=== PATIENT | female | born 1990 | race Hispanic/Latino ===

== ENCOUNTER 2017-07-12 23:57 | Emergency (ER) | payer OTHER ==
[2017-07-13] MEDS ORDERED: HALOPERIDOL LACT 5 MG/ML INJ ONE (01:10)
[2017-07-13 01:14] LABS: Absolute Lymphocytes (CBC) 1.8 K/uL (0.7-4.9); Absolute Monocytes 0.7 K/uL (0.1-1.3); Absolute Neutrophil 6.5 K/uL (1.8-8.0); Basophils % 0.6 % (0-1.3); Eosinophils % 5.4 % (0-4.4); Hematocrit 38.5 % (36.0-45.0); Lymphocytes % 18.4 % (15.3-44.8); MCH 27.4 pg (27.0-35.0); MCV 83.6 fL (80-100); MPV 8.2 fL (7.6-11.3); Monocytes % 7.3 % (3.3-12.3); RBC Red Blood Cell Count 4.61 M/uL (3.86-4.86)
[2017-07-13 01:19] LABS: Bicarbonate 20 mEq/L (21-31); Glucose Level 110 mg/dL (65-120); Lipase 129 U/L (22-51); Potassium 3.6 mEq/L (3.6-5.0); Sodium Level 135 mEq/L (135-145)
[2017-07-13 01:25] LABS: ALT/SGPT 44 IU/L (10-60); AST/SGOT 41 IU/L (10-42); Albumin 3.9 g/dL (3.2-5.5); BUN Blood Urea Nitrogen 11 mg/dL (6-20); Bilirubin Direct 0.1 mg/dL (0-0.2); Bilirubin Total < 0.2 mg/dL (0.3-1.2); Glomerular Filtration Rate > 90 mL/min (=/>90); Protein, Total 7.8 g/dL (6.0-8.3)
[2017-07-13] MEDS ORDERED: NA CHLORIDE 0.9% 1,000 ML ONE (01:51)
[2017-07-13 02:17] LABS: Alkaline Phosphatase 83 IU/L (42-121)
--- NOTE | 2017-07-13 02:50 | EDPHYS ---
Physician Documentation [facility] Name: Kylie Appiah Age: 26 yrs Sex: Female : 1990 Arrival Date: 07/12/2017 Time: 23:59 Bed 27 Private MD: ED Physician Cheikh Olson HPI: 07/13 02:47 This 26 yrs old Female presents to ER via Ambulatory with complaints of gs Abdominal Pain. 02:47 The patient presents with abdominal pain that is diffuse. Onset: The symptoms/episode gs began/occurred 2 week(s) ago. The symptoms do not radiate. Associated signs and symptoms: Pertinent positives: blood in stools, Pertinent negatives: nausea and vomiting, fever. The symptoms are described as crampy. Modifying factors: The symptoms are alleviated by nothing, the symptoms are aggravated by nothing. Severity of pain: At its worst the pain was moderate in the emergency department the pain is unchanged. The patient has experienced similar episodes in the past, chronically. The patient has been recently seen by a physician: with similar presenting complaints, dr charito garcia . 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 - Social history:: Smoking status: Patient/guardian denies using tobacco. ROS: 02:47 All other systems are negative. gs Exam: 02:47 Head/Face: Normocephalic, atraumatic. Eyes: Pupils equal round and reactive to light, gs extra-ocular motions intact. Lids and lashes normal. Conjunctiva and sclera are non-icteric and not injected. Cornea within normal limits. Periorbital areas with no swelling, redness, or edema. ENT: Nares patent. No nasal discharge, no septal abnormalities noted. Tympanic membranes are normal and external auditory canals are clear. Oropharynx with no redness, swelling, or masses, exudates, or evidence of obstruction, uvula midline. Mucous membranes moist. Neck: Trachea midline, no thyromegaly or masses palpated, and no cervical lymphadenopathy. Supple, full range of motion without nuchal rigidity, or vertebral point tenderness. No Meningismus. Chest/axilla: Normal chest wall appearance and motion. Nontender with no deformity. No lesions are appreciated. Cardiovascular: Regular rate and rhythm with a normal S1 and S2. No gallops, murmurs, or rubs. Normal PMI, no JVD. No pulse deficits. Respiratory: Lungs have equal breath sounds bilaterally, clear to auscultation and percussion. No rales, rhonchi or wheezes noted. No increased work of breathing, no retractions or nasal flaring. Back: No spinal tenderness. No costovertebral tenderness. Full range of motion. Skin: Warm, dry with normal turgor. Normal color with no rashes, no lesions, and no evidence of cellulitis. MS/ Extremity: Pulses equal, no cyanosis. Neurovascular intact. Full, normal range of motion. Neuro: Awake and alert, GCS 15, oriented to person, place, time, and situation. Cranial nerves II-XII grossly intact. Motor strength 5/5 in all extremities. Sensory grossly intact. Cerebellar exam normal. Normal gait. 02:47 Constitutional: The patient appears alert, awake. 02:47 Abdomen/GI: Inspection: abdomen appears normal, Palpation: mild abdominal tenderness, in all quadrants, rebound tenderness, is not appreciated. Vital Signs: 00:14 BP 111 / 72; Pulse 80; Resp 16; Temp 98.2; Pulse Ox 100% on R/A; Weight 73.03 kg (R); ak1 Height 5 ft. (152.40 cm) (R); Pain 9/10; 01:38 BP 102 / 70; Pulse 84; Resp 18; Pulse Ox 100% ; kb1 02:30 BP 96 / 63; Pulse 87; Resp 18; Pulse Ox 98% ; kb1 00:14 Body Mass Index 31.44 (73.03 kg, 152.40 cm) ak1 MDM: 00:32 Patient medically screened. 02:47 Differential diagnosis: GI Bleed, Irritable bowel syndrome, pancreatitis. Data reviewed: vital signs, nurses notes. Response to treatment: the patient's symptoms have markedly improved after treatment, and as a result, I will discharge patient. 02:50 ED course: ab exam non surgical at discharge. 07/13 00:35 Order name: Basic Metabolic Panel 07/13 00:35 Order name: CBC with Diff 07/13 00:35 Order name: Hepatic Function 07/13 00:35 Order name: Lipase 07/13 01:18 Order name: CBC with Automated Diff; Complete Time: 01:28 EDKS 07/13 01:20 Order name: Basic Metabolic Panel [facility] 07/13 00:35 Order name: IV Saline Lock; Complete Time: 00:58 07/13 00:35 Order name: Labs collected and sent; Complete Time: 00:58 07/13 01:20 Order name: Lipase [facility] 07/13 01:23 Order name: Urine Dipstick--Ancillary (enter results) [facility] 07/13 01:23 Order name: Urine --Ancillary (enter results) [facility] 07/13 01:26 Order name: Liver (Hepatic) Function [facility] 07/13 00:35 Order name: Urine Dipstick-Ancillary (obtain specimen); Complete Time: 00:58 Administered Medications: 00:58 Drug: HALdol 2 mg Route: IVP; Site: right antecubital; kb1 01:36 Follow up: Response: Pain is unchanged, physician notified kb1 01:35 Drug: NS 0.9% 1000 ml Route: IV; Rate: 1 bolus; Site: right antecubital; kb1 02:31 Follow up: IV Status: Completed infusion kb1 Disposition: 07/13/17 02:50 Discharged to Home. Impression: Ulcerative (chronic) pancolitis. - Condition is Stable. - Discharge Instructions: Ulcerative Colitis. - Medication Reconciliation Form, Thank You Letter, Antibiotic Education, Prescription Opioid Use form. - Follow up: Enrico Cosme MD; When: 2 - 3 days; Reason: Re-evaluation by your physician. Signatures: Dispatcher [facility] Hailey Barraza RN RN ak1 Cheikh Olson MD MD Destiny Francois, RN RN kb1
--- NOTE | 2017-07-13 02:50 | ER ---
Nurse's Notes [facility] Name: Kylie Appiah Age: 26 yrs Sex: Female : 1990 Arrival Date: 07/12/2017 Time: 23:59 Bed 27 Private MD: Diagnosis: Ulcerative (chronic) pancolitis Presentation: 07/13 00:15 Presenting complaint: Patient states: she was seen on 06/28/17 for blood in stools and ak1 left prior to admission. pt stated she is back due to blood in stools, colitis and abd pain for admission. Transition of care: patient was not received from another setting of care. Onset of symptoms is unknown. Care prior to arrival: None. 00:15 Method Of Arrival: Ambulatory ak1 00:15 Acuity: YESSICA 3 ak1 Triage Assessment: 00:15 General: Appears in no apparent distress. Behavior is calm, cooperative. ak1 00:15 Pain: Complains of pain in abdomen. 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 - Social history:: Smoking status: Patient/guardian denies using tobacco. Screenin:17 Abuse screen: Denies threats or abuse. Denies injuries from another. Nutritional ak1 screening: No deficits noted. Tuberculosis screening: No symptoms or risk factors identified. Fall Risk None identified. Assessment: 00:42 General: Appears uncomfortable, Behavior is calm, cooperative. Pain: Complains of pain kb1 in abdomen. Neuro: Level of Consciousness is awake, alert, obeys commands, Oriented to person, place, time, situation. Cardiovascular: Patient's skin is warm and dry. Respiratory: Respiratory effort is even, unlabored, Respiratory pattern is regular, symmetrical. GI: Bowel sounds present X 4 quads. Abd is soft Abdomen is tender to palpation in abdomen diffusely Reports bloody stool, bright red blood that fills the toilet. : No signs and/or symptoms were reported regarding the genitourinary system. 01:36 Reassessment: Patient and/or family updated on plan of care and expected duration. Pain kb1 level reassessed. Patient is alert, oriented x 3, equal unlabored respirations, skin warm/dry/pink. Pt resting with eyes closed upon nurses entrance into room, still complains of pain. 02:29 Reassessment: Patient appears in no apparent distress at this time. Pt sleeping. kb1 Vital Signs: 00:14 BP 111 / 72; Pulse 80; Resp 16; Temp 98.2; Pulse Ox 100% on R/A; Weight 73.03 kg (R); ak1 Height 5 ft. (152.40 cm) (R); Pain 9/10; 01:38 BP 102 / 70; Pulse 84; Resp 18; Pulse Ox 100% ; kb1 02:30 BP 96 / 63; Pulse 87; Resp 18; Pulse Ox 98% ; kb1 00:14 Body Mass Index 31.44 (73.03 kg, 152.40 cm) ak1 ED Course: 07/12 23:59 Patient arrived in ED. al2 18 00:15 Syeda Curran, RN is Primary Nurse. bb 00:15 Arm band placed on Patient placed in an exam room, on a stretcher, on pulse oximetry, ak1 Patient notified of wait time. 00:17 Triage completed. ak1 00:17 Patient has correct armband on for positive identification. Bed in low position. Call ak1 light in reach. Side rails up X 1. Adult w/ patient. Pulse ox on. NIBP on. 00:19 Cheikh Olson MD is Attending Physician. gs 00:27 Destiny Francois, RN is Primary Nurse. kb1 00:42 No provider procedures requiring assistance completed. Inserted saline lock: 20 gauge kb1 in right antecubital area, using aseptic technique. Blood collected. 02:49 Enrico Cosme MD is Referral Physician. gs 02:59 IV discontinued, intact, bleeding controlled, No redness/swelling at site. Pressure kb1 dressing applied. Administered Medications: 00:58 Drug: HALdol 2 mg Route: IVP; Site: right antecubital; kb1 01:36 Follow up: Response: Pain is unchanged, physician notified kb1 01:35 Drug: NS 0.9% 1000 ml Route: IV; Rate: 1 bolus; Site: right antecubital; kb1 02:31 Follow up: IV Status: Completed infusion kb1 Outcome: 02:50 Discharge ordered by . 02:59 Discharged to home ambulatory, with family. kb1 02:59 Condition: good 02:59 Discharge instructions given to patient, Instructed on discharge instructions, follow up and referral plans. Demonstrated understanding of instructions, follow-up care. 03:00 Patient left the ED. kb1 Signatures: Syeda Curran RN RN bb Hailey Barraza RN RN ak1 Cheikh Olson MD MD gs Love, [place] alDestiny Orourke RN RN kb1 Corrections: (The following items were deleted from the chart) 00:57 00:42 GI: Bowel sounds present X 4 quads. Abd is soft Abdomen is tender to palpation in kb1 abdomen diffusely kb1
[2017-07-13 03:10] VITALS: TEMP 98.2
[2017-07-13 03:11] VITALS: BP 96/63; O2SAT 98
[2017-07-13 03:59] LABS: Urine Blood NEGATIVE (NEG); Urine Glucose NEGATIVE (NEG); Urine Protein TRACE (NEG); Urine Specific Gravity >1.030 (1.005-1.030); Urine pH 5.5 (5.0-7.0)
== END 2017-07-13 03:00 | disposition home or self-care (01) ==
LOC: ER 23:57
DX: K51.00 Ulcerative (chronic) pancolitis without complications (principal); Z88.0 Allergy status to penicillin; Z88.2 Allergy status to sulfonamides; Z88.3 Allergy status to other anti-infective agents; Z88.5 Allergy status to narcotic agent; Z88.6 Allergy status to analgesic agent
CPT/HCPCS: 36415; 80048; 80076; 81003; 81025; 83690; 85025; 96361; 96374; 99284; J1630; J7030

== ENCOUNTER 2017-07-16 09:34 | Day surgery (SDC) | payer OTHER ==
[2017-07-16 09:51] LABS: Specific Gravity > 1.030 (1.005-1.030)
[2017-07-16] MEDS ORDERED: Ringers Lactate 1,000 ML IV ONE (10:10)
[2017-07-16] MEDS ORDERED: PROPOFOL 200 MG/20 ML VIAL IV ONE (11:29)
[2017-07-16] MEDS ORDERED: LIDOCAINE 1% MPF 5 ML VIAL ONE (11:29)
[2017-07-16 12:42] VITALS: TEMP 96.5; O2SAT 100
[2017-07-16 12:44] VITALS: BP 97/65
--- NOTE | 2017-07-22 08:37 | ENDO RPT ---
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 ESTIMATED BLOOD LOSS: Minimal CONSENT: The patient understands the risks and benefits of the procedure and understands that these risks include, but are not limited to: sedation, allergic reaction, infection, perforation and/or bleeding. Alternative means of evaluation and treatment include, among others: physical exam, x-rays, and/or surgical intervention. The patient elects to proceed with this endoscopic procedure. DESCRIPTION OF PROCEDURE: During intra-op preparation period all mechanical medical equipment was checked for proper function. Hand hygiene and appropriate measures for infection prevention was taken. Procedure, possible complications, alternatives including, but not limited to possibility of bleeding, perforation, tear, infection, sepsis, need for surgery, need for blood transfusion, were explained to the patient. After the risks, benefits and alternatives of the procedure were thoroughly explained, Informed consent was verified, confirmed and timeout was successfully executed by the treatment team. The patient was placed in the left lateral position. A digital rectal exam was performed and revealed no abnormalities of the rectum. After appropriate level of anesthesia, the scope was passed. The EC-[id number] ([id number]) endoscope was introduced through the anus and advanced to the terminal ileum which was intubated for a short distance. The quality of the prep was fair. The instrument was then slowly withdrawn as the colon was fully examined. Scope withdrawal time was 10 minutes. COLON FINDINGS: Abnormal mucosa was found throughout the entire examined colon. The mucosa was congested, edematous, erythematous, nodular, friable and had granularity, loss of vascularity and pseudopolyps. Multiple biopsies were performed using cold forceps with 4 mm polyp in the ascending and 8 mm polyp in the descending colon biopsied. Internal hemorrhoids were found. Retroflexed views revealed medium hemorrhoids. The scope was then completely withdrawn from the patient and the procedure terminated. ADVERSE EVENTS: There were no complications. IMPRESSIONS: 1. Abnormal mucosa throughout the entire examined colon (left > right); The mucosa was congested, edematous, erythematous, nodular, friable and had granularity, loss of vascularity and numerous inflammatory 2-9 mm pseudopolyps (no polyps in the rectosigmoid colon); multiple biopsies were performed using cold forceps with 4 mm polyp in the ascending and 8 mm polyp in the descending colon biopsied 2. Internal hemorrhoids 3. Intubation to terminal ileum RECOMMENDATIONS: 1. await biopsy results 2. avoid NSAIDS RECALL: Return in 1 year(s) for Colonoscopy. Enrico Cosme Dr eSigned: Enrico Cosme Dr 07/16/2017 12:13 PM cc: Rimma Vicente CPT CODES: ICD9 CODES: 569.89 Other specified disorders of intestines PATIENT NAME: Kylie Appiah MR#: [id number]
== END 2017-07-16 12:35 | disposition home or self-care (01) ==
LOC: OR 09:34
PROVIDERS: ATTEND Internal Medicine Gastroenterology
DX: Z88.2 Allergy status to sulfonamides; Z88.8 Allergy status to other drugs, medicaments and biological substances; K63.5 Polyp of colon; G47.00 Insomnia, unspecified; D64.9 Anemia, unspecified; Z87.11 Personal history of peptic ulcer disease; Z88.0 Allergy status to penicillin; Z88.3 Allergy status to other anti-infective agents; R63.4 Abnormal weight loss; K51.90 Ulcerative colitis, unspecified, without complications
CPT/HCPCS: 81025; 88305

== ENCOUNTER 2017-09-23 19:45 | Inpatient (IN) | payer OTHER, SELFPAY ==
[2017-09-23 22:16] LABS: Urine Blood NEGATIVE (NEG); Urine Glucose NEGATIVE (NEG); Urine Protein 1+ (NEG)
[2017-09-23 22:37] LABS: Absolute Lymphocytes (CBC) 1.8 K/uL (0.7-4.9); Absolute Neutrophil 7.8 K/uL (1.8-8.0); Basophils % 0.4 % (0-1.3); Eosinophils % 4.3 % (0-4.4); Hematocrit 41.6 % (36.0-45.0); Lymphocytes % 16.3 % (15.3-44.8); MCH 27.7 pg (27.0-35.0); MCV 83.6 fL (80-100); MPV 8.5 fL (7.6-11.3); Monocytes % 8.9 % (3.3-12.3); RBC Red Blood Cell Count 4.97 M/uL (3.86-4.86)
[2017-09-23] MEDS ORDERED: NA CHLORIDE 0.9% 2,000 ML ONE (22:49)
[2017-09-23] MEDS ORDERED: PROMETHAZINE 25 MG/ML VIAL ONE (22:53)
[2017-09-23 23:35] LABS: Bicarbonate 24 mEq/L (21-31); Glucose Level 102 mg/dL (65-120); Lipase 29 U/L (22-51); Potassium 3.5 mEq/L (3.6-5.0); Sodium Level 134 mEq/L (135-145)
[2017-09-23 23:42] LABS: ALT/SGPT 41 IU/L (10-60); AST/SGOT 29 IU/L (10-42); Albumin 3.5 g/dL (3.2-5.5); Alkaline Phosphatase 75 IU/L (42-121); BUN Blood Urea Nitrogen 8 mg/dL (6-20); Bilirubin Direct 0.1 mg/dL (0-0.2); Bilirubin Total 0.3 mg/dL (0.3-1.2); Protein, Total 7.4 g/dL (6.0-8.3)
[2017-09-24] MEDS ORDERED: METHYLPREDNISOLONE 125 MG INJ ONE (01:02)
[2017-09-24] MEDS ORDERED: CEFOXITIN SODIUM 2 GM/VIAL ONE (01:10)
[2017-09-24] MEDS ORDERED: NA CHLORIDE 0.9% 50 ML IV ONE (01:11)
--- NOTE | 2017-09-24 01:34 | EDPHYS ---
Physician Documentation [facility] Name: Kylie Appiah Age: 27 yrs Sex: Female : 1990 Arrival Date: 09/23/2017 Time: 19:48 Bed 7 Private MD: ED Physician Alvaro Doyle HPI: 09/23 22:02 This 27 yrs old Female presents to ER via Ambulatory with complaints of COLON jr8 PROBLEMS. 22:02 The patient presents with abdominal pain in the lower abdomen. Onset: The jr8 symptoms/episode began/occurred gradually. The symptoms do not radiate. Associated signs and symptoms: Pertinent positives: nausea, vomiting, and diarrhea, fever. The symptoms are described as crampy, sharp. Modifying factors: The symptoms are alleviated by nothing, the symptoms are aggravated by food. Severity of pain: At its worst the pain was moderate in the emergency department the pain is unchanged. The patient has not recently seen a physician. Patient with history of UC. Stated that her last transfusion was back in July. Has had no insurance and no treatment since then. While being treated was doing very well. Now since off treatment has had increased lower abdominal pain, cramping, n/v. Bloody diarrhea. 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 - Social history:: Smoking status: Patient/guardian denies using tobacco. - Ebola Screening: : No symptoms or risks identified at this time. ROS: 22:02 Eyes: Negative for injury, pain, redness, and discharge, ENT: Negative for injury, jr8 pain, and discharge, Neck: Negative for injury, pain, and swelling, Cardiovascular: Negative for chest pain, palpitations, and edema, Respiratory: Negative for shortness of breath, cough, wheezing, and pleuritic chest pain, Back: Negative for injury and pain, MS/Extremity: Negative for injury and deformity, Skin: Negative for injury, rash, and discoloration, Neuro: Negative for headache, weakness, numbness, tingling, and seizure. 22:02 Abdomen/GI: Positive for abdominal pain, nausea, vomiting, and diarrhea, abdominal cramps, rectal bleeding, Negative for hematemesis, black/tarry stool. Exam: 22:02 Eyes: Pupils equal round and reactive to light, extra-ocular motions intact. Lids and jr8 lashes normal. Conjunctiva and sclera are non-icteric and not injected. Cornea within normal limits. Periorbital areas with no swelling, redness, or edema. ENT: Nares patent. No nasal discharge, no septal abnormalities noted. Tympanic membranes are normal and external auditory canals are clear. Oropharynx with no redness, swelling, or masses, exudates, or evidence of obstruction, uvula midline. Mucous membranes moist. Neck: Trachea midline, no thyromegaly or masses palpated, and no cervical lymphadenopathy. Supple, full range of motion without nuchal rigidity, or vertebral point tenderness. No Meningismus. Cardiovascular: Regular rate and rhythm with a normal S1 and S2. No gallops, murmurs, or rubs. Normal PMI, no JVD. No pulse deficits. Respiratory: Lungs have equal breath sounds bilaterally, clear to auscultation and percussion. No rales, rhonchi or wheezes noted. No increased work of breathing, no retractions or nasal flaring. Back: No spinal tenderness. No costovertebral tenderness. Full range of motion. Skin: Warm, dry with normal turgor. Normal color with no rashes, no lesions, and no evidence of cellulitis. MS/ Extremity: Pulses equal, no cyanosis. Neurovascular intact. Full, normal range of motion. Neuro: Awake and alert, GCS 15, oriented to person, place, time, and situation. Cranial nerves II-XII grossly intact. Motor strength 5/5 in all extremities. Sensory grossly intact. Cerebellar exam normal. Normal gait. 22:02 Abdomen/GI: Inspection: abdomen appears normal, Bowel sounds: diminished, in all quadrants, Palpation: soft, in all quadrants, mild abdominal tenderness, in the right upper quadrant and left upper quadrant, moderate abdominal tenderness, in the suprapubic area, right lower quadrant and left lower quadrant, voluntary guarding, is not appreciated, involuntary guarding, is not appreciated, no appreciated organomegaly, Indicators: McBurney's point is not tender, Pettit's sign is negative, Rovsing's sign is negative, Liver: no appreciated palpable abnormalities, tenderness, is not appreciated. Vital Signs: 20:11 BP 112 / 68; Pulse 107; Resp 18; Temp 100.4(O); Pulse Ox 100% on R/A; Weight 77.11 kg; lp1 Height 5 ft. 0 in. (152.40 cm); Pain 9/10; 21:38 BP 115 / 79; Pulse 102; Resp 20; Temp 99.6(O); Pulse Ox 99% on R/A; ak1 23:00 BP 111 / 77; Pulse 100; Resp 22; Temp 99.6; Pulse Ox 99% on R/A; ak1 23:58 BP 114 / 74; Pulse 87; Resp 20; Temp 99.1; Pulse Ox 99% on R/A; ak1 09/24 01:04 BP 102 / 71; Pulse 91; Resp 18; Temp 98.6; Pulse Ox 99% on R/A; tl2 01:54 BP 97 / 64; Pulse 88; Resp 18; Temp 98.7; Pulse Ox 99% on R/A; Pain 4/10; ak1 09/23 20:11 Body Mass Index 33.20 (77.11 kg, 152.40 cm) lp1 MDM: 09/23 21:40 Patient medically screened. jr8 09/24 01:08 Data reviewed: vital signs, nurses notes, lab test result(s), radiologic studies, CT jr8 scan. Data interpreted: Pulse oximetry: on room air is 99 %. Interpretation: normal. Counseling: I had a detailed discussion with the patient and/or guardian regarding: the historical points, exam findings, and any diagnostic results supporting the discharge/admit diagnosis, lab results, radiology results, the need for further work-up and treatment in the hospital. 01:31 Physician consultation: Alon Preston MD was called at 01:32, was contacted at 01:32, jr8 regarding admission, to the medical/surgical unit. consult, patient's condition, and will see patient in ED. 09/23 21:40 Order name: Basic Metabolic Panel; Complete Time: 23:42 [facility] 09/23 21:40 Order name: CBC with Diff; Complete Time: 22:57 [facility] 09/23 21:40 Order name: Creatinine for Radiology; Complete Time: 23:42 [facility] 09/23 21:40 Order name: Hepatic Function; Complete Time: 23:42 [facility] 09/23 21:40 Order name: Lipase; Complete Time: 23:42 [facility] 09/23 22:07 Order name: Urine Dipstick--Ancillary (enter results); Complete Time: 22:19 09/23 22:07 Order name: Urine --Ancillary (enter results); Complete Time: 22:19 09/23 23:42 Order name: CT Abd/Pelvis - W/Contrast [facility] 09/23 21:40 Order name: Urine Test (obtain specimen); Complete Time: 21:49 [facility] 09/23 21:40 Order name: IV Saline Lock; Complete Time: 22:39 [facility] 09/23 21:40 Order name: Labs collected and sent; Complete Time: 22:39 09/23 21:40 Order name: Urine Dipstick-Ancillary (obtain specimen); Complete Time: 21:49 [facility] 09/23 22:49 Order name: Labs - recollect needed; Complete Time: 23:37 09/24 01:36 Order name: CONS Physician Consult EDMS Administered Medications: 09/23 22:57 Drug: Promethazine 12.5 mg Route: IVP; Site: right forearm; ak1 23:24 Follow up: Response: No adverse reaction ak1 22:58 Drug: NS 0.9% 1000 ml Route: IV; Rate: 1000 ml; Site: right forearm; ak1 23:59 Follow up: IV Status: Completed infusion ak1 09/24 01:04 Drug: SOLU-Medrol 125 mg Route: IVP; Site: right forearm; tl2 01:12 Follow up: Response: No adverse reaction ak1 01:16 Drug: NS 0.9% 1000 ml Route: IV; Rate: 125 ml/hr; Site: right forearm; ak1 01:39 Follow up: IV Status: Infusion continued upon admission ak1 01:55 Follow up: IV Status: Infusion continued upon admission ak1 01:16 Drug: Mefoxin 1 grams Route: IVPB; Infused Over: 30 mins; Site: right forearm; ak1 01:39 Follow up: IV Status: Completed infusion ak1 01:54 Follow up: IV Status: Completed infusion ak1 01:48 Drug: fentaNYL (PF) 50 mcg Route: IVP; Site: right antecubital; tl2 01:55 Follow up: Response: No adverse reaction ak1 Disposition: 06:52 Co-signature as Attending Physician, Alvaro Doyle MD. rn Disposition: 09/24/17 01:33 Hospitalization ordered by Alon Preston for Inpatient Admission. Preliminary diagnosis are Ulcerative colitis, Abdominal and pelvic pain, Fever, unspecified. - Bed requested for Telemetry/MedSurg (Inpatient). - Status is Inpatient Admission. ak1 - Condition is Fair. - Problem is new. - Symptoms have improved. UTI on Admission? No Signatures: Dispatcher [employer] EDKS Estefany Steele RN RN Alvaro Arzola MD MD rn Pena, Laura, RN RN [email or web address] Galdino Castle PA PA jr8 Hailey Barraza RN RN ak1 Coty Doss RN RN 2 Brenna Stark Corrections: (The following items were deleted from the chart) 01:47 01:33 Hospitalization Ordered by Alon Preston MD for Inpatient Admission. Preliminary dw diagnosis is Ulcerative colitis; Abdominal and pelvic pain; Fever, unspecified. Bed requested for Telemetry/MedSurg (Inpatient). Status is Inpatient Admission. Condition is Fair. Problem is new. Symptoms have improved. UTI on Admission? No. jr8 01:59 01:47 09/24/2017 01:33 Hospitalization Ordered by Alon Preston MD for Inpatient eb Admission. Preliminary diagnosis is Ulcerative colitis; Abdominal and pelvic pain; Fever, unspecified. Bed requested for Telemetry/MedSurg (Inpatient). Status is Inpatient Admission. Condition is Fair. Problem is new. Symptoms have improved. UTI on Admission? No. dw 02:49 01:59 09/24/2017 01:33 Hospitalization Ordered by Alon Preston MD for Inpatient ak1 Admission. Preliminary diagnosis is Ulcerative colitis; Abdominal and pelvic pain; Fever, unspecified. Bed requested for Telemetry/MedSurg (Inpatient). Status is Inpatient Admission. Condition is Fair. Problem is new. Symptoms have improved. UTI on Admission? No. eb
--- NOTE | 2017-09-24 01:34 | ER ---
Nurse's Notes [facility] Name: Kylie Appiah Age: 27 yrs Sex: Female : 1990 Arrival Date: 09/23/2017 Time: 19:48 Bed 7 Private MD: Diagnosis: Ulcerative colitis;Abdominal and pelvic pain;Fever, unspecified Presentation: 09/23 20:09 Presenting complaint: Patient states: "I'm having a flare up"; I have ulcerative lp1 colitis; Has been going on for months, pain severe today; pain to rectum. Transition of care: patient was not received from another setting of care. Onset of symptoms was September 23, 2017. Risk Assessment: Do you want to hurt yourself or someone else? Patient reports no desire to harm self or others. Initial Sepsis Screen: Does the patient meet any 2 criteria? No. Patient's initial sepsis screen is negative. Does the patient have a suspected source of infection? No. Patient's initial sepsis screen is negative. Care prior to arrival: None. 20:09 Method Of Arrival: Ambulatory lp1 20:09 Acuity: YESSICA 3 lp1 Triage Assessment: 20:12 General: Appears uncomfortable, Behavior is agitated. Pain: Complains of pain in lp1 abdomen Quality of pain is described as sharp, stabbing. Respiratory: Respiratory effort is even, unlabored. Derm: Skin is pink, warm \\T\\ dry. 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 - Social history:: Smoking status: Patient/guardian denies using tobacco. - Ebola Screening: : No symptoms or risks identified at this time. Screenin:12 Abuse screen: Denies threats or abuse. Denies injuries from another. Nutritional lp1 screening: No deficits noted. Tuberculosis screening: No symptoms or risk factors identified. Fall Risk None identified. Assessment: 21:00 Reassessment: pt eating food from vending machine. ak1 21:38 General: Appears in no apparent distress. uncomfortable, Behavior is anxious. Pain: ak1 Complains of pain in abdomen, rectum. Neuro: Level of Consciousness is awake, alert, obeys commands, Oriented to person, place, time, situation, Food Stand Manager are equal bilaterally Moves all extremities. Gait is steady, Speech is normal, Facial symmetry appears normal. Cardiovascular: No deficits noted. Respiratory: No deficits noted. GI: Abdomen is round Bowel sounds present X 4 quads. Abd is soft and non tender X 4 quads. : No signs and/or symptoms were reported regarding the genitourinary system. EENT: No signs and/or symptoms were reported regarding the EENT system. Derm: No signs and/or symptoms reported regarding the dermatologic system. Musculoskeletal: No signs and/or symptoms reported regarding the musculoskeletal system. Injury Description:. 22:58 Reassessment: Patient appears in no apparent distress at this time. No changes from ak1 previously documented assessment. pt refused to keep pulse ox or blood pressure cuff on. 22:59 Reassessment: inside lab contacted for recollect on lab work. ak1 23:46 Reassessment: Patient appears in no apparent distress at this time. No changes from ak1 previously documented assessment. 09/24 01:17 Reassessment: Patient appears in no apparent distress at this time. Patient is alert, ak1 oriented x 3, equal unlabored respirations, skin warm/dry/pink. Patient states symptoms have not improved. 02:38 Reassessment: report called to Radha Carrillo RN. ak1 Vital Signs: 09/23 20:11 BP 112 / 68; Pulse 107; Resp 18; Temp 100.4(O); Pulse Ox 100% on R/A; Weight 77.11 kg; lp1 Height 5 ft. 0 in. (152.40 cm); Pain 9/10; 21:38 BP 115 / 79; Pulse 102; Resp 20; Temp 99.6(O); Pulse Ox 99% on R/A; ak1 23:00 BP 111 / 77; Pulse 100; Resp 22; Temp 99.6; Pulse Ox 99% on R/A; ak1 23:58 BP 114 / 74; Pulse 87; Resp 20; Temp 99.1; Pulse Ox 99% on R/A; ak1 09/24 01:04 BP 102 / 71; Pulse 91; Resp 18; Temp 98.6; Pulse Ox 99% on R/A; tl2 01:54 BP 97 / 64; Pulse 88; Resp 18; Temp 98.7; Pulse Ox 99% on R/A; Pain 4/10; ak1 09/23 20:11 Body Mass Index 33.20 (77.11 kg, 152.40 cm) lp1 ED Course: 09/23 19:48 Patient arrived in ED. al2 20:09 Triage completed. lp1 20:10 Arm band placed on left wrist. lp1 21:33 Hailey Barraza, SAUL is Primary Nurse. ak1 21:40 Galdino Castle PA is PHCP. jr8 21:40 Alvaro Doyle MD is Attending Physician. jr8 21:40 Patient has correct armband on for positive identification. Placed in gown. Bed in low ak1 position. Call light in reach. Side rails up X 1. Pulse ox on. NIBP on. 22:27 Inserted saline lock: 22 gauge in right forearm, using aseptic technique. Blood pt collected. 22:27 Dressings: IV inserted using aseptic technique, blood drawn and sent to lab by wi. pt Insertion site without redness or swelling. Flushed with 10ml NS without difficulty. 23:[address] via wheelchair. sj 23:58 No provider procedures requiring assistance completed. ak1 09/24 00:19 CT Abd/Pelvis - W/Contrast In Process Unspecified. EDMS 01:32 Alon Preston MD is Hospitalizing Provider. jr8 01:54 Patient admitted, IV remains in place. ak1 Administered Medications: 09/23 22:57 Drug: Promethazine 12.5 mg Route: IVP; Site: right forearm; ak1 23:24 Follow up: Response: No adverse reaction ak1 22:58 Drug: NS 0.9% 1000 ml Route: IV; Rate: 1000 ml; Site: right forearm; ak1 23:59 Follow up: IV Status: Completed infusion ak1 09/24 01:04 Drug: SOLU-Medrol 125 mg Route: IVP; Site: right forearm; tl2 01:12 Follow up: Response: No adverse reaction ak1 01:16 Drug: NS 0.9% 1000 ml Route: IV; Rate: 125 ml/hr; Site: right forearm; ak1 01:39 Follow up: IV Status: Infusion continued upon admission ak1 01:55 Follow up: IV Status: Infusion continued upon admission ak1 01:16 Drug: Mefoxin 1 grams Route: IVPB; Infused Over: 30 mins; Site: right forearm; ak1 01:39 Follow up: IV Status: Completed infusion ak1 01:54 Follow up: IV Status: Completed infusion ak1 01:48 Drug: fentaNYL (PF) 50 mcg Route: IVP; Site: right antecubital; tl2 01:55 Follow up: Response: No adverse reaction ak1 Outcome: 01:33 Decision to Hospitalize by Provider. jr8 01:53 Admitted to Med/surg ak1 01:53 Condition: stable 01:53 Instructed on the need for admit. 02:49 Patient left the ED. ak1 Signatures: Dispatcher [employer] EDMS Kate Manzo RN RN pt Jones, Susan sj Pena, Laura, RN RN lp1 Galdino Castle PA PA jr8 Hailey Barraza RN RN ak1 Coty Doss RN RN tl2 Cheyenne Bright Corrections: (The following items were deleted from the chart) 09/23 21:29 21:29 BP 177 / 96; Pulse 54bpm; Resp 13bpm; Pulse Ox 98% RA; Pain 0/10; tl2 tl2
[2017-09-24] MEDS ORDERED: FENTANYL CITR 100 MCG/2 ML ONE (01:45)
--- NOTE | 2017-09-24 01:58 | P.HP ---
Certification for Inpatient Patient admitted to: Inpatient With expected LOS: >2 Midnights Practitioner: I am a practitioner with admitting privileges, knowledge of patient current condition, hospital course, and medical plan of care. Services: Services provided to patient in accordance with Admission requirements found in Title 42 Section 412.3 of the Code of Federal Regulations Patient History Date of Service: 09/24/17 Reason for admission: UC flare up History of Present Illness: Ms Appiah is a 27 years old woman with history of UC, who was in [facility] treatment, but quit 2 month ago due to insurance problems, came to ED complaining of severe abdominal pain associated with nausea, vomiting and diarrhea. Her symptoms started about 3 weeks ago, but got worse over the time. She denied fever or chills. No bloody vomiting or stools. In ED she looks on distress due to severe abdominal pain. Lab work remarkable for leukocytosis 11.1K, CT abd pelvis shows signs of diffuse colitis consistent with acute UC flare up. Allergies Penicillins Allergy (Severe, Verified 09/26/15 08:05) Anaphylaxis ciprofloxacin Allergy (Verified 09/26/15 08:05) Unknown clindamycin Allergy (Verified 09/26/15 22:25) Hives gabapentin Allergy (Verified 09/26/15 08:05) Hives ibuprofen Allergy (Verified 09/26/15 22:25) Rectal bleeding ketorolac Allergy (Verified 05/31/16 07:42) Unknown naproxen Allergy (Verified 09/26/15 22:25) "unsure" sulfamethoxazole [From Bactrim] Allergy (Verified 09/26/15 22:25) Hives tramadol Allergy (Verified 09/26/15 22:25) "unsure" trimethoprim [From Bactrim] Allergy (Verified 09/26/15 22:25) worsenin of UC metronidazole [From Flagyl] Adverse Reaction (Intermediate, Verified 09/26/15 08 :05) Nausea/Vomiting F Allergy (Uncoded 11/23/15 15:13) Unknown Flag Allergy (Uncoded 05/30/16 11:04) Unknown n Allergy (Uncoded 07/13/17 03:47) Unknown naproxen- Allergy (Uncoded 11/23/15 15:13) Unknown naproxen-a Allergy (Uncoded 12/11/16 02:37) Unknown naproxen-abdome Allergy (Uncoded 05/30/16 11:04) Unknown naproxen-abdomen Allergy (Uncoded 10/12/15 13:07) Unknown No Known Allergi Allergy (Uncoded 11/12/16 19:56) Unknown NS Allergy (Uncoded 11/23/15 15:13) Unknown NSAIDS Allergy (Uncoded 07/13/17 03:47) Unknown NSAIDS (Non Allergy (Uncoded 12/11/16 02:37) Unknown NSAIDS (Non-Stero Allergy (Uncoded 05/30/16 11:04) Unknown NSAIDS (Non-Steroi Allergy (Uncoded 10/12/15 13:07) Unknown sulfam Allergy (Uncoded 07/13/17 03:47) Unknown sulfametho Allergy (Uncoded 12/11/16 02:37) Unknown sulfamethoxazo Allergy (Uncoded 05/30/16 11:04) Unknown Home Medications: Azathioprine [Imuran*] 1 tab PO DAILY 07/16/17 - Past Medical/Surgical History Diabetic: No -: Ulcerative Colitis, 2010 -: Anemia -: Asthma -: Anxiety -: Insomnia -: History of C-diff. colitis -: panic attacks -: Depression -: Pseudo-seizures -: Colonoscopy -: Right eye correction surgery -: 09/26/15- zoie garcia Psychosocial/ Personal History: Single, G0, She does not go to school. - Family History Father -: Hypertension Mother -: Hypertension - Social History Smoking Status: Never smoker Alcohol use: No CD- Drugs: No Caffeine use: Yes Place of Residence: Home Review of Systems 10-point ROS is otherwise unremarkable Physical Examination - Physical Exam General: Alert, Moderate distress (due to abdominal pain) HEENT: Atraumatic, PERRLA, Mucous membr. moist/pink, EOMI, Sclerae nonicteric Neck: Supple, 2+ carotid pulse no bruit, No LAD, Without JVD or thyroid abnormality Respiratory: Clear to auscultation bilaterally, Normal air movement Cardiovascular: Regular rate/rhythm, Normal S1 S2 Gastrointestinal: Normal bowel sounds, Tenderness (diffuse) Musculoskeletal: No tenderness Integumentary: No rashes Neurological: Normal speech, Normal strength at 5/5 x4 extr, Normal tone, Normal affect Lymphatics: No axilla or inguinal lymphadenopathy - Studies Laboratory Data (last 24 hrs) 09/23/17 23:10: Creatinine 0.66 09/23/17 23:10: Sodium 134 L, Potassium 3.5 L, BUN 8, Creatinine 0.66, Glucose 102, Total Bilirubin 0.3, AST 29, ALT 41, Alkaline Phosphatase 75, Lipase 29 09/23/17 22:24: WBC 11.1 H, Hgb 13.8, Hct 41.6, Plt Count 369 Assessment and Plan - Problems (Diagnosis) (1) Colitis Current Visit: No Status: Acute (2) Nausea & vomiting Current Visit: No Status: Acute Qualifiers: Vomiting type: unspecified Vomiting Intractability: non-intractable Qualified Code(s): R11.2 - Nausea with vomiting, unspecified (3) Ulcerative colitis Current Visit: No Status: Acute Qualifiers: Ulcerative colitis location: ulcerative pancolitis Digestive disease complication type: without complication Qualified Code(s): K51.00 - Ulcerative (chronic) pancolitis without complications - Plan The patient will be admitted due to acute UC flare up. Will continue with IV fluids, IV steroids, empiric IV antibiotics, symptomatic medication. Check C.Diff. Consult Dr Cosme for evaluation and recommendations. She has a UTI as well. - Advance Directives Does patient have a Living Will: No Does patient have a Durable POA for Healthcare: No - Code Status/Comfort Care Code Status Assessed: Yes Code Status: Full Code
[2017-09-24] MEDS ORDERED: ACETAMINOPHEN 500 MG TAB PO PRN (03:05)
[2017-09-24] MEDS ORDERED: ONDANSETRON 4 MG/2 ML VIAL IV PRN (03:05)
[2017-09-24 03:14] VITALS: O2SAT 99
[2017-09-24 03:27] VITALS: BMI 31.1
[2017-09-24] MEDS: NA CHLORIDE 0.9% 1,000 ML IV SCH ×3 (04:39→19:05)
[2017-09-24 04:46] LABS: BUN Blood Urea Nitrogen 7 mg/dL (6-20); Bicarbonate 20 mEq/L (21-31); Glucose Level 142 mg/dL (65-120); Sodium Level 136 mEq/L (135-145)
[2017-09-24 04:47] LABS: Absolute Monocytes 0.3 K/uL (0.1-1.3); Absolute Neutrophil 8.5 K/uL (1.8-8.0); Basophils % 0.6 % (0-1.3); Eosinophils % 2.3 % (0-4.4); Hematocrit 36.3 % (36.0-45.0); Lymphocytes % 9.7 % (15.3-44.8); MCH 27.8 pg (27.0-35.0); MCV 83.6 fL (80-100); MPV 8.5 fL (7.6-11.3); Monocytes % 3.4 % (3.3-12.3); RBC Red Blood Cell Count 4.34 M/uL (3.86-4.86)
[2017-09-24] MEDS: METHYLPREDNISOLONE 125 MG INJ IV SCH ×4 (05:30→23:49)
[2017-09-24] MEDS: FENTANYL CITR 100 MCG/2 ML IV PRN ×4 (06:47→23:49)
--- NOTE | 2017-09-24 07:32 | RAD REPORT ---
EXAM DESCRIPTION: CT - Abdomen Pelvis W Contrast - 09/24/2017 6:13 am CLINICAL HISTORY: Abdominal pain/epigastric pain COMPARISON: June 2017 TECHNIQUE: Computed axial tomography of the abdomen pelvis was obtained. 100 cc Isovue-300 was admin istered intravenously. Oral contrast was not requested which limits evaluation of bowel. A preliminary report was generated by [employer] and reviewed prior to this dictation All CT scans are performed using dose optimization technique as appropriate and may include automated exposure control or mA/KV adjustment according to patient size. FINDINGS: The liver has a diminished attenuation consistent with fatty infiltration Spleen, pancreas, adrenal and kidneys appear unremarkable. There is no evidence of diverticulitis. The appendix is normal. Moderate diffuse thickening of the entire colonic wall is seen. IMPRESSION: Moderate pancolitis
[2017-09-24] MEDS ORDERED: CEFTAZIDIME 2 GM/VIAL IV SCH (09:00)
[2017-09-24] MEDS: NA CHLORIDE 0.9% IV SCH ×2 (11:58→17:05)
[2017-09-24] MEDS: CEFTAZIDIME IV SCH ×2 (11:58→17:05)
[2017-09-24] MEDS ORDERED: Morphine 2 MG/2 ML SYR IV ONE (15:01)
--- NOTE | 2017-09-24 17:25 | PN ---
Date of Progress Note: 09/24/2017 Subjective: The patient is seen and examined. Chart reviewed and case discussed with RN. The patie nt states that her pain medication is not working and wants something stronger. The patient has been out of her Humira. Review of Systems: Negative except as above. Medications: Reviewed. Physical Examination: Vital Signs: Temperature 97, heart rate 72, blood pressure 96/53, respirations 18, O2 of 97% on room air. General: Awake, alert, and oriented x3. Some mild distress. Obese female. BMI 31.2. CV: S1 and S2. No murmurs. Regular rate and rhythm. Peripheral pulses present. Respiratory: Clear to auscultation bilaterally. No wheezing. No stridor. No use of accessory musc les. Gastrointestinal: Abdomen is soft. Tenderness to palpation. No rebound or guarding. Hypoacti ve bowel sounds. Extremities: No clubbing, cyanosis, or edema. Neurologic: Nonfocal. Laboratory Data: Sodium 136, potassium 4, chloride 110, CO2 of 20, BUN 7, creatinine 0.64, glucose 1 42, and calcium 8.5. WBC 10, H and H 12.3 and 36.3, platelets 291, and neutrophils 84%. Stool occult blood pending. C. diff assay pending. Abdomen and pelvis CT personally reviewed, shows moderate greenfield colitis. Assessment And Plan: A 27-year-old female with: 1.Acute exacerbation of ulcerative colitis. We will continue with IV antibiotics. Keep n.p.o. Dr. Cosme with GI has been consulted. CT scan shows pancolitis. 2.Intractable nausea and vomiting. We will continue with antiemetics, likely related to above. 3.Diarrhea, rule out Clostridium difficile. We will follow up with clostridium difficile results. 4.Obesity with BMI 31.2. 5.Gastrointestinal and deep venous thrombosis prophylaxis with PPI and SCDs. No chemical anticoagul ation in anticipation of possible procedure. SA/MODL Voice ID: [id number] Report ID: [id number]
[2017-09-25] MEDS: CEFTAZIDIME IV SCH ×4 (00:24→23:46)
[2017-09-25] MEDS: NA CHLORIDE 0.9% IV SCH ×4 (00:24→23:46)
[2017-09-25] MEDS: NA CHLORIDE 0.9% 1,000 ML IV SCH ×3 (04:28→14:29)
[2017-09-25] MEDS: METHYLPREDNISOLONE 125 MG INJ IV SCH (05:32)
[2017-09-25] MEDS: FENTANYL CITR 100 MCG/2 ML IV PRN ×5 (05:33→23:45)
[2017-09-25 06:24] LABS: Hematocrit 32.7 % (36.0-45.0); MCH 27.5 pg (27.0-35.0); MCV 83.7 fL (80-100); MPV 8.5 fL (7.6-11.3); RBC Red Blood Cell Count 3.91 M/uL (3.86-4.86)
[2017-09-25 06:49] LABS: BUN Blood Urea Nitrogen 8 mg/dL (6-20); Bicarbonate 21 mEq/L (21-31); Glucose Level 176 mg/dL (65-120); Potassium 3.9 mEq/L (3.6-5.0); Sodium Level 137 mEq/L (135-145)
--- NOTE | 2017-09-25 11:59 | PN ---
Date of Progress Note: 09/25/2017 Subjective: The patient is seen and examined. Chart reviewed and case discussed with RN and Dr. Johnny helm. The patient states her pain is better. The patient has been started on a clear liquid diet. N ausea is improved. Review of Systems: Negative except as above. Medications: Reviewed. Physical Examination: Vital Signs: Temperature 97, heart rate 65, blood pressure 87/40, respirations 18, O2 98% on room ai r. General: Awake, alert, oriented x3. Ill-appearing, in mild distress. Obese, BMI 31.2. CV: S1, S2. No murmurs. Regular rate and rhythm. Peripheral pulses present. Respiratory: Moving air well bilaterally. No wheezing. Gastrointestinal: Abdomen is soft. Mild tenderness to palpation. No rebound or guarding. Bowel so unds are positive. Nondistended. Extremities: No clubbing, cyanosis, edema. Neurologic: Nonfocal. Laboratory Data: WBC 9.5, H and H 10.8 and 32.7, platelets 313. Sodium 137, potassium 3.9, chloride 111, CO2 21, BUN 8, creatinine 0.5, glucose 176, calcium 8.5. Stool occult blood positive. C. diff pending. Assessment And Plan: A 27-year-old female with: 1.Acute exacerbation of ulcerative colitis. We will continue antibiotics and steroids. We will sta rt on clear liquid diet. Dr. Cosme is on the case. 2.Intractable nausea and vomiting, resolving. Continue antiemetics. We will start on clear liquids . 3.Diarrhea, rule out Clostridium difficile, currently pending. 4.Obesity, BMI 31.2. 5.Gastrointestinal and deep venous thrombosis prophylaxis. PPI and SCDs. Ambulate. Plan: Follow up with GI. Followup with C. diff results. May need a colonoscopy in the near future. /KARRIE Voice ID: [id number] Report ID: [id number]
--- NOTE | 2017-09-25 13:18 | P.PN ---
Subjective Date of Service: 09/25/17 Chief Complaint: UC flare up Subjective: Improving (Reports feeling 30% better since admission. Sitting up in bed.) Review of Systems 10-point ROS is otherwise unremarkable Gastrointestinal: Nausea, Abdominal Pain Physical Examination - Vital Signs Temperature: 97.2 F Blood Pressure: 109/64 Pulse: 84 Respirations: 18 Pulse Ox (%): 99 - Physical Exam General: Alert, In no apparent distress, Oriented x3, Cooperative HEENT: Atraumatic, Normocephalic, PERRLA, EOMI Neck: Supple Respiratory: Normal air movement Cardiovascular: Normal pulses Gastrointestinal: No rebound, No guarding, Tenderness (mild) Neurological: Normal speech, Normal strength at 5/5 x4 extr Assessment And Plan - Current Problems (Diagnosis) (1) Nausea & vomiting Onset Date: 09/24/17 Current Visit: Yes Status: Acute Qualifiers: Vomiting type: unspecified Vomiting Intractability: non-intractable Qualified Code(s): R11.2 - Nausea with vomiting, unspecified (2) Ulcerative colitis Onset Date: 09/24/17 Current Visit: Yes Status: Acute Qualifiers: Ulcerative colitis location: ulcerative pancolitis Digestive disease complication type: without complication Qualified Code(s): K51.00 - Ulcerative (chronic) pancolitis without complications (3) Abdominal pain Onset Date: 09/27/15 Current Visit: No Status: Acute (4) Anemia Current Visit: No Status: Acute - Plan REC: 1) await stool studies 2) continue IVFs, IV antibiotics 3) continue prn pain medications / anti-emetics 4) consider Imuran on discharge & try patient assistance for biologic therapy
[2017-09-25] MEDS: METHYLPREDNISOLONE 40 MG INJ IV SCH ×2 (17:24→23:46)
[2017-09-26] MEDS: NA CHLORIDE 0.9% 1,000 ML IV SCH ×3 (03:05→17:32)
[2017-09-26] MEDS: FENTANYL CITR 100 MCG/2 ML IV PRN ×5 (04:01→21:00)
[2017-09-26 07:22] LABS: Hematocrit 33.2 % (36.0-45.0); MCH 27.7 pg (27.0-35.0); MCV 84.5 fL (80-100); MPV 8.5 fL (7.6-11.3); RBC Red Blood Cell Count 3.93 M/uL (3.86-4.86)
[2017-09-26] MEDS: METHYLPREDNISOLONE 40 MG INJ IV SCH (08:08)
[2017-09-26 08:22] LABS: BUN Blood Urea Nitrogen 7 mg/dL (6-20); Bicarbonate 21 mEq/L (21-31); Glucose Level 139 mg/dL (65-120); Magnesium 2.2 mg/dL (1.8-2.5); Potassium 3.7 mEq/L (3.6-5.0); Sodium Level 136 mEq/L (135-145)
[2017-09-26] MEDS ORDERED: METHYLPREDNISOLONE 40 MG INJ IV SCH (09:00)
[2017-09-26] MEDS ORDERED: POTASSIUM 25 MEQ EFFERV TAB PO ONE (09:00)
[2017-09-26] MEDS: NA CHLORIDE 0.9% IV SCH ×2 (09:04→17:32)
[2017-09-26] MEDS: CEFTAZIDIME IV SCH ×2 (09:04→17:32)
--- NOTE | 2017-09-26 12:30 | PN ---
Date of Progress Note: 09/26/2017 Subjective: The patient is seen and examined. Chart reviewed and case discussed with RN. The patie nt states that her pain is still significant and was able to tolerate clear liquids. Still having so me nausea, but no vomiting. Diarrhea is improving. Review of Systems: Negative except as above. Medications: Reviewed. Physical Examination: Vital Signs: Temperature 97.4, heart rate 55, blood pressure 118/74, respirations 18, O2 99% on room air. General: Awake, alert, oriented, in some mild distress. Ill-appearing female, obese, BMI 31. CV: S1, S2. No murmurs. Regular rate and rhythm. Peripheral pulses present. Respiratory: Clear to auscultation bilaterally. No wheezing. Gastrointestinal: Abdomen is soft. Mild tenderness to palpation. No guarding or rigidity. No palp able masses. Bowel sounds are positive. Extremities: No clubbing, cyanosis, or edema. Neurologic: Nonfocal. Laboratory Data: Sodium 136, potassium 3.7, chloride 108, CO2 21, BUN 7, creatinine 0.49, glucose 13 9, calcium 8.5, magnesium 2.2. WBC 10.4, H and H 10.9 and 33.2, platelets 347. Stool occult blood i s positive. C. diff is negative. Stool occult blood is positive. Assessment And Plan: A 27-year-old female with: 1.Acute exacerbation of ulcerative colitis. Continue antibiotics. We will wean steroids. Advance diet to GI soft. Appreciate Dr. Cosme's input. 2.Intractable nausea and vomiting, resolving. Continue antiemetics. 3.Diarrhea, clostridium difficile ruled out. 4.Obesity, BMI 31.2. Counseled. 5.Gastrointestinal and deep venous thrombosis prophylaxis with PPI and SCDs. No chemical anticoagul ation due to GI bleed. Plan: Will likely discharge in the next 24-48 hours once the patient's condition improves and cleare d by GI. Spoke with social workers, who will provide the patient with forms for medication assistanc e for biologics. Likely discharge on Imuran. /KARRIE Voice ID: [id number] Report ID: [id number]
--- NOTE | 2017-09-26 15:38 | P.PN ---
Subjective Date of Service: 09/26/17 Chief Complaint: UC flare up Subjective: Improving (Slowly improving. Positive stool today. No N/V. Tolerating GI soft diet.) Review of Systems 10-point ROS is otherwise unremarkable Gastrointestinal: Abdominal Pain (slowly improving) Physical Examination - Vital Signs Temperature: 98.1 F Blood Pressure: 126/96 Pulse: 59 Respirations: 18 Pulse Ox (%): 98 Assessment And Plan - Current Problems (Diagnosis) (1) Nausea & vomiting Onset Date: 09/24/17 Current Visit: Yes Status: Acute Qualifiers: Vomiting type: unspecified Vomiting Intractability: non-intractable Qualified Code(s): R11.2 - Nausea with vomiting, unspecified (2) Ulcerative colitis Onset Date: 09/24/17 Current Visit: Yes Status: Acute Qualifiers: Ulcerative colitis location: ulcerative pancolitis Digestive disease complication type: without complication Qualified Code(s): K51.00 - Ulcerative (chronic) pancolitis without complications (3) Abdominal pain Onset Date: 09/27/15 Current Visit: No Status: Acute (4) Anemia Current Visit: No Status: Acute - Plan REC: 1) await stool studies 2) continue IVFs, IV antibiotics, IV steroids (IV drip) 3) continue prn pain medications / anti-emetics 4) consider Imuran on discharge & try patient assistance for biologic therapy
[2017-09-26] MEDS ORDERED: METHYLPRED NA SUC 40 MG in NA CHLORIDE 0.9% 200 ML IV SCH (18:00)
[2017-09-27] MEDS: FENTANYL CITR 100 MCG/2 ML IV PRN ×3 (01:46→10:32)
[2017-09-27] MEDS: CEFTAZIDIME IV SCH ×2 (01:46→09:22)
[2017-09-27] MEDS: NA CHLORIDE 0.9% IV SCH ×2 (01:46→09:22)
[2017-09-27] MEDS: NA CHLORIDE 0.9% 1,000 ML IV SCH ×2 (03:00→05:17)
[2017-09-27] MEDS ORDERED: Morphine 2 MG/2 ML SYR IV ONE (05:14)
[2017-09-27 06:05] LABS: Hematocrit 33.7 % (36.0-45.0); MCH 28.1 pg (27.0-35.0); MCV 83.6 fL (80-100); MPV 8.2 fL (7.6-11.3); RBC Red Blood Cell Count 4.03 M/uL (3.86-4.86)
[2017-09-27 06:19] LABS: BUN Blood Urea Nitrogen 10 mg/dL (6-20); Bicarbonate 23 mEq/L (21-31); Glucose Level 179 mg/dL (65-120); Potassium 3.6 mEq/L (3.6-5.0); Sodium Level 136 mEq/L (135-145)
[2017-09-27] MEDS ORDERED: POTASSIUM CL SA 10 MEQ TAB PO ONE (09:00)
[2017-09-27 11:25] VITALS: BP 107/64; TEMP 97.8
--- NOTE | 2017-09-27 23:40 | DS ---
Discharge Diagnoses: 1.Acute exacerbation of ulcerative colitis. 2.Intractable nausea, vomiting, resolved. 3.Diarrhea resolved, C difficile was negative. Consult: Enrico Cosme MD. Procedure: CAT scan of the abdomen and pelvis on September 23 showed moderate pancolitis. History Of Present Illness: Please refer to Dr. Chavis's admission note on September 24. Hospital Course: Initially, the patient presented to the emergency room with severe abdominal pain w ith nausea, vomiting, diarrhea. In the ER, she was evaluated. She was found to have some leukocytos is. CAT scan showed pancolitis. Then, she was started on IV antibiotic with medication, she was kept n.p.o., and she was placed on steroid. GI consult was requested after CAT scan showed p ancolitis and given patient's history of ulcerative colitis. Dr. Cosme evaluated the patient and st ana on an IV steroid. He recommended yesterday discharge the patient today on Imuran and to follow with him in the office. The patient's stool occult blood was positive, so she will need to have col onoscopy as outpatient. When she follows up with Dr. Cosme, she will also benefit from biologic, bu t she will need apparently merchandising assistant and that was discussed with the social worker delinquency prevention. Hopefully, Dr. Haseeb stevenson can arrange for that through his office. Today, pain subsided. The patient tolerated diet wel l. She will be discharged in stable condition. We will switch her antibiotic to Cipro for the next 10 days 500 mg twice a day. She will also be on Imuran 50 mg once a day and that too titrated up by Dr. Cosme in the office to at least 100 mg. She will also be given Medrol Tyrel. Given steroid dose over the next week. She will receive Toradol p.r.n. for pain. Discharge Condition: Stable. Discharge Diet: Regular. Discharge Followup: With Dr. Cosme. She will call on Friday to make an appointment. Followup: Follow up with primary care physician in 1 week. Discharge Medications: She will be on Toradol 10 mg every 4 hours as needed for pain, Cipro 500 mg t wice a day for 10 days, Imuran 50 mg only once a day to titrate up to [address] Cosme in the [facility], and Medrol Tyrel take as directed. Discharge Physical Examination: Vital signs: Blood pressure today is 107/64, respiratory rate 18, p ulse 57, temperature 97.8. General: She is fully alert and oriented x3. Does not look in any distress. HEENT: Atraumatic, normocephalic. PERRLA. Oral mucosa is moist. Neck: Supple. No JVD. Chest: Clear to auscultation. Good air entry. Heart: Regular rate and rhythm. S1, S2 normal. No gallop or murmur. Abdomen: Soft. Minimal tend erness. No guarding or rebound. Positive bowel sounds. Extremities: No clubbing, cyanosis, or edema. No calf tenderness. Neurologic: Grossly intact. HEIKE/KARRIE Voice ID: [id number] Report ID: [id number]
--- NOTE | 2017-12-15 08:34 | CON ---
Date of Consultation: 09/24/2017 Reason For Consultation: Ulcerative colitis flare. History Of Present Illness: The patient is a 27-year-old female with history of colitis. T he patient states that she was in her usual state of health until she quit her medicines approximatel y 1-2 months ago due to insurance problems and could not get medications cover since that time. She has had increasing right and left lower quadrant pain associated with nausea, vomiting, diarrhea over the past 2-3 weeks, worse over the past week especially and decided to come to the hospital for furt her evaluation and care. She denies any hematochezia at this time, but she does have severe abdomina l pain with nausea and vomiting, change in bowel habits and diarrhea. CT of the abdomen shows signs of diffuse colitis consistent with flare of acute colitis. Past Medical History: Significant for ulcerative colitis diagnosed in 2010, anemia, asthma, anxiety, insomnia, history of C. diff colitis, panic attacks, depression, pseudoseizures, right eye correctio n surgery, and laparoscopic cholecystectomy. Home Medications: Imuran and Humira. The patient ran out of Humira 3 months ago. The patient is of f her parents insurance being 27 years of age. Allergies: TO PENICILLIN, CIPRO, CLINDAMYCIN, GABAPENTIN, IBUPROFEN, KETOROLAC, NAPROXEN, SULFA, ULT BINDU, AND FLAGYL. Social History: No tobacco. No alcohol. Family History: Father with hypertension. Mother with hypertension. Review of Systems: Basically right and left lower quadrant pain, nausea, vomiting, change in bowel habits, and diarrhea, but no melena, hematochezia, hematemesis, coffee-ground emesis, hemoptysis, hematuria, dysuria, poly dipsia, lower extremity edema, muscle aches, joint aches, backaches, fevers, chills, night sweats, ch est pain, shortness of breath, seizure, syncope. She does have some decreased mood and anxiety. Physical Examination: Vital Signs: She is 5 feet 2 inches, 170 pounds, BMI 31.2 kg/m2. She has a temperature of 97 degree s Fahrenheit, pulse 72, respirations 18, blood pressure 96/53, and O2 saturation 97%. HEENT: Normoc ephalic, atraumatic. Anicteric. Pupils equal, round, and reactive to light. Extraocular movements intact. Oropharynx is clear with intact muscles. Neck: Supple. No masses. Respirations: Clear to auscultation bilaterally. Cardiac: Regular rate and rhythm. No gallops or rubs. Abdomen: Positive bowel sounds. Soft. Nondistended. Some mild right and left lower quadrant tende rness. No peritoneal or Pettit sign. No hepatosplenomegaly. Mildly obese. Extremities: No clubbing, cyanosis, or edema. 2+ pulses. Neuro: Alert and oriented x3. Grossly nonfocal. 5/5 motor strength. Sensation is intact to light touch. Data: The patient has a white count of 10.1, hemoglobin of 12.1, hematocrit 36, MCV of 84, platelet count 291, polys 84%, lymphocytes 10%, monocytes 3%, eosinophils 2%. Sodium 136, potassium 4.0, chlo ride 110, bicarb 20, BUN 7, creatinine of 0.6, glucose 143, calcium 8.5, total bilirubin 0.3, direct bilirubin 0.1, AST 29, ALT of 41, alkaline phosphatase 75, total protein 7.4, albumin 3.5, lipase 29. UA, trace leukocyte esterase, 1+ protein, negative test. CT abdomen and pelvis revealed moderate pancolitis. Impression: Ulcerative flare, off medications for the past 2-[address] scan revealed a mode rate pancolitis, white count of 10. The patient has been off Humira and Imuran due to insurance prob lems. Patient turned 27, off parents insurance now. Right and left lower quadrant pain, change in b owel habits, diarrhea, and nausea. Recommendations: 1.Check stool studies, with especially history of clostridium difficile in the past. 2.5-ASA agent, increase dose. 3.IV fluids and IV antibiotics. 4.IV steroids currently, continue that. 5.Patient assisted to bridge for biologic therapy to get her back on Humira. 6.Restarting Imuran on discharge as well. DARA/KARRIE Voice ID: [id number] Report ID: [id number]
== END 2017-09-27 13:29 | disposition home or self-care (01) | DRG 387 ==
LOC: ER 19:45 → ERHOLD 09-24 01:41 → 4TH 09-24 02:19
PROVIDERS: ADMIT Internal Medicine; ATTEND Internal Medicine
DX: K51.00 Ulcerative (chronic) pancolitis without complications (principal); E66.9 Obesity, unspecified; Z68.31 Body mass index [BMI] 31.0-31.9, adult; D64.9 Anemia, unspecified; Z88.0 Allergy status to penicillin; Z88.2 Allergy status to sulfonamides
CPT/HCPCS: 36415; 74177; 80048; 80076; 81003; 81025; 82274; 83690; 83735; 85025; 85027; 87493; 99285; J0694; J0713; J2270; J2550; J2920; J2930; J3010; J7030; Q9967

== ENCOUNTER 2017-12-21 16:18 | Emergency (ER) | payer OTHER, SELFPAY ==
[2017-12-21 17:30] LABS: Absolute Lymphocytes (CBC) 1.3 K/uL (0.7-4.9); Absolute Monocytes 0.6 K/uL (0.1-1.3); Absolute Neutrophil 6.4 K/uL (1.8-8.0); Basophils % 0.5 % (0-1.3); Eosinophils % 4.1 % (0-4.4); Hematocrit 34.3 % (36.0-45.0); Lymphocytes % 14.4 % (15.3-44.8); MCH 26.2 pg (27.0-35.0); MCV 78.4 fL (80-100); Monocytes % 7.1 % (3.3-12.3); RBC Red Blood Cell Count 4.38 M/uL (3.86-4.86)
[2017-12-21 18:13] LABS: BUN Blood Urea Nitrogen 12 mg/dL (7-18); Bicarbonate 23 mmol/L (21-32); Glucose Level 111 mg/dL (74-106); HCG, Quantitative 5963 mIU/mL (1-3); Potassium 3.5 mmol/L (3.5-5.1); Sodium Level 138 mmol/L (136-145)
[2017-12-21 18:24] LABS: Urine Blood NEGATIVE (NEG); Urine Glucose NEGATIVE (NEG); Urine Protein NEGATIVE (NEG); Urine Specific Gravity >1.030 (1.005-1.030); Urine pH 6.5 (5.0-7.0)
[2017-12-21 19:13] LABS: Urine Amorphous Sediment 2+ /HPF (NONE SEEN); Urine Bacteria 20-50 /HPF (<20); Urine Culture Reflex Order REFLEXED; Urine RBC <5 /HPF (NONE SEEN)
--- NOTE | 2017-12-21 19:31 | ER ---
Nurse's Notes [facility] Name: Kylie Appiah Age: 27 yrs Sex: Female : 1990 Arrival Date: 12/21/2017 Time: 16:21 Bed 7 Private MD: JACKLYN SALAZAR Diagnosis: Diarrhea, unspecified;Urinary tract infection, site not specified Presentation: 12/21 16:37 Presenting complaint: Patient states: " I have been having diarrhea and rectal bleeding ph for 2 days. I have ulcerative colitis and I think I'm having a flair up. I am 6 weeks and anemic so I want to get checked out." Pt reports bright red rectal bleeding, denies abdominal pain or vaginal bleeding, also denies dizziness, SOB, N/V. Transition of care: patient was not received from another setting of care. Onset of symptoms was December 21, 2017. Risk Assessment: Do you want to hurt yourself or someone else? Patient reports no desire to harm self or others. Initial Sepsis Screen: Does the patient meet any 2 criteria? Yes Does the patient have a suspected source of infection? No. Patient's initial sepsis screen is negative. Care prior to arrival: None. 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 - Ebola Screening: : Patient denies travel to an Ebola-affected area in the 21 days before illness onset. - Social history:: Smoking status: Patient/guardian denies using tobacco. Screenin:53 Abuse screen: Denies threats or abuse. Nutritional screening: No deficits noted. tw2 Tuberculosis screening: No symptoms or risk factors identified. Fall Risk None identified. Assessment: 16:52 General: Appears in no apparent distress. Behavior is calm, cooperative, appropriate tw2 for age. Pain: Denies pain. Neuro: Level of Consciousness is awake, alert, obeys commands, Oriented to person, place, time, situation. Cardiovascular: Denies chest pain, shortness of breath, Heart tones S1 S2 Capillary refill < 3 seconds Patient's skin is warm and dry. Respiratory: Airway is patent Respiratory effort is even, unlabored, Respiratory pattern is regular, symmetrical, Breath sounds are clear bilaterally. GI: Abdomen is round non-distended, Bowel sounds present X 4 quads. Reports rectal bleeding. : No signs and/or symptoms were reported regarding the genitourinary system. EENT: No signs and/or symptoms were reported regarding the EENT system. Derm: No signs and/or symptoms reported regarding the dermatologic system. Skin is intact, is healthy with good turgor, Skin temperature is warm. Musculoskeletal: Range of motion: intact in all extremities. 18:00 Reassessment: Patient appears in no apparent distress at this time. No changes from tw2 previously documented assessment. Patient and/or family updated on plan of care and expected duration. Pain level reassessed. Patient is alert, oriented x 3, equal unlabored respirations, skin warm/dry/pink. 19:01 Reassessment: Patient appears in no apparent distress at this time. No changes from tw2 previously documented assessment. Patient and/or family updated on plan of care and expected duration. Pain level reassessed. Patient is alert, oriented x 3, equal unlabored respirations, skin warm/dry/pink. 19:37 Reassessment: Patient appears in no apparent distress at this time. No changes from ak1 previously documented assessment. Patient and/or family updated on plan of care and expected duration. Pain level reassessed. Patient is alert, oriented x 3, equal unlabored respirations, skin warm/dry/pink. 20:07 Reassessment: upon discharge with ERP at bedside pt developed new pain to lower abd. pt ak1 sent for US. awaiting results and new orders from ERP.. 20:22 Reassessment: pt sent home with specimen cup, gloves and lab labels for stool sample. ak1 pt instructed on how to collect sample, pt instructed on where to deliver sample once collected. Vital Signs: 16:40 BP 112 / 67; Pulse 84; Resp 18; Temp 97.8; Pulse Ox 99% on R/A; Weight 75.75 kg; Height ph 5 ft. 0 in. (152.40 cm); 18:00 BP 98 / 62; Pulse 76; Resp 17; Pulse Ox 100% on R/A; tw2 19:00 BP 103 / 62; Pulse 81; Resp 16; Pulse Ox 100% on R/A; tw2 16:40 Body Mass Index 32.61 (75.75 kg, 152.40 cm) ph ED Course: 16:21 Patient arrived in ED. sb2 16:22 JACKLYN SALAZAR is Private Physician. sb2 16:39 Triage completed. ph 16:40 Arm band placed on Patient placed in waiting room, Patient notified of wait time. ph 16:52 Barbara Alexander RN is Primary Nurse. tw2 16:53 Ramiro Tipton NP is PHCP. pm1 16:53 Maximo Roe MD is Attending Physician. pm1 16:53 Bed in low position. Call light in reach. Pulse ox on. NIBP on. tw2 17:32 Missed attempt(s): 22 gauge in right antecubital area. Bleeding controlled, band aid tw2 applied, catheter tip intact. Inserted saline lock: 22 gauge in left antecubital area, using aseptic technique. Blood collected. 19:03 Report given to SAUL Guevara. tw2 19:36 No provider procedures requiring assistance completed. ak1 20:12 Transvaginal Ob In Process Unspecified. EDMS 20:22 IV discontinued, intact, bleeding controlled, No redness/swelling at site. Pressure ak1 dressing applied. Administered Medications: 20:10 Drug: Rocephin 1 grams Route: IV; Rate: calculated rate; Site: left antecubital; ak1 20:20 Follow up: IV Status: Completed infusion ak1 Outcome: 19:31 Discharge ordered by . pm1 20:21 Discharged to home ambulatory, with family. ak1 20:21 Condition: good 20:21 Discharge instructions given to patient, family, Instructed on discharge instructions, follow up and referral plans. medication usage, Demonstrated understanding of instructions, follow-up care, medications, Prescriptions given X 1. 20:23 Patient left the ED. ak1 Signatures: Dispatcher [employer] EDMS Hailey Barraza RN RN ak1 Amarilis Del Castillo RN RN Ramiro Bartlett, YUE NEEDLE STRAIGHTENER pm1 Barbara Alexander RN RN tw2 Luba Raymundo 2
--- NOTE | 2017-12-21 19:31 | EDPHYS ---
Physician Documentation [facility] Name: Kylie Appiah Age: 27 yrs Sex: Female : 1990 Arrival Date: 12/21/2017 Time: 16:21 Bed 7 Private MD: JACKLYN SALAZAR ED Physician Maximo Roe HPI: 12/21 17:30 This 27 yrs old Female presents to ER via Ambulatory with complaints of Rectal pm1 Bleeding. 17:30 The patient presents to the emergency department with Diarrhea with bleeding. Onset: pm1 The symptoms/episode began/occurred 2 day(s) ago. Context: the patient has a known history of hemorrhoids, ulcerative colitis . Modifying factors: The symptoms are alleviated by nothing, The symptoms are aggravated by bowel movement. Associate signs and symptoms: Pertinent positives: diarrhea, Pertinent negatives: abdominal pain, constipation, dysuria, fever, vomiting. The patient has experienced similar episodes in the past, multiple times, today's symptoms are similar, to previous ulcerative colitis flare ups. Patient with a history of internal and external hemorrhoids and ulcerative colitis. Patient is 6 weeks and is concerned because she has a history of anemia. Patient denies any pain. No abdominal, flank or back pain, or vaginal bleeding. 17:30 Patient reports blood in diarrhea is bright red. 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 - Ebola Screening: : Patient denies travel to an Ebola-affected area in the 21 days before illness onset. - Social history:: Smoking status: Patient/guardian denies using tobacco. ROS: 17:30 Constitutional: Negative for fever, chills, and weight loss, Eyes: Negative for injury, pm1 pain, redness, and discharge, ENT: Negative for injury, pain, and discharge, Neck: Negative for injury, pain, and swelling, Cardiovascular: Negative for chest pain, palpitations, and edema, Respiratory: Negative for shortness of breath, cough, wheezing, and pleuritic chest pain. 17:30 Back: Negative for injury and pain, : Negative for injury, bleeding, discharge, and swelling, MS/Extremity: Negative for injury and deformity, Skin: Negative for injury, rash, and discoloration, Neuro: Negative for headache, weakness, numbness, tingling, and seizure. 17:30 Abdomen/GI: Positive for diarrhea, rectal bleeding, Negative for rectal pain. Exam: 19:20 Constitutional: This is a well developed, well nourished patient who is awake, alert, pm1 and in no acute distress. Head/Face: Normocephalic, atraumatic. Eyes: Pupils equal round and reactive to light, extra-ocular motions intact. Lids and lashes normal. Conjunctiva and sclera are non-icteric and not injected. Cornea within normal limits. Periorbital areas with no swelling, redness, or edema. ENT: Nares patent. No nasal discharge, no septal abnormalities noted. Tympanic membranes are normal and external auditory canals are clear. Oropharynx with no redness, swelling, or masses, exudates, or evidence of obstruction, uvula midline. Mucous membranes moist. Neck: Trachea midline, no thyromegaly or masses palpated, and no cervical lymphadenopathy. Supple, full range of motion without nuchal rigidity, or vertebral point tenderness. No Meningismus. Chest/axilla: Normal chest wall appearance and motion. Nontender with no deformity. No lesions are appreciated. Cardiovascular: Regular rate and rhythm with a normal S1 and S2. No gallops, murmurs, or rubs. Normal PMI, no JVD. No pulse deficits. Respiratory: Lungs have equal breath sounds bilaterally, clear to auscultation and percussion. No rales, rhonchi or wheezes noted. No increased work of breathing, no retractions or nasal flaring. 19:20 Back: No spinal tenderness. No costovertebral tenderness. Full range of motion. Skin: Warm, dry with normal turgor. Normal color with no rashes, no lesions, and no evidence of cellulitis. MS/ Extremity: Pulses equal, no cyanosis. Neurovascular intact. Full, normal range of motion. 19:20 Abdomen/GI: Inspection: abdomen appears normal, Bowel sounds: normal, Palpation: abdomen is soft and non-tender, in all quadrants, Rectal exam: the exam is deferred, because of patient request, Patient does not want examination. Patient reports history of internal and external hemorrhoids. Patient with colonscopy with Dr. Cosme about 5 months ago. 19:20 Neuro: Orientation: is normal, Motor: is normal, moves all fours. Vital Signs: 16:40 BP 112 / 67; Pulse 84; Resp 18; Temp 97.8; Pulse Ox 99% on R/A; Weight 75.75 kg; Height ph 5 ft. 0 in. (152.40 cm); 18:00 BP 98 / 62; Pulse 76; Resp 17; Pulse Ox 100% on R/A; tw2 19:00 BP 103 / 62; Pulse 81; Resp 16; Pulse Ox 100% on R/A; tw2 16:40 Body Mass Index 32.61 (75.75 kg, 152.40 cm) ph MDM: 16:59 Patient medically screened. pm1 19:25 Data reviewed: vital signs. Data interpreted: Pulse oximetry: on room air is 100 %. pm1 Interpretation: normal. Counseling: I had a detailed discussion with the patient and/or guardian regarding: the historical points, exam findings, and any diagnostic results supporting the discharge/admit diagnosis, lab results, the need for outpatient follow up, a head bellhop captain, an OB/Gyne specialist, to return to the emergency department if symptoms worsen or persist or if there are any questions or concerns that arise at home. 19:25 ED course: Patient's Hgb/HCT is stable. Without ability to examine patient's anus and pm1 rectum, unable to determine exact source of bleeding. Does not appear to be ulcerative colitis because bowel movement is not mucoid and bloody. With bright red blood in her diarrhea it is likely hemorrhoid bleeding. With patient's stable labs, patient will be discharged to follow up with her OB and Dr. Cosme. 19:39 ED course: Patient asked why an ultrasound was not performed. She reports left pm1 suprapubic pain just after explaining the rationale, no abdominal or back pain, no vagina bleeding, for not needing the ultrasound. Patient did not have any reported abdominal pain on presentation and physical examination. I will order the ultrasound now that she has reported pain. 12/21 17:08 Order name: Quantitative Hcg; Complete Time: 18:24 pm1 12/21 17:08 Order name: Abo/rh Typing; Complete Time: 17:49 pm1 12/21 17:08 Order name: Basic Metabolic Panel; Complete Time: 18:24 pm1 12/21 17:08 Order name: CBC with Diff; Complete Time: 17:47 pm1 12/21 17:43 Order name: Urine Dipstick--Ancillary (enter results); Complete Time: 18:24 bd 12/21 17:43 Order name: Urine --Ancillary (enter results); Complete Time: 18:24 bd 12/21 17:08 Order name: Urine Test (obtain specimen); Complete Time: 17:41 pm1 12/21 18:25 Order name: Urine Microscopic Only; Complete Time: 19:15 pm1 12/21 19:15 Order name: Urine Culture [facility] 12/21 19:34 Order name: Stool Culture 1 12/21 19:34 Order name: Ova And Parasites pm 12/21 19:34 Order name: Fecal Leukocyte Stain 1 12/21 19:40 Order name: US Transvaginal Ob; Complete Time: 20:20 pm1 12/21 17:08 Order name: IV Saline Lock; Complete Time: 17:24 pm1 12/21 17:08 Order name: Labs collected and sent; Complete Time: 17:10 pm1 12/21 17:08 Order name: Urine Dipstick-Ancillary (obtain specimen); Complete Time: 17:41 pm1 Administered Medications: 20:10 Drug: Rocephin 1 grams Route: IV; Rate: calculated rate; Site: left antecubital; ak1 20:20 Follow up: IV Status: Completed infusion ak1 Disposition: 12/22 06:58 Co-signature as Attending Physician, Maximo Roe MD I agree with the assessment and kitty plan of care. Disposition: 12/21/17 19:31 Discharged to Home. Impression: Diarrhea, unspecified, Urinary tract infection, site not specified. - Condition is Stable. - Discharge Instructions: Food Choices to Help Relieve Diarrhea, Adult, Diarrhea, Adult, Rectal Bleeding, Urinary Tract Infection, Adult, and Urinary Tract Infection, Bloody Diarrhea. - Prescriptions for Macrobid 100 mg Oral Capsule - take 1 capsule by ORAL route every 12 hours for 10 days; 20 capsule. - Medication Reconciliation Form, Thank You Letter, Antibiotic Education form. - Follow up: Emergency Department; When: As needed; Reason: Worsening of condition. Follow up: Private Physician; When: 2 - 3 days; Reason: Recheck today's complaints, Continuance of care, Re-evaluation by your physician. - Problem is new. - Symptoms have improved. Signatures: Dispatcher [employer] EDMS Maximo Roe MD MD cha Krenek, Amber RN RN ak1 Amarilis Del Castillo RN RN Ramiro Bartlett, LEATHER PARTS MATCHER LEATHER PARTS MATCHER pm1 Barbara Alexander RN RN tw2 Corrections: (The following items were deleted from the chart) 12/21 20:23 19:31 12/21/2017 19:31 Discharged to Home. Impression: Diarrhea, unspecified; Urinary ak1 tract infection, site not specified. Condition is Stable. Forms are Medication Reconciliation Form, Thank You Letter, Antibiotic Education, Prescription Opioid Use. Follow up: Emergency Department; When: As needed; Reason: Worsening of condition. Follow up: Private Physician; When: 2 - 3 days; Reason: Recheck today's complaints, Continuance of care, Re-evaluation by your physician. Problem is new. Symptoms have improved. pm1
[2017-12-21] MEDS ORDERED: CEFTRIAXONE/SWI 1gm 1 GM/10 ML SYR ONE (20:17)
--- NOTE | 2017-12-21 20:19 | RAD REPORT ---
EXAM DESCRIPTION: US - Transvaginal OB - 12/21/2017 8:12 pm CLINICAL HISTORY: FLANK PAIN COMPARISON: <Comparisons> FINDINGS: A single gestational sac is seen within the uterus. The shape of the sac is within normal limits for gestational age. Within the sac is a 4 mm yolk sac. Based on mean sac diameter, estimated gestational age is 5 weeks 3 days. The placenta is not yet developed due to early gestational age. The maternal adnexa and ovaries are within normal limits. Normal Doppler blood flow was demonstrated to both ovaries. IMPRESSION: Findings are compatible with a very early IUP. Followup sonography would be advised in 1 0-12 days.
[2017-12-21 20:28] VITALS: TEMP 97.8
[2017-12-21 20:29] VITALS: O2SAT 100
[2017-12-21 20:30] VITALS: BP 103/62
== END 2017-12-21 20:23 | disposition home or self-care (01) ==
LOC: ER 16:18
DX: R19.7 Diarrhea, unspecified (principal); N39.0 Urinary tract infection, site not specified; Z88.6 Allergy status to analgesic agent; Z88.1 Allergy status to other antibiotic agents; Z88.0 Allergy status to penicillin; Z88.8 Allergy status to other drugs, medicaments and biological substances; D64.9 Anemia, unspecified; K51.90 Ulcerative colitis, unspecified, without complications
CPT/HCPCS: 36415; 76817; 80048; 81003; 81015; 81025; 84702; 85025; 86900; 86901; 87045; 87046; 87086; 87088; 87177; 87209; 89055; 96374; 99284; J0696

== ENCOUNTER 2018-01-22 01:47 | Emergency (ER) | payer OTHER ==
[2018-01-22] MEDS ORDERED: NA CHLORIDE 0.9% 1,000 ML ONE (02:19)
[2018-01-22] MEDS ORDERED: DEXAMETHASONE 4 MG/ML VIAL ONE (02:19)
[2018-01-22 02:44] LABS: Absolute Lymphocytes (CBC) 1.7 K/uL (0.7-4.9); Absolute Monocytes 0.7 K/uL (0.1-1.3); Basophils % 0.5 % (0-1.3); Hematocrit 32.1 % (36.0-45.0); Lymphocytes % 15.6 % (15.3-44.8); MCH 24.8 pg (27.0-35.0); MCV 75.9 fL (80-100); MPV 8.5 fL (7.6-11.3); Monocytes % 6.2 % (3.3-12.3); RBC Red Blood Cell Count 4.23 M/uL (3.86-4.86)
[2018-01-22 02:51] LABS: BUN Blood Urea Nitrogen 8 mg/dL (7-18); Bicarbonate 21 mmol/L (21-32); Glucose Level 102 mg/dL (74-106); Potassium 3.6 mmol/L (3.5-5.1); Sodium Level 137 mmol/L (136-145)
--- NOTE | 2018-01-22 02:56 | EDPHYS ---
Physician Documentation [facility] Name: Kylie Appiah Age: 27 yrs Sex: Female : 1990 Arrival Date: 01/22/2018 Time: 01:48 Bed 18 Private MD: JACKLYN SALAZAR ED Physician Cheikh Olson HPI: 01/22 02:08 This 27 yrs old Female presents to ER via Ambulatory with complaints of snw Abdominal Pain, 11 weeks preg. 02:08 The patient presents with abdominal pain in the left lower quadrant. Onset: The snw symptoms/episode began/occurred gradually, 2 day(s) ago, and became worse today, and became persistent. The symptoms do not radiate. Associated signs and symptoms: Pertinent positives: nausea and vomiting, diarrhea, + . The symptoms are described as crampy, shooting. Severity of pain: At its worst the pain was moderate. The patient has experienced a previous episode. It is unknown whether or not the patient has recently seen a physician. hx of UC and is 11 weeks IUP. 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 LMP 11/07/2017, Verified, EDC 08/14/2018, Gestational age from LMP: 10 weeks 6 lp1 days Historical: - Allergies: 01:59 Ciprofloxacin (abdominal pain); lp1 01:59 Flagyl; abdominal pain; lp1 01:59 naproxen-abdomen pain; lp1 01:59 NSAIDS (Non-Steroidal Anti-Inflammatory Drug); lp1 01:59 PENICILLINS (Hives); lp1 01:59 sulfamethoxazole (Unknown reaction); lp1 01:59 Toradol; lp1 01:59 tramadol (Upset stomach); lp1 - Home Meds: 01:59 Imuran oral oral [Active]; Diclegis oral oral [Active]; lp1 - PMHx: 01:59 Anemia; Anxiety; Colitis; GALLSTONES; Kidney stone; Ovarian cyst; left; Seizures; lp1 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 - Social history:: Smoking status: Patient/guardian denies using tobacco. - Ebola Screening: : No symptoms or risks identified at this time. ROS: 02:08 Eyes: Negative for injury, pain, redness, and discharge, ENT: Negative for injury, snw pain, and discharge, Neck: Negative for injury, pain, and swelling, Cardiovascular: Negative for chest pain, palpitations, and edema, Respiratory: Negative for shortness of breath, cough, wheezing, and pleuritic chest pain, Back: Negative for injury and pain, : Negative for injury, bleeding, discharge, and swelling, MS/Extremity: Negative for injury and deformity, Skin: Negative for injury, rash, and discoloration, Neuro: Negative for headache, weakness, numbness, tingling, and seizure. 02:08 Constitutional: Positive for malaise. 02:08 Abdomen/GI: Positive for abdominal pain, nausea and vomiting, diarrhea. 02:08 : Negative for vaginal bleeding. snw Exam: 02:07 Constitutional: This is a well developed, well nourished patient who is awake, alert, snw and in no acute distress. Head/Face: Normocephalic, atraumatic. Eyes: Pupils equal round and reactive to light, extra-ocular motions intact. Lids and lashes normal. Conjunctiva and sclera are non-icteric and not injected. Cornea within normal limits. Periorbital areas with no swelling, redness, or edema. ENT: Nares patent. No nasal discharge, no septal abnormalities noted. Tympanic membranes are normal and external auditory canals are clear. Oropharynx with no redness, swelling, or masses, exudates, or evidence of obstruction, uvula midline. Mucous membranes moist. Neck: Trachea midline, no thyromegaly or masses palpated, and no cervical lymphadenopathy. Supple, full range of motion without nuchal rigidity, or vertebral point tenderness. No Meningismus. Chest/axilla: Normal chest wall appearance and motion. Nontender with no deformity. No lesions are appreciated. Cardiovascular: Regular rate and rhythm with a normal S1 and S2. No gallops, murmurs, or rubs. Normal PMI, no JVD. No pulse deficits. Respiratory: Lungs have equal breath sounds bilaterally, clear to auscultation and percussion. No rales, rhonchi or wheezes noted. No increased work of breathing, no retractions or nasal flaring. Back: No spinal tenderness. No costovertebral tenderness. Full range of motion. Skin: Warm, dry with normal turgor. Normal color with no rashes, no lesions, and no evidence of cellulitis. MS/ Extremity: Pulses equal, no cyanosis. Neurovascular intact. Full, normal range of motion. Neuro: Awake and alert, GCS 15, oriented to person, place, time, and situation. Cranial nerves II-XII grossly intact. Motor strength 5/5 in all extremities. Sensory grossly intact. Cerebellar exam normal. Normal gait. Psych: Awake, alert, with orientation to person, place and time. Behavior, mood, and affect are within normal limits. 02:07 Abdomen/GI: Inspection: distension, Bowel sounds: normal, Palpation: moderate abdominal tenderness, in the left lower quadrant. Vital Signs: 01:56 BP 117 / 73; Pulse 96; Resp 16; Temp 98.3(O); Pulse Ox 97% on R/A; Weight 74.84 kg; lp1 Height 5 ft. 0 in. (152.40 cm); Pain 9/10; 03:30 BP 109 / 69; Pulse 85; Resp 16; Pulse Ox 100% on R/A; lp1 01:56 Body Mass Index 32.22 (74.84 kg, 152.40 cm) lp1 MDM: 01:52 Patient medically screened. snw 02:57 Data reviewed: vital signs, nurses notes. Data interpreted: Pulse oximetry: on room air snw is 97 %. Interpretation: normal. Counseling: I had a detailed discussion with the patient and/or guardian regarding: the historical points, exam findings, and any diagnostic results supporting the discharge/admit diagnosis, lab results, the need for outpatient follow up, to return to the emergency department if symptoms worsen or persist or if there are any questions or concerns that arise at home. Special discussion: Based on the patient's Hx, exam, and Dx evaluation, there is no indication for emergent surgery or inpatient Tx. It is understood by the patient/guardian that if the Sx's persist or worsen they need to return immediately for re-evaluation. Based on the history and exam findings, there is no indication for further emergent testing or inpatient evaluation. I discussed with the patient/guardian the need to see the music professor for further evaluation of the symptoms. I discussed with the patient/guardian the need to see the OB Gyne specialist for further evaluation of the symptoms. I discussed with the patient/guardian the need to see the primary care provider for further evaluation of the symptoms. 01/22 02:07 Order name: CBC with Diff; Complete Time: 02:54 snw 01/22 02:07 Order name: Chem 7; Complete Time: 02:54 snw Administered Medications: 02:19 Drug: NS 0.9% 1000 ml Route: IV; Rate: 1 bolus; Site: right antecubital; lp1 04:03 Follow up: IV Status: Completed infusion; IV Intake: 1000ml lp1 02:19 Drug: Decadron - Dexamethasone 10 mg Route: IVP; Site: right antecubital; lp1 03:16 Follow up: Response: No adverse reaction lp1 Disposition: 01/22/18 02:55 Discharged to Home. Impression: Lower abdominal pain, unspecified, state, incidental. - Condition is Stable. - Discharge Instructions: Diarrhea, Adult, Nausea and Vomiting, Adult, Abdominal Pain, Adult, [id number], Rehydration, Adult. - Work release form, Medication Reconciliation Form, Thank You Letter, Antibiotic Education, Prescription Opioid Use form. - Follow up: JACKLYN SALAZAR; When: 1 - 2 days; Reason: Recheck today's complaints, Continuance of care, Re-evaluation by your physician. Follow up: Emergency Department; When: As needed; Reason: Worsening of condition. Addendum: 01/24/2018 17:30 Co-signature as Attending Physician, Cheikh Olson MD. g s Signatures: Dispatcher [employer] EDND Nalini Irizarry, ANUJ-C OXYGEN PLANT OPERATOR-Csnw Rebecca Sanderson RN RN lp1 Cheikh Olson MD MD Corrections: (The following items were deleted from the chart) 01/22 04:03 02:55 01/22/2018 02:55 Discharged to Home. Impression: Lower abdominal pain, lp1 unspecified; state, incidental. Condition is Stable. Forms are Medication Reconciliation Form, Thank You Letter, Antibiotic Education, Prescription Opioid Use. Follow up: JACKLYN SALAZAR; When: 1 - 2 days; Reason: Recheck today's complaints, Continuance of care, Re-evaluation by your physician. Follow up: Emergency Department; When: As needed; Reason: Worsening of condition. snw
--- NOTE | 2018-01-22 02:56 | ER ---
Nurse's Notes [facility] Name: Kylie Appiah Age: 27 yrs Sex: Female : 1990 Arrival Date: 01/22/2018 Time: 01:48 Bed 18 Private MD: JACKLYN SALAZAR Diagnosis: Lower abdominal pain, unspecified; state, incidental Presentation: 01/22 01:55 Presenting complaint: Patient states: LLQ abdominal pain that has worsened tonight; Hx lp1 of ulcerative colitis; Patient is currently . Transition of care: patient was not received from another setting of care. Onset of symptoms was January 22, 2018. Risk Assessment: Do you want to hurt yourself or someone else? Patient reports no desire to harm self or others. Initial Sepsis Screen: Does the patient meet any 2 criteria? No. Patient's initial sepsis screen is negative. Does the patient have a suspected source of infection? No. Patient's initial sepsis screen is negative. Care prior to arrival: None. 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 11/07/2017, Verified, EDC 08/14/2018, Gestational age from LMP: 10 weeks 6 lp1 days Historical: - Allergies: 01:59 Ciprofloxacin (abdominal pain); lp1 01:59 Flagyl; abdominal pain; lp1 01:59 naproxen-abdomen pain; lp1 01:59 NSAIDS (Non-Steroidal Anti-Inflammatory Drug); lp1 01:59 PENICILLINS (Hives); lp1 01:59 sulfamethoxazole (Unknown reaction); lp1 01:59 Toradol; lp1 01:59 tramadol (Upset stomach); lp1 - Home Meds: 01:59 Imuran oral oral [Active]; Diclegis oral oral [Active]; lp1 - PMHx: 01:59 Anemia; Anxiety; Colitis; GALLSTONES; Kidney stone; Ovarian cyst; left; Seizures; lp1 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 - Social history:: Smoking status: Patient/guardian denies using tobacco. - Ebola Screening: : No symptoms or risks identified at this time. Screenin:59 Abuse screen: Denies threats or abuse. Denies injuries from another. Nutritional lp1 screening: No deficits noted. Tuberculosis screening: No symptoms or risk factors identified. Fall Risk None identified. Assessment: 01:59 General: Appears uncomfortable, Behavior is crying. Pain: Complains of pain in left lp1 lower quadrant Pain currently is 9 out of 10 on a pain scale. Quality of pain is described as sharp. Neuro: Level of Consciousness is awake, alert, obeys commands, Oriented to person, place, time, situation. Cardiovascular: Patient's skin is warm and dry. Respiratory: Respiratory effort is even, unlabored. GI: Abdomen is non-distended, Bowel sounds present X 4 quads. Abdomen is tender to palpation in left lower quadrant. : No signs and/or symptoms were reported regarding the genitourinary system. EENT: No signs and/or symptoms were reported regarding the EENT system. Derm: Skin is pink, warm \\T\\ dry. Musculoskeletal: Circulation, motion, and sensation intact. 03:00 Reassessment: Patient is alert, oriented x 3, equal unlabored respirations, skin lp1 warm/dry/pink. Patient states significant pain relief at this time Patient states feeling better. Patient states symptoms have improved. 03:31 Reassessment: IV fluids continuing to infuse. lp1 Vital Signs: 01:56 BP 117 / 73; Pulse 96; Resp 16; Temp 98.3(O); Pulse Ox 97% on R/A; Weight 74.84 kg; lp1 Height 5 ft. 0 in. (152.40 cm); Pain 9/10; 03:30 BP 109 / 69; Pulse 85; Resp 16; Pulse Ox 100% on R/A; lp1 01:56 Body Mass Index 32.22 (74.84 kg, 152.40 cm) lp1 ED Course: 01:48 Patient arrived in ED. es 01:50 JACKLYN SALAZAR is Private Physician. es 01:51 Rebecca Sanderson, SAUL is Primary Nurse. lp1 01:52 Nalini Irizarry FNP-C [facility]. snw 01:52 Cheikh Olson MD is Attending Physician. snw 01:55 Triage completed. lp1 01:56 Arm band placed on right wrist. lp1 01:59 Patient has correct armband on for positive identification. Placed in gown. Bed in low lp1 position. Pulse ox on. NIBP on. 02:55 JACKLYN SALAZAR is Referral Physician. snw 03:25 No provider procedures requiring assistance completed. lp1 04:02 IV discontinued, No redness/swelling at site. Pressure dressing applied. lp1 Administered Medications: 02:19 Drug: NS 0.9% 1000 ml Route: IV; Rate: 1 bolus; Site: right antecubital; lp1 04:03 Follow up: IV Status: Completed infusion; IV Intake: 1000ml lp1 02:19 Drug: Decadron - Dexamethasone 10 mg Route: IVP; Site: right antecubital; lp1 03:16 Follow up: Response: No adverse reaction lp1 Intake: 04:03 IV: 1000ml; Total: 1000ml. lp1 Outcome: 02:55 Discharge ordered by MD. snw 04:02 Discharged to home ambulatory, with family. lp1 04:02 Condition: good 04:02 Discharge instructions given to patient, Instructed on discharge instructions, follow up and referral plans. Demonstrated understanding of instructions, follow-up care. 04:03 Patient left the ED. lp1 Signatures: Nalini Irizarry, CAD DESIGNER DRAFTER-C CAD DESIGNER DRAFTER-Csnw Karolyn Cuevas Laura, RN RN lp1
[2018-01-22 04:58] VITALS: TEMP 98.3
[2018-01-22 05:00] VITALS: BP 109/69; O2SAT 100
== END 2018-01-22 04:03 | disposition home or self-care (01) ==
LOC: ER 01:47
DX: R10.32 Left lower quadrant pain (principal); O99.341 Other mental disorders complicating pregnancy, first trimester; F41.9 Anxiety disorder, unspecified; Z3A.10 10 weeks gestation of pregnancy; Z88.0 Allergy status to penicillin; Z88.2 Allergy status to sulfonamides; Z88.3 Allergy status to other anti-infective agents; Z88.5 Allergy status to narcotic agent; Z88.6 Allergy status to analgesic agent
CPT/HCPCS: 36415; 80048; 85025; 96361; 96374; 99283; J7030

== ENCOUNTER 2018-02-28 08:39 | Emergency (ER) | payer OTHER ==
[2018-02-28] MEDS ORDERED: MORPHINE 4 MG/ML SYR ONE (09:30)
[2018-02-28] MEDS ORDERED: ONDANSETRON 4 MG/2 ML VIAL ONE (09:30)
[2018-02-28] MEDS ORDERED: NA CHLORIDE 0.9% 1,000 ML ONE (09:30)
[2018-02-28 09:54] LABS: Absolute Lymphocytes (CBC) 1.3 K/uL (0.7-4.9); Absolute Monocytes 0.8 K/uL (0.1-1.3); Absolute Neutrophil 7.1 K/uL (1.8-8.0); Basophils % 0.3 % (0-1.3); Hematocrit 28.3 % (36.0-45.0); Lymphocytes % 13.6 % (15.3-44.8); MCH 22.8 pg (27.0-35.0); MCV 70.9 fL (80-100); Monocytes % 7.9 % (3.3-12.3); RBC Red Blood Cell Count 3.99 M/uL (3.86-4.86)
--- NOTE | 2018-02-28 10:07 | RAD REPORT ---
EXAM DESCRIPTION: USExtremity Venous Uni Ltd02/28/2018 9:59 am CLINICAL HISTORY: left leg pain COMPARISON: none FINDINGS: Left common femoral, superficial femoral, popliteal and posterior tibial veins are compre ssible and demonstrate augmentation. Doppler demonstrates good flow. IMPRESSION: No evidence of deep venous thrombosis involving the left lower extremity.
[2018-02-28 10:08] LABS: ALT/SGPT 13 U/L (12-78); AST/SGOT 11 U/L (15-37); Albumin 2.5 g/dL (3.4-5.0); Alkaline Phosphatase 76 U/L (45-117); BUN Blood Urea Nitrogen 4 mg/dL (7-18); Bicarbonate 22 mmol/L (21-32); Bilirubin Direct < 0.1 mg/dL (0-0.2); Bilirubin Total 0.3 mg/dL (0.2-1.0); Glucose Level 99 mg/dL (74-106); Lipase 90 U/L (73-393); Potassium 3.1 mmol/L (3.5-5.1); Protein, Total 7.1 g/dL (6.4-8.2); Sodium Level 137 mmol/L (136-145)
[2018-02-28] MEDS ORDERED: POTASSIUM 25 MEQ EFFERV TAB ONE (10:50)
[2018-02-28 10:56] LABS: Calcium Oxalate Crystals- Ur PRESENT (NONE SEEN); Urine Bacteria <20 /HPF (<20); Urine Culture Reflex Order REFLEXED; Urine Mucus MOD /HPF (NONE SEEN); Urine RBC NONE SEEN /HPF (NONE SEEN)
[2018-02-28 10:57] LABS: Urine Blood TRACE (NEG); Urine Glucose NEGATIVE (NEG); Urine Protein TRACE (NEG); Urine Specific Gravity >1.030 (1.005-1.030)
--- NOTE | 2018-02-28 11:37 | EDPHYS ---
Physician Documentation [facility] Name: Kylie Appiah Age: 27 yrs Sex: Female : 1990 Arrival Date: 02/28/2018 Time: 08:43 Bed 20 Private MD: JACKLYN SALAZAR ED Physician Wilfredo Goldstein HPI: 02/28 08:54 This 27 yrs old Female presents to ER via Ambulatory with complaints of rh1 Abdominal Pain - 16 wk pg, Leg Pain. 08:54 The patient presents with abdominal pain that is diffuse. Onset: The symptoms/episode rh1 began/occurred last night. The symptoms do not radiate. Associated signs and symptoms: Pertinent positives: diarrhea, nausea, Pertinent negatives: chest pain, dysuria, fever, palpitations, shortness of breath, vaginal discharge, vomiting. The symptoms are described as crampy, intermittent, waxing/waning. Modifying factors: The symptoms are alleviated by nothing, the symptoms are aggravated by movement, touching the area. Severity of pain: At its worst the pain was moderate in the emergency department the pain is unchanged. The patient has experienced similar episodes in the past, chronically, different today. The patient has been recently seen at the [facility] Emergency Department, a couple of weeks ago. She began with diffuse abdominal pain last night, with nausea. + diarrhea, with bright red blood, denies any mucous. Reports hx of UC "not controlled right now" on imuran and cimzia. Reports 16 wks , denies any vaginal bleeding/discharge. Last abd US approx. 1 month ago with MFM and "everything normal." Denies any fever/chills, no vomiting. Reports for the last 2 days left lower leg/calf have been hurting, pain described as "heavy" and intermittently sharp, no noted swelling, no known trauma. Analytical Lab Analyst Dr. Phillip, ERIC Andersen, GI Dr. Cosme.. 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 - Social history:: Smoking status: Patient/guardian denies using tobacco. - Ebola Screening: : No symptoms or risks identified at this time. ROS: 08:54 Constitutional: Negative for fever, chills rh1 08:54 Cardiovascular: Negative for chest pain, edema, palpitations. 08:54 Respiratory: Negative for cough, dyspnea on exertion, shortness of breath. 08:54 Abdomen/GI: Positive for abdominal pain, nausea, diarrhea, Negative for vomiting. 08:54 Back: Negative for decreased range of motion, pain at rest, pain with movement, radiated pain. 08:54 : Negative for urinary symptoms, urinary frequency, burning with urination, vaginal bleeding, vaginal discharge. 08:54 MS/extremity: Positive for pain, tenderness, Negative for decreased range of motion, deformity, paresthesias, swelling. 08:54 Skin: Negative for diaphoresis, discoloration, erythema. 08:54 Neuro: Negative for altered mental status, dizziness, loss of consciousness, numbness, syncope, near syncope, tingling, weakness. 08:54 All other systems are negative. Exam: 08:54 Constitutional: This is a well developed, well nourished patient who is awake, alert, rh1 and in no acute distress. Head/Face: Normocephalic, atraumatic. Neck: Trachea midline, and no cervical lymphadenopathy. Supple, full range of motion without nuchal rigidity. No Meningismus. Chest/axilla: Normal chest wall appearance and motion. Nontender with no deformity. No lesions are appreciated. Cardiovascular: Regular rate and rhythm with a normal S1 and S2. No gallops, murmurs, or rubs. No JVD. No pulse deficits. Respiratory: Lungs have equal breath sounds bilaterally, clear to auscultation. No rales, rhonchi or wheezes noted. No increased work of breathing. 08:54 Back: No spinal tenderness. No costovertebral tenderness. Full range of motion. Skin: Warm, dry with normal turgor. Normal color with no rashes, no lesions, and no evidence of cellulitis. 08:54 Abdomen/GI: Inspection: abdomen appears normal, bruising, is not seen, distension, is not seen, Bowel sounds: hyperactive, in all quadrants, Palpation: soft, in all quadrants, moderate abdominal tenderness, in all quadrants, Indicators: McBurney's point is not tender, Rovsing's sign is negative, Liver: no appreciated palpable abnormalities. 08:54 Musculoskeletal/extremity: Extremities: noted in the left calf: pain, tenderness, There is no evidence of decreased ROM, erythema, ROM: intact in all extremities, full active range of motion, in the right arm, left arm, right leg and left leg, Pulses: noted to be 2+ in the right radial artery, right posterior tibial artery, right dorsalis pedis artery, left radial artery, left posterior tibial artery and left dorsalis pedis artery, Sensation intact. DVT Exam: negative Homans' sign noted on exam, no appreciated bluish discoloration, no erythema, no increased warmth, pain, that is mild, that is moderate, of the left leg, tenderness, that is mild, that is moderate, of the left leg, Calves: are tender, on left, very minimal asymmetry, left > right. 08:54 Neuro: Orientation: is normal, to person, place \\T\\ time. Mentation: is normal, lucid, able to follow commands, Motor: is normal, moves all fours, strength is 5/5 in all extremities, Sensation: is normal, no obvious gross deficits, numbness, is not appreciated, tingling, is not appreciated, Gait: is steady, at a normal pace, without difficulty. 11:33 Abdomen/GI: Inspection: abdomen appears normal, bruising, is not seen, distension, is rh1 not seen, Palpation: soft, in all quadrants, nontender, in the umbilical area, right upper quadrant, left upper quadrant and right lower quadrant, mild abdominal tenderness, in the left lower quadrant, Indicators: McBurney's point is not tender, Rovsing's sign is negative. Vital Signs: 08:50 BP 117 / 61; Pulse 86; Resp 16; Temp 98.3; Pulse Ox 100% on R/A; Pain 7/10; hb 09:57 BP 99 / 56; Pulse 74; Resp 16; Pulse Ox 99% on R/A; Pain 5/10; em 11:15 BP 99 / 55; Pulse 83; Resp 17; Pulse Ox 100% on R/A; Pain 5/10; em 11:52 BP 98 / 61; Pulse 77; Resp 18; Pulse Ox 100% on R/A; Pain 5/10; em MDM: 08:54 Patient medically screened. rh1 10:29 ED course: reports pain much improved, mild tenderness at left lower abdomen, soft rh1 throughout. 11:34 Data reviewed: vital signs, nurses notes, old medical records, lab test result(s), rh1 radiologic studies, ultrasound, I have discussed the patient's presentation/case with the attending Emergency Department Physician; and as a result, I will discharge patient. Data interpreted: Pulse oximetry: on room air is 100 %. Interpretation: normal. Counseling: I had a detailed discussion with the patient and/or guardian regarding: the historical points, exam findings, and any diagnostic results supporting the discharge/admit diagnosis, lab results, radiology results, the need for outpatient follow up, a assistant buyer, an OB/Gyne specialist, to return to the emergency department if symptoms worsen or persist or if there are any questions or concerns that arise at home. Response to treatment: the patient's symptoms have markedly improved after treatment. ED course: She was seen by Dr. Cosme last week, and was restarted on her imuran, and has a follow up appt in 3 weeks. We discussed to continue with follow up, sooner with continued pain. 02/28 09:12 Order name: Basic Metabolic Panel; Complete Time: : rh1 02/28 09:12 Order name: CBC with Diff; Complete Time: rh1 02/28 09:12 Order name: Creatinine for Radiology; Complete Time: : rh1 02/28 09:12 Order name: Hepatic Function; Complete Time: : rh1 02/28 09:12 Order name: Lipase; Complete Time: : rh 02/28 09:39 Order name: Urine Dipstick--Ancillary (enter results); Complete Time: 11:11 hb 02/28 09:13 Order name: US Extremity Venous Unilateral Ltd; Complete Time: 10:23 [facility] 02/28 09:39 Order name: Urine --Ancillary (enter results); Complete Time: 11:11 hb 02/28 10:24 Order name: Urine Microscopic Only; Complete Time: 11:11 rh1 02/28 10:58 Order name: Urine Culture EDAR 02/28 09:12 Order name: IV Saline Lock; Complete Time: 09:49 rh1 02/28 09:12 Order name: Labs collected and sent; Complete Time: 09:49 rh1 02/28 09:12 Order name: Urine Dipstick-Ancillary (obtain specimen); Complete Time: 09:37 rh1 Administered Medications: 09:47 Drug: morphine 2 mg Route: IVP; Site: right antecubital; hb 10:30 Follow up: Response: No adverse reaction; Pain is decreased em 09:47 Drug: Zofran 4 mg Route: IVP; Site: right antecubital; hb 10:30 Follow up: Response: No adverse reaction em 09:49 Drug: NS 0.9% 1000 ml Route: IV; Rate: 1 bolus; Site: right antecubital; em 10:20 Follow up: IV Status: Completed infusion; IV Intake: 1000ml em 10:51 Drug: Potassium Effervescent Tablet 50 mEq Route: PO; em 11:14 Follow up: Response: No adverse reaction em Disposition: 15:29 Co-signature as Attending Physician, Wilfredo Goldstein MD I agree with the assessment and kdr plan of care. Disposition: 02/28/18 11:36 Discharged to Home. Impression: Other abdominal pain, Hypokalemia, Diarrhea, unspecified. - Condition is Stable. - Discharge Instructions: Abdominal Pain, Adult, Food Choices to Help Relieve Diarrhea, Adult, Diarrhea, Adult, Colitis. - Medication Reconciliation Form, Thank You Letter, Antibiotic Education, Prescription Opioid Use form. - Follow up: Enrico Cosme MD; When: 1 - 2 days; Reason: Recheck today's complaints, Continuance of care, Re-evaluation by your physician. Follow up: Private Physician; When: 1 - 2 days; Reason: Recheck today's complaints, Continuance of care, Re-evaluation by your physician. Follow up: Emergency Department; When: As needed; Reason: Fever > 102 F, If symptoms return, Trouble breathing, Worsening of condition. - Problem is new. - Symptoms have improved. Signatures: Dispatcher [employer] EDWilfredo Bullock MD MD kdr Munoz, Umang, A CLASS LINEMAN A CLASS LINEMAN em Natasha Crowder, WARP KNITTER HELPER WARP KNITTER HELPER rh1 Yazmin Marcus, RN RN hb Corrections: (The following items were deleted from the chart) 09:37 09:12 Elizabeth ordered. rh1 hb 09:42 08:54 She began with diffuse abdominal pain last night, with nausea. + diarrhea, with rh1 bright red blood, denies any mucous. Reports hx of UC "not controlled right now" on imuran and cimzia. Reports 16 wks , denies any vaginal bleeding/discharge. Last abd US approx. 1 month ago with MFM and "everything normal." Denies any fever/chills, no vomiting. Reports for the last 2 days left lower leg/calf have been hurting, pain described as "heavy" and intermittently sharp, no noted swelling, no known trauma.. rh1 11:54 11:36 02/28/2018 11:36 Discharged to Home. Impression: Other abdominal pain; em Hypokalemia; Diarrhea, unspecified. Condition is Stable. Forms are Medication Reconciliation Form, Thank You Letter, Antibiotic Education, Prescription Opioid Use. Follow up: Enrico Cosme; When: 1 - 2 days; Reason: Recheck today's complaints, Continuance of care, Re-evaluation by your physician. Follow up: Private Physician; When: 1 - 2 days; Reason: Recheck today's complaints, Continuance of care, Re-evaluation by your physician. Follow up: Emergency Department; When: As needed; Reason: Fever > 102 F, If symptoms return, Trouble breathing, Worsening of condition. Problem is new. Symptoms have improved. rh1
--- NOTE | 2018-02-28 11:37 | ER ---
Nurse's Notes [facility] Name: Kylie Appiah Age: 27 yrs Sex: Female : 1990 Arrival Date: 02/28/2018 Time: 08:43 Bed 20 Private MD: JACKLYN SALAZAR Diagnosis: Other abdominal pain;Hypokalemia;Diarrhea, unspecified Presentation: 02/28 08:48 Presenting complaint: Patient states: Diffuse abdominal pain and diarrhea x 2 days. Hx hb colitis, 6 weeks , LMP 11/09. Transition of care: patient was not received from another setting of care. Onset of symptoms was February 27, 2018. Risk Assessment: Do you want to hurt yourself or someone else? Patient reports no desire to harm self or others. Initial Sepsis Screen: Does the patient meet any 2 criteria? No. Patient's initial sepsis screen is negative. Does the patient have a suspected source of infection? No. Patient's initial sepsis screen is negative. Care prior to arrival: None. 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 - Social history:: Smoking status: Patient/guardian denies using tobacco. - Ebola Screening: : No symptoms or risks identified at this time. Screenin:00 Abuse screen: Denies threats or abuse. Nutritional screening: No deficits noted. em Tuberculosis screening: No symptoms or risk factors identified. Fall Risk None identified. Assessment: 09:00 General: Appears in no apparent distress. uncomfortable, Behavior is calm, cooperative. em Pain: Complains of pain in abdomen and left calf Pain currently is 5 out of 10 on a pain scale. Neuro: Level of Consciousness is awake, alert, obeys commands, Oriented to person, place, time, situation. Cardiovascular: Capillary refill < 3 seconds Patient's skin is warm and dry. Respiratory: Airway is patent Respiratory effort is even, unlabored, Respiratory pattern is regular, symmetrical. GI: Abdomen is round distended, Bowel sounds present X 4 quads. Abd is soft X 4 quads Abdomen is tender to palpation X 4 quads. Reports lower abdominal pain, diarrhea, Patient currently denies nausea, vomiting. : No signs and/or symptoms were reported regarding the genitourinary system. EENT: No signs and/or symptoms were reported regarding the EENT system. Derm: Skin is intact, Skin is pink, warm \\T\\ dry. Musculoskeletal: Range of motion: intact in all extremities. 09:15 Reassessment: I agree with previous assessment. hb 10:00 Reassessment: Patient appears in no apparent distress at this time. Patient and/or em family updated on plan of care and expected duration. Pain level reassessed. Patient is alert, oriented x 3, equal unlabored respirations, skin warm/dry/pink. 10:55 Reassessment: Patient appears in no apparent distress at this time. Patient and/or em family updated on plan of care and expected duration. Pain level reassessed. Patient is alert, oriented x 3, equal unlabored respirations, skin warm/dry/pink. Patient states feeling better. 11:53 Reassessment: Patient appears in no apparent distress at this time. Patient and/or em family updated on plan of care and expected duration. Pain level reassessed. Patient is alert, oriented x 3, equal unlabored respirations, skin warm/dry/pink. Patient states feeling better. Vital Signs: 08:50 BP 117 / 61; Pulse 86; Resp 16; Temp 98.3; Pulse Ox 100% on R/A; Pain 7/10; hb 09:57 BP 99 / 56; Pulse 74; Resp 16; Pulse Ox 99% on R/A; Pain 5/10; em 11:15 BP 99 / 55; Pulse 83; Resp 17; Pulse Ox 100% on R/A; Pain 5/10; em 11:52 BP 98 / 61; Pulse 77; Resp 18; Pulse Ox 100% on R/A; Pain 5/10; em ED Course: 08:43 Patient arrived in ED. sb2 08:43 JACKLYN SALAZAR is Private Physician. sb2 08:49 Triage completed. hb 08:50 Natasha Crowder NP is PHCP. rh1 08:50 Wilfredo Goldstein MD is Attending Physician. rh1 08:50 Arm band placed on. hb 08:52 Umang Pretty LVN is Primary Nurse. em 09:00 Patient has correct armband on for positive identification. Bed in low position. Call em light in reach. Adult w/ patient. 09:30 Initial lab(s) drawn, by me, sent to lab. Inserted saline lock: 22 gauge in right em antecubital area, using aseptic technique. Blood collected. 09:59 Ultrasound completed. Patient tolerated well. Notified WRAPPER AND PRESERVER/WILL ashby. sg3 09:59 US Extremity Venous Unilateral Ltd In Process Unspecified. EDMS 11:35 Enrico oCsme MD is Referral Physician. rh1 11:53 No provider procedures requiring assistance completed. IV discontinued, intact, em bleeding controlled, No redness/swelling at site. Pressure dressing applied. Administered Medications: 09:47 Drug: morphine 2 mg Route: IVP; Site: right antecubital; hb 10:30 Follow up: Response: No adverse reaction; Pain is decreased em 09:47 Drug: Zofran 4 mg Route: IVP; Site: right antecubital; hb 10:30 Follow up: Response: No adverse reaction em 09:49 Drug: NS 0.9% 1000 ml Route: IV; Rate: 1 bolus; Site: right antecubital; em 10:20 Follow up: IV Status: Completed infusion; IV Intake: 1000ml em 10:51 Drug: Potassium Effervescent Tablet 50 mEq Route: PO; em 11:14 Follow up: Response: No adverse reaction em Intake: 10:20 IV: 1000ml; Total: 1000ml. em Outcome: 11:36 Discharge ordered by . rh1 11:53 Discharged to home ambulatory, with family. em 11:53 Condition: good 11:53 Discharge instructions given to patient, family, Instructed on discharge instructions, follow up and referral plans. Demonstrated understanding of instructions, follow-up care. 11:54 Patient left the ED. em Signatures: Dispatcher [employer] EDUmang Armstrong, SPINNING FRAME CLEANER SPINNING FRAME CLEANER em Natasha Crowder NP WRAPPER AND PRESERVER rh1 Yazmin Marcus, RN RN Adina Pacheco sg3 Luba Raymundo sb2 Corrections: (The following items were deleted from the chart) 11:53 11:52 BP 98 / 61; Pulse 18bpm; Resp 18bpm; Pulse Ox 100% RA; Pain 5/10; em em
[2018-02-28 12:01] VITALS: TEMP 98.3
[2018-02-28 12:04] VITALS: O2SAT 100
[2018-02-28 12:05] VITALS: BP 98/61
== END 2018-02-28 11:54 | disposition home or self-care (01) ==
LOC: ER 08:39
DX: E87.6 Hypokalemia (principal); R19.7 Diarrhea, unspecified; Z3A.16 16 weeks gestation of pregnancy; Z88.0 Allergy status to penicillin; Z88.2 Allergy status to sulfonamides; Z88.5 Allergy status to narcotic agent; Z88.6 Allergy status to analgesic agent
CPT/HCPCS: 36415; 80048; 80076; 81003; 81015; 81025; 83690; 85025; 87086; 87088; 93971; 96361; 96374; 96375; 99284; J2405; J7030

== ENCOUNTER 2018-03-21 11:02 | Emergency (ER) | payer OTHER ==
[2018-03-21] MEDS ORDERED: PROMETHAZINE 25 MG/ML VIAL ONE ×2 (13:43→17:25)
[2018-03-21] MEDS ORDERED: NA CHLORIDE 0.9% 1,000 ML ONE (13:44)
[2018-03-21] MEDS ORDERED: DICYCLOMINE HCL 10 MG CAP ONE (13:44)
[2018-03-21 14:05] LABS: Protime INR 1.01
[2018-03-21 14:21] LABS: ALT/SGPT 12 U/L (12-78); AST/SGOT 8 U/L (15-37); Albumin 2.2 g/dL (3.4-5.0); Alkaline Phosphatase 81 U/L (45-117); BUN Blood Urea Nitrogen 4 mg/dL (7-18); Bicarbonate 25 mmol/L (21-32); Bilirubin Direct < 0.1 mg/dL (0-0.2); Bilirubin Total 0.1 mg/dL (0.2-1.0); Glucose Level 99 mg/dL (74-106); Lipase 91 U/L (73-393); Potassium 3.1 mmol/L (3.5-5.1); Protein, Total 6.9 g/dL (6.4-8.2); Sodium Level 138 mmol/L (136-145)
[2018-03-21 14:42] LABS: Urine Blood NEGATIVE (NEG); Urine Glucose NEGATIVE (NEG); Urine Protein NEGATIVE (NEG); Urine Specific Gravity 1.025 (1.005-1.030); Urine pH 6.5 (5.0-7.0)
[2018-03-21 14:45] LABS: Absolute Lymphocytes (CBC) 1.2 K/uL (0.7-4.9); Absolute Monocytes 0.9 K/uL (0.1-1.3); Absolute Neutrophil 7.5 K/uL (1.8-8.0); Basophils % 0.4 % (0-1.3); Eosinophils % 4.3 % (0-4.4); Hematocrit 24.3 % (36.0-45.0); Lymphocytes % 11.5 % (15.3-44.8); MCH 22.2 pg (27.0-35.0); MCV 67.2 fL (80-100); MPV 7.4 fL (7.6-11.3); Monocytes % 9.1 % (3.3-12.3); RBC Red Blood Cell Count 3.61 M/uL (3.86-4.86)
[2018-03-21] MEDS ORDERED: NA CHLORIDE 0.9% 250 ML ONE (15:18)
[2018-03-21] MEDS ORDERED: KCL 20 MEQ/100 mL IVPB 20 MEQ/100 ML BAG IV ONE (15:18)
[2018-03-21 15:21] LABS: Specific Gravity 1.025 (1.005-1.030)
--- NOTE | 2018-03-21 15:57 | EDPHYS ---
Physician Documentation [facility] Name: Kylie Appiah Age: 27 yrs Sex: Female : 1990 Arrival Date: 03/21/2018 Time: 11:04 Bed 6 Private MD: JACKLYN SALAZAR ED Physician Wilfredo Goldstein HPI: 03/21 13:35 This 27 yrs old Female presents to ER via Ambulatory with complaints of 19 wks cp , Abdominal Cramping. 13:35 The patient presents with abdominal pain that is diffuse, rectal bleeding. cp 13:35 Onset: The symptoms/episode began/occurred 1 month(s) ago, and became worse this cp morning. 13:35 Associated signs and symptoms: Pertinent positives: blood in stools, nausea, Pertinent cp negatives: chest pain, constipation, dysuria, fever, vaginal discharge, vomiting, vaginal bleeding. The symptoms are described as crampy. The patient has experienced similar episodes in the past, today's symptoms are similar, to when the patient was apparently diagnosed with ulcerative colitis. 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 - Social history:: Smoking status: Patient/guardian denies using tobacco. - Ebola Screening: : No symptoms or risks identified at this time. ROS: 13:40 Constitutional: Negative for body aches, chills, fever, poor PO intake. cp 13:40 Eyes: Negative for injury, pain, redness, and discharge. cp 13:40 ENT: Negative for drainage from ear(s), ear pain, sore throat, difficulty swallowing, difficulty handling secretions. 13:40 Cardiovascular: Negative for chest pain, edema, palpitations. 13:40 Respiratory: Negative for cough, shortness of breath, wheezing. 13:40 Abdomen/GI: Positive for abdominal pain, nausea, diarrhea, abdominal cramps, rectal bleeding, Negative for active vomiting. 13:40 Back: Negative for pain at rest, pain with movement. 13:40 : Negative for urinary symptoms, vaginal bleeding, vaginal discharge. 13:40 Skin: Negative for cellulitis, rash. 13:40 Neuro: Negative for altered mental status, headache, weakness. 13:40 All other systems are negative. Exam: 13:50 Constitutional: The patient appears in no acute distress, alert, awake, non-toxic, well cp developed, well nourished. 13:50 Head/Face: Normocephalic, atraumatic. cp 13:50 Eyes: Pupils equal round and reactive to light, extra-ocular motions intact. Lids and cp lashes normal. Conjunctiva and sclera are non-icteric and not injected. Cornea within normal limits. Periorbital areas with no swelling, redness, or edema. ENT: Nares patent. No nasal discharge, no septal abnormalities noted. Tympanic membranes are normal and external auditory canals are clear. Oropharynx with no redness, swelling, or masses, exudates, or evidence of obstruction, uvula midline. Mucous membranes moist. 13:50 Neck: ROM/movement: is normal, is supple, without pain, no range of motions limitations, no nuchal rigidity. 13:50 Chest/axilla: Inspection: normal, Palpation: is normal, no crepitus, no tenderness. 13:50 Cardiovascular: Rate: normal, Rhythm: regular, Edema: is not appreciated. 13:50 Respiratory: the patient does not display signs of respiratory distress, Respirations: normal, no use of accessory muscles, no retractions, no splinting, no tachypnea, labored breathing, is not present, Breath sounds: are clear throughout, no decreased breath sounds, no stridor, no wheezing. 13:50 Abdomen/GI: Inspection: gravid appearance, is noted, Bowel sounds: active, all quadrants, Palpation: soft, in all quadrants, moderate abdominal tenderness, in all quadrants, rebound tenderness, is not appreciated, voluntary guarding, is not appreciated, involuntary guarding, is not appreciated, Rectal exam: Stool: brown, guaiac negative. 13:50 Back: CVA tenderness, is absent. 13:50 Skin: cellulitis, is not appreciated, no rash present. cp 13:50 Neuro: Orientation: to person, place \\T\\ time. Mentation: is normal, Cerebellar function: is grossly normal, Motor: moves all fours, strength is normal, Sensation: is normal. Vital Signs: 11:37 BP 115 / 69; Pulse 98; Resp 16; Temp 98.4; Pulse Ox 98% on R/A; Weight 79.38 kg; Height la1 5 ft. 0 in. (152.40 cm); Pain 9/10; 13:53 BP 102 / 64; Pulse 92; Resp 17; Pulse Ox 99% on R/A; mh5 11:37 Body Mass Index 34.18 (79.38 kg, 152.40 cm) la1 MDM: 12:58 Patient medically screened. cp 14:00 Differential diagnosis: anemia, colitis, chronic pain. cp 15:55 Data reviewed: vital signs, nurses notes, lab test result(s), radiologic studies, cp ultrasound. 15:55 Counseling: I had a detailed discussion with the patient and/or guardian regarding: the cp historical points, exam findings, and any diagnostic results supporting the discharge/admit diagnosis, lab results, radiology results, the need for outpatient follow up, for definitive care, a clinical practitioner, an OB/Gyne specialist. 15:55 Response to treatment: the patient's symptoms have mildly improved after treatment, and cp as a result, I will discharge patient. Special discussion: Based on the patient's Hx, exam, and Dx evaluation, there is no indication for emergent surgery or inpatient Tx. It is understood by the patient/guardian that if the Sx's persist or worsen they need to return immediately for re-evaluation. 03/21 13:32 Order name: Basic Metabolic Panel; Complete Time: 14:49 cp 03/21 14:49 Interpretation: Normal except: K 3.1; BUN 4; CRE 0.50; CA 8.3. cp 03/21 13:32 Order name: CBC with Diff cp 03/21 14:50 Interpretation: Normal except: RBC 3.61; HGB 8.0; HCT 24.3; MCV 67.2; MCH 22.2; PLT cp 482; RDW 17.7; MPV 7.4; SWAPNA% 74.7; LYM% 11.5. 03/21 13:32 Order name: Creatinine for Radiology; Complete Time: 14:49 cp 03/21 13:32 Order name: Hepatic Function; Complete Time: 14:49 cp 03/21 13:32 Order name: Lipase; Complete Time: 14:49 cp 03/21 13:32 Order name: PT-INR; Complete Time: 14:49 cp 03/21 13:32 Order name: Ptt, Activated; Complete Time: 14:49 cp 03/21 13:45 Order name: Urine Dipstick--Ancillary (enter results) 03/21 14:55 Order name: OB Limited EDDC 03/21 15:19 Order name: Test, Urine; Complete Time: 15:34 EDMS 03/21 17:42 Order name: CBC Smear Scan EDDC 03/21 13:32 Order name: IV Saline Lock; Complete Time: 13:48 cp 03/21 13:32 Order name: Labs collected and sent; Complete Time: 13:48 cp 03/21 13:32 Order name: FHT's; Complete Time: 17:28 cp 03/21 15:39 Order name: PO challenge; Complete Time: 17:27 cp Administered Medications: 13:43 Drug: Phenergan 12.5 mg Route: IVP; Site: right antecubital; tw2 14:00 Follow up: Response: No adverse reaction sv 13:45 Drug: NS 0.9% 1000 ml Route: IV; Rate: 1 bolus; Site: right antecubital; tw2 15:00 Follow up: Response: No adverse reaction; IV Status: Completed infusion; IV Intake: sv 1000ml 13:47 Not Given (Patient Refused; provider notified): Bentyl 20 mg PO once tw2 15:19 Drug: Potassium Chloride 20 mEq Route: IV; Rate: calculated rate; Site: right sv antecubital; 17:42 Follow up: IV Status: Completed infusion; IV Intake: 100ml sv 17:26 Drug: Tylenol 1000 mg Route: PO; la1 17:47 Follow up: Response: No adverse reaction sv 17:26 Drug: Phenergan 12.5 mg Route: IVP; Site: right antecubital; la1 17:46 Follow up: Response: No adverse reaction sv 17:26 Drug: Pepcid 20 mg Route: IVP; Site: right antecubital; la1 17:46 Follow up: Response: No adverse reaction sv 17:27 Drug: Potassium Effervescent Tablet 50 mEq Route: PO; la1 17:47 Follow up: Response: No adverse reaction sv Disposition: 18:19 Co-signature as Attending Physician, Wilfredo Goldstein MD I agree with the assessment and kdr plan of care. Disposition: 03/21/18 15:56 Discharged to Home. Impression: Generalized abdominal pain - Cramping, Anemia complicating , second trimester. - Condition is Stable. - Discharge Instructions: Abdominal Pain During , and Anemia. - Prescriptions for Phenergan 25 mg Rectal Suppository - insert 1 suppository by RECTAL route every 6 hours As needed; 12 suppository. promethazine 25 mg Oral Tablet - take 1 tablet by ORAL route every 6 hours As needed; 20 tablet. - Medication Reconciliation Form, Thank You Letter, Antibiotic Education, Prescription Opioid Use form. - Follow up: Enrico Cosme MD; When: 1 - 2 days; Reason: Recheck today's complaints. Follow up: Private Physician; When: primary VISITOR SERVICES INFORMATION ASSISTANT; Reason: Recheck today's complaints. - Problem is an ongoing problem. - Symptoms have improved. Signatures: Dispatcher [employer] EDDC Rasheeda Kraus RN RN sv Rittger, Kevin, MD MD [facility] Nick Ross RN RN la1 Maximo Orellana PA PA cp Wise, Tara, RN RN tw2 Corrections: (The following items were deleted from the chart) 14:50 14:49 Normal except: K 3.1; BUN 4; CRE 0.50. cp cp 14:55 14:52 OB Complete+US.RAD.BRZ ordered. [facility] EDDC 17:49 15:56 03/21/2018 15:56 Discharged to Home. Impression: Generalized abdominal pain - sv Cramping; Anemia complicating , second trimester. Condition is Stable. Forms are Medication Reconciliation Form, Thank You Letter, Antibiotic Education, Prescription Opioid Use. Follow up: Enrico Cosme; When: 1 - 2 days; Reason: Recheck today's complaints. Follow up: Private Physician; When: primary VISITOR SERVICES INFORMATION ASSISTANT; Reason: Recheck today's complaints. Problem is an ongoing problem. Symptoms have improved. cp
--- NOTE | 2018-03-21 15:57 | ER ---
Nurse's Notes [facility] Name: Kylie Appiah Age: 27 yrs Sex: Female : 1990 Arrival Date: 03/21/2018 Time: 11:04 Bed 6 Private MD: JACKLYN SALAZAR Diagnosis: Generalized abdominal pain-Cramping;Anemia complicating , second trimester Presentation: 03/21 11:35 Presenting complaint: Patient states: I have ulcertive colitis and I am 19 wks la1 . I feel like I am having a flare up with worsening abd pain since this morning and I have had blood in my stool for the last month. Transition of care: patient was not received from another setting of care. Onset of symptoms was March 21, 2018. Risk Assessment: Do you want to hurt yourself or someone else? Patient reports no desire to harm self or others. Initial Sepsis Screen: Does the patient meet any 2 criteria? No. Patient's initial sepsis screen is negative. Does the patient have a suspected source of infection? No. Patient's initial sepsis screen is negative. Care prior to arrival: None. 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 - Social history:: Smoking status: Patient/guardian denies using tobacco. - Ebola Screening: : No symptoms or risks identified at this time. Screenin:06 Abuse screen: Denies threats or abuse. Nutritional screening: No deficits noted. tw2 Tuberculosis screening: No symptoms or risk factors identified. Fall Risk None identified. Assessment: 13:40 General: Appears in no apparent distress. uncomfortable, Behavior is calm, cooperative, sv appropriate for age. Pain: Complains of pain in abdomen Pain currently is 9 out of 10 on a pain scale. Is continuous. Neuro: Level of Consciousness is awake, alert, obeys commands, Oriented to person, place, time, situation, Moves all extremities. Full function Gait is steady, Speech is normal. Respiratory: Respiratory effort is even, unlabored, Respiratory pattern is regular, symmetrical. GI: Abdomen is round Abd is soft X 4 quads Abdomen is tender to palpation X 4 quads. Reports lower abdominal pain, upper abdominal pain, bloody stool. Derm: Skin is normal. 15:19 Reassessment: Patient appears in no apparent distress at this time. No changes from sv previously documented assessment. Patient and/or family updated on plan of care and expected duration. Pain level reassessed. Patient is alert, oriented x 3, equal unlabored respirations, skin warm/dry/pink. 17:49 Reassessment: Patient appears in no apparent distress at this time. Patient and/or sv family updated on plan of care and expected duration. Pain level reassessed. Patient is alert, oriented x 3, equal unlabored respirations, skin warm/dry/pink. Vital Signs: 11:37 BP 115 / 69; Pulse 98; Resp 16; Temp 98.4; Pulse Ox 98% on R/A; Weight 79.38 kg; Height la1 5 ft. 0 in. (152.40 cm); Pain 9/10; 13:53 BP 102 / 64; Pulse 92; Resp 17; Pulse Ox 99% on R/A; mh5 11:37 Body Mass Index 34.18 (79.38 kg, 152.40 cm) la1 ED Course: 11:04 Patient arrived in ED. mr 11:04 JACKLYN SALAZAR is Private Physician. mr 11:32 [facility]in [facility]C [facility] kb 11:32 Wilfredo Goldstein MD is Attending Physician. kb 11:36 Triage completed. la1 11:37 Arm band placed on right wrist. la1 12:53 Rasheeda Kraus, RN is Primary Nurse. sv 12:54 Bed in low position. Call light in reach. Pulse ox on. NIBP on. tw2 12:57 Maximo Orellana PA is PHCP. cp 12:57 Wilfredo Goldstein MD is Attending Physician. cp 13:40 Inserted saline lock: 20 gauge in right antecubital area, using aseptic technique. tw2 Blood collected. 15:16 OB Limited In Process Unspecified. EDMS 15:36 Served as a watch guard gate during rectal exam. tw2 15:54 Enrico Cosme MD is Referral Physician. cp 17:47 IV discontinued, intact, bleeding controlled, No redness/swelling at site. Pressure sv dressing applied. Administered Medications: 13:43 Drug: Phenergan 12.5 mg Route: IVP; Site: right antecubital; tw2 14:00 Follow up: Response: No adverse reaction sv 13:45 Drug: NS 0.9% 1000 ml Route: IV; Rate: 1 bolus; Site: right antecubital; tw2 15:00 Follow up: Response: No adverse reaction; IV Status: Completed infusion; IV Intake: sv 1000ml 13:47 Not Given (Patient Refused; provider notified): Bentyl 20 mg PO once tw2 15:19 Drug: Potassium Chloride 20 mEq Route: IV; Rate: calculated rate; Site: right sv antecubital; 17:42 Follow up: IV Status: Completed infusion; IV Intake: 100ml sv 17:26 Drug: Tylenol 1000 mg Route: PO; la1 17:47 Follow up: Response: No adverse reaction sv 17:26 Drug: Phenergan 12.5 mg Route: IVP; Site: right antecubital; la1 17:46 Follow up: Response: No adverse reaction sv 17:26 Drug: Pepcid 20 mg Route: IVP; Site: right antecubital; la1 17:46 Follow up: Response: No adverse reaction sv 17:27 Drug: Potassium Effervescent Tablet 50 mEq Route: PO; la1 17:47 Follow up: Response: No adverse reaction sv Intake: 15:00 IV: 1000ml; Total: 1000ml. sv 17:42 IV: 100ml; Total: 1100ml. sv Outcome: 15:56 Discharge ordered by . cp 17:47 Discharged to home ambulatory. sv 17:47 Condition: stable 17:47 Discharge instructions given to patient, Instructed on discharge instructions, follow up and referral plans. medication usage, Demonstrated understanding of instructions, follow-up care, medications, Prescriptions given X 2. 17:49 Patient left the ED. sv Signatures: Dispatcher [employer] EDMS Perlita Tobin, PARING MACHINE OPERATOR-C PARING MACHINE OPERATOR-Rasheeda Toney RN RN mckinley Dianne East, Nick RN RN la1 Maximo Orellana PA PA cp Wise, Tara, RN RN [address] [place] [id number]
--- NOTE | 2018-03-21 17:02 | RAD REPORT ---
EXAM DESCRIPTION: US - OB Limited - 03/21/2018 3:18 pm CLINICAL HISTORY: , lower abdominal pain COMPARISON: December 21 FINDINGS: A single cephalic presenting gestation is identified. The 4 chamber heart view has a sarah l appearance. Heart rate normal. The intracranial contents and spine are grossly normal. A lef t-sided stomach bubble is seen with normal appearing bladder and kidneys. The 3 vessel cord, inserti on site and anterior abdominal wall have normal appearance. Anatomy is as expected for 18 week age. measurements are as follows: BPD:4.31 Centimeters 19 weeks 0 days HC:15.63 Centimeters 18 weeks 4 days AC:12.80 Centimeters 18 weeks 3 days HL:2.71 Centimeters 18 weeks 4 days FL:2.73 Centimeters 18 weeks 2 days The estimated gestational age (EGA) is 18 weeks 4 days with an OTF of 08/18/2018. ratios are n ormal or within acceptable limits. The placenta is grade 0, posterior in location. No low-lying or pl acenta previa. The amniotic fluid volume is normal. Cervical canal is long and closed. No maternal adnexa abnormality. IMPRESSION: 1. Single, cephalic gestation with an EGA of 18 weeks 4 days and an OTF of the 9. 2. No abnormalities are identifiable. ratios are normal or within acceptable limits. 3. Grade 0, posterior placenta with no low-lying or placenta previa. 4. Amniotic fluid volume is normal.
[2018-03-21] MEDS ORDERED: ACETAMINOPHEN 500 MG TAB ONE (17:25)
[2018-03-21] MEDS ORDERED: FAMOTIDINE 20 MG/2 ML VIAL IV ONE (17:26)
[2018-03-21] MEDS ORDERED: POTASSIUM 25 MEQ EFFERV TAB ONE (17:26)
[2018-03-21 17:41] LABS: Anisocytosis 1+; Blood Morphology Comment NOTED (NOT SEEN); Hypochromasia 1+; Platelet Estimate INCR; Poikilocytosis 2+; Polychromasia 1+; Teardrop Cell 2+; Urine White Blood Cell Casts OK
[2018-03-21 17:58] VITALS: TEMP 98.4
[2018-03-21 17:59] VITALS: BP 102/64; O2SAT 99
== END 2018-03-21 17:49 | disposition home or self-care (01) ==
LOC: ER 11:02
DX: O26.892 Other specified pregnancy related conditions, second trimester (principal); R10.84 Generalized abdominal pain; O99.012 Anemia complicating pregnancy, second trimester; Z3A.19 19 weeks gestation of pregnancy
CPT/HCPCS: 36415; 76815; 80048; 80076; 81003; 81025; 83690; 85025; 85610; 85730; 96361; 96365; 96366; 96375; 99284; J2550; J7030

== ENCOUNTER 2018-05-22 06:47 | Emergency (ER) | payer OTHER ==
[2018-05-22] MEDS ORDERED: MEPERIDINE HCL 25 MG/0.5 ML ONE ×2 (07:15→11:27)
[2018-05-22] MEDS ORDERED: PROMETHAZINE 25 MG/ML VIAL ONE (07:16)
[2018-05-22] MEDS ORDERED: NA CHLORIDE 0.9% 1,000 ML ONE (07:16)
[2018-05-22 07:31] LABS: Absolute Lymphocytes (CBC) 1.1 K/uL (0.7-4.9); Absolute Neutrophil 9.9 K/uL (1.8-8.0); Basophils % 0.4 % (0-1.3); Eosinophils % 0.9 % (0-4.4); Hematocrit 26.4 % (36.0-45.0); Lymphocytes % 9.4 % (15.3-44.8); MPV 7.6 fL (7.6-11.3); Monocytes % 7.9 % (3.3-12.3); RBC Red Blood Cell Count 3.67 M/uL (3.86-4.86)
[2018-05-22 07:40] LABS: ALT/SGPT 17 U/L (12-78); AST/SGOT 14 U/L (15-37); Albumin 2.6 g/dL (3.4-5.0); Alkaline Phosphatase 95 U/L (45-117); BUN Blood Urea Nitrogen 4 mg/dL (7-18); Bicarbonate 19 mmol/L (21-32); Bilirubin Direct < 0.1 mg/dL (0-0.2); Bilirubin Total 0.3 mg/dL (0.2-1.0); Glucose Level 91 mg/dL (74-106); Lipase 65 U/L (73-393); Potassium 3.2 mmol/L (3.5-5.1); Protein, Total 7.2 g/dL (6.4-8.2); Sodium Level 137 mmol/L (136-145)
[2018-05-22 08:16] LABS: Platelet Estimate ADEQ
[2018-05-22 08:17] LABS: Anisocytosis 2+; Blood Morphology Comment NOTED (NOT SEEN); Poikilocytosis 1+
[2018-05-22] MEDS ORDERED: FAMOTIDINE 20 MG/2 ML VIAL IV ONE (11:28)
[2018-05-22] MEDS ORDERED: FAMOTIDINE 20 MG TAB ONE (11:33)
--- NOTE | 2018-05-22 11:54 | EDPHYS ---
Physician Documentation [facility] Name: Kylie Appiah Age: 27 yrs Sex: Female : 1990 Arrival Date: 05/22/2018 Time: 06:49 Bed 6 Private MD: Mulu Vicente ED Physician Maximo Roe HPI: 05/22 08:31 This 27 yrs old Female presents to ER via Ambulatory with complaints of jr8 Abdominal Pain, Vomiting. 08:31 The patient presents with abdominal pain that is diffuse. Onset: The symptoms/episode jr8 began/occurred acutely, today. The symptoms do not radiate. Associated signs and symptoms: Pertinent positives: nausea, vomiting, and diarrhea. The symptoms are described as crampy, waxing/waning. Modifying factors: The symptoms are alleviated by nothing, the symptoms are aggravated by nothing. Severity of pain: At its worst the pain was moderate in the emergency department the pain is unchanged. The patient has experienced similar episodes in the past, a few times. The patient has not recently seen a physician. History of Ulcerative Colitis. Approximately 27 weeks gestation. Feels that she is having a flare up of her UC. On 10 mg daily of prednisone for UC. 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 - Social history:: Smoking status: Patient/guardian denies using tobacco. - Ebola Screening: : No symptoms or risks identified at this time. ROS: 09:16 Eyes: Negative for injury, pain, redness, and discharge, ENT: Negative for injury, jr8 pain, and discharge, Neck: Negative for injury, pain, and swelling, Cardiovascular: Negative for chest pain, palpitations, and edema, Respiratory: Negative for shortness of breath, cough, wheezing, and pleuritic chest pain, Back: Negative for injury and pain, MS/Extremity: Negative for injury and deformity, Skin: Negative for injury, rash, and discoloration, Neuro: Negative for headache, weakness, numbness, tingling, and seizure. 09:16 Abdomen/GI: Positive for abdominal pain, nausea, vomiting, and diarrhea, Negative for anorexia, dysphagia, hematemesis, black/tarry stool, rectal pain, rectal bleeding, bowel incontinence, flatulence. Exam: 09:16 Eyes: Pupils equal round and reactive to light, extra-ocular motions intact. Lids and jr8 lashes normal. Conjunctiva and sclera are non-icteric and not injected. Cornea within normal limits. Periorbital areas with no swelling, redness, or edema. ENT: Nares patent. No nasal discharge, no septal abnormalities noted. Tympanic membranes are normal and external auditory canals are clear. Oropharynx with no redness, swelling, or masses, exudates, or evidence of obstruction, uvula midline. Mucous membranes moist. Neck: Trachea midline, no thyromegaly or masses palpated, and no cervical lymphadenopathy. Supple, full range of motion without nuchal rigidity, or vertebral point tenderness. No Meningismus. Cardiovascular: Regular rate and rhythm with a normal S1 and S2. No gallops, murmurs, or rubs. Normal PMI, no JVD. No pulse deficits. Respiratory: Lungs have equal breath sounds bilaterally, clear to auscultation and percussion. No rales, rhonchi or wheezes noted. No increased work of breathing, no retractions or nasal flaring. Back: No spinal tenderness. No costovertebral tenderness. Full range of motion. Skin: Warm, dry with normal turgor. Normal color with no rashes, no lesions, and no evidence of cellulitis. MS/ Extremity: Pulses equal, no cyanosis. Neurovascular intact. Full, normal range of motion. Neuro: Awake and alert, GCS 15, oriented to person, place, time, and situation. Cranial nerves II-XII grossly intact. Motor strength 5/5 in all extremities. Sensory grossly intact. Cerebellar exam normal. Normal gait. 09:16 Abdomen/GI: Inspection: gravid appearance, is noted, Bowel sounds: active, all quadrants, Palpation: soft, in all quadrants, moderate abdominal tenderness, in the left upper quadrant and left lower quadrant, mass, is not appreciated, rebound tenderness, is not appreciated, voluntary guarding, is not appreciated, involuntary guarding, is not appreciated, no appreciated organomegaly, Indicators: McBurney's point is not tender, Pettit's sign is negative, Rovsing's sign is negative, Liver: tenderness, is not appreciated. Vital Signs: 07:05 BP 114 / 78; Pulse 109; Resp 20 S; Temp 98.6(O); Pulse Ox 100% on R/A; Weight 84.37 kg bb (R); Height 5 ft. 0 in. (152.40 cm) (R); Pain 8/10; 08:30 BP 112 / 77; Pulse 110; Resp 19; Pulse Ox 99% on R/A; sg 09:45 sg 11:20 BP 120 / 70; Pulse 89; Resp 17; Pulse Ox 100% on R/A; sg 07:05 Body Mass Index 36.33 (84.37 kg, 152.40 cm) bb 09:45 Not on the unit at this time, pt remains in L\\T\\D for evaluation sg MDM: 06:55 Patient medically screened. jr8 09:17 Data reviewed: vital signs, nurses notes, lab test result(s). Data interpreted: Pulse jr8 oximetry: on room air is 100 %. Interpretation: normal. Counseling: I had a detailed discussion with the patient and/or guardian regarding: the historical points, exam findings, and any diagnostic results supporting the discharge/admit diagnosis, lab results. ED course: Consulted Dr. Chadwick who is maternal/medical assistant secretary. Stated that we could go up on the prednisone. Will see if we can get a hold of her GI as well. 09:37 ED course: Patient evaluated in L\\T\\D with toco monitor. HR well within normal jr8 limits. No contractions or decelerations present . 11:50 ED course: Called Dr. Cosme again and cannot get answer. For now there is no fever. jr8 Pain is better. Minimal bump in WBC which can be related to residential steroid use. Will increase prednisone to 20 mg per day for now until she sees Dr. Blackburn and MFM. Patient good with this and will follow up . 05/22 07:01 Order name: Basic Metabolic Panel [facility] 05/22 07:01 Order name: CBC with Diff [facility] 05/22 07:01 Order name: Creatinine for Radiology [facility] 05/22 07:01 Order name: Hepatic Function [facility] 05/22 07:01 Order name: Lipase [facility] 05/22 07:37 Order name: Creatinine (Radiology Only); Complete Time: 08:11 EDMS 05/22 07:37 Order name: CBC with Automated Diff; Complete Time: 08:24 EDMS 05/22 07:40 Order name: Basic Metabolic Panel; Complete Time: 08:11 EDMS 05/22 07:40 Order name: Liver (Hepatic) Function; Complete Time: 08:11 EDMS 05/22 07:40 Order name: Lipase; Complete Time: 08:11 EDMD 05/22 08:18 Order name: Manual Differential; Complete Time: 08:24 EDMS 05/22 11:13 Order name: Urine Dipstick--Ancillary (enter results) 05/22 11:57 Order name: Urine Dipstick-Ancillary; Complete Time: 11:59 EDMD 05/22 07:01 Order name: IV Saline Lock; Complete Time: 07:13 [facility] 05/22 07:01 Order name: Labs collected and sent; Complete Time: 07:13 [facility] 05/22 07:01 Order name: Urine Dipstick-Ancillary (obtain specimen); Complete Time: 11:12 Administered Medications: 07:13 Drug: NS 0.9% 1000 ml Route: IV; Rate: 125 ml/hr; Site: left antecubital; sg 07:13 Drug: Promethazine 12.5 mg Route: IVP; Site: left antecubital; sg 07:14 Drug: Demerol 25 mg Route: IVP; Site: left antecubital; sg 09:00 Drug: NS 0.9% 1000 ml Route: IV; Rate: 1000 ml; Site: left antecubital; sg 11:25 Drug: predniSONE 20 mg Route: PO; jl7 11:25 Drug: Demerol 25 mg Route: IVP; Site: left antecubital; jl7 Disposition: 05/22/18 11:52 Discharged to Home. Impression: Abdominal and pelvic pain, Ulcerative colitis. - Condition is Stable. - Discharge Instructions: Abdominal Pain, Adult. - Prescriptions for promethazine 25 mg Oral Tablet - take 1 tablet by ORAL route every 6 hours As needed; 20 tablet. - Medication Reconciliation Form, Thank You Letter, Antibiotic Education, Prescription Opioid Use form. - Follow up: Enrico Cosme MD; When: Tomorrow; Reason: Recheck today's complaints, Continuance of care, Re-evaluation by your physician. - Problem is new. - Symptoms have improved. Addendum: 05/25/2018 07:08 Co-signature as Attending Physician, Maximo Roe MD I agree with the assessment and c herrera plan of care. Signatures: Dispatcher [employer] EDMS Rocky eFrris, RN RN sg Maximo Roe MD MD cha Ballard, Brenda RN RN Laila Kendall RN RN Galdino Starr PA PA jr8 Trenton Barton RN RN jl7 Corrections: (The following items were deleted from the chart) 05/22 12:35 11:52 05/22/2018 11:52 Discharged to Home. Impression: Abdominal and pelvic pain; ss Ulcerative colitis. Condition is Stable. Forms are Medication Reconciliation Form, Thank You Letter, Antibiotic Education, Prescription Opioid Use. Follow up: Enrico Cosme; When: Tomorrow; Reason: Recheck today's complaints, Continuance of care, Re-evaluation by your physician. Problem is new. Symptoms have improved. jr8
--- NOTE | 2018-05-22 11:54 | ER ---
Nurse's Notes [facility] Name: Kylie Appiah Age: 27 yrs Sex: Female : 1990 Arrival Date: 05/22/2018 Time: 06:49 Bed 6 Private MD: Mulu Vicente Diagnosis: Abdominal and pelvic pain;Ulcerative colitis Presentation: 05/22 06:57 Presenting complaint: Patient states: she started having abdominal pain last night bb which has gotten worse the pain is constant and radiates from upper abdomen to left side of abdomen pt vomited x 1 this morning, pt is 27 weeks with history of ulcerative colitis. Transition of care: patient was not received from another setting of care. Onset of symptoms was May 21, 2018. Risk Assessment: Do you want to hurt yourself or someone else? Patient reports no desire to harm self or others. Initial Sepsis Screen: Does the patient meet any 2 criteria? No. Patient's initial sepsis screen is negative. Does the patient have a suspected source of infection? No. Patient's initial sepsis screen is negative. Care prior to arrival: None. 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 - Social history:: Smoking status: Patient/guardian denies using tobacco. - Ebola Screening: : No symptoms or risks identified at this time. Screenin:10 Abuse screen: Denies threats or abuse. Denies injuries from another. Nutritional sg screening: No deficits noted. Tuberculosis screening: No symptoms or risk factors identified. Never had TB. Fall Risk None identified. Assessment: 07:17 Reassessment: Patient appears in no apparent distress at this time. Patient and/or sg family updated on plan of care and expected duration. Pain level reassessed. General: Behavior is anxious, crying, fussy. Pain: Complains of pain in left upper quadrant and left lower quadrant Quality of pain is described as aching, crampy. Neuro: No deficits noted. Cardiovascular: Capillary refill is brisk in bilateral fingers Patient's skin is warm and dry. Chest pain is denied. Respiratory: Airway is patent Respiratory effort is even, unlabored, Respiratory pattern is regular, symmetrical. GI: Abdomen is round distended, gravid abdomen noted Bowel sounds present X 4 quads. Abd is soft X 4 quads Abdomen is tender to palpation in right lower quadrant and left lower quadrant. : No signs and/or symptoms were reported regarding the genitourinary system. EENT: No signs and/or symptoms were reported regarding the EENT system. Derm: Skin is pink, warm \\T\\ dry. Musculoskeletal: No signs and/or symptoms reported regarding the musculoskeletal system. 08:24 Reassessment: SAUL Broussardmill platform supervisor reports L\\T\\D will be ready in approx an hour ss for evaluation of pt, pt updated on POC and pt and pt family stated understanding. 09:04 Reassessment: Pt to L\\T\\D now VIA wheelchair. ss 11:00 Reassessment: Patient appears in no apparent distress at this time. Patient and/or sg family updated on plan of care and expected duration. Pain level reassessed. Patient is alert, oriented x 3, equal unlabored respirations, skin warm/dry/pink. pt returned from L\\T\\D via wheelchair post evaluation. Vital Signs: 07:05 BP 114 / 78; Pulse 109; Resp 20 S; Temp 98.6(O); Pulse Ox 100% on R/A; Weight 84.37 kg bb (R); Height 5 ft. 0 in. (152.40 cm) (R); Pain 8/10; 08:30 BP 112 / 77; Pulse 110; Resp 19; Pulse Ox 99% on R/A; sg 09:45 sg 11:20 BP 120 / 70; Pulse 89; Resp 17; Pulse Ox 100% on R/A; sg 07:05 Body Mass Index 36.33 (84.37 kg, 152.40 cm) bb 09:45 Not on the unit at this time, pt remains in L\\T\\D for evaluation sg ED Course: 06:49 Patient arrived in ED. am2 06:51 Mulu Vicente FNP-C is Private Physician. am2 06:55 [facility] Castle [facility] jr8 06:55 Maximo Roe MD is Attending Physician. jr8 07:02 Triage completed. bb 07:05 Arm band placed on Patient placed in an exam room, on a stretcher, on pulse oximetry. bb Family accompanied patient. 07:20 Patient has correct armband on for positive identification. Bed in low position. Call sg light in reach. Adult w/ patient. Pulse ox on. NIBP on. Warm blanket given. Head of bed elevated. 07:22 Initial lab(s) drawn, by ED staff, sent to lab. IV inserted by Ismael HUGHES. Inserted saline sg lock: 20 gauge in left antecubital area, using aseptic technique. Blood collected. 08:24 Private physician Called and left message with the nurse at Dr. Marvin Chadwick's office eb at [phone] to please call Galdino SOLIS for patient consultation. 09:[address] Chadwick's with Galdino SOLIS for patient consultation. eb 10:03 Rocky Ferris, SAUL is Primary Nurse. sg 11:52 Enrico Cosme MD is Referral Physician. jr8 12:30 No provider procedures requiring assistance completed. IV discontinued, intact, sg bleeding controlled, No redness/swelling at site. Pressure dressing applied. Administered Medications: 07:13 Drug: NS 0.9% 1000 ml Route: IV; Rate: 125 ml/hr; Site: left antecubital; sg 07:13 Drug: Promethazine 12.5 mg Route: IVP; Site: left antecubital; sg 07:14 Drug: Demerol 25 mg Route: IVP; Site: left antecubital; sg 09:00 Drug: NS 0.9% 1000 ml Route: IV; Rate: 1000 ml; Site: left antecubital; sg 11:25 Drug: predniSONE 20 mg Route: PO; jl7 11:25 Drug: Demerol 25 mg Route: IVP; Site: left antecubital; jl7 Outcome: 11:52 Discharge ordered by . katty 12:30 Discharged to home ambulatory, with family. sg 12:30 Condition: good 12:30 Discharge instructions given to Instructed on discharge instructions, follow up and referral plans. safety practices, Demonstrated understanding of instructions, follow-up care, medications, Prescriptions given X 1. 12:35 Patient left the ED. Signatures: Rocky Ferris RN RN Syeda Curran RN RN Laila Kendall RN RN Galdino Castle PA PA jr8 Leal, Jahala, RN RN jl7 Felisa Gorman Elizabeth eb
[2018-05-22 11:56] LABS: Urine Blood TRACE (NEG); Urine Glucose NEGATIVE (NEG); Urine Protein TRACE (NEG); Urine Specific Gravity 1.025 (1.005-1.030); Urine pH 6.5 (5.0-7.0)
[2018-05-22 12:46] VITALS: BP 114/78; TEMP 98.6; O2SAT 100
== END 2018-05-22 12:35 | disposition home or self-care (01) ==
LOC: ER 06:47
DX: K51.90 Ulcerative colitis, unspecified, without complications (principal); Z3A.27 27 weeks gestation of pregnancy; Z88.0 Allergy status to penicillin; Z88.6 Allergy status to analgesic agent
CPT/HCPCS: 36415; 80048; 80076; 81003; 83690; 85025; 96374; 96375; 99284; J2175; J2550; J7030

== ENCOUNTER 2018-08-16 16:45 | Emergency (ER) | payer OTHER ==
[2018-08-16] MEDS ORDERED: ONDANSETRON 4 MG/2 ML VIAL ONE (17:32)
[2018-08-16] MEDS ORDERED: MORPHINE 4 MG/ML SYR ONE (17:32)
[2018-08-16] MEDS ORDERED: NA CHLORIDE 0.9% 1,000 ML ONE (17:32)
[2018-08-16 17:43] LABS: Absolute Lymphocytes (CBC) 1.3 K/uL (0.7-4.9); Absolute Monocytes 0.6 K/uL (0.1-1.3); Absolute Neutrophil 10.5 K/uL (1.8-8.0); Basophils % 0.2 % (0-1.3); Eosinophils % 0.5 % (0-4.4); Lymphocytes % 10.8 % (15.3-44.8); Monocytes % 4.4 % (3.3-12.3)
[2018-08-16 18:06] LABS: ALT/SGPT 23 U/L (12-78); AST/SGOT 13 U/L (15-37); Albumin 3.4 g/dL (3.4-5.0); Alkaline Phosphatase 101 U/L (45-117); BUN Blood Urea Nitrogen 13 mg/dL (7-18); Bicarbonate 23 mmol/L (21-32); Bilirubin Direct 0.1 mg/dL (0-0.2); Bilirubin Total 0.5 mg/dL (0.2-1.0); Glucose Level 88 mg/dL (74-106); Lipase 73 U/L (73-393); Potassium 3.3 mmol/L (3.5-5.1); Protein, Total 7.9 g/dL (6.4-8.2); Sodium Level 139 mmol/L (136-145)
[2018-08-16] MEDS ORDERED: PROMETHAZINE 25 MG/ML VIAL ONE (18:19)
[2018-08-16] MEDS ORDERED: MEPERIDINE HCL 25 MG/0.5 ML ONE (18:19)
[2018-08-16 18:22] LABS: Urine Blood 2+ (NEG); Urine Glucose NEGATIVE (NEG); Urine Protein 1+ (NEG); Urine pH 5.5 (5.0-7.0)
[2018-08-16 18:43] LABS: Blood Morphology Comment NOT SEEN (NOT SEEN); Platelet Estimate INCR; Urine White Blood Cell Casts OK
[2018-08-16] MEDS ORDERED: predniSONE 20 MG TAB ONE (19:39)
--- NOTE | 2018-08-16 20:45 | ER ---
Nurse's Notes [facility] Name: Kylie Appiah Age: 28 yrs Sex: Female : 1990 Arrival Date: 08/16/2018 Time: 16:49 Bed 25 Private MD: JACKLYN SALAZAR Diagnosis: Unspecified abdominal pain;Ulcerative (chronic) pancolitis;Urinary tract infection, site not specified Presentation: 08/16 17:06 Presenting complaint: Patient states: severe left abd pain, n/v/d started today. Hx sv ulcerative colitis. Transition of care: patient was not received from another setting of care. Onset of symptoms was August 16, 2018. Care prior to arrival: None. 17:06 Method Of Arrival: Ambulatory sv 17:06 Acuity: YESSICA 3 sv 17:25 Risk Assessment: Do you want to hurt yourself or someone else? Patient reports no la1 desire to harm self or others. Initial Sepsis Screen: Does the patient meet any 2 criteria? No. Patient's initial sepsis screen is negative. Does the patient have a suspected source of infection? No. Patient's initial sepsis screen is negative. 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 - Ebola Screening: : Patient negative for fever greater than or equal to 101.5 degrees Fahrenheit, and additional compatible Ebola Virus Disease symptoms Patient denies exposure to infectious person Patient denies travel to an Ebola-affected area in the 21 days before illness onset. - Social history:: Smoking status: Patient/guardian denies using tobacco. Screenin:34 Abuse screen: Denies threats or abuse. Nutritional screening: No deficits noted. la1 Tuberculosis screening: No symptoms or risk factors identified. Fall Risk None identified. Assessment: 17:32 General: Appears in no apparent distress. Behavior is calm, cooperative. Pain: la1 Complains of pain in left lower quadrant. Neuro: Level of Consciousness is awake, alert, obeys commands, Oriented to person, place, time, situation. Cardiovascular: Heart tones S1 S2 Capillary refill < 3 seconds Patient's skin is warm and dry. Respiratory: Airway is patent Respiratory effort is even, unlabored, Respiratory pattern is regular, symmetrical, Breath sounds are clear bilaterally. GI: Abdomen is non-distended, obese, Bowel sounds present X 4 quads. Abd is soft X 4 quads Abdomen is tender to palpation in left lower quadrant Reports bloody stool. : No deficits noted. No signs and/or symptoms were reported regarding the genitourinary system. 18:40 Reassessment: Patient appears in no apparent distress at this time. Patient and/or rv family updated on plan of care and expected duration. Pain level reassessed. Patient is alert, oriented x 3, equal unlabored respirations, skin warm/dry/pink. Patient states feeling better. Patient states symptoms have improved. 19:25 Reassessment: Patient appears in no apparent distress at this time. No changes from la1 previously documented assessment. Patient and/or family updated on plan of care and expected duration. Pain level reassessed. Patient is alert, oriented x 3, equal unlabored respirations, skin warm/dry/pink. 20:45 Reassessment: PT states " it feels so good to be pain free". la1 Vital Signs: 17:07 BP 131 / 71; Pulse 109; Resp 22; Temp 99.1; Pulse Ox 99% ; Pain 8/10; sv 17:34 BP 107 / 81; Pulse 94; Resp 16; Pulse Ox 98% on R/A; la1 18:00 BP 95 / 78 RA Supine; Pulse 94; Resp 19 S; Pulse Ox 100% on R/A; rv 18:30 BP 95 / 55 RA Supine; Pulse 93; Resp 18 S; Pulse Ox 100% on R/A; rv 19:24 BP 99 / 63; Pulse 81; Resp 16; Pulse Ox 98% on R/A; la1 ED Course: 16:49 Patient arrived in ED. mr 16:49 JACKLYN SALAZAR is Private Physician. mr 17:07 Triage completed. sv 17:08 Sonny Munguia PA is PHCP. [facility] 17:08 Maximo Roe MD is Attending Physician. [facility] 17:08 Arm band placed on. sv 17:18 Attema, Nick, RN is Primary Nurse. la1 17:28 Initial lab(s) drawn, by me, sent to lab. Inserted saline lock: 22 gauge in left lt1 antecubital area, using aseptic technique. 17:34 Bed in low position. Call light in reach. Side rails up X 1. la1 20:43 Enrico Cosme MD is Referral Physician. [facility] 20:54 No provider procedures requiring assistance completed. IV discontinued, intact, la1 bleeding controlled, No redness/swelling at site. Pressure dressing applied. Administered Medications: 17:35 Drug: NS 0.9% 1000 ml Route: IV; Rate: 1 bolus; Site: left antecubital; la1 18:13 Follow up: IV Status: Completed infusion; IV Intake: 1000ml rv 19:24 Follow up: IV Status: Completed infusion la1 17:35 Drug: morphine 4 mg Route: IVP; Site: left antecubital; la1 18:13 Follow up: Response: Pain is decreased rv 19:24 Follow up: Response: No adverse reaction; Pain is decreased la1 17:36 Drug: Zofran 4 mg Route: IVP; Site: left antecubital; la1 18:13 Follow up: Response: No adverse reaction rv 18:12 Drug: Demerol 25 mg Route: IVP; Site: left antecubital; rv 19:24 Follow up: Response: No adverse reaction; Pain is decreased la1 18:13 Drug: Promethazine 12.5 mg Route: IVP; Site: left antecubital; rv 19:25 Follow up: Response: No adverse reaction la1 19:28 Drug: predniSONE 20 mg Route: PO; la1 19:43 Follow up: Response: No adverse reaction la1 20:44 Drug: K-Lyte Effervescent Tablet 50 mEq Route: PO; la1 20:54 Follow up: Response: No adverse reaction la1 Intake: 18:13 IV: 1000ml; Total: 1000ml. rv Outcome: 20:44 Discharge ordered by . [facility] 20:54 Discharged to home ambulatory. la1 20:54 Condition: stable 20:54 Discharge instructions given to patient, Instructed on discharge instructions, follow up and referral plans. medication usage, Demonstrated understanding of instructions, follow-up care, medications, Prescriptions given X 1. 20:54 Patient left the ED. la1 Signatures: Rasheeda Kraus, RN RN sv Sonny Munguia PA PA [facility] Cruzito, Dianne mr Nick Ross RN RN la1 Brennan Chavarria, SAUL RN rv Kanika Arcos 1 Corrections: (The following items were deleted from the chart) 17:07 17:06 Presenting complaint: Patient states: severe left abd pain, n/v started today. Hx sv ulcerative colitis sv 18:13 18:12 Promethazine 12.5 mg IVP in right antecubital rv rv
--- NOTE | 2018-08-16 20:45 | EDPHYS ---
Physician Documentation [facility] – [place], [place] Name: Kylie Appiah Age: 28 yrs Sex: Female : 1990 Arrival Date: 08/16/2018 Time: 16:49 Bed 25 Private MD: JACKLYN SALAZAR ED Physician Maximo Roe HPI: 08/16 17:14 This 28 yrs old Female presents to ER via Ambulatory with complaints of left [facility] side pain, Eye Problem. 17:14 The patient presents with abdominal pain. Onset: The symptoms/episode began/occurred jmm this morning. The symptoms do not radiate. Associated signs and symptoms: Pertinent positives: nausea and vomiting, diarrhea. The symptoms are described as achy, sharp, stabbing. This is a 28 year old female with a history of UC that presents to the ED with complaints of abdominal pain, vomiting, and diarrhea similar in character to previous UC flares. Patient is currently taking prednisone 10 mg daily. . 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 - Ebola Screening: : Patient negative for fever greater than or equal to 101.5 degrees Fahrenheit, and additional compatible Ebola Virus Disease symptoms Patient denies exposure to infectious person Patient denies travel to an Ebola-affected area in the 21 days before illness onset. - Social history:: Smoking status: Patient/guardian denies using tobacco. ROS: 17:14 Constitutional: Negative for fever, chills, and weight loss, Cardiovascular: Negative jmm for chest pain, palpitations, and edema, Respiratory: Negative for shortness of breath, cough, wheezing, and pleuritic chest pain. 17:14 Abdomen/GI: Positive for abdominal pain, nausea and vomiting, diarrhea. 17:14 All other systems are negative. Exam: 17:14 Head/Face: atraumatic. Eyes: EOMI, no conjunctival erythema appreciated ENT: Moist jmm Mucus Membranes 17:14 Chest/axilla: Normal chest wall appearance and motion. Cardiovascular: Regular rate and rhythm. No edema appreciated Respiratory: Normal respirations, no respiratory distress appreciated 17:14 Constitutional: The patient appears alert, awake, anxious, in obvious pain, uncomfortable. 17:14 Abdomen/GI: Inspection: abdomen appears normal, Bowel sounds: normal, Palpation: soft, moderate abdominal tenderness, in all quadrants. 17:14 Back: ROM is normal, CVA tenderness, is absent, is noted bilaterally. 17:14 Musculoskeletal/extremity: ROM: intact in all extremities. 17:14 Skin: Appearance: Color: normal in color. 17:14 Neuro: Orientation: is normal, Mentation: is normal, Memory: is normal, Gait: is steady. 17:14 Psych: Behavior/mood is pleasant, cooperative. Vital Signs: 17:07 BP 131 / 71; Pulse 109; Resp 22; Temp 99.1; Pulse Ox 99% ; Pain 8/10; sv 17:34 BP 107 / 81; Pulse 94; Resp 16; Pulse Ox 98% on R/A; la1 18:00 BP 95 / 78 RA Supine; Pulse 94; Resp 19 S; Pulse Ox 100% on R/A; rv 18:30 BP 95 / 55 RA Supine; Pulse 93; Resp 18 S; Pulse Ox 100% on R/A; rv 19:24 BP 99 / 63; Pulse 81; Resp 16; Pulse Ox 98% on R/A; la1 MDM: 17:14 Patient medically screened. bossman 20:41 Data reviewed: vital signs, nurses notes. Counseling: I had a detailed discussion with bossman the patient and/or guardian regarding: the historical points, exam findings, and any diagnostic results supporting the discharge/admit diagnosis, lab results, the need for outpatient follow up, to return to the emergency department if symptoms worsen or persist or if there are any questions or concerns that arise at home. ED course: Patient states that she feels much better in the ED. Patient tolerates PO in the ED. Patient states this is similar to previous UC flares. Abdomen is soft. I do not currently suspect an acute intraabdominal process. Patient will follow up with Dr. Cosme and is otherwise given strict return precautions. patient understood and agrees with the plan of care. . 08/16 17:15 Order name: Basic Metabolic Panel; Complete Time: 18:36 [facility] 08/16 17:15 Order name: CBC with Diff; Complete Time: 18:49 [facility] 08/16 17:15 Order name: Creatinine for Radiology; Complete Time: 17:58 [facility] 08/16 17:15 Order name: Hepatic Function; Complete Time: 18:36 [facility] 08/16 17:15 Order name: Lipase; Complete Time: 18:36 [facility] 08/16 17:46 Order name: Urine Dipstick--Ancillary (enter results); Complete Time: 18:36 ms 08/16 17:46 Order name: Urine --Ancillary (enter results); Complete Time: 18:36 ms 08/16 17:56 Order name: CBC Smear Scan; Complete Time: 18:49 [facility] 08/16 17:15 Order name: IV Saline Lock; Complete Time: 17:29 [facility] 08/16 17:15 Order name: Labs collected and sent; Complete Time: 17:29 jmm Administered Medications: 17:35 Drug: NS 0.9% 1000 ml Route: IV; Rate: 1 bolus; Site: left antecubital; la1 18:13 Follow up: IV Status: Completed infusion; IV Intake: 1000ml rv 19:24 Follow up: IV Status: Completed infusion la1 17:35 Drug: morphine 4 mg Route: IVP; Site: left antecubital; la1 18:13 Follow up: Response: Pain is decreased rv 19:24 Follow up: Response: No adverse reaction; Pain is decreased la1 17:36 Drug: Zofran 4 mg Route: IVP; Site: left antecubital; la1 18:13 Follow up: Response: No adverse reaction rv 18:12 Drug: Demerol 25 mg Route: IVP; Site: left antecubital; rv 19:24 Follow up: Response: No adverse reaction; Pain is decreased la1 18:13 Drug: Promethazine 12.5 mg Route: IVP; Site: left antecubital; rv 19:25 Follow up: Response: No adverse reaction la1 19:28 Drug: predniSONE 20 mg Route: PO; la1 19:43 Follow up: Response: No adverse reaction la1 20:44 Drug: K-Lyte Effervescent Tablet 50 mEq Route: PO; la1 20:54 Follow up: Response: No adverse reaction la1 Disposition: 08/17 07:26 Co-signature as Attending Physician, Maximo Roe MD I agree with the assessment and kitty plan of care. Disposition: 08/16/18 20:44 Discharged to Home. Impression: Unspecified abdominal pain, Ulcerative (chronic) pancolitis, Urinary tract infection, site not specified. - Condition is Stable. - Discharge Instructions: Ulcerative Colitis, Adult. - Prescriptions for Cipro 500 mg Oral Tablet - take 1 tablet by ORAL route every 12 hours for 7 days; 20 tablet. - Medication Reconciliation Form, Thank You Letter, Antibiotic Education, Prescription Opioid Use form. - Follow up: Enrico Cosme MD; When: 1 - 2 days; Reason: Recheck today's complaints, Continuance of care, Re-evaluation by your physician. Signatures: Dispatcher [employer] Rasheeda Pichardo RN RN sv Anderson, Corey, MD MD cha Mickail, Joel, PA PA [facility] Nick Ross RN RN la1 Brennan Chavarria RN SAUL rv Corrections: (The following items were deleted from the chart) 08/16 20:45 20:44 08/16/2018 20:44 Discharged to Home. Impression: Unspecified abdominal pain; m Ulcerative (chronic) pancolitis. Condition is Stable. Forms are Medication Reconciliation Form, Thank You Letter, Antibiotic Education, Prescription Opioid Use. Follow up: Enrico Cosme; When: 1 - 2 days; Reason: Recheck today's complaints, Continuance of care, Re-evaluation by your physician. [facility] 20:54 20:45 08/16/2018 20:44 Discharged to Home. Impression: Unspecified abdominal pain; la1 Ulcerative (chronic) pancolitis; Urinary tract infection, site not specified. Condition is Stable. Discharge Instructions: Ulcerative Colitis, Adult. Prescriptions for Cipro 500 mg Oral Tablet - take 1 tablet by ORAL route every 12 hours for 7 days; 20 tablet. and Forms are Medication Reconciliation Form, Thank You Letter, Antibiotic Education, Prescription Opioid Use. Follow up: Enrico Cosme; When: 1 - 2 days; Reason: Recheck today's complaints, Continuance of care, Re-evaluation by your physician. [facility]
[2018-08-16] MEDS ORDERED: POTASSIUM 25 MEQ EFFERV TAB ONE (20:49)
[2018-08-16 21:11] VITALS: TEMP 99.1
[2018-08-16 21:18] VITALS: BP 99/63; O2SAT 98
== END 2018-08-16 20:54 | disposition home or self-care (01) ==
LOC: ER 16:45
DX: K51.00 Ulcerative (chronic) pancolitis without complications (principal); N39.0 Urinary tract infection, site not specified; D64.9 Anemia, unspecified; F41.9 Anxiety disorder, unspecified; Z88.6 Allergy status to analgesic agent; Z88.0 Allergy status to penicillin
CPT/HCPCS: 36415; 80048; 80076; 81003; 81025; 83690; 85025; 96361; 96374; 96375; 99284; J2175; J2405; J2550; J7030; J7512

== ENCOUNTER 2018-08-17 13:02 | Emergency (ER) | payer OTHER ==
[2018-08-17] MEDS ORDERED: DEXAMETHASONE 10 MG/ML VIAL ONE (16:26)
[2018-08-17] MEDS ORDERED: ONDANSETRON 4 MG/2 ML VIAL ONE ×2 (16:26→17:43)
[2018-08-17] MEDS ORDERED: FAMOTIDINE 20 MG/2 ML VIAL IV ONE (16:26)
[2018-08-17] MEDS ORDERED: MORPHINE 4 MG/ML SYR ONE ×2 (16:27→17:43)
[2018-08-17 16:31] LABS: ALT/SGPT 163 U/L (12-78); AST/SGOT 103 U/L (15-37); Albumin 3.3 g/dL (3.4-5.0); Alkaline Phosphatase 170 U/L (45-117); BUN Blood Urea Nitrogen 12 mg/dL (7-18); Bicarbonate 23 mmol/L (21-32); Bilirubin Direct 0.1 mg/dL (0-0.2); Bilirubin Total 0.3 mg/dL (0.2-1.0); Glucose Level 96 mg/dL (74-106); Lipase 63 U/L (73-393); Protein, Total 7.5 g/dL (6.4-8.2); Sodium Level 138 mmol/L (136-145)
[2018-08-17 16:52] LABS: Absolute Lymphocytes (CBC) 0.7 K/uL (0.7-4.9); Absolute Monocytes 0.4 K/uL (0.1-1.3); Absolute Neutrophil 9.9 K/uL (1.8-8.0); Basophils % 0.2 % (0-1.3); Eosinophils % 0.3 % (0-4.4); Lymphocytes % 5.9 % (15.3-44.8); RBC Red Blood Cell Count 4.88 M/uL (3.86-4.86)
--- NOTE | 2018-08-17 17:02 | RAD REPORT ---
EXAM DESCRIPTION: CTAbdomen Pelvis W Contrast - 08/17/2018 4:54 pm CLINICAL HISTORY: Abdominal pain. ABD PAIN COMPARISON: Abdomen Pelvis W Contrast dated 09/24/2017; Abdomen Pelvis W Contrast dated 06/28/2017 TECHNIQUE: Biphasic CT imaging of the abdomen and pelvis was performed with 100 ml non-ionic IV cont rast. All CT scans are performed using dose optimization technique as appropriate and may include automated exposure control or mA/KV adjustment according to patient size. FINDINGS: The lung bases are clear. The liver, spleen, pancreas, adrenal glands and kidneys are within normal limits. Punctate stone infe rior calyx right kidney. Cholecystectomy. No bowel obstruction, free air, free fluid or abscess. The colon appears fluid-filled and distended w ith mild mucosal enhancement suggesting mild colitis. The appendix is normal. No evidence of signifi cant lymphadenopathy. No suspicious bony findings. IMPRESSION: Mild colitis.
--- NOTE | 2018-08-17 17:27 | ER ---
Nurse's Notes [facility] Name: Kylie Appiah Age: 28 yrs Sex: Female : 1990 Arrival Date: 08/17/2018 Time: 13:05 Bed 19 Private MD: JACKLYN SALAZAR Diagnosis: Abdominal and pelvic pain;Left sided colitis Presentation: 08/17 13:19 Presenting complaint: Patient states: LLQ pain radiating to whole abdomen. Pt states "I aa5 was seen here last night for the same thing". Pt reports nausea and vomiting. Transition of care: patient was not received from another setting of care. Onset of symptoms was July 2018. Risk Assessment: Do you want to hurt yourself or someone else? Patient reports no desire to harm self or others. Initial Sepsis Screen: Does the patient meet any 2 criteria? No. Patient's initial sepsis screen is negative. Does the patient have a suspected source of infection? No. Patient's initial sepsis screen is negative. Care prior to arrival: None. 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 - Social history:: Smoking status: Patient/guardian denies using tobacco. - Ebola Screening: : No symptoms or risks identified at this time. Screenin:30 Abuse screen: Denies threats or abuse. Denies injuries from another. Nutritional aj screening: No deficits noted. Tuberculosis screening: No symptoms or risk factors identified. Fall Risk None identified. Assessment: 15:30 General: Appears in no apparent distress. uncomfortable, Behavior is calm, cooperative, aj appropriate for age. Pain: Complains of pain in left upper quadrant. Neuro: Level of Consciousness is awake, alert, obeys commands, Oriented to person, place, time, situation, Appropriate for age. Respiratory: Airway is patent Respiratory effort is even, unlabored, Respiratory pattern is regular, symmetrical. GI: Abdomen is non-distended, obese, Bowel sounds present X 4 quads. Abd is soft and non tender Reports lower abdominal pain. GI: Reports bloody stool. Derm: Skin is intact, is healthy with good turgor, Skin is pink, warm \\T\\ dry. normal. Vital Signs: 13:19 BP 105 / 72; Pulse 99; Resp 18 S; Temp 97.9(TE); Pulse Ox 97% on R/A; Weight 77.11 kg aa5 (R); Height 5 ft. 0 in. (152.40 cm) (R); Pain 9/10; 13:19 Body Mass Index 33.20 (77.11 kg, 152.40 cm) aa5 ED Course: 13:05 Patient arrived in ED. mr 13:05 ANGEL SALAZARA is Private Physician. mr 13:19 Triage completed. aa5 13:19 Arm band placed on. aa5 13:54 Wiflredo Goldstein MD is Attending Physician. kdr 15:25 Felisa Stinson, SAUL is Primary Nurse. aj 16:12 Radiology exam delayed due to IV insertion attempt and/or patient not having vr appropriate IV at this time. 16:29 Inserted saline lock: 22 gauge in right antecubital area, using aseptic technique. aj Blood collected. 16:[address] via wheelchair. vr 16:54 CT Abd/Pelvis - W/Contrast In Process Unspecified. EDMS 17:38 Perla Brizuela MD is Hospitalizing Provider. kdr 18:14 JACKLYN SALAZAR is Referral Physician. kdr 18:14 Enrico Cosme MD is Referral Physician. kdr 18:15 Abdomen Exam Limited In Process Unspecified. EDMS 18:26 No provider procedures requiring assistance completed. IV discontinued, intact, aj bleeding controlled, No redness/swelling at site. Pressure dressing applied. Administered Medications: 16:23 Drug: Decadron - Dexamethasone 10 mg Route: IVP; Site: right antecubital; aj 17:35 Follow up: Response: No adverse reaction aj 16:24 Drug: Zofran 4 mg Route: IVP; Site: right antecubital; aj 17:35 Follow up: Response: Pain is decreased aj 16:24 Drug: Pepcid 20 mg Route: IVP; Site: right antecubital; aj 17:35 Follow up: Response: No adverse reaction aj 16:25 Drug: morphine 4 mg Route: IVP; Site: right antecubital; aj 17:35 Follow up: Response: Pain is decreased aj 17:34 Drug: morphine 4 mg Route: IVP; Site: left antecubital; aj 17:36 Follow up: Response: No adverse reaction aj 17:34 Drug: Zofran 4 mg Route: IVP; Site: left antecubital; aj 17:36 Follow up: Response: No adverse reaction aj Outcome: 17:26 Discharge ordered by . kdr 17:39 Decision to Hospitalize by Provider. kdr 18:15 Discharge ordered by MD. kdr 18:26 Discharged to home ambulatory. aj 18:26 Condition: good 18:26 Discharge instructions given to patient, Instructed on discharge instructions, follow up and referral plans. Demonstrated understanding of instructions, follow-up care, medications, Prescriptions given X 6 18:28 Patient left the ED. aj Signatures: Dispatcher [employer] EDFelisa Tavarez, RN Wilfredo Hartley MD MD kdr Rivera, Mary mr Calderon, Audri RN RN Karon Timmons
--- NOTE | 2018-08-17 17:27 | EDPHYS ---
Physician Documentation [facility] Name: Kylie Appiah Age: 28 yrs Sex: Female : 1990 Arrival Date: 08/17/2018 Time: 13:05 Bed 19 Private MD: JACKLYN SALAZAR ED Physician Wilfredo Goldstein HPI: 08/17 15:49 This 28 yrs old Female presents to ER via Ambulatory with complaints of kdr Abdominal Pain. 15:49 The patient presents with abdominal pain in the left upper quadrant, in the left lower kdr quadrant. Onset: The symptoms/episode began/occurred Last few days - was seen here last night for the same problem. The symptoms do not radiate. Associated signs and symptoms: Pertinent positives: nausea, vomiting, and diarrhea, hematuria, vaginal bleeding, The patient is about a month out from a and still has some residual vaginal bleeding. The symptoms are described as burning, constant, steady, vague, waxing/waning. Modifying factors: The symptoms are alleviated by nothing, the symptoms are aggravated by nothing. Severity of pain: At its worst the pain was moderate severe just prior to arrival, in the emergency department the pain is unchanged. The patient has experienced similar episodes in the past, multiple times. The patient has been recently seen by a physician: The patient has been recently seen at the [facility] Emergency Department, yesterday. 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 - Social history:: Smoking status: Patient/guardian denies using tobacco. - Ebola Screening: : No symptoms or risks identified at this time. ROS: 15:49 Constitutional: Negative for fever, chills, and weight loss, Eyes: Negative for injury, kdr pain, redness, and discharge, ENT: Negative for injury, pain, and discharge, Neck: Negative for injury, pain, and swelling, Cardiovascular: Negative for chest pain, palpitations, and edema, Respiratory: Negative for shortness of breath, cough, wheezing, and pleuritic chest pain, Back: Negative for injury and pain, : Negative for injury, bleeding, discharge, and swelling, MS/Extremity: Negative for injury and deformity, Skin: Negative for injury, rash, and discoloration, Neuro: Negative for headache, weakness, numbness, tingling, and seizure activity. Psych: Negative for depression, anxiety, suicide ideation, homicidal ideation, and hallucinations, Allergy/Immunology: Negative for hives, rash, and allergies, Endocrine: Negative for neck swelling, polydipsia, polyuria, polyphagia, and marked weight changes, Hematologic/Lymphatic: Negative for swollen nodes, abnormal bleeding, and unusual bruising. 15:49 Abdomen/GI: Positive for abdominal pain, nausea, vomiting, and diarrhea, abdominal cramps, rectal bleeding, Negative for constipation, abdominal distension, bowel incontinence. Exam: 15:49 Constitutional: This is a well developed, well nourished patient who is awake, alert, kdr and in mild distress. Head/Face: Normocephalic, atraumatic. Eyes: Pupils equal round and reactive to light, extra-ocular motions intact. Lids and lashes normal. Conjunctiva and sclera are non-icteric and not injected. Cornea within normal limits. Periorbital areas with no swelling, redness, or edema. Neck: Trachea midline, no thyromegaly or masses palpated, and no cervical lymphadenopathy. Supple, full range of motion without nuchal rigidity, or vertebral point tenderness. No Meningismus. Chest/axilla: Normal chest wall appearance and motion. Nontender with no deformity. No lesions are appreciated. Cardiovascular: Regular rate and rhythm with a normal S1 and S2. No gallops, murmurs, or rubs. Normal PMI, no JVD. No pulse deficits. Respiratory: Lungs have equal breath sounds bilaterally, clear to auscultation and percussion. No rales, rhonchi or wheezes noted. No increased work of breathing, no retractions or nasal flaring. Back: No spinal tenderness. No costovertebral tenderness. Full range of motion. Skin: Warm, dry with normal turgor. Normal color with no rashes, no lesions, and no evidence of cellulitis. MS/ Extremity: Pulses equal, no cyanosis. Neurovascular intact. Full, normal range of motion. Neuro: Awake and alert, GCS 15, oriented to person, place, time, and situation. Cranial nerves II-XII grossly intact. Motor strength 5/5 in all extremities. Sensory grossly intact. Cerebellar exam normal. Normal gait. Psych: Awake, alert, with orientation to person, place and time. Behavior, mood, and affect are within normal limits. 15:49 Abdomen/GI: Inspection: abdomen appears normal, Bowel sounds: diminished, in all quadrants, Palpation: soft, moderate abdominal tenderness, in the left upper quadrant and left lower quadrant. Vital Signs: 13:19 BP 105 / 72; Pulse 99; Resp 18 S; Temp 97.9(TE); Pulse Ox 97% on R/A; Weight 77.11 kg aa5 (R); Height 5 ft. 0 in. (152.40 cm) (R); Pain 9/10; 13:19 Body Mass Index 33.20 (77.11 kg, 152.40 cm) aa5 MDM: 17:26 Patient medically screened. kdr 17:30 Data reviewed: vital signs, nurses notes, lab test result(s), radiologic studies. kdr Counseling: I had a detailed discussion with the patient and/or guardian regarding: the historical points, exam findings, and any diagnostic results supporting the discharge/admit diagnosis, lab results, radiology results, the need for outpatient follow up. ED course: I offered the patient admission but she stated that she had no one to care for her kids. She preferred to go home. 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 Her pain was still at 7/10. 08/17 15:11 Order name: Basic Metabolic Panel; Complete Time: 17:11 kdr 08/17 15:11 Order name: CBC with Diff kdr 08/17 15:11 Order name: Hepatic Function; Complete Time: 17:11 kdr 08/17 15:11 Order name: Lipase; Complete Time: 17:11 kdr 08/17 17:04 Order name: CBC Smear Scan EDIL 08/17 15:44 Order name: CT Abd/Pelvis - W/Contrast; Complete Time: 17:11 kdr 08/17 17:57 Order name: Abdomen Exam Limited EDIL 08/17 15:11 Order name: IV Saline Lock; Complete Time: 16:26 kdr 08/17 15:11 Order name: Labs collected and sent; Complete Time: 15:36 kdr Administered Medications: 16:23 Drug: Decadron - Dexamethasone 10 mg Route: IVP; Site: right antecubital; aj 17:35 Follow up: Response: No adverse reaction aj 16:24 Drug: Zofran 4 mg Route: IVP; Site: right antecubital; aj 17:35 Follow up: Response: Pain is decreased aj 16:24 Drug: Pepcid 20 mg Route: IVP; Site: right antecubital; aj 17:35 Follow up: Response: No adverse reaction aj 16:25 Drug: morphine 4 mg Route: IVP; Site: right antecubital; aj 17:35 Follow up: Response: Pain is decreased aj 17:34 Drug: morphine 4 mg Route: IVP; Site: left antecubital; aj 17:36 Follow up: Response: No adverse reaction aj 17:34 Drug: Zofran 4 mg Route: IVP; Site: left antecubital; aj 17:36 Follow up: Response: No adverse reaction aj Disposition: 08/17/18 18:15 Discharged to Home. Impression: Abdominal and pelvic pain, Left sided colitis. - Condition is Stable. - Discharge Instructions: Abdominal Pain, Adult, [id number], Colitis. - Prescriptions for Bentyl 20 mg Oral Tablet - take 1 tablet by ORAL route every 6 hours As needed; 20 tablet. Pepcid 20 mg Oral Tablet - take 1 tablet by ORAL route every 12 hours for 5 days; 10 tablet. Tylenol- Codeine #3 300-30 mg Oral Tablet - take 2 tablets by ORAL route every 6 hours As needed; 15 tablet. Tramadol 50 mg Oral Tablet - take 1 tablet by ORAL route every 8 hours as needed; 12 tablet. Medrol (Tyrel) 4 mg Oral Tablets, Dose Pack - take 1 tablet by ORAL route as directed - follow package instructions; 1 packet. - Medication Reconciliation Form, Thank You Letter, Antibiotic Education, Prescription Opioid Use form. - Follow up: JACKLYN SALAZAR; When: 2 - 3 days; Reason: If symptoms return, Further diagnostic work-up, Recheck today's complaints, Continuance of care, Re-evaluation by your physician. Follow up: Enrico Cosme MD; When: Go to his office at 8:00 AM for an appointment; Reason: If symptoms return, Further diagnostic work-up, Recheck today's complaints, Continuance of care, Re-evaluation by your physician. - Problem is an acute exacerbation. - Symptoms have improved. - Notes: Please go to Dr. Blackburn's office in the morning at 8:00 AM Signatures: Dispatcher [employer] EDIL Felisa Stinson, RN RN Wilfredo Cedeño MD MD kdr Evangelina Knott RN RN aa5 Corrections: (The following items were deleted from the chart) 17:10 15:12 Creatinine for Radiology+C.LAB.BRZ ordered. [facility] EDIL 17:38 17:26 08/17/2018 17:26 Discharged to Home. Impression: Abdominal and pelvic pain; Left kdr sided colitis. Condition is Stable. Forms are Medication Reconciliation Form, Thank You Letter, Antibiotic Education, Prescription Opioid Use. Follow up: Private Physician; When: 2 - 3 days; Reason: If symptoms return, Further diagnostic work-up, Recheck today's complaints, Continuance of care, Re-evaluation by your physician. Problem is an acute exacerbation. Symptoms have improved. [facility] 17:57 17:54 Abdomen Complete+US.RAD.BRZ ordered. [facility] 18:14 17:39 Hospitalization Ordered by Perla Brizuela MD for Observation. Preliminary kdr diagnosis is Abdominal and pelvic pain; Left sided colitis. Bed requested for Telemetry/MedSurg (observation). Status is Observation. Condition is Fair. Problem is an acute exacerbation. Symptoms have improved. UTI on Admission? No. kdr 18:28 18:15 08/17/2018 18:15 Discharged to Home. Impression: Abdominal and pelvic pain; Left aj sided colitis. Condition is Stable. Prescriptions for Bentyl 20 mg Oral Tablet - take 1 tablet by ORAL route every 6 hours As needed; 20 tablet, Pepcid 20 mg Oral Tablet - take 1 tablet by ORAL route every 12 hours for 5 days; 10 tablet, Tylenol-Codeine #3 300-30 mg Oral Tablet - take 2 tablets by ORAL route every 4-6 hours As needed; 16 tablet, Zofran 4 mg Oral Tablet - take 1 tablet by ORAL route every 4-6 hours As needed; 20 tablet, Medrol (Tyrel) 4 mg Oral Tablets, Dose Pack - take 1 tablet by ORAL route as directed - follow package instructions; 1 packet. and Forms are Medication Reconciliation Form, Thank You Letter, Antibiotic Education, Prescription Opioid Use. Follow up: JACKLYN SALAZAR; When: 2 - 3 days; Reason: If symptoms return, Further diagnostic work-up, Recheck today's complaints, Continuance of care, Re-evaluation by your physician. Follow up: Enrico Cosme; When: Go to his office at 8:00 AM for an appointment; Reason: If symptoms return, Further diagnostic work-up, Recheck today's complaints, Continuance of care, Re-evaluation by your physician. Problem is an acute exacerbation. Symptoms have improved. kdr
[2018-08-17 17:42] LABS: Anisocytosis 1+; Blood Morphology Comment NOTED (NOT SEEN); Macrocytosis 1+; Platelet Estimate ADEQ; Urine White Blood Cell Casts OK
--- NOTE | 2018-08-17 18:21 | RAD REPORT ---
EXAM DESCRIPTION: US - Abdomen Exam Limited - 08/17/2018 6:14 pm CLINICAL HISTORY: ABD PAIN COMPARISON: Abdomen Pelvis W Contrast dated 08/17/2018 FINDINGS: The gallbladder demonstrates no gallstones. No pericholecystic fluid or gallbladder wall t hickening. The common bile duct is normal measuring 5 mm. The liver demonstrates no findings of intrahepatic biliary dilatation. IMPRESSION: Unremarkable examination.
--- NOTE | 2018-08-17 18:21 | P.CNS ---
Date of Consult: 08/17/18 Reason for Consult: Pain control Requesting Physician: Wilfredo Goldstein Primary Care Provider: Dr Cosme - GI Chief Complaint: Abdominal Pain History of Present Illness: This is a 28-year-old male with significant past medical history of ulcerative colitis who presented to the ER complaining of having abdominal pain diarrhea and bloody stool. Patient was seen here in the ER yesterday for similar complaints which however did resolve while here in the ER and patient was discharged home under stable condition. Patient stated that this morning she started having some abdominal pain again and thus decided to come to the ER. Patient stated that her diarrhea and bloody stool was resolved since last night. Patient denies having any fever chills nausea vomiting or any other associated symptoms. Patient stated that she was recently discharged from [facility] after she had a done during which she was asked to stop taking her Imuran that she takes for her ulcerative colitis. After discharge from [facility] patient did have followup with GI who started her on steroids along Imuran again. Hospitalist team was consulted to admit the patient for pain management. In the ER patient was seen and evaluated lab work and imaging were reviewed. Lab work was within normal limits with exception of elevated LFTs. Imaging was consistent with mild colitis. Stool occult was done which was negative for any blood. Patient appeared to be hemodynamically and clinically stable upon initial examination Allergies Penicillins Allergy (Severe, Verified 09/26/15 08:05) Anaphylaxis ciprofloxacin Allergy (Verified 09/26/15 08:05) Unknown clindamycin Allergy (Verified 09/26/15 22:25) Hives gabapentin Allergy (Verified 09/26/15 08:05) Hives ibuprofen Allergy (Verified 09/26/15 22:25) Rectal bleeding ketorolac Allergy (Verified 05/31/16 07:42) Unknown naproxen Allergy (Verified 09/26/15 22:25) "unsure" sulfamethoxazole [From Bactrim] Allergy (Verified 09/26/15 22:25) Hives tramadol Allergy (Verified 09/26/15 22:25) "unsure" trimethoprim [From Bactrim] Allergy (Verified 09/26/15 22:25) worsenin of UC metronidazole [From Flagyl] Adverse Reaction (Intermediate, Verified 09/26/15 08 :05) Nausea/Vomiting F Allergy (Uncoded 11/23/15 15:13) Unknown Flag Allergy (Uncoded 05/30/16 11:04) Unknown Flagyl Allergy (Uncoded 09/24/17 02:59) Unknown n Allergy (Uncoded 07/13/17 03:47) Unknown naproxen- Allergy (Uncoded 11/23/15 15:13) Unknown naproxen-a Allergy (Uncoded 12/11/16 02:37) Unknown naproxen-abd Allergy (Uncoded 09/24/17 02:59) Unknown naproxen-abdome Allergy (Uncoded 05/30/16 11:04) Unknown naproxen-abdomen Allergy (Uncoded 10/12/15 13:07) Unknown No Known Allergi Allergy (Uncoded 11/12/16 19:56) Unknown NS Allergy (Uncoded 11/23/15 15:13) Unknown NSAIDS Allergy (Uncoded 07/13/17 03:47) Unknown NSAIDS (Non Allergy (Uncoded 12/11/16 02:37) Unknown NSAIDS (Non-St Allergy (Uncoded 09/24/17 02:59) Unknown NSAIDS (Non-Stero Allergy (Uncoded 05/30/16 11:04) Unknown NSAIDS (Non-Steroi Allergy (Uncoded 10/12/15 13:07) Unknown sulfam Allergy (Uncoded 07/13/17 03:47) Unknown sulfametho Allergy (Uncoded 12/11/16 02:37) Unknown sulfamethox Allergy (Uncoded 09/24/17 02:59) Unknown sulfamethoxazo Allergy (Uncoded 05/30/16 11:04) Unknown Home Medications: Ciprofloxacin HCl [Cipro 500 MG Tablet] 500 mg PO BID #20 tab 09/27/17 Ketorolac [Toradol] 10 mg PO Q4HP PRN #40 tab 09/27/17 Methylprednisolone [Medrol dosepack] 4 mg PO DIRECTED #1 theodore 09/27/17 azaTHIOprine [Imuran] 50 mg PO DAILY #30 tab 09/27/17 - Past Medical/Surgical History Diabetic: No -: Ulcerative Colitis, 2010 -: Anemia -: Asthma -: Anxiety -: Insomnia -: History of C-diff. colitis -: panic attacks -: Depression -: Pseudo-seizures -: Colonoscopy -: Right eye correction surgery -: 09/26/15- lap choley Psychosocial/ Personal History: Single, G0, She does not go to school. - Family History Father Medical History: Hypertension Mother Medical History: Hypertension - Social History Smoking Status: Never smoker Alcohol use: No CD- Drugs: No Caffeine use: Yes Review of Systems 10-point ROS is otherwise unremarkable Physical Examination General: Alert, In no apparent distress HEENT: Atraumatic, PERRLA, Mucous membr. moist/pink, EOMI, Sclerae nonicteric Neck: Supple, 2+ carotid pulse no bruit, No LAD, Without JVD or thyroid abnormality Respiratory: Clear to auscultation bilaterally, Normal air movement Cardiovascular: Regular rate/rhythm, Normal S1 S2 Gastrointestinal: Normal bowel sounds, No tenderness Musculoskeletal: No tenderness Integumentary: No rashes Neurological: Normal gait, Normal speech, Normal tone, Normal affect Lymphatics: No axilla or inguinal lymphadenopathy Laboratory Data (last 24 hrs) 08/17/18 16:35: WBC 11.0 H, Hgb 11.5 L, Hct 37.0, Plt Count 429 H 08/17/18 15:40: Creatinine Cancelled 08/17/18 15:40: Sodium 138, Potassium 4.0, BUN 12, Creatinine 0.67, Glucose 96, Total Bilirubin 0.3, AST 103 H, ALT 163 H D, Alkaline Phosphatase 170 H D, Lipase 63 L - Problems (1) Abdominal pain Onset Date: 09/27/15 Current Visit: No Status: Acute Plan: Generalized abdominal pain left more than right. -pain improved with IV pain medication at this time. -patient denies having any nausea and vomiting -up on examination in the ER abdominal pain down to 2/10 Qualifiers: Abdominal location: generalized Qualified Code(s): R10.84 - Generalized abdominal pain (2) Ulcerative colitis Onset Date: 09/24/17 Current Visit: No Status: Acute Plan: Ulcerative colitis with recent change in her medication -recently seen by GI doctor outpatient -GI was called who recommended the patient could be discharged home with tramadol and prednisone 20 b.i.d. -patient to follow up with GI tomorrow or day after tomorrow at the GI clinic. Qualifiers: Ulcerative colitis location: ulcerative pancolitis Digestive disease complication type: without complication Qualified Code(s): K51.00 - Ulcerative (chronic) pancolitis without complications Conclusions/Impression: Patient seen and examined at bedside with RN. Chart reviewed. Case discussed with the ER physician along with the GI doctor. Upon review of labs and imaging along with the clinical presentation and after DW with GI, patient at this time is hemodynamically stable tolerating her diet, denies diarrhea and with negative FOBT can be discharged home on oral pain medication. Patient last night was discharged on Tylenol 3, which improved her pain minimally and thus patient can be given tramadol 50 or [place] for pain management at this time. Patient then can be seen by GI doctor outpatient in 24-48 hr for further improvement. Patient also will need a prescription for prednisone 20 mg b.i.d. as per GI recommendation. Patient can be discharged home from the ER to follow up with GI regarding her clinical symptoms from today. Critical Care: No
[2018-08-17 19:18] VITALS: BP 105/72; TEMP 97.9; O2SAT 97
== END 2018-08-17 18:28 | disposition home or self-care (01) ==
LOC: ER 13:02
DX: K52.9 Noninfective gastroenteritis and colitis, unspecified (principal); Z88.6 Allergy status to analgesic agent; Z88.0 Allergy status to penicillin; F41.9 Anxiety disorder, unspecified; D64.9 Anemia, unspecified
CPT/HCPCS: 74177; 76705; 80048; 80076; 83690; 85025; 96374; 96375; 99284; J1100; J2405; Q9967

== ENCOUNTER 2018-09-23 11:51 | Emergency (ER) | payer OTHER ==
[2018-09-23] MEDS ORDERED: MEPERIDINE HCL 25 MG/0.5 ML ONE ×2 (14:06→15:07)
[2018-09-23] MEDS ORDERED: ONDANSETRON 4 MG/2 ML VIAL ONE (14:06)
[2018-09-23] MEDS ORDERED: predniSONE 20 MG TAB ONE (14:06)
[2018-09-23 14:28] LABS: Absolute Lymphocytes (CBC) 1.2 K/uL (0.7-4.9); Absolute Monocytes 0.4 K/uL (0.1-1.3); Absolute Neutrophil 5.2 K/uL (1.8-8.0); Basophils % 0.7 % (0-1.3); Eosinophils % 3.2 % (0-4.4); Hematocrit 33.5 % (36.0-45.0); Lymphocytes % 16.7 % (15.3-44.8); MPV 7.9 fL (7.6-11.3); Monocytes % 5.5 % (3.3-12.3); RBC Red Blood Cell Count 4.34 M/uL (3.86-4.86)
[2018-09-23 14:33] LABS: Urine Blood NEGATIVE (NEG); Urine Glucose NEGATIVE (NEG); Urine Protein TRACE (NEG); Urine Specific Gravity >1.030 (1.005-1.030)
[2018-09-23 14:42] LABS: ALT/SGPT 44 U/L (12-78); AST/SGOT 33 U/L (15-37); Albumin 3.3 g/dL (3.4-5.0); Alkaline Phosphatase 91 U/L (45-117); BUN Blood Urea Nitrogen 8 mg/dL (7-18); Bicarbonate 26 mmol/L (21-32); Bilirubin Direct < 0.1 mg/dL (0-0.2); Bilirubin Total 0.3 mg/dL (0.2-1.0); Glucose Level 103 mg/dL (74-106); Lipase 91 U/L (73-393); Potassium 3.6 mmol/L (3.5-5.1); Protein, Total 7.4 g/dL (6.4-8.2); Sodium Level 138 mmol/L (136-145)
[2018-09-23] MEDS ORDERED: NA CHLORIDE 0.9% 1,000 ML ONE (15:11)
--- NOTE | 2018-09-23 16:57 | EDPHYS ---
Physician Documentation [facility] Name: Kylie Appiah Age: 28 yrs Sex: Female : 1990 Arrival Date: 09/23/2018 Time: 11:53 Bed 24 Private MD: LYNDSAY Physician Maximo Roe HPI: 09/23 14:07 This 28 yrs old Female presents to ER via Ambulatory with complaints of jr8 Abdominal Pain. 14:07 The patient presents with abdominal pain left anterolateral abdomen. Onset: The jr8 symptoms/episode began/occurred acutely, today. The symptoms do not radiate. Associated signs and symptoms: Pertinent positives: nausea. The symptoms are described as stabbing. Modifying factors: The symptoms are alleviated by nothing, the symptoms are aggravated by breathing deeply, movement. Severity of pain: At its worst the pain was moderate in the emergency department the pain is unchanged. The patient has not experienced similar symptoms in the past. The patient has not recently seen a physician. Stated that she has history of UC pain. Has been off of her prednisone for the past 3 days. Starting to have generalized discomfort but now having left latera abdominal pain which she normally does not get with her UC . 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 - Social history:: Smoking status: Patient/guardian denies using tobacco. - Ebola Screening: : No symptoms or risks identified at this time. ROS: 14:07 Eyes: Negative for injury, pain, redness, and discharge, ENT: Negative for injury, jr8 pain, and discharge, Neck: Negative for injury, pain, and swelling, Cardiovascular: Negative for chest pain, palpitations, and edema, Respiratory: Negative for shortness of breath, cough, wheezing, and pleuritic chest pain, Back: Negative for injury and pain, MS/Extremity: Negative for injury and deformity, Skin: Negative for injury, rash, and discoloration, Neuro: Negative for headache, weakness, numbness, tingling, and seizure. 14:07 Abdomen/GI: Positive for abdominal pain, nausea, Negative for diarrhea, constipation, abdominal cramps, abdominal distension, anorexia, dysphagia, hematemesis, black/tarry stool, rectal pain, rectal bleeding, bowel incontinence, flatulence. Exam: 14:07 Eyes: Pupils equal round and reactive to light, extra-ocular motions intact. Lids and jr8 lashes normal. Conjunctiva and sclera are non-icteric and not injected. Cornea within normal limits. Periorbital areas with no swelling, redness, or edema. ENT: Nares patent. No nasal discharge, no septal abnormalities noted. Tympanic membranes are normal and external auditory canals are clear. Oropharynx with no redness, swelling, or masses, exudates, or evidence of obstruction, uvula midline. Mucous membranes moist. Neck: Trachea midline, no thyromegaly or masses palpated, and no cervical lymphadenopathy. Supple, full range of motion without nuchal rigidity, or vertebral point tenderness. No Meningismus. Cardiovascular: Regular rate and rhythm with a normal S1 and S2. No gallops, murmurs, or rubs. Normal PMI, no JVD. No pulse deficits. Respiratory: Lungs have equal breath sounds bilaterally, clear to auscultation and percussion. No rales, rhonchi or wheezes noted. No increased work of breathing, no retractions or nasal flaring. Back: No spinal tenderness. No costovertebral tenderness. Full range of motion. Skin: Warm, dry with normal turgor. Normal color with no rashes, no lesions, and no evidence of cellulitis. MS/ Extremity: Pulses equal, no cyanosis. Neurovascular intact. Full, normal range of motion. Neuro: Awake and alert, GCS 15, oriented to person, place, time, and situation. Cranial nerves II-XII grossly intact. Motor strength 5/5 in all extremities. Sensory grossly intact. Cerebellar exam normal. Normal gait. 14:07 Abdomen/GI: Inspection: obese Bowel sounds: active, all quadrants, Palpation: soft, in all quadrants, moderate abdominal tenderness, in the anterior aspect of left lateral abdomen, mass, is not appreciated, rebound tenderness, is not appreciated, voluntary guarding, is not appreciated, involuntary guarding, is not appreciated, no appreciated organomegaly, Indicators: McBurney's point is not tender, Pettit's sign is negative, Rovsing's sign is negative, Liver: tenderness, is not appreciated. Vital Signs: 12:20 BP 108 / 68; Pulse 87; Resp 16 S; Temp 98.4(TE); Pulse Ox 99% on R/A; Weight 74.39 kg aa5 (R); Height 5 ft. 0 in. (152.40 cm) (R); Pain 8/10; 15:02 BP 99 / 65; Pulse 79; Resp 16; Pulse Ox 100% on R/A; Pain 8/10; ls4 16:00 BP 102 / 59; Pulse 74; Resp 16; Pulse Ox 100% on R/A; ls4 17:01 BP 102 / 59; Pulse 77; Resp 16; Pulse Ox 100% on R/A; Pain 5/10; ls4 17:13 BP 88 / 61; Pulse 81; Temp 98.0; Pulse Ox 100% on R/A; jp3 12:20 Body Mass Index 32.03 (74.39 kg, 152.40 cm) aa5 MDM: 13:03 Patient medically screened. jr8 16:56 Data reviewed: vital signs, nurses notes, lab test result(s), radiologic studies, CT jr8 scan. Data interpreted: Pulse oximetry: on room air is 100 %. Interpretation: normal. 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 Response to treatment: the patient's symptoms have markedly improved after treatment. 09/23 13:14 Order name: Basic Metabolic Panel; Complete Time: 14:49 jr8 09/23 13:14 Order name: CBC with Diff; Complete Time: 14:41 jr8 09/23 13:14 Order name: Creatinine for Radiology; Complete Time: 14:41 8 09/23 13:14 Order name: Hepatic Function; Complete Time: 14:49 8 09/23 13:14 Order name: Lipase; Complete Time: 14:49 [facility] 09/23 13:54 Order name: Urine Dipstick--Ancillary (enter results); Complete Time: 14:41 09/23 13:03 Order name: Urine Dipstick-Ancillary (obtain specimen); Complete Time: 13:39 4 09/23 13:54 Order name: Urine --Ancillary (enter results); Complete Time: 14:41 09/23 14:41 Order name: CT Abd/Pelvis - W/Contrast [facility] 09/23 13:03 Order name: Urine Test (obtain specimen); Complete Time: 13:39 [facility] 09/23 13:14 Order name: IV Saline Lock; Complete Time: 14:36 [facility] 09/23 13:14 Order name: Labs collected and sent; Complete Time: 14:37 [facility] Administered Medications: 14:07 Drug: Zofran 4 mg Route: IVP; Site: left antecubital; ls4 14:37 Follow up: Response: No adverse reaction ls4 14:08 Drug: Demerol 25 mg Route: IVP; Site: left antecubital; ls4 14:38 Follow up: Response: No adverse reaction; Marked relief of symptoms ls4 14:08 Drug: predniSONE 20 mg Route: PO; ls4 14:38 Follow up: Response: No adverse reaction ls4 14:50 Drug: NS 0.9% 500 ml Route: IV; Rate: bolus; Site: right antecubital; ls4 14:52 Drug: Demerol 25 mg Route: IVP; Site: right antecubital; ls4 15:05 Follow up: Response: No adverse reaction; Marked relief of symptoms ls4 Disposition: 09/24 07:00 Co-signature as Attending Physician, Maximo Roe MD I agree with the assessment and kitty plan of care. Disposition: 09/23/18 16:56 Discharged to Home. Impression: Left sided colitis. - Condition is Stable. - Discharge Instructions: Colitis. - Prescriptions for Flagyl 500 mg Oral Tablet - take 1 tablet by ORAL route every 6 hours for 7 days; 28 tablet. Tylenol- Codeine #3 300-30 mg Oral Tablet - take 2 tablets by ORAL route every 6 hours As needed; 12 tablet. Cipro 500 mg Oral Tablet - take 1 tablet by ORAL route every 12 hours for 7 days; 14 tablet. - Medication Reconciliation Form, Thank You Letter, Antibiotic Education, Prescription Opioid Use form. - Follow up: Private Physician; When: 2 - 3 days; Reason: Recheck today's complaints, Continuance of care, Re-evaluation by your physician. - Problem is new. - Symptoms have improved. - Notes: continue prednisone at home Signatures: Dispatcher [employer] EDMaximo Cobos MD MD cha Calderon, Audri, RN RN aa5 Galdino Castle PA PA jr8 Danette Pérez, SAUL RN ls4 Corrections: (The following items were deleted from the chart) 09/23 17:20 16:56 09/23/2018 16:56 Discharged to Home. Impression: Left sided colitis. Condition is ls4 Stable. Forms are Medication Reconciliation Form, Thank You Letter, Antibiotic Education, Prescription Opioid Use. Follow up: Private Physician; When: 2 - 3 days; Reason: Recheck today's complaints, Continuance of care, Re-evaluation by your physician. Problem is new. Symptoms have improved. jr8
--- NOTE | 2018-09-23 16:57 | ER ---
Nurse's Notes [facility] Name: Kylie Appiah Age: 28 yrs Sex: Female : 1990 Arrival Date: 09/23/2018 Time: 11:53 Bed 24 Private MD: Diagnosis: Left sided colitis Presentation: 09/23 12:19 Presenting complaint: Patient states: LUQ pain with nausea and vomiting that began 4 aa5 days ago. Transition of care: patient was not received from another setting of care. Onset of symptoms was August 2018. Risk Assessment: Do you want to hurt yourself or someone else? Patient reports no desire to harm self or others. Initial Sepsis Screen: Does the patient meet any 2 criteria? No. Patient's initial sepsis screen is negative. Does the patient have a suspected source of infection? No. Patient's initial sepsis screen is negative. Care prior to arrival: None. 12:19 Method Of Arrival: Ambulatory aa5 12:19 Acuity: YESSICA 3 aa5 Triage Assessment: 13:05 General: Appears uncomfortable, Behavior is calm, cooperative. ls4 13:05 Pain: Complains of pain in anterior aspect of left lateral abdomen Pain currently is 8 ls4 out of 10 on a pain scale. GI: Abdomen is round non-distended, obese, Bowel sounds present X 4 quads. Abd is soft Abdomen is tender to palpation in left upper quadrant. : Urine is cloudy. Derm: Skin is intact, Skin is Skin is pink, warm \\T\\ dry. 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 - Social history:: Smoking status: Patient/guardian denies using tobacco. - Ebola Screening: : No symptoms or risks identified at this time. Screenin:05 Abuse screen: Denies threats or abuse. Denies injuries from another. Nutritional ls4 screening: No deficits noted. Tuberculosis screening: No symptoms or risk factors identified. Fall Risk None identified. Assessment: 13:05 General: Appears uncomfortable, Behavior is calm, cooperative. Neuro: No deficits ls4 noted. Cardiovascular: No deficits noted. Respiratory: No deficits noted. GI: Abdomen is round distended, obese, Bowel sounds present X 4 quads. Abd is soft X 4 quads Abdomen is tender to palpation in left upper quadrant and anterior aspect of left lateral abdomen. : No signs and/or symptoms were reported regarding the genitourinary system. Derm: Skin is pink, warm \\T\\ dry. 14:02 Reassessment: Patient appears in no apparent distress at this time. Patient and/or ls4 family updated on plan of care and expected duration. Pain level reassessed. Patient is alert, oriented x 3, equal unlabored respirations, skin warm/dry/pink. 15:03 Reassessment: Patient appears in no apparent distress at this time. Patient and/or ls4 family updated on plan of care and expected duration. Pain level reassessed. Patient is alert, oriented x 3, equal unlabored respirations, skin warm/dry/pink. 16:07 Reassessment: Patient and/or family updated on plan of care and expected duration. Pain ls4 level reassessed. Patient is alert, oriented x 3, equal unlabored respirations, skin warm/dry/pink. Patient states symptoms have improved. Vital Signs: 12:20 BP 108 / 68; Pulse 87; Resp 16 S; Temp 98.4(TE); Pulse Ox 99% on R/A; Weight 74.39 kg aa5 (R); Height 5 ft. 0 in. (152.40 cm) (R); Pain 8/10; 15:02 BP 99 / 65; Pulse 79; Resp 16; Pulse Ox 100% on R/A; Pain 8/10; ls4 16:00 BP 102 / 59; Pulse 74; Resp 16; Pulse Ox 100% on R/A; ls4 17:01 BP 102 / 59; Pulse 77; Resp 16; Pulse Ox 100% on R/A; Pain 5/10; ls4 17:13 BP 88 / 61; Pulse 81; Temp 98.0; Pulse Ox 100% on R/A; jp3 12:20 Body Mass Index 32.03 (74.39 kg, 152.40 cm) aa5 ED Course: 11:53 Patient arrived in ED. rg4 12:19 Triage completed. aa5 12:19 Arm band placed on. aa5 13:00 Danette Pérez RN is Primary Nurse. ls4 13:03 Galdino Castle PA is PHCP. jr8 13:03 Maximo Roe MD is Attending Physician. jr8 13:05 Patient has correct armband on for positive identification. Placed in gown. Bed in low ls4 position. Call light in reach. Side rails up X 1. Pulse ox on. NIBP on. Warm blanket given. Verbal reassurance given. 13:05 No provider procedures requiring assistance completed. ls4 13:15 Urine collected: clean catch specimen, clear, lorrie colored, Amount Voided: 80mL. jp3 13:31 Initial lab(s) drawn, by me, sent to lab. Inserted saline lock: 20 gauge in right ls4 antecubital area, using aseptic technique. 14:28 Patient maintains SpO2 saturation greater than 95% on room air. ls4 15:01 CT Abd/Pelvis - W/Contrast In Process Unspecified. EDMS 15:02 CT completed. Patient tolerated procedure well. Patient moved to CT via wheelchair. nj Patient moved back from CT. Administered Medications: 14:07 Drug: Zofran 4 mg Route: IVP; Site: left antecubital; ls4 14:37 Follow up: Response: No adverse reaction ls4 14:08 Drug: Demerol 25 mg Route: IVP; Site: left antecubital; ls4 14:38 Follow up: Response: No adverse reaction; Marked relief of symptoms ls4 14:08 Drug: predniSONE 20 mg Route: PO; ls4 14:38 Follow up: Response: No adverse reaction ls4 14:50 Drug: NS 0.9% 500 ml Route: IV; Rate: bolus; Site: right antecubital; ls4 14:52 Drug: Demerol 25 mg Route: IVP; Site: right antecubital; ls4 15:05 Follow up: Response: No adverse reaction; Marked relief of symptoms ls4 Outcome: 16:56 Discharge ordered by . jr8 17:20 Patient left the ED. ls4 Signatures: Dispatcher [employer] EDMS Evangelina Knott RN RN aa5 Galdino Castle PA PA jr8 Daphney Farr rg4 Kwaku Herrera Jacob jp3 Danette Pérez RN RN ls4 Corrections: (The following items were deleted from the chart) 14:36 14:34 Zofran 4 mg IVP in left antecubital ls4 ls4 15:00 14:34 predniSONE 20 mg PO ls4 ls4
[2018-09-23 17:32] VITALS: TEMP 98.4
[2018-09-23 17:33] VITALS: O2SAT 100
[2018-09-23 17:35] VITALS: BP 102/59
--- NOTE | 2018-09-24 11:29 | RAD REPORT ---
EXAM DESCRIPTION: CT - Abdomen Pelvis W Contrast - 09/23/2018 3:01 pm CLINICAL HISTORY: Abdominal pain with vomiting COMPARISON: July 2017 TECHNIQUE: Computed axial tomography of the abdomen pelvis was obtained. 100 cc Isovue-300 was admin istered intravenously. Oral contrast was not requested which limits evaluation of bowel. All CT scans are performed using dose optimization technique as appropriate and may include automated exposure control or mA/KV adjustment according to patient size. FINDINGS: Fatty liver. Cholecystectomy Mild bibasilar atelectasis Spleen, pancreas, adrenal and kidneys appear unremarkable. Normal appendix The wall of the transverse, left colon and rectum is mildly thickened. Several areas of narrowing inv olving colon probably related to spasm, less likely stricture 2 centimeter right ovarian cyst without significant free fluid IMPRESSION: Mild left colitis.
== END 2018-09-23 17:20 | disposition home or self-care (01) ==
LOC: ER 11:51
DX: K51.50 Left sided colitis without complications (principal); Z88.0 Allergy status to penicillin; Z88.6 Allergy status to analgesic agent
CPT/HCPCS: 36415; 74177; 80048; 80076; 81003; 81025; 83690; 85025; 99285; J2175; J2405; J7030; J7512; Q9967

== ENCOUNTER 2019-01-25 07:17 | Emergency (ER) | payer OTHER, SELFPAY ==
[2019-01-25] MEDS ORDERED: MEPERIDINE HCL 25 MG/0.5 ML ONE (08:21)
[2019-01-25] MEDS ORDERED: ONDANSETRON 4 MG/2 ML VIAL ONE (08:21)
[2019-01-25] MEDS ORDERED: NA CHLORIDE 0.9% 1,000 ML ONE (08:21)
[2019-01-25 08:38] LABS: Absolute Lymphocytes (CBC) 1.3 K/uL (0.7-4.9); Basophils % 0.8 % (0-1.3); Hematocrit 27.5 % (36.0-45.0); Lymphocytes % 16.9 % (15.3-44.8); MPV 8.2 fL (7.6-11.3); RBC Red Blood Cell Count 3.93 M/uL (3.86-4.86)
[2019-01-25 08:41] LABS: Urine Specific Gravity 1.025 (1.005-1.030)
[2019-01-25 08:41] LABS: Urine Blood NEGATIVE (NEG); Urine Glucose NEGATIVE (NEG); Urine Protein NEGATIVE (NEG); Urine Specific Gravity 1.025 (1.005-1.030)
[2019-01-25 08:53] LABS: BUN Blood Urea Nitrogen 6 mg/dL (7-18); Bicarbonate 24 mmol/L (21-32); Glucose Level 100 mg/dL (74-106); Potassium 3.4 mmol/L (3.5-5.1); Sodium Level 139 mmol/L (136-145)
[2019-01-25 08:54] LABS: ALT/SGPT 24 U/L (12-78); AST/SGOT 22 U/L (15-37); Albumin 3.1 g/dL (3.4-5.0); Alkaline Phosphatase 63 U/L (45-117); Bilirubin Direct < 0.1 mg/dL (0-0.2); Bilirubin Total 0.3 mg/dL (0.2-1.0); Lipase 109 U/L (73-393); Protein, Total 7.1 g/dL (6.4-8.2)
[2019-01-25 09:12] LABS: Blood Morphology Comment NOTED (NOT SEEN); Hypochromasia 1+; Platelet Estimate ADEQ
[2019-01-25] MEDS ORDERED: DICYCLOMINE HCL 10 MG CAP ONE (10:40)
[2019-01-25] MEDS ORDERED: MORPHINE 4 MG/ML SYR ONE (10:40)
[2019-01-25] MEDS ORDERED: METHYLPREDNISOLONE 125 MG INJ ONE (10:40)
--- NOTE | 2019-01-25 15:02 | ER ---
Nurse's Notes [facility] Name: Kylie Appiah Age: 28 yrs Sex: Female : 1990 Arrival Date: 01/25/2019 Time: 07:19 Bed External Waiting [facility] MD: Mulu Vicente Diagnosis: Other ulcerative colitis;Dehydration;Hypokalemia Presentation: 01/25 07:29 Presenting complaint: Patient states: left sided abd pain X 2 weeks, states she is iw having a flare up of her ulcerative colitis, vomiting since yesterday. Transition of care: patient was not received from another setting of care. Onset of symptoms was January 10, 2019. Risk Assessment: Do you want to hurt yourself or someone else? Patient reports no desire to harm self or others. Initial Sepsis Screen: Does the patient meet any 2 criteria? No. Patient's initial sepsis screen is negative. Does the patient have a suspected source of infection? No. Patient's initial sepsis screen is negative. Care prior to arrival: None. 07:29 Method Of Arrival: Ambulatory iw 07:29 Acuity: YESSICA 3 iw Triage Assessment: 07:30 General: Appears in no apparent distress. uncomfortable, obese, Behavior is bp cooperative, appropriate for age, anxious. Pain: Complains of pain in abdomen. EENT: No deficits noted. Neuro: No deficits noted. Cardiovascular: No deficits noted. Respiratory: No deficits noted. GI: No signs and/or symptoms were reported involving the gastrointestinal system. : No signs and/or symptoms were reported regarding the genitourinary system. Derm: No deficits noted. Musculoskeletal: No deficits noted. 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 - Family history:: not pertinent. - Social history:: Smoking status: Patient/guardian denies using tobacco. - Ebola Screening: : No symptoms or risks identified at this time. - Hospitalizations: : No recent hospitalization is reported. Screenin:43 Abuse screen: Denies threats or abuse. Denies injuries from another. Nutritional bp screening: No deficits noted. Tuberculosis screening: No symptoms or risk factors identified. Fall Risk None identified. Assessment: 07:30 General: SEE TRIAGE NOTE. bp 09:30 Reassessment: Patient and/or family updated on plan of care and expected duration. Pain bp level reassessed. Patient is alert, oriented x 3, equal unlabored respirations, skin warm/dry/pink. 11:37 Reassessment: PT D/C HOME AMBULATORY, DX WITH ULCERATIVE COLITIS. bp Vital Signs: 07:29 BP 107 / 67; Pulse 74; Resp 18; Temp 97.4(TE); Pulse Ox 100% on R/A; Pain 8/10; iw 09:09 BP 100 / 64; Pulse 65; Resp 16; Pulse Ox 99% ; bp 10:55 BP 98 / 48; Pulse 64; Resp 17; Pulse Ox 99% ; bp 11:36 BP 102 / 65; Pulse 82; Resp 16; Temp 97.5; Pulse Ox 99% ; bp ED Course: 07:19 Patient arrived in ED. as 07:19 Mulu Vicente is Private Physician. as 07:22 Alonzo Trejo, SAUL is Primary Nurse. bp 07:23 Alvaro Doyle MD is Attending Physician. rn 07:29 Arm band placed on. iw 07:31 Triage completed. iw 08:12 Initial lab(s) drawn, by me, sent to lab. Inserted saline lock: 20 gauge in right 3 antecubital area, using aseptic technique. Blood collected. 08:27 Urine collected: clean catch specimen, clear. 3 08:43 Patient has correct armband on for positive identification. Bed in low position. Call bp light in reach. Side rails up X 1. 10:24 Enrico Cosme MD is Referral Physician. rn 11:37 No provider procedures requiring assistance completed. IV discontinued, intact, bp bleeding controlled, No redness/swelling at site. Pressure dressing applied. Administered Medications: No medications were administered Outcome: 10:24 Discharge ordered by . rn 11:37 Discharged to home ambulatory. bp 11:37 Condition: stable 11:37 Discharge instructions given to patient, Instructed on discharge instructions, follow up and referral plans. medication usage, Demonstrated understanding of instructions, follow-up care, medications, Prescriptions given X 4. 11:40 Patient left the ED. iw Signatures: Kendra Gooden Irene RN RN iw Alvaro Doyle MD MD rn Herrera, Deanna [facility] Alonzo Trejo RN RN bp Corrections: (The following items were deleted from the chart) 13:57 13:56 Patient left the ED. iw iw
--- NOTE | 2019-01-25 15:03 | EDPHYS ---
Physician Documentation [facility] Name: Kylie Appiah Age: 28 yrs Sex: Female : 1990 Arrival Date: 01/25/2019 Time: 07:19 Bed External Waiting Private MD: Mulu Vicente ED Physician Alvaro Doyle HPI: 01/25 07:58 This 28 yrs old Female presents to ER via Ambulatory with complaints of rn Colitis. 07:58 The patient presents with abdominal pain left side. Onset: The symptoms/episode rn began/occurred 2 week(s) ago. The symptoms do not radiate. Associated signs and symptoms: Pertinent positives: nausea and vomiting, diarrhea, Pertinent negatives: fever, shortness of breath, vaginal discharge, vomiting blood. The symptoms are described as achy, crampy. Modifying factors: The symptoms are alleviated by nothing, the symptoms are aggravated by touching the area. Severity of pain: At its worst the pain was moderate in the emergency department the pain is unchanged. The patient has experienced similar episodes in the past. The patient has not recently seen a physician. REports has ulcerative colitis, has been having abd pain, left sided along with nausea/vomiting/diarrhea for 2 weeks. No fever. No trauma. States tubes are tied. UNable to fill UC meds due to financial problems. Sees Dr. Cosme. States symptoms identical to previous UC flares.. 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 - Family history:: not pertinent. - Social history:: Smoking status: Patient/guardian denies using tobacco. - Ebola Screening: : No symptoms or risks identified at this time. - Hospitalizations: : No recent hospitalization is reported. ROS: 07:58 Constitutional: Negative for fever, chills, and weight loss, Eyes: Negative for injury, rn pain, redness, and discharge, Neck: Negative for injury, pain, and swelling, Cardiovascular: Negative for chest pain, palpitations, and edema, Respiratory: Negative for shortness of breath, cough, wheezing, and pleuritic chest pain, Abdomen/GI: Negative for constipation, MS/Extremity: Negative for injury and deformity, Skin: Negative for injury, rash, and discoloration, Neuro: Negative for headache, numbness, tingling, and seizure. Exam: 07:58 Constitutional: This is a well developed, well nourished patient who is awake, alert, rn and in no acute distress. Head/Face: Normocephalic, atraumatic. ENT: MMM Cardiovascular: Regular rate and rhythm. No pulse deficits. Respiratory: Lungs have equal breath sounds bilaterally, clear to auscultation. No increased work of breathing, no retractions or nasal flaring. Abdomen/GI: soft, + mild left sided tenderness, no rebound, no masses MS/ Extremity: Pulses equal, no cyanosis. Neurovascular intact. Full, normal range of motion. Equal circumference. Neuro: Awake and alert, GCS 15, oriented to person, place, time, and situation. Cranial nerves II-XII grossly intact. Motor strength 5/5 in all extremities. Sensory grossly intact. Cerebellar exam normal. Vital Signs: 07:29 BP 107 / 67; Pulse 74; Resp 18; Temp 97.4(TE); Pulse Ox 100% on R/A; Pain 8/10; iw 09:09 BP 100 / 64; Pulse 65; Resp 16; Pulse Ox 99% ; bp 10:55 BP 98 / 48; Pulse 64; Resp 17; Pulse Ox 99% ; bp 11:36 BP 102 / 65; Pulse 82; Resp 16; Temp 97.5; Pulse Ox 99% ; bp MDM: 07:23 Patient medically screened. rn 10:23 Differential diagnosis: non-specific abd pain, ulcerative colitis. Data reviewed: vital rn signs, nurses notes, lab test result(s), and as a result, I will discharge patient. Counseling: I had a detailed discussion with the patient and/or guardian regarding: the historical points, exam findings, and any diagnostic results supporting the discharge/admit diagnosis, lab results, the need for outpatient follow up, to return to the emergency department if symptoms worsen or persist or if there are any questions or concerns that arise at home. Response to treatment: the patient's symptoms have mildly improved after treatment, and as a result, I will discharge patient. Special discussion: Based on the patient's Hx, exam, and Dx evaluation, there is no indication for emergent surgery or inpatient Tx. It is understood by the patient/guardian that if the Sx's persist or worsen they need to return immediately for re-evaluation. I discussed with the patient/guardian in detail that at this point there is no indication for admission to the hospital. It is understood, however, that if the symptoms persist or worsen the patient needs to return immediately for re-evaluation. Based on the history and exam findings, there is no indication for further emergent testing or inpatient evaluation. I discussed with the patient/guardian the need to see the care professional for further evaluation of the symptoms. Administered Medications: No medications were administered Disposition: 01/25/19 10:24 Discharged to Home. Impression: Other ulcerative colitis, Dehydration, Hypokalemia. - Condition is Stable. - Discharge Instructions: Ulcerative Colitis, Adult. - Prescriptions for Bentyl 20 mg Oral Tablet - take 1 tablet by ORAL route every 6 hours As needed; 20 tablet. Zofran ODT 4 mg Oral tablet,disintegrating - place 1 tablet by TRANSLINGUAL route every 8 hours As needed; 20 tablet. Medrol (Tyrel) 4 mg Oral Tablets, Dose Pack - take 1 tablet by ORAL route as directed - follow package instructions; 1 packet. Tylenol- Codeine #3 300-30 mg Oral Tablet - take 1 tablet by ORAL route every 6 hours As needed; 20 tablet. - Medication Reconciliation Form, Thank You Letter, Antibiotic Education, Prescription Opioid Use form. - Follow up: Enrico Cosme MD; When: As needed; Reason: Recheck today's complaints, Re-evaluation by your physician. - Problem is new. - Symptoms have improved. Signatures: Felicia Ferreira, RN RN iw Alvaro Doyle MD MD rn Peltier, Brian RN RN bp Corrections: (The following items were deleted from the chart) 07:59 07:58 REports has ulcerative colitis, has been having abd pain, left sided along with rn nausea/vomiting/diarrhea for 2 weeks. No fever. No trauma. States tubes are tied. UNable to fill UC meds due to financial problems. Sees Dr. Cosme. . rn 13:56 10:24 01/25/2019 10:24 Discharged to Home. Impression: Other ulcerative colitis; iw Dehydration; Hypokalemia. Condition is Stable. Prescriptions for Bentyl 20 mg Oral Tablet - take 1 tablet by ORAL route every 6 hours As needed; 20 tablet. and Forms are Medication Reconciliation Form, Thank You Letter, Antibiotic Education, Prescription Opioid Use. Follow up: Enrico Cosme; When: As needed; Reason: Recheck today's complaints, Re-evaluation by your physician. Problem is new. Symptoms have improved. rn
[2019-01-25 16:05] VITALS: O2SAT 99
[2019-01-25 16:07] VITALS: BP 102/65; TEMP 97.5
== END 2019-01-25 13:56 | disposition home or self-care (01) ==
LOC: ER 07:17
DX: K51.80 Other ulcerative colitis without complications (principal); E86.0 Dehydration; E87.6 Hypokalemia
CPT/HCPCS: 36415; 80048; 80076; 81003; 81025; 83690; 85025; 99283; J2175; J2405; J2930; J7030

== ENCOUNTER 2019-04-28 16:55 | Emergency (ER) | payer SELFPAY ==
--- OUTSIDE RECORDS SUMMARY | 2019-04-28 16:57 | XMS REPORT ---
:1990 [facility] Address [address] [place] [address] Dr. Palacio [address] [place] [id number] Care Team Providers Name Role Phone Unavailable Unavailable Unavailable Problems This patient has no known problems. Allergies, Adverse Reactions, Alerts This patient has no known allergies or adverse reactions. Medications This patient has no known medications.
[2019-04-28 17:48] LABS: Urine Specific Gravity >1.030 (1.005-1.030)
[2019-04-28 17:48] LABS: Urine Blood NEGATIVE (NEG); Urine Glucose NEGATIVE (NEG); Urine Protein NEGATIVE (NEG); Urine Specific Gravity >1.030 (1.005-1.030); Urine pH 5.5 (5.0-7.0)
[2019-04-28] MEDS ORDERED: predniSONE 20 MG TAB ONE (18:00)
[2019-04-28] MEDS ORDERED: FAMOTIDINE 20 MG TAB ONE (18:00)
[2019-04-28 18:07] LABS: Urine Bacteria NONE SEEN /HPF (<20); Urine Culture Reflex Order NOT NEEDED; Urine Mucus 1+ /HPF (NONE SEEN); Urine RBC NONE SEEN /HPF (NONE SEEN)
[2019-04-28] MEDS ORDERED: FENTANYL CITR 100 MCG/2 ML ONE (19:00)
[2019-04-28] MEDS ORDERED: PROMETHAZINE 25 MG TABLET ONE (19:00)
[2019-04-28] MEDS ORDERED: NA CHLORIDE 0.9% 1,000 ML ONE (20:10)
--- NOTE | 2019-04-28 20:15 | ER ---
Nurse's Notes [facility] Name: Kylie Appiah Age: 28 yrs Sex: Female : 1990 Arrival Date: 04/28/2019 Time: 16:57 Bed 15 Private MD: Diagnosis: Generalized abdominal pain;Ulcerative (chronic) pancolitis Presentation: 04/28 17:03 Presenting complaint: Patient states: generalized abd pain, n/v, rectal bleeding, sv generalized weakness x 6-7 months. Transition of care: patient was not received from another setting of care. Onset of symptoms was 2018. Risk Assessment: Do you want to hurt yourself or someone else? Patient reports no desire to harm self or others. Initial Sepsis Screen: Does the patient meet any 2 criteria? HR > 90 bpm. No. Patient's initial sepsis screen is negative. Does the patient have a suspected source of infection? No. Patient's initial sepsis screen is negative. Care prior to arrival: None. 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 - Social history:: Smoking status: Patient/guardian denies using tobacco. - Ebola Screening: : No symptoms or risks identified at this time. Screenin:25 Abuse screen: Denies threats or abuse. Denies injuries from another. Nutritional aj1 screening: No deficits noted. Tuberculosis screening: No symptoms or risk factors identified. Assessment: 17:25 General: Appears in no apparent distress. uncomfortable, Behavior is calm, cooperative, aj1 appropriate for age. Pain: Complains of pain in abdomen Pain does not radiate. Pain currently is 8 out of 10 on a pain scale. Neuro: Level of Consciousness is awake, alert, obeys commands, Oriented to person, place, time, situation. Cardiovascular: Patient's skin is warm and dry. Respiratory: Airway is patent Respiratory effort is even, unlabored, Respiratory pattern is regular, symmetrical. GI: Abdomen is non-distended, Bowel sounds present X 4 quads. Abd is soft and non tender X 4 quads. Reports lower abdominal pain, upper abdominal pain, diarrhea, nausea, vomiting. : No signs and/or symptoms were reported regarding the genitourinary system. EENT: No signs and/or symptoms were reported regarding the EENT system. Derm: No signs and/or symptoms reported regarding the dermatologic system. Skin is pink, warm \\T\\ dry. normal. Musculoskeletal: No signs and/or symptoms reported regarding the musculoskeletal system. Circulation, motion, and sensation intact. 18:30 Reassessment: Patient appears in no apparent distress at this time. No changes from aj1 previously documented assessment. Patient and/or family updated on plan of care and expected duration. Pain level reassessed. Patient is alert, oriented x 3, equal unlabored respirations, skin warm/dry/pink. Patient states that she is having a lot of pain and she would like some pain medication and she would like to speak to the DIRECTOR OF ACADEMIC in charge of her care. Notified Ania Irizarry NP who will see that patient. 19:15 General: Appears uncomfortable, Behavior is calm, cooperative, appropriate for age. ea Pain: Complains of pain in abdomen. Neuro: Level of Consciousness is awake, alert, obeys commands, Oriented to person, place, time, situation. Cardiovascular: Patient's skin is warm and dry. GI: Abdomen is non-distended. Derm: Skin is pink, warm \\T\\ dry. Musculoskeletal: Circulation, motion, and sensation intact. 20:30 Reassessment: Patient and/or family updated on plan of care and expected duration. Pain ea level reassessed. Patient is alert, oriented x 3, equal unlabored respirations, skin warm/dry/pink. 21:32 Reassessment: Patient and/or family updated on plan of care and expected duration. Pain ea level reassessed. Patient is alert, oriented x 3, equal unlabored respirations, skin warm/dry/pink. Discharge instruction given to patient, verbalized the understanding of instruction, pt left ED ambulatory tolerating well. Vital Signs: 17:06 BP 105 / 74; Pulse 94; Resp 18; Temp 98.1; Pulse Ox 100% ; Weight 74.84 kg; Height 5 sv ft. 0 in. (152.40 cm); Pain 9/10; 19:37 BP 117 / 79; Pulse 85; Resp 18; Pulse Ox 100% on R/A; ea 20:00 BP 115 / 71; Pulse 80; Resp 18; Pulse Ox 100% ; ea 21:32 BP 110 / 89; Pulse 80; Resp 18; Temp 98; Pulse Ox 100% on R/A; ea 17:06 Body Mass Index 32.22 (74.84 kg, 152.40 cm) sv ED Course: 16:57 Patient arrived in ED. as 17:03 Nalini Irizarry FNP-C is PHCP. snw 17:03 Leila Chung MD is Attending Physician. snw 17:05 Triage completed. sv 17:06 Arm band placed on. sv 17:09 Moraima Schrader, RN is Primary Nurse. aj1 17:25 Patient has correct armband on for positive identification. Bed in low position. Call aj1 light in reach. 17:25 No provider procedures requiring assistance completed. aj1 21:25 IV discontinued, intact, bleeding controlled, No redness/swelling at site. Pressure ea dressing applied. Administered Medications: 18:02 Drug: Pepcid 20 mg Route: PO; aj1 21:30 Follow up: Response: No adverse reaction ea 18:03 Drug: predniSONE 60 mg Route: PO; aj1 21:30 Follow up: Response: No adverse reaction ea 19:32 Drug: fentaNYL (PF) 50 mcg Route: IM; Site: right deltoid; ea 21:13 Follow up: Response: No adverse reaction; Pain is decreased; RASS: Alert and Calm (0) ea 20:13 Drug: NS 0.9% 1000 ml Route: IV; Rate: 1 bolus; Site: right antecubital; ea 21:11 Follow up: Response: No adverse reaction; IV Status: Completed infusion; IV Intake: ea 1000ml 20:59 Drug: Phenergan 25 mg Route: PO; ea 21:12 Follow up: Response: Medication administered at discharge. ea 21:14 Drug: Anusol Ointment 1 inches Route: OR; ea 21:30 Follow up: Response: No adverse reaction ea Intake: 21:11 IV: 1000ml; Total: 1000ml. ea Outcome: 19:49 Discharge ordered by MD. damon 21:31 Discharged to home ambulatory. zach 21:31 Condition: stable 21:31 Discharge instructions given to patient, Instructed on discharge instructions, follow up and referral plans. medication usage, Demonstrated understanding of instructions, follow-up care, medications, Prescriptions given X 4. 21:33 Patient left the ED. zach Signatures: Moraima Schrader RN RN aj1 Rasheeda Kraus RN RN Nalini Cavanaugh, CONFLICTS ANALYST-C CONFLICTS ANALYST-Csnw Kendra Gooden Elena RN SAUL serrano
--- NOTE | 2019-04-28 20:16 | EDPHYS ---
Physician Documentation [facility] Name: Kylie Appiah Age: 28 yrs Sex: Female : 1990 Arrival Date: 04/28/2019 Time: 16:57 Bed 15 Private MD: ED Physician Leila Chung HPI: 04/28 18:44 This 28 yrs old Female presents to ER via Ambulatory with complaints of uc snw flare up. 18:44 Onset: The symptoms/episode began/occurred 7 month(s) ago, has not seen GI in 7+ snw months. S/s worsened since of child 9 months ago. Associated signs and symptoms: Pertinent positives: abdominal pain, diarrhea, vomiting. Modifying factors: The patient symptoms are alleviated by nothing. The patient has experienced similar episodes in the past, chronically. The patient has not recently seen a physician. 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 - Social history:: Smoking status: Patient/guardian denies using tobacco. - Ebola Screening: : No symptoms or risks identified at this time. ROS: 18:43 Constitutional: Negative for fever, chills, and weight loss, Eyes: Negative for injury, snw pain, redness, and discharge, ENT: Negative for injury, pain, and discharge, Neck: Negative for injury, pain, and swelling, Cardiovascular: Negative for chest pain, palpitations, and edema, Respiratory: Negative for shortness of breath, cough, wheezing, and pleuritic chest pain, Back: Negative for injury and pain, : Negative for injury, bleeding, discharge, and swelling, MS/Extremity: Negative for injury and deformity, Skin: Negative for injury, rash, and discoloration, Neuro: Negative for headache, weakness, numbness, tingling, and seizure, Psych: Negative for depression, anxiety, suicide ideation, homicidal ideation, and hallucinations. 18:43 Abdomen/GI: Positive for abdominal pain, nausea, vomiting, and diarrhea, nausea, vomiting, diarrhea, of the abdomen, x 7 months. Exam: 18:42 Head/Face: Normocephalic, atraumatic. Eyes: Pupils equal round and reactive to light, snw extra-ocular motions intact. Lids and lashes normal. Conjunctiva and sclera are non-icteric and not injected. Cornea within normal limits. Periorbital areas with no swelling, redness, or edema. ENT: Nares patent. No nasal discharge, no septal abnormalities noted. Tympanic membranes are normal and external auditory canals are clear. Oropharynx with no redness, swelling, or masses, exudates, or evidence of obstruction, uvula midline. Mucous membranes moist. Neck: Trachea midline, no thyromegaly or masses palpated, and no cervical lymphadenopathy. Supple, full range of motion without nuchal rigidity, or vertebral point tenderness. No Meningismus. Chest/axilla: Normal chest wall appearance and motion. Nontender with no deformity. No lesions are appreciated. Cardiovascular: Regular rate and rhythm with a normal S1 and S2. No gallops, murmurs, or rubs. Normal PMI, no JVD. No pulse deficits. Respiratory: Lungs have equal breath sounds bilaterally, clear to auscultation and percussion. No rales, rhonchi or wheezes noted. No increased work of breathing, no retractions or nasal flaring. Back: No spinal tenderness. No costovertebral tenderness. Full range of motion. Skin: Warm, dry with normal turgor. Normal color with no rashes, no lesions, and no evidence of cellulitis. MS/ Extremity: Pulses equal, no cyanosis. Neurovascular intact. Full, normal range of motion. Neuro: Awake and alert, GCS 15, oriented to person, place, time, and situation. Cranial nerves II-XII grossly intact. Motor strength 5/5 in all extremities. Sensory grossly intact. Cerebellar exam normal. Normal gait. 18:42 Constitutional: The patient appears obese, restless, uncomfortable. 18:42 Abdomen/GI: Inspection: obese Bowel sounds: diminished, in all quadrants, Palpation: mild abdominal tenderness, moderate abdominal tenderness, in all quadrants. Vital Signs: 17:06 BP 105 / 74; Pulse 94; Resp 18; Temp 98.1; Pulse Ox 100% ; Weight 74.84 kg; Height 5 sv ft. 0 in. (152.40 cm); Pain 9/10; 19:37 BP 117 / 79; Pulse 85; Resp 18; Pulse Ox 100% on R/A; ea 20:00 BP 115 / 71; Pulse 80; Resp 18; Pulse Ox 100% ; ea 21:32 BP 110 / 89; Pulse 80; Resp 18; Temp 98; Pulse Ox 100% on R/A; ea 17:06 Body Mass Index 32.22 (74.84 kg, 152.40 cm) sv MDM: 17:23 Patient medically screened. snw 19:45 Data reviewed: vital signs, nurses notes. Data interpreted: Pulse oximetry: on room air snw is 100 %. Interpretation: normal. Counseling: I had a detailed discussion with the patient and/or guardian regarding: the historical points, exam findings, and any diagnostic results supporting the discharge/admit diagnosis, lab results, the need for outpatient follow up, to return to the emergency department if symptoms worsen or persist or if there are any questions or concerns that arise at home. Response to treatment: pt has not vomited since arrival, refuses Phenergan po or IM. Given po meds, states she requires IV medications and want to see another provider. Discussed chronicity of condition, stable vital signs, maintenance of po. Pt wants my name to report and angrily wants discharge from ED. Offered phenergan again and pt declines. 19:47 Refusal of service: The patient/guardian displays adequate decision making capability snw and despite a detailed discussion of alternatives, benefits, risks, and consequences refuses: Medications. 04/28 17:05 Order name: Urine Microscopic Only; Complete Time: 18:26 snw 04/28 17:45 Order name: Urine Dipstick--Ancillary (enter results); Complete Time: 17:50 iw 04/28 17:46 Order name: Urine --Ancillary (enter results); Complete Time: 17:50 iw 04/28 20:02 Order name: CBC with Diff snw 04/28 20:02 Order name: Chem 7; Complete Time: 20:47 snw 04/28 20:03 Order name: TS; Complete Time: 21:17 snw 04/28 17:05 Order name: Urine Test (obtain specimen); Complete Time: 17:37 snw 04/28 17:05 Order name: Urine Dipstick-Ancillary (obtain specimen); Complete Time: 17:37 snw Administered Medications: 18:02 Drug: Pepcid 20 mg Route: PO; aj1 21:30 Follow up: Response: No adverse reaction ea 18:03 Drug: predniSONE 60 mg Route: PO; aj1 21:30 Follow up: Response: No adverse reaction ea 19:32 Drug: fentaNYL (PF) 50 mcg Route: IM; Site: right deltoid; ea 21:13 Follow up: Response: No adverse reaction; Pain is decreased; RASS: Alert and Calm (0) ea 20:13 Drug: NS 0.9% 1000 ml Route: IV; Rate: 1 bolus; Site: right antecubital; ea 21:11 Follow up: Response: No adverse reaction; IV Status: Completed infusion; IV Intake: ea 1000ml 20:59 Drug: Phenergan 25 mg Route: PO; ea 21:12 Follow up: Response: Medication administered at discharge. ea 21:14 Drug: Anusol Ointment 1 inches Route: MN; ea 21:30 Follow up: Response: No adverse reaction ea Disposition: 04/28/19 19:49 Discharged to Home. Impression: Generalized abdominal pain, Ulcerative (chronic) pancolitis. - Condition is Stable. - Discharge Instructions: Abdominal Pain, Adult, Ulcerative Colitis, Adult, [place] Diet. - Prescriptions for Bentyl 20 mg Oral Tablet - take 1 tablet by ORAL route every 6 hours As needed; 20 tablet. Prednisone 20 mg Oral Tablet - take 2 tablet by ORAL route once daily for 5 days; 10 tablet. Phenergan 25 mg Rectal Suppository - insert 1 suppository by RECTAL route every 6 hours As needed; 12 suppository. promethazine 25 mg Oral Tablet - take 1 tablet by ORAL route every 6 hours As needed; 20 tablet. - Medication Reconciliation Form, Thank You Letter, Antibiotic Education, Prescription Opioid Use form. - Follow up: Emergency Department; When: As needed; Reason: Worsening of condition. Follow up: Private Physician; When: 1 - 2 days; Reason: Recheck today's complaints, Continuance of care, Re-evaluation by your physician. Addendum: 05/09/2019 21:35 Co-signature as Attending Physician, Leila denson a2 Signatures: Dispatcher [employer] Moraima Bennett RN RN aj1 Rasheeda Kraus RN RN Nalini Cavanaugh, IMPORT/EXPORT ADMINISTRATOR-C IMPORT/EXPORT ADMINISTRATOR-Csnw Karey Montelongo RN RN ea Alzahri, Mohammad, MD MD ma2 Corrections: (The following items were deleted from the chart) 04/28 21:33 19:49 04/28/2019 19:49 Discharged to Home. Impression: Generalized abdominal pain; ea Ulcerative (chronic) pancolitis. Condition is Stable. Forms are Medication Reconciliation Form, Thank You Letter, Antibiotic Education, Prescription Opioid Use. Follow up: Emergency Department; When: As needed; Reason: Worsening of condition. Follow up: Private Physician; When: 1 - 2 days; Reason: Recheck today's complaints, Continuance of care, Re-evaluation by your physician. snw
[2019-04-28 20:41] LABS: Basophils % 0.5 % (0-1.3); Hematocrit 30.6 % (36.0-45.0); Lymphocytes % 8.9 % (15.3-44.8); RBC Red Blood Cell Count 4.92 M/uL (3.86-4.86)
[2019-04-28 20:46] LABS: BUN Blood Urea Nitrogen 9 mg/dL (7-18); Bicarbonate 26 mmol/L (21-32); Glucose Level 100 mg/dL (74-106); Potassium 4.1 mmol/L (3.5-5.1); Sodium Level 139 mmol/L (136-145)
[2019-04-28] MEDS ORDERED: HYDROCORTISONE ACETATE 25MG SUPP PR ONE (21:07)
[2019-04-28 21:37] VITALS: O2SAT 100
[2019-04-28 21:41] VITALS: BP 110/89; TEMP 98
[2019-04-28 21:47] LABS: Anisocytosis 2+; Blood Morphology Comment NOTED (NOT SEEN); Hypochromasia 1+; Platelet Estimate INCR; Urine White Blood Cell Casts OK
[2019-04-28 21:48] LABS: Ovalocytes 1+; Platelets, Giant PRESENT
== END 2019-04-28 21:33 | disposition home or self-care (01) ==
LOC: ER 16:55
DX: K51.00 Ulcerative (chronic) pancolitis without complications (principal); Z88.0 Allergy status to penicillin; Z88.6 Allergy status to analgesic agent
CPT/HCPCS: 36415; 80048; 81003; 81015; 81025; 85025; 86850; 86900; 86901; 96360; 96372; 99283; J3010; J7030; J7512; Q0169

== ENCOUNTER 2019-07-13 20:55 | Inpatient (IN) | payer SELFPAY ==
--- OUTSIDE RECORDS SUMMARY | 2019-07-13 20:57 | XMS REPORT ---
:1990 [facility] Address [address] [place] [address] Dr. Palacio [address] [place] [id number] Care Team Providers Name Role Phone Unavailable Unavailable Unavailable Problems This patient has no known problems. Allergies, Adverse Reactions, Alerts This patient has no known allergies or adverse reactions. Medications This patient has no known medications.
[2019-07-13] MEDS ORDERED: FENTANYL CITR 100 MCG/2 ML ONE ×2 (22:24→23:25)
[2019-07-13] MEDS ORDERED: ONDANSETRON 4 MG/2 ML VIAL ONE (22:25)
[2019-07-13] MEDS ORDERED: NA CHLORIDE 0.9% 1,000 ML ONE ×2 (22:25→23:46)
[2019-07-13] MEDS ORDERED: FAMOTIDINE 20 MG/2 ML VIAL IV ONE (22:25)
[2019-07-13 22:40] LABS: Basophils % 0.8 % (0-1.3); Hematocrit 28.5 % (36.0-45.0); Lymphocytes % 23.3 % (15.3-44.8); MPV 7.8 fL (7.6-11.3); RBC Red Blood Cell Count 4.68 M/uL (3.86-4.86)
[2019-07-13 22:49] LABS: ALT/SGPT 39 U/L (12-78); AST/SGOT 20 U/L (15-37); Alkaline Phosphatase 100 U/L (45-117); BUN Blood Urea Nitrogen 5 mg/dL (7-18); Bicarbonate 22 mmol/L (21-32); Bilirubin Direct 0.1 mg/dL (0-0.2); Bilirubin Total 0.4 mg/dL (0.2-1.0); Glucose Level 98 mg/dL (74-106); Lipase 42 U/L (73-393); Protein, Total 7.6 g/dL (6.4-8.2); Sodium Level 134 mmol/L (136-145)
--- NOTE | 2019-07-13 22:59 | RAD REPORT ---
EXAM DESCRIPTION: RAD - Chest Single View - 07/13/2019 10:43 pm CLINICAL HISTORY: vomiting;Cough Chest pain. COMPARISON: Chest Single View dated 03/12/2017 FINDINGS: Portable technique limits examination quality. The lungs are grossly clear. The heart is normal in size. No displaced fractures. IMPRESSION: No acute intrathoracic process suspected.
[2019-07-13] MEDS ORDERED: ACETAMINOPHEN 325 MG TABLET ONE (23:24)
[2019-07-14 00:08] LABS: Blood Morphology Comment NOTED (NOT SEEN); Hypochromasia 1+; Platelet Estimate ADEQ; Polychromasia 1+; White Blood Cell Scan OK
[2019-07-14] MEDS ORDERED: KCL 20 MEQ/100 mL IVPB 20 MEQ/100 ML BAG IV ONE (01:40)
[2019-07-14 01:52] LABS: Urine Blood 3+ (NEG); Urine Glucose NEGATIVE (NEG); Urine Protein TRACE (NEG); Urine Specific Gravity 1.025 (1.005-1.030); Urine pH 8.5 (5.0-7.0)
[2019-07-14] MEDS ORDERED: FENTANYL CITR 100 MCG/2 ML ONE ×2 (02:06→08:09)
[2019-07-14 02:07] LABS: Urine Bacteria <20 /HPF (<20); Urine RBC >50 /HPF (NONE SEEN)
--- NOTE | 2019-07-14 02:10 | EDPHYS ---
Physician Documentation [facility] Name: Kylie Appiah Age: 28 yrs Sex: Female : 1990 Arrival Date: 07/13/2019 Time: 20:59 Bed 25 Private MD: ED Physician Miguelangel Lilly HPI: 07/12 22:10 This 28 yrs old Female presents to ER via Ambulatory with complaints of cp Vomiting, Fever. 22:10 The patient presents to the emergency department with nausea, with "dry heaves", cp vomiting, that is continuous, diarrhea, that is continuous, abdominal pain, of the abdomen diffusely. Onset: The symptoms/episode began/occurred yesterday, and became worse today. Possible causes: flare up of bowel problem, ulcerative colitis. Associated signs and symptoms: Pertinent positives: fever, cough, Pertinent negatives: constipation, GI bleeding. Severity of symptoms: in the emergency department the symptoms are unchanged despite home interventions. The patient has experienced similar episodes in the past, multiple times. 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 - Social history:: Smoking status: Patient denies any tobacco usage or history of. ROS: 22:15 Constitutional: Positive for poor PO intake, Negative for fever. cp 22:15 Eyes: Negative for injury, pain, redness, and discharge. cp 22:15 ENT: Negative for drainage from ear(s), ear pain, sore throat, difficulty swallowing, difficulty handling secretions. 22:15 Cardiovascular: Negative for chest pain. 22:15 Respiratory: Negative for cough, shortness of breath, wheezing. 22:15 Abdomen/GI: Positive for abdominal pain, nausea, vomiting, and diarrhea, Negative for hematemesis, black/tarry stool, rectal bleeding. 22:15 : Negative for urinary symptoms. 22:15 Neuro: Negative for altered mental status, headache, weakness. 22:15 All other systems are negative. Exam: 22:20 Constitutional: The patient appears in no acute distress, alert, awake, non-toxic, well cp developed, well nourished. 22:20 Head/Face: Normocephalic, atraumatic. cp 22:20 Eyes: Periorbital structures: appear normal, Conjunctiva: normal, no exudate, no injection, Sclera: no appreciated abnormality, Lids and lashes: appear normal, bilaterally. 22:20 ENT: External ear(s): are unremarkable, Ear canal(s): are normal, clear, TM's: bulging, is not appreciated, bilaterally, dullness, bilaterally, erythema, is not appreciated, bilaterally, Nose: is normal, Mouth: Lips: moist, Oral mucosa: pink and intact, moist, Posterior pharynx: Airway: no evidence of obstruction, patent, Tonsils: no enlargement, no exudate, Uvula: midline, swelling, is not appreciated, erythema, is not appreciated, exudate, is not appreciated. 22:20 Neck: ROM/movement: is normal, is supple, without pain, no range of motions limitations. 22:20 Chest/axilla: Inspection: normal, Palpation: is normal, no crepitus, no tenderness. 22:20 Cardiovascular: Rate: tachycardic, Rhythm: regular. 22:20 Respiratory: the patient does not display signs of respiratory distress, Respirations: normal, no use of accessory muscles, no retractions, labored breathing, is not present, Breath sounds: are clear throughout, no decreased breath sounds, no stridor, no wheezing. 22:20 Abdomen/GI: Inspection: abdomen appears normal, Bowel sounds: active, all quadrants, Palpation: soft, in all quadrants, severe abdominal tenderness, in all quadrants, rebound tenderness, is not appreciated, voluntary guarding, is elicited in all quadrants. 22:20 Back: CVA tenderness, is absent. Vital Signs: 21:04 BP 104 / 61; Pulse 112; Resp 20; Temp 98.2(TE); Pulse Ox 99% on R/A; Weight 73.94 kg ca1 (R); Height 5 ft. (152.40 cm) (R); 23:30 BP 139 / 124; Pulse 95; Resp 20; Temp 103(O); Pulse Ox 100% on R/A; vc 07/13 00:11 BP 100 / 54; Pulse 98; Resp 18 S; Temp 100.0(O); Pulse Ox 100% on R/A; iw 02:48 BP 92 / 48; Pulse 86; Resp 16; Temp 98.9; Pulse Ox 100% on R/A; iw 03:41 BP 92 / 48; Pulse 83; Resp 16; Temp 98.3(O); Pulse Ox 99% on R/A; Pain 9/10; jb4 07/12 21:04 Body Mass Index 31.83 (73.94 kg, 152.40 cm) ca1 MDM: 07/12 21:58 Patient medically screened. cp 23:00 Differential diagnosis: gastritis, viral gastroenteritis, gastroenteritis, sepsis. cp 23:05 Test interpretation: by ED physician or midlevel provider: plain radiologic studies, cp chest xray negative for infiltrates and focal pneumonia. 07/13 02:00 Data reviewed: vital signs, nurses notes, lab test result(s), radiologic studies, CT cp scan. 02:00 Physician consultation: Lida Reese MD was contacted at 01:55, regarding admission, cp to the medical/surgical unit. patient's condition. 07/12 22:03 Order name: Influenza Screen (a \\T\\ B); Complete Time: 23:17 cp 07/12 22:03 Order name: Strep; Complete Time: 23:17 cp 07/12 22:03 Order name: Basic Metabolic Panel; Complete Time: 23:17 cp 07/13 02:04 Interpretation: Normal except: NA 134; K 3.0; BUN 5; CA 8.3. cp 07/12 22:03 Order name: CBC with Diff; Complete Time: 00:42 cp 07/13 00:42 Interpretation: Normal except: HGB 8.7; HCT 28.5; MCV 61.0; MCH 18.5; MCHC 30.3; PLT cp 478; RDW 18.5. 07/12 22:03 Order name: Creatinine for Radiology; Complete Time: 23:17 cp 07/12 22:03 Order name: Hepatic Function; Complete Time: 23:17 cp 07/13 02:06 Interpretation: Normal except: ALB 3.0; GLOB 4.6; A/G 0.7. 07/12 22:03 Order name: Lipase; Complete Time: 23:17 07/12 23:03 Order name: CBC Smear Scan; Complete Time: 00:42 EDMT 07/12 23:15 Order name: Throat Culture EDMT 07/12 23:43 Order name: Ova And Parasites 07/12 23:43 Order name: Stool Culture 07/12 23:43 Order name: CDIFF 07/13 00:42 Order name: Urine Microscopic Only 07/13 00:46 Order name: Urine Dipstick--Ancillary (enter results); Complete Time: 02:04 sc 07/13 02:04 Interpretation: Normal except: UKET 1+; UBLD 3+; UPH 8.5. 07/12 22:19 Order name: XRAY Chest (1 view); Complete Time: 23:17 07/12 23:18 Order name: CT Abd/Pelvis - IV Contrast Only 07/13 00:46 Order name: Urine --Ancillary (enter results); Complete Time: 02:04 sc 07/13 02:05 Interpretation: Reviewed. 07/13 02:57 Order name: Magnesium EDMT 07/13 02:57 Order name: Ferritin EDMT 07/13 02:58 Order name: Transferrin Sat/Iron Binding EDMT 07/13 02:58 Order name: Thyroid Stimulating Hormone EDMT 07/13 02:58 Order name: CBC with Automated Diff EDMS 07/13 02:58 Order name: CBC with Automated Diff EDMS 07/13 02:58 Order name: Comprehensive Metabolic Panel EDMT 07/13 02:58 Order name: Comprehensive Metabolic Panel EDMT 07/13 04:27 Order name: Magnesium EDMT 07/12 22:03 Order name: IV Saline Lock; Complete Time: 22:53 07/12 22:03 Order name: Labs collected and sent; Complete Time: 22:53 07/13 00:42 Order name: Urine Dipstick-Ancillary (obtain specimen); Complete Time: 01:09 07/13 00:42 Order name: Urine Test (obtain specimen); Complete Time: 01:09 07/13 02:57 Order name: CONS Pharmacy Consult EDMT 07/13 02:57 Order name: CONS Physician Consult EDMT 07/13 02:57 Order name: Clear Liquid EDMS Administered Medications: 07/12 22:27 Drug: NS 0.9% 1000 ml Route: IV; Rate: 1 bolus; Site: right antecubital; vc 07/13 00:00 Follow up: IV Status: Completed infusion iw 07/12 22:28 Drug: fentaNYL (PF) 25 mcg Route: IVP; Site: right antecubital; vc 23:30 Follow up: Response: No adverse reaction vc 22:29 Drug: Zofran (Ondansetron) 4 mg Route: IVP; Site: right antecubital; vc 23:30 Follow up: Response: No adverse reaction vc 22:29 Drug: Pepcid 20 mg Route: IVP; Site: right antecubital; vc 23:30 Follow up: Response: No adverse reaction vc 23:28 Drug: Tylenol 650 mg Route: PO; vc 07/13 03:41 Follow up: Response: No adverse reaction; Temperature is decreased iw 07/12 23:28 Drug: fentaNYL (PF) 25 mcg Route: IVP; Site: left antecubital; vc 07/13 03:41 Follow up: Response: No adverse reaction; Pain is decreased iw 07/12 23:49 Drug: NS 0.9% 1000 ml Route: IV; Rate: 1 bolus; Site: left antecubital; vc 07/13 01:30 Follow up: IV Status: Completed infusion iw 01:46 Drug: Potassium Chloride 20 mEq Route: IV; Rate: calculated rate; Site: left wrist; iw 02:04 Drug: fentaNYL (PF) 25 mcg Route: IVP; Site: left wrist; iw 03:41 Follow up: Response: No adverse reaction; Pain is decreased iw 02:40 Drug: SOLU-Medrol 60 mg Route: IVP; Site: left wrist; iw 03:40 Follow up: Response: No adverse reaction iw 02:46 Drug: metroNIDAZOLE 500 mg Volume: 100 ml; Route: IVPB; Infused Over: 30 mins; Site: iw left wrist; 03:15 Follow up: IV Status: Completed infusion iw 03:11 Drug: Ciprofloxacin 400 mg Volume: 200 ml; Route: IVPB; Infused Over: 60 mins; Site: iw left wrist; 04:25 Follow up: Response: No adverse reaction; IV Status: Completed infusion jb4 Disposition: 16:30 Co-signature as Attending Physician, Miguelangel Lilly MD I agree with the assessment and tw4 plan of care. Disposition: 07/14/19 02:09 Hospitalization ordered by Lida Reese for Inpatient Admission. Preliminary diagnosis are Nausea and vomiting - intractable, Other ulcerative colitis with unspecified complications, Anemia in chronic diseases classified elsewhere, Other abdominal pain - intractable, Diarrhea, unspecified. - Bed requested for Telemetry/MedSurg (Inpatient). - Status is Inpatient Admission. sv - Condition is Stable. - Problem is an acute exacerbation. - Symptoms have improved. Signatures: Dispatcher [employer] EDRasheeda Guzman RN RN Heather Quigley RN RN mw Williams, Irene, RN RN iw Maximo Orellana, PA PA cp Miguelangel Lilly MD MD tw4 Ariela Camarillo RN RN [facility] Alexa Arceo RN RN vc Bryson, James RN jb4 Corrections: (The following items were deleted from the chart) 02:05 02:04 Normal except: NA 134; K 3.0; BUN 5. cp cp 03:11 02:09 Hospitalization Ordered by Lida Reese MD for Inpatient Admission. Preliminary mw diagnosis is Nausea and vomiting - intractable; Other ulcerative colitis with unspecified complications; Anemia in chronic diseases classified elsewhere; Other abdominal pain - intractable; Diarrhea, unspecified. Bed requested for Telemetry/MedSurg (Inpatient). Status is Inpatient Admission. Condition is Stable. Problem is an acute exacerbation. Symptoms have improved. cp 05:51 03:11 07/14/2019 02:09 Hospitalization Ordered by Lida Reese MD for Inpatient mw Admission. Preliminary diagnosis is Nausea and vomiting - intractable; Other ulcerative colitis with unspecified complications; Anemia in chronic diseases classified elsewhere; Other abdominal pain - intractable; Diarrhea, unspecified. Bed requested for [facility] ER HOLD. Status is Inpatient Admission. Condition is Stable. Problem is an acute exacerbation. Symptoms have improved. mw 08:20 05:51 07/14/2019 02:09 Hospitalization Ordered by Lida Reese MD for Inpatient sv Admission. Preliminary diagnosis is Nausea and vomiting - intractable; Other ulcerative colitis with unspecified complications; Anemia in chronic diseases classified elsewhere; Other abdominal pain - intractable; Diarrhea, unspecified. Bed requested for Telemetry/MedSurg (Inpatient). Status is Inpatient Admission. Condition is Stable. Problem is an acute exacerbation. Symptoms have improved. mw
--- NOTE | 2019-07-14 02:10 | ER ---
Nurse's Notes [facility] Name: Kylie Appiah Age: 28 yrs Sex: Female : 1990 Arrival Date: 07/13/2019 Time: 20:59 Bed 25 Private MD: Diagnosis: Nausea and vomiting-intractable;Other ulcerative colitis with unspecified complications;Anemia in chronic diseases classified elsewhere;Other abdominal pain-intractable;Diarrhea, unspecified Presentation: 07/12 21:04 Chief complaint: Patient states: Fever, cough, congestion, vomiting, abdominal pain, ca1 and diarrhea x 2 days ago. "I just can't keep anything down since yesterday morning". "I am immuno compromised because I take Debbie for my ulcerative colitis". Coronavirus screen: The patient has NOT traveled to a country currently being monitored by the [facility] within the last 14 days. The patient has NOT had contact with any known and/or suspected case of coronavirus. Ebola Screen: Patient negative for fever greater than or equal to 101.5 degrees Fahrenheit, and additional compatible Ebola Virus Disease symptoms Patient denies exposure to infectious person. Patient denies travel to an Ebola-affected area in the 21 days before illness onset. No symptoms or risks identified at this time. Initial Sepsis Screen: Does the patient meet any 2 criteria? No. Patient's initial sepsis screen is negative. Does the patient have a suspected source of infection? No. Patient's initial sepsis screen is negative. Risk Assessment: Do you want to hurt yourself or someone else? Patient reports no desire to harm self or others. Onset of symptoms was July 13, 2019. 21:04 Method Of Arrival: Ambulatory ca1 21:04 Acuity: YESSICA 3 ca1 Triage Assessment: 21:45 General: Appears in no apparent distress. uncomfortable, ill, Behavior is cooperative, vc appropriate for age, anxious, crying. Pain: Complains of pain in abdomen. GI: Reports upper abdominal pain, nausea. 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 - Social history:: Smoking status: Patient denies any tobacco usage or history of. Screenin:45 Abuse screen: Denies threats or abuse. Nutritional screening: No deficits noted. vc Tuberculosis screening: No symptoms or risk factors identified. Fall Risk None identified. Assessment: 22:00 General: Appears in no apparent distress. uncomfortable, ill, Behavior is cooperative, vc appropriate for age, anxious. Pain: Complains of pain in abdomen. Neuro: Level of Consciousness is awake, alert, obeys commands, Oriented to person, place, time, situation, Appropriate for age. Cardiovascular: Capillary refill < 3 seconds Patient's skin is warm and dry. Respiratory: Airway is patent Respiratory effort is even, unlabored, Respiratory pattern is regular, symmetrical. GI: Abdomen is round non-distended. : No signs and/or symptoms were reported regarding the genitourinary system. EENT: No signs and/or symptoms were reported regarding the EENT system. Derm: Skin temperature is hot. 23:00 Reassessment: Patient and/or family updated on plan of care and expected duration. Pain vc level reassessed. Patient states symptoms have not improved. 07/13 00:13 Reassessment: Patient appears in no apparent distress at this time. Patient and/or iw family updated on plan of care and expected duration. Pain level reassessed. Patient is alert, oriented x 3, equal unlabored respirations, skin warm/dry/pink. pt states her nausea has resolved , she still fells weak and fatigued. 02:00 Reassessment: Patient appears in no apparent distress at this time. Patient and/or iw family updated on plan of care and expected duration. Pain level reassessed. Patient is alert, oriented x 3, equal unlabored respirations, skin warm/dry/pink. 03:00 Reassessment: Patient appears in no apparent distress at this time. Patient and/or jb4 family updated on plan of care and expected duration. Pain level reassessed. Patient is alert, oriented x 3, equal unlabored respirations, skin warm/dry/pink. 04:00 Reassessment: Patient appears in no apparent distress at this time. Patient and/or jb4 family updated on plan of care and expected duration. Pain level reassessed. Patient is alert, oriented x 3, equal unlabored respirations, skin warm/dry/pink. Pt admitted to ER hold, IV site dry and intact without s/s of infiltration or phlebitis. See [employer] for further documentation. Vital Signs: 07/12 21:04 BP 104 / 61; Pulse 112; Resp 20; Temp 98.2(TE); Pulse Ox 99% on R/A; Weight 73.94 kg ca1 (R); Height 5 ft. (152.40 cm) (R); 23:30 BP 139 / 124; Pulse 95; Resp 20; Temp 103(O); Pulse Ox 100% on R/A; vc 07/13 00:11 BP 100 / 54; Pulse 98; Resp 18 S; Temp 100.0(O); Pulse Ox 100% on R/A; iw 02:48 BP 92 / 48; Pulse 86; Resp 16; Temp 98.9; Pulse Ox 100% on R/A; iw 03:41 BP 92 / 48; Pulse 83; Resp 16; Temp 98.3(O); Pulse Ox 99% on R/A; Pain 9/10; jb4 07/12 21:04 Body Mass Index 31.83 (73.94 kg, 152.40 cm) ca1 ED Course: 07/12 20:59 Patient arrived in ED. ag3 21:09 Triage completed. ca1 21:10 Arm band placed on right wrist. ca1 21:49 Maximo Orellana PA is PHCP. cp 21:49 Miguelangel Lilly MD is Attending Physician. cp 22:00 Patient has correct armband on for positive identification. Side rails up X 1. Pulse ox vc on. NIBP on. 22:16 Alexa Arceo, RN is Primary Nurse. vc 22:19 Initial lab(s) drawn, by me, sent to lab. Inserted saline lock: 20 gauge in left wrist, iw using aseptic technique. Blood collected. 22:43 XRAY Chest (1 view) In Process Unspecified. EDMS 07/13 00:14 Primary Nurse role handed off by Alexa Arceo, SAUL iw 00:14 Felicia Ferreira RN is Primary Nurse. iw 01:03 CT Abd/Pelvis - IV Contrast Only In Process Unspecified. EDMS 02:07 Lida Reese MD is Hospitalizing Provider. cp 03:38 No provider procedures requiring assistance completed. Patient admitted, IV remains in iw place. 05:23 Primary Nurse role handed off by Felicia Ferreira, RN ar5 Administered Medications: 07/12 22:27 Drug: NS 0.9% 1000 ml Route: IV; Rate: 1 bolus; Site: right antecubital; vc 07/13 00:00 Follow up: IV Status: Completed infusion iw 07/12 22:28 Drug: fentaNYL (PF) 25 mcg Route: IVP; Site: right antecubital; vc 23:30 Follow up: Response: No adverse reaction vc 22:29 Drug: Zofran (Ondansetron) 4 mg Route: IVP; Site: right antecubital; vc 23:30 Follow up: Response: No adverse reaction vc 22:29 Drug: Pepcid 20 mg Route: IVP; Site: right antecubital; vc 23:30 Follow up: Response: No adverse reaction vc 23:28 Drug: Tylenol 650 mg Route: PO; vc 07/13 03:41 Follow up: Response: No adverse reaction; Temperature is decreased iw 07/12 23:28 Drug: fentaNYL (PF) 25 mcg Route: IVP; Site: left antecubital; vc 07/13 03:41 Follow up: Response: No adverse reaction; Pain is decreased iw 07/12 23:49 Drug: NS 0.9% 1000 ml Route: IV; Rate: 1 bolus; Site: left antecubital; vc 07/13 01:30 Follow up: IV Status: Completed infusion iw 01:46 Drug: Potassium Chloride 20 mEq Route: IV; Rate: calculated rate; Site: left wrist; iw 02:04 Drug: fentaNYL (PF) 25 mcg Route: IVP; Site: left wrist; iw 03:41 Follow up: Response: No adverse reaction; Pain is decreased iw 02:40 Drug: SOLU-Medrol 60 mg Route: IVP; Site: left wrist; iw 03:40 Follow up: Response: No adverse reaction iw 02:46 Drug: metroNIDAZOLE 500 mg Volume: 100 ml; Route: IVPB; Infused Over: 30 mins; Site: iw left wrist; 03:15 Follow up: IV Status: Completed infusion iw 03:11 Drug: Ciprofloxacin 400 mg Volume: 200 ml; Route: IVPB; Infused Over: 60 mins; Site: iw left wrist; 04:25 Follow up: Response: No adverse reaction; IV Status: Completed infusion jb4 Outcome: 02:09 Decision to Hospitalize by Provider. cp 03:38 Admitted to ER Hold. Please see [facility] for further documentation. iw 03:38 Condition: good 03:38 Instructed on the need for admit. 08:20 Patient left the ED. sv Signatures: Dispatcher [employer] EDRasheeda Guzman, RN SAUL sv Felicia Ferreira RN RN iw Maximo Orellana PA PA cp Ronnie Ray RN RN jb4 Ale Thornton Autumn ar5 Ariela Camarillo RN RN ca1 Alexa Arceo RN RN vc Corrections: (The following items were deleted from the chart) 03:44 02:48 Pulse 86bpm; Resp 16bpm; Pulse Ox 100% RA; Temp 98.9F; iw iw
[2019-07-14] MEDS ORDERED: METHYLPREDNISOLONE 125 MG INJ ONE (02:28)
[2019-07-14] MEDS ORDERED: CIPROFLOXACIN 400mg IV 400 MG/200 ML BAG IV ONE (02:28)
[2019-07-14] MEDS ORDERED: METRONIDAZOLE 500mg IVPB 500 MG/100 ML BAG IV ONE (02:28)
[2019-07-14] MEDS: METRONIDAZOLE 500mg IVPB 500 MG/100 ML BAG IV SCH ×3 (02:46→17:29)
--- NOTE | 2019-07-14 02:47 | P.HP ---
Certification for Inpatient With expected LOS: >2 Midnights Patient will require the following post-hospital care: None Practitioner: I am a practitioner with admitting privileges, knowledge of patient current condition, hospital course, and medical plan of care. Services: Services provided to patient in accordance with Admission requirements found in Title 42 Section 412.3 of the Code of Federal Regulations Patient History Date of Service: 07/14/19 Reason for admission: Abdominal pain History of Present Illness: 28th RAYRAY female with history of ulcerative colitis since to toes and 11, follows with Dr. rivera, related be controlled on weekly Humira, last colonoscopy was 3 years ago, history of anxiety disorder, previous C diff colitis admitted with generalized abdominal pain, crampy in nature, associated with intermittent loose stools. She admits to some fever and cough. She denies any recent travel all cough contact. Abdominal pain is nonradiating and patient rate it as 9 to 10/10. CT of the abdomen shows descending and transverse colon colitis. She has been admitted for for the intervention Allergies Penicillins Allergy (Severe, Verified 09/26/15 08:05) Anaphylaxis ciprofloxacin Allergy (Verified 09/26/15 08:05) Unknown clindamycin Allergy (Verified 09/26/15 22:25) Hives gabapentin Allergy (Verified 09/26/15 08:05) Hives ibuprofen Allergy (Verified 09/26/15 22:25) Rectal bleeding ketorolac Allergy (Verified 05/31/16 07:42) Unknown naproxen Allergy (Verified 09/26/15 22:25) "unsure" sulfamethoxazole [From Bactrim] Allergy (Verified 09/26/15 22:25) Hives tramadol Allergy (Verified 09/26/15 22:25) "unsure" trimethoprim [From Bactrim] Allergy (Verified 09/26/15 22:25) worsenin of UC metronidazole [From Flagyl] Adverse Reaction (Intermediate, Verified 09/26/15 08 :05) Nausea/Vomiting F Allergy (Uncoded 11/23/15 15:13) Unknown Flag Allergy (Uncoded 05/30/16 11:04) Unknown Flagyl Allergy (Uncoded 09/24/17 02:59) Unknown n Allergy (Uncoded 07/13/17 03:47) Unknown naproxen- Allergy (Uncoded 11/23/15 15:13) Unknown naproxen-a Allergy (Uncoded 12/11/16 02:37) Unknown naproxen-abd Allergy (Uncoded 09/24/17 02:59) Unknown naproxen-abdome Allergy (Uncoded 05/30/16 11:04) Unknown naproxen-abdomen Allergy (Uncoded 10/12/15 13:07) Unknown No Known Allergi Allergy (Uncoded 11/12/16 19:56) Unknown NS Allergy (Uncoded 11/23/15 15:13) Unknown NSAIDS Allergy (Uncoded 07/13/17 03:47) Unknown NSAIDS (Non Allergy (Uncoded 12/11/16 02:37) Unknown NSAIDS (Non-St Allergy (Uncoded 09/24/17 02:59) Unknown NSAIDS (Non-Stero Allergy (Uncoded 05/30/16 11:04) Unknown NSAIDS (Non-Steroi Allergy (Uncoded 10/12/15 13:07) Unknown sulfam Allergy (Uncoded 07/13/17 03:47) Unknown sulfametho Allergy (Uncoded 12/11/16 02:37) Unknown sulfamethox Allergy (Uncoded 09/24/17 02:59) Unknown sulfamethoxazo Allergy (Uncoded 05/30/16 11:04) Unknown Home medications list reviewed: Yes Home Medications: Ciprofloxacin HCl [Cipro 500 MG Tablet] 500 mg PO BID #20 tab 09/27/17 Ketorolac [Toradol] 10 mg PO Q4HP PRN #40 tab 09/27/17 Methylprednisolone [Medrol dosepack] 4 mg PO DIRECTED #1 theodore 09/27/17 azaTHIOprine [Imuran] 50 mg PO DAILY #30 tab 09/27/17 - Past Medical/Surgical History Diabetic: No -: Ulcerative Colitis, 2010 -: Anemia -: Asthma -: Anxiety -: Insomnia -: History of C-diff. colitis -: panic attacks -: Depression -: Pseudo-seizures -: Colonoscopy -: Right eye correction surgery -: 09/26/15- zoie garcia Psychosocial/ Personal History: Single, G0, She does not go to school. - Family History Father -: Hypertension Mother -: Hypertension - Social History Smoking Status: Never smoker Alcohol use: No CD- Drugs: No Caffeine use: Yes Review of Systems General: Fever Eyes: Unremarkable ENT: Unremarkable Respiratory: Cough, Sputum Gastrointestinal: Nausea, Vomiting, Abdominal Pain, Diarrhea Genitourinary: Unremarkable Musculoskeletal: Unremarkable Integumentary: Unremarkable Neurological: Unremarkable Lymphatics: Unremarkable Physical Examination - Physical Exam General: Alert, Oriented x3, Cooperative, Mild distress HEENT: Atraumatic, Normocephalic, PERRLA, Mucous membr. moist/pink Neck: Supple, 2+ carotid pulse no bruit, Thyromegaly Respiratory: Clear to auscultation bilaterally, Normal air movement Cardiovascular: Normal pulses, Regular rate/rhythm, Normal S1 S2 Capillary refill: <2 Seconds Gastrointestinal: Normal bowel sounds, Non-distended, Tenderness (Generalized , more left lower quadrant) Musculoskeletal: No clubbing, No swelling, No contractures Integumentary: No rashes, No breakdown, No significant lesion Neurological: Normal speech, Normal strength at 5/5 x4 extr External genitalia: No edema, No lesions - Studies Laboratory Data (last 24 hrs) 07/13/19 22:15: Creatinine 0.65 07/13/19 22:15: WBC 8.8, Hgb 8.7 L, Hct 28.5 L, Plt Count 478 H 07/13/19 22:15: Sodium 134 L, Potassium 3.0 L, BUN 5 L, Creatinine 0.71, Glucose 98, Total Bilirubin 0.4, AST 20, ALT 39, Alkaline Phosphatase 100, Lipase 42 L Microbiology Data (last 24 hrs): 07/13/19 22:10 Throat Group A Streptococcus Rapid Screen - Final 07/13/19 22:10 Nasopharnyx Influenza Type A Antigen Screen - Final 07/13/19 22:10 Nasopharnyx Influenza Type B Antigen Screen - Final Assessment and Plan - Problems (Diagnosis) (1) Hypokalemia due to excessive gastrointestinal loss of potassium Current Visit: Yes Status: Acute (2) Abdominal pain Onset Date: 09/27/15 Current Visit: No Status: Acute Qualifiers: (3) Chronic anemia Onset Date: 08/21/15 Current Visit: No Status: Acute (4) Colitis Onset Date: 09/24/17 Current Visit: No Status: Acute (5) Ulcerative colitis Onset Date: 09/24/17 Current Visit: No Status: Acute Qualifiers: Discharge Plan: Home Plan to discharge in: 48 Hours - Advance Directives Does patient have a Living Will: No Does patient have a Durable POA for Healthcare: No - Code Status/Comfort Care Code Status Assessed: Yes Physician Review: Patient Assessed, Agree with Above Assessment and Plan Physician Review Additional Text: Colitis-VB due to ulcerative colitis flare but given history of C diff -will obtain stool for C diff toxin -will start patient on empirical Levaquin/Flagyl as well as IV Solu-Medrol -will consult GI if available -continue pain regimen --start gentle IV fluid Hypokalemia-switch IV to NS with 40 of K -continue IV give replacement -follow magnesium level DVT prophylaxis subcutaneous Lovenox next then Anemia-follow trend, obtain iron profile Thyromegaly is-noted on exam, obtain tsh, might need neck ultrasound
[2019-07-14] MEDS ORDERED: MORPHINE 2 MG/ML SYR IV PRN (02:50)
[2019-07-14] MEDS ORDERED: POTASSIUM 25 MEQ EFFERV TAB PO ONE (02:52)
[2019-07-14] MEDS ORDERED: NS KCL 40MEQ 40 MEQ/1,000 ML BAG IV SCH ×2 (03:00→10:00)
[2019-07-14 04:21] LABS: Ferritin 29.2 ng/mL (8-388); Magnesium 1.7 mg/dL (1.8-2.4); Thyroid Stimulating Hormone 0.904 uIU/mL (0.360-3.740); Transferrin 215 mg/dL (200-360)
[2019-07-14 04:26] LABS: Iron < 5.0 ug/dL (50-170)
[2019-07-14] MEDS ORDERED: MORPHINE 2 MG/ML SYR ONE (04:32)
[2019-07-14] MEDS ORDERED: ONDANSETRON 4 MG/2 ML VIAL ONE (04:32)
[2019-07-14] MEDS: ONDANSETRON 4 MG/2 ML VIAL IV PRN ×2 (04:36→21:49)
[2019-07-14] MEDS ORDERED: POTASSIUM 25 MEQ EFFERV TAB ONE (05:54)
[2019-07-14] MEDS ORDERED: METHYLPREDNISOLONE 125 MG INJ IV SCH ×2 (06:00→09:00)
[2019-07-14] MEDS ORDERED: HYDROCODONE/APAP 5/325 MG TAB PO PRN (06:29)
[2019-07-14] MEDS ORDERED: PANTOPRAZOLE 40MG TABLET PO SCH (07:30)
[2019-07-14 07:38] VITALS: BMI 31.8
[2019-07-14] MEDS: FENTANYL CITR 100 MCG/2 ML IV PRN ×4 (08:09→21:49)
[2019-07-14] MEDS ORDERED: SODIUM CHLORIDE 0.9% 10ML INJ IV PRN (09:06)
[2019-07-14] MEDS: SOD FERRIC GLUC COMPLX/SUCROSE 125 MG in NA CHLORIDE 0.9% 100 ML IV SCH (09:12)
--- NOTE | 2019-07-14 09:12 | P.PN ---
Subjective Date of Service: 07/14/19 Primary Care Provider: Roque Vicente NP Chief Complaint: Abdominal pain Subjective: Other (Still with abdominal pain mainly to the left quadrant. Some nausea and vomiting noted.) Physical Examination - Vital Signs Temperature: 97.5 F Blood Pressure: 95/52 Pulse: 68 Respirations: 18 Pulse Ox (%): 99 - Physical Exam General: Alert, In no apparent distress, Oriented x3, Cooperative HEENT: Atraumatic Neck: Supple Respiratory: Clear to auscultation bilaterally, Normal air movement Cardiovascular: Normal pulses, Regular rate/rhythm Gastrointestinal: Hypoactive, Non-distended, Tenderness (Pain to the left lower quadrant noted) Integumentary: No tenderness/swelling, No erythema, No warmth, No cyanosis Neurological: Normal speech, Normal strength at 5/5 x4 extr, Normal tone, Normal affect - Studies Laboratory Data (last 24 hrs) 07/14/19 02:52: Magnesium Cancelled 07/13/19 22:15: Creatinine 0.65 07/13/19 22:15: WBC 8.8, Hgb 8.7 L, Hct 28.5 L, Plt Count 478 H 07/13/19 22:15: Sodium 134 L, Potassium 3.0 L, BUN 5 L, Creatinine 0.71, Glucose 98, Total Bilirubin 0.4, AST 20, ALT 39, Alkaline Phosphatase 100, Lipase 42 L Microbiology Data (last 24 hrs): 07/13/19 22:10 Throat Group A Streptococcus Rapid Screen - Final 07/13/19 22:10 Nasopharnyx Influenza Type A Antigen Screen - Final 07/13/19 22:10 Nasopharnyx Influenza Type B Antigen Screen - Final Medications List Reviewed: Yes Assessment & Plan Discharge Plan: Home Plan to discharge in: 72 Hours Physician Review Additional Text: Impression: Nausea, vomiting and left lower quadrant of will obtain secondary to ulcerative colitis flare to the descending and rectosigmoid region Hypokalemia likely from volume depletion Chronic anemia related to iron deficiency Plan: Nausea, vomiting and left lower quadrant of will obtain secondary to ulcerative colitis flare to the descending and rectosigmoid region: Continue IV antibiotic therapy, IV fluids and IV steroids. Will make adjustments to IV steroids. Will make adjustments to IV pain medication. Patient takes Humira at home. Will discuss with her GI specialist. Will give trial of clear liquids. If not able then will continue with IV fluids only. Encourage ambulation. Provide incentive spirometer. Anticipate improvement over the next 48-72 hr Hypokalemia likely from volume depletion: Will monitor and replace closely. Electrolyte protocol in place. Continue IV fluids. Chronic anemia related to iron deficiency: Will provide iron supplementation. Will monitor hemoglobin closely. Time Spent Managing Pts Care (In Minutes): 55
[2019-07-14] MEDS: ENOXAPARIN 40 MG/0.4 ML SQ SCH (09:13)
--- NOTE | 2019-07-14 11:06 | RAD REPORT ---
EXAM DESCRIPTION: CT abdomen and pelvis with IV contrast CLINICAL HISTORY: 28-year-old female with abdominal pain and diarrhea x2 days TECHNIQUE: Axial CT imaging of the abdomen and pelvis was performed following the administration of intravenous contrast.. Sagittal and coronal reconstructed images were then performed. The CT stud y is performed according to ALARA (as low as reasonably achievable) or ALARA/IMAGE GENTLY, with autom atic adjustment of mA and/or kV according to patient size. Performed on: 07/14/2019 at 12:50 AM. COMPARISON: 09/23/2018 FINDINGS: Lung bases: The lung bases are clear. Liver: The liver is top normal in size and is normal in configuration. No focal hepatic abnormalities are identified. Liver attenuation is within normal limits. Spleen: The spleen is normal is size, configuration and attenuation. Gallbladder and bile duct: The gallbladder is surgically absent. There is no biliary ductal dilatat ion. Pancreas: The pancreas is grossly normal in size and configuration. Adrenal Glands: The adrenal glands are normal in size and configuration. Kidneys: The kidneys are normal in size and configuration. There is no evidence of hydronephrosis. Th ere is no evidence of nephrolithiasis. No definite solid or cystic renal mass lesions are identified. Stomach: The stomach is grossly normal. There is no definite hiatal hernia. Bowel: The bowel gas pattern is nonspecific and nonobstructive. There is diffuse bowel wall thickenin g with greatest involvement of the descending colon and rectosigmoid colon most compatible with colit is and there are multiple scattered small mesenteric lymph nodes. Appendix: The appendix is normal. Free air: There is no evidence of free air. Free fluid: There is no evidence of free fluid. Vasculature: The aorta is normal in caliber and contour. The inferior vena cava is grossly unremarkab le. Lymphadenopathy: No pathologic lymphadenopathy is identified. Multiple small scattered mesenteric lym ph nodes are present as described above. These are likely reactive inflammatory in nature. Bladder: The bladder is incompletely distended on this examination. Reproductive: The uterus is grossly within normal limits. Bones: No acute osseous abnormalities are identified. Soft tissues: No focal soft tissue abnormalities are identified. IMPRESSION: 1. CT findings most consistent with colitis with greatest involvement of the descending colon and rectosigmoid colon. 2. Multiple small scattered mesenteric lymph nodes which are likely reactive inflammatory in nature. 3. Remote cholecystectomy. Electronically signed by: Nay Hines DO 07/14/2019 1:17 AM CDT Due to temporary technical issues with the PACS/Fluency reporting system, reports are being signed by the in house radiologist as a courtesy to ensure prompt reporting. The interpreting radiologist is f ully responsible for the content of the report.
[2019-07-14 14:10] LABS: C.diff Antigen/Toxin Ag neg : Tox neg (NEG : NEG)
[2019-07-14] MEDS ORDERED: Levofloxacin500mg IV 500 MG/100 ML BAG IV SCH (15:00)
[2019-07-14] MEDS ORDERED: LORazepam 2 MG/ML VIAL IV PRN (16:41)
[2019-07-14] MEDS ORDERED: MAGNESIUM SULFATE 1 gm IVPB 1 GM/100 ML BAG IV ONE (17:00)
[2019-07-14] MEDS: NA CHLORIDE 0.9% 1,000 ML IV SCH (17:28)
[2019-07-14] MEDS: METHYLPREDNISOLONE 125 MG INJ IV SCH (17:30)
[2019-07-14] MEDS ORDERED: ZOLPIDEM TARTRATE 5 MG TABLET PO PRN (20:47)
[2019-07-15] MEDS: METHYLPREDNISOLONE 125 MG INJ IV SCH ×2 (00:57→08:25)
[2019-07-15] MEDS: METRONIDAZOLE 500mg IVPB 500 MG/100 ML BAG IV SCH ×2 (00:57→08:27)
[2019-07-15 04:58] LABS: Basophils % 0.3 % (0-1.3); Hematocrit 27.3 % (36.0-45.0); Lymphocytes % 10.5 % (15.3-44.8)
[2019-07-15 05:20] LABS: ALT/SGPT 26 U/L (12-78); AST/SGOT 5 U/L (15-37); Albumin 2.7 g/dL (3.4-5.0); Alkaline Phosphatase 82 U/L (45-117); BUN Blood Urea Nitrogen 3 mg/dL (7-18); Bicarbonate 22 mmol/L (21-32); Bilirubin Total 0.2 mg/dL (0.2-1.0); Glucose Level 144 mg/dL (74-106); Magnesium 2.5 mg/dL (1.8-2.4); Potassium 3.6 mmol/L (3.5-5.1); Protein, Total 7.2 g/dL (6.4-8.2); Sodium Level 141 mmol/L (136-145)
[2019-07-15] MEDS: ONDANSETRON 4 MG/2 ML VIAL IV PRN ×2 (05:33→12:23)
[2019-07-15] MEDS: NA CHLORIDE 0.9% 1,000 ML IV SCH ×2 (05:33→13:00)
[2019-07-15] MEDS: FENTANYL CITR 100 MCG/2 ML IV PRN ×3 (05:33→13:57)
[2019-07-15] MEDS ORDERED: Magnesium Sulfate 2gm IVPB 2 G/50 ML BAG IV ONE (06:29)
[2019-07-15] MEDS: SOD FERRIC GLUC COMPLX/SUCROSE 125 MG in NA CHLORIDE 0.9% 100 ML IV SCH (08:26)
[2019-07-15] MEDS: ENOXAPARIN 40 MG/0.4 ML SQ SCH (08:26)
[2019-07-15 08:47] LABS: Platelet Estimate ADEQ
[2019-07-15 08:48] LABS: Anisocytosis 1+; Blood Morphology Comment NOTED (NOT SEEN); Hypochromasia 1+
[2019-07-15 08:53] VITALS: O2SAT 99
[2019-07-15] MEDS ORDERED: PANTOPRAZOLE 40 MG INJ IVP SCH (09:00)
--- NOTE | 2019-07-15 12:26 | P.DS ---
Admission Date: 07/14/19 Discharge Date: 07/15/19 Primary Care Provider: Roque Vicente NP Disposition: ROUTINE DISCHARGE Discharge Condition: GOOD Reason for Admission: Abdominal pain Consultations: none Procedures: CT scan: FINDINGS: Lung bases: The lung bases are clear. Liver: The liver is top normal in size and is normal in configuration. No focal hepatic abnormalities are identified. Liver attenuation is within normal limits. Spleen: The spleen is normal is size, configuration and attenuation. Gallbladder and bile duct: The gallbladder is surgically absent. There is no biliary ductal dilatation. Pancreas: The pancreas is grossly normal in size and configuration. Adrenal Glands: The adrenal glands are normal in size and configuration. Kidneys: The kidneys are normal in size and configuration. There is no evidence of hydronephrosis. There is no evidence of nephrolithiasis. No definite solid or cystic renal mass lesions are identified. Stomach: The stomach is grossly normal. There is no definite hiatal hernia. Bowel: The bowel gas pattern is nonspecific and nonobstructive. There is diffuse bowel wall thickening with greatest involvement of the descending colon and rectosigmoid colon most compatible with colitis and there are multiple scattered small mesenteric lymph nodes. Appendix: The appendix is normal. Free air: There is no evidence of free air. Free fluid: There is no evidence of free fluid. Vasculature: The aorta is normal in caliber and contour. The inferior vena cava is grossly unremarkable. Lymphadenopathy: No pathologic lymphadenopathy is identified. Multiple small scattered mesenteric lymph nodes are present as described above. These are likely reactive inflammatory in nature. Bladder: The bladder is incompletely distended on this examination. Reproductive: The uterus is grossly within normal limits. Bones: No acute osseous abnormalities are identified. Soft tissues: No focal soft tissue abnormalities are identified. IMPRESSION: 1. CT findings most consistent with colitis with greatest involvement of the descending colon and rectosigmoid colon. 2. Multiple small scattered mesenteric lymph nodes which are likely reactive inflammatory in nature. 3. Remote cholecystectomy. Medical problem list: Nausea, vomiting and left lower quadrant of will obtain secondary to ulcerative colitis flare to the descending and rectosigmoid region Hypokalemia likely from volume depletion Chronic anemia related to iron deficiency Brief History of Present Illness: 28-year-old female with history of ulcerative colitis. Patient presented with abdominal pain, nausea vomiting. CT scan revealed colitis to the descending and rectosigmoid region. Patient admitted for further evaluation. Hospital Course: Patient presented with nausea, vomiting and left lower quadrant abdominal pain. This was secondary to ulcerative colitis flare. Colitis noted to the descending and rectosigmoid region. Patient was placed on IV antibiotic therapy , IV steroids and IV fluids. Patient has responded well. At discharge she is able to tolerate a soft diet. At discharge she will continue with Cipro 500 mg twice daily and Flagyl 500 mg 3 times a day for 7 days. Patient will also continue with prednisone 10 mg 1 pill twice daily for 5 days then 1 pill once daily for 5 days. Recommendation is to follow up with her GI specialist to follow up this hospitalization and continue her care. Vital Signs/Physical Exam: Temp Pulse Resp BP Pulse Ox 97.1 F 90 16 109/59 L 99 07/15/19 08:00 07/15/19 08:00 07/15/19 08:00 07/15/19 08:00 07/15/19 08:00 General: Alert, In no apparent distress, Oriented x3, Cooperative HEENT: Atraumatic Neck: Supple Respiratory: Clear to auscultation bilaterally, Normal air movement Cardiovascular: Normal pulses, Regular rate/rhythm Gastrointestinal: Normal bowel sounds, Soft and benign, Non-distended, No ascites, No tenderness, No masses, No rebound, No guarding Neurological: Normal speech, Normal strength at 5/5 x4 extr, Normal tone, Normal affect Laboratory Data at Discharge: WBC 9.2 K/uL (4.3-10.9) 07/15/19 04:37 Hgb 8.1 g/dL (12.0-15.0) L 07/15/19 04:37 Hct 27.3 % (36.0-45.0) L 07/15/19 04:37 Plt Count 495 K/uL (152-406) H 07/15/19 04:37 Sodium 141 mmol/L (136-145) 07/15/19 04:37 Potassium 3.6 mmol/L (3.5-5.1) 07/15/19 04:37 BUN 3 mg/dL (7-18) L 07/15/19 04:37 Creatinine 0.63 mg/dL (0.55-1.3) 07/15/19 04:37 Glucose 144 mg/dL (74-106) H 07/15/19 04:37 Magnesium 2.5 mg/dL (1.8-2.4) H D 07/15/19 04:37 Total Bilirubin 0.2 mg/dL (0.2-1.0) 07/15/19 04:37 AST 5 U/L (15-37) L 07/15/19 04:37 ALT 26 U/L (12-78) 07/15/19 04:37 Alkaline Phosphatase 82 U/L (45-117) 07/15/19 04:37 Lipase 42 U/L (73-393) L 07/13/19 22:15 Home Medications: Adalimumab [Humira Pen] 40 mg SQ SEECOM 07/14/19 Ciprofloxacin HCl [Cipro 500 MG Tablet] 500 mg PO BID #14 tab 07/15/19 Ferrous Sulfate [Iron] 325 mg PO BID #60 tablet 07/15/19 Lactobacillus Acidophilus [Acidophilus Lactobacilli] 1 each PO TID #90 capsule 07/15/19 metroNIDAZOLE [Flagyl] 500 mg PO TID #21 tablet 07/15/19 predniSONE [Deltasone*] 10 mg PO SEECOM #15 tab 07/15/19 New Medications: Ciprofloxacin HCl [Cipro 500 MG Tablet] 500 mg PO BID #14 tab Ferrous Sulfate [Iron] 325 mg PO BID #60 tablet Lactobacillus Acidophilus [Acidophilus Lactobacilli] 1 each PO TID #90 capsule metroNIDAZOLE [Flagyl] 500 mg PO TID #21 tablet predniSONE [Deltasone*] 10 mg PO SEECOM #15 tab Patient Discharge Instructions: 1. Recommend follow up with her PCP in 1-2 weeks to follow up this hospitalization. 2. Patient presented with nausea, vomiting and left lower quadrant abdominal pain. This was secondary to ulcerative colitis flare. Colitis noted to the descending and rectosigmoid region. Patient was placed on IV antibiotic therapy, IV steroids and IV fluids. Patient has responded well. At discharge she is able to tolerate a soft diet. At discharge she will continue with Cipro 500 mg twice daily and Flagyl 500 mg 3 times a day for 7 days. Patient will also continue with prednisone 10 mg 1 pill twice daily for 5 days then 1 pill once daily for 5 days. Recommendation is to follow up with her GI specialist to follow up this hospitalization and continue her care. Diet: GI soft Activity: Ad jasiel Time spent managing pt's care (in minutes): 55
[2019-07-15 12:55] VITALS: BP 95/54; TEMP 97.5
== END 2019-07-15 15:10 | disposition home or self-care (01) | DRG 387 ==
LOC: ER 20:55 → ERHOLD 07-14 03:15 → 4TH 07-14 07:44
PROVIDERS: ADMIT Internal Medicine; ATTEND Internal Medicine
DX: K51.90 Ulcerative colitis, unspecified, without complications (principal); E87.6 Hypokalemia; E86.9 Volume depletion, unspecified; D50.9 Iron deficiency anemia, unspecified
CPT/HCPCS: 36415; 71045; 74177; 80048; 80053; 80076; 81003; 81015; 81025; 82728; 83540; 83690; 83735; 84443; 84466; 85025; 87045; 87046; 87070; 87081; 87177; 87209; 87324; 87449; 87804; 96361; 96365; 96368; 96375; 99285; C9113; J0744; J1650; J2270; J2405; J2916; J2930; J3010; J3475; J7030; Q9967

== ENCOUNTER 2019-07-21 07:46 | Emergency (ER) | payer SELFPAY ==
--- OUTSIDE RECORDS SUMMARY | 2019-07-21 07:55 | XMS REPORT ---
:1990 [facility] Address [address] [place] [address] Dr. Palacio [address] [place] [id number] Care Team Providers Name Role Phone Unavailable Unavailable Unavailable Problems This patient has no known problems. Allergies, Adverse Reactions, Alerts This patient has no known allergies or adverse reactions. Medications This patient has no known medications.
[2019-07-21] MEDS ORDERED: LIDOCAINE VISCOUS 2% SOLN 15 ML UDC ONE (08:14)
--- NOTE | 2019-07-21 08:21 | EDPHYS ---
Physician Documentation [facility] Name: Kylie Appiah Age: 28 yrs Sex: Female : 1990 Arrival Date: 07/21/2019 Time: 07:51 Bed 5 Private MD: ED Physician Alvaro Doyle HPI: 07/20 08:09 This 28 yrs old Female presents to ER via Unassigned with complaints of rn Buttock Pain. 08:09 The patient presents to the emergency department with pain in the rectal area, that is rn moderate. 08:11 Onset: The symptoms/episode began/occurred yesterday. Modifying factors: The symptoms rn are alleviated by nothing, The symptoms are aggravated by bowel movement, sitting position. The patient has experienced similar episodes in the past. Reports having problem with hemorrhoids again, recently with colitis and taking abx, reports feeling better, but now having pain from hemorrhoids, has tried preparation H, but only helps a little. Has required treatment by Dr. Duarte in past. NO bleeding. No trauma. . 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 - Social history:: Smoking status: Patient denies any tobacco usage or history of. - Family history:: not pertinent. - Hospitalizations: : No recent hospitalization is reported. 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 The base of hemorrhoid with some bluish discoloration. NO bleeding. No evidence of perirectal abscess. Vital Signs: 08:15 BP 110 / 76; Pulse 108; Resp 19 S; Temp 98.2(O); Pulse Ox 100% on R/A; Weight 73.94 kg jl7 (R); Height 5 ft. 0 in. (152.40 cm) (R); Pain 10/10; 08:15 Body Mass Index 31.83 (73.94 kg, 152.40 cm) 7 MDM: 08:01 Patient medically screened. rn 08:18 ED course: [facility] 310/180/0/600. Recommend patient to call her GI doctor if symptoms rn worsen for excision. Will prescribe anusol and pain medication. . 08:22 Differential diagnosis: hemorrhoids. Data reviewed: vital signs, nurses notes, and as a rn result, I will discharge patient. Counseling: I had a detailed discussion with the patient and/or guardian regarding: the historical points, exam findings, and any diagnostic results supporting the discharge/admit diagnosis, the need for outpatient follow up, to return to the emergency department if symptoms worsen or persist or if there are any questions or concerns that arise at home. ED course: Hemorrhoid still soft, no obvious thrombosis at this point, will try conservative management and recommend f/u with Dr. duarte. 08:32 ED course: Tried Dr. Dennison office, is closed for 2 [address] Dr. amena Vu to see if he could help with patient, waiting advanced practice professional back. . 08:36 ED course: Spoke with Dr. 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 . 08:50 ED course: tried getting a hold of Dr. Espino, is in surgery and unavailable. rn 08:58 ED course: Dr. Young called back, [facility] not allowing non-emergent groover and turner right now, also recommends conservative measures. Will come in to see patient to see if thrombectomy required. . Administered Medications: 09:10 Drug: Demerol 50 mg Route: IM; Site: right deltoid; [facility] 09:40 Follow up: Response: No adverse reaction; Pain is decreased jl7 09:16 Drug: Zofran (Ondansetron) 4 mg Route: PO; 10:13 Follow up: Response: No adverse reaction 09:30 Drug: Lidocaine-Epinephrine -1%: (1:100,000) 1 vials Volume: 20 ml; Route: Infiltration; 09:30 Follow up: administered by Dr. Young jl7 Disposition: 07/21/19 08:20 Discharged to Home. Impression: Hemorrhoids and perianal venous thrombosis. - Condition is Stable. - Discharge Instructions: Hemorrhoids, How to Take a Sitz Bath. - Prescriptions for Anusol- HC 2.5 % Rectal Cream - Apply to affected area 1 application by TOPICAL route every 8 hours As needed; 30 gram. - Medication Reconciliation Form, Thank You Letter, Antibiotic Education, Prescription Opioid Use form. - Follow up: Enrico Duarte MD; When: As needed; Reason: Recheck today's complaints, Re-evaluation by your physician. Follow up: Ronnie Young MD; When: 1 week; Reason: Recheck today's complaints, Re-evaluation by your physician. - Problem is an acute exacerbation. - Symptoms are unchanged. Signatures: Alvaro Doyle MD MD rn Leal, Jahala, RN RN jl7 Corrections: (The following items were deleted from the chart) 08:59 08:50 ED course: tried getting a hold of Dr. Espino, is in surgery and unavailable, rn and unable to get into contact with Dr. Young. . rn 09:02 08:58 ED course: Dr. Young called back, [facility] not allowing non-emergent groover and turner right now, also recommends conservative measures. Will dc home. . rn 09:09 08:11 Constitutional: This is a well developed, well nourished patient who is awake, rn alert, ambulatory to room, seems uncomfortable Abdomen/GI: Soft, non-tender, + right sided 2cm hemorrhoid that is tender but without evidence of acute thrombosis or bluish discoloration. NO bleeding. No evidence of perirectal abscess. rn 10:05 08:20 07/21/2019 08:20 Discharged to Home. Impression: Hemorrhoids and perianal venous rn thrombosis. Condition is Stable. Discharge Instructions: How to Take a Sitz Bath. Prescriptions for Anusol-HC 2.5 % Rectal Cream - Apply to affected area 1 application by TOPICAL route every 8 hours As needed; 30 gram. and Forms are Medication Reconciliation Form, Thank You Letter, Antibiotic Education, Prescription Opioid Use. Follow up: Enrico Duarte; When: As needed; Reason: Recheck today's complaints, Re-evaluation by your physician. Problem is an acute exacerbation. Symptoms are unchanged. rn 10:16 10:05 07/21/2019 08:20 Discharged to Home. Impression: Hemorrhoids and perianal venous jl7 thrombosis. Condition is Stable. Discharge Instructions: How to Take a Sitz Bath, Hemorrhoids. Prescriptions for Anusol-HC 2.5 % Rectal Cream - Apply to affected area 1 application by TOPICAL route every 8 hours As needed; 30 gram. and Forms are Medication Reconciliation Form, Thank You Letter, Antibiotic Education, Prescription Opioid Use. Follow up: Ronnie Young; When: 1 week; Reason: Recheck today's complaints, Re-evaluation by your physician. Problem is an acute exacerbation. Symptoms are unchanged. rn
--- NOTE | 2019-07-21 08:21 | ER ---
Nurse's Notes [facility] Name: Kylie Appiah Age: 28 yrs Sex: Female : 1990 Arrival Date: 07/21/2019 Time: 07:51 Bed 5 Private MD: Diagnosis: Hemorrhoids and perianal venous thrombosis Presentation: 07/20 08:15 Chief complaint: Patient states: Hemorid started 1 week ago; severe pain. Coronavirus jl7 screen: Patient denies fever greater than 100.4F, cough, shortness of breath, or difficulty breathing. Proceed with normal triage process. Ebola Screen: No symptoms or risks identified at this time. Initial Sepsis Screen: Does the patient meet any 2 criteria? No. Patient's initial sepsis screen is negative. Does the patient have a suspected source of infection? No. Patient's initial sepsis screen is negative. Risk Assessment: Do you want to hurt yourself or someone else? Patient reports no desire to harm self or others. Onset of symptoms was July 14, 2019. 08:15 Method Of Arrival: Ambulatory [facility] 08:15 Acuity: YESSICA 4 jl7 Triage Assessment: 08:21 General: Appears in no apparent distress. comfortable, Behavior is cooperative, jl7 appropriate for age, crying. Pain: Complains of pain in buttocks Pain currently is 10 out of 10 on a pain scale. Neuro: Level of Consciousness is awake, alert, obeys commands. Cardiovascular: Patient's skin is warm and dry. Respiratory: Airway is patent Respiratory effort is even, unlabored, Respiratory pattern is regular, symmetrical. Derm: Skin is pink, warm \\T\\ dry. 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 - Social history:: Smoking status: Patient denies any tobacco usage or history of. - Family history:: not pertinent. - Hospitalizations: : No recent hospitalization is reported. Screenin:23 Abuse screen: Denies threats or abuse. Denies injuries from another. Nutritional jl7 screening: No deficits noted. Tuberculosis screening: No symptoms or risk factors identified. Fall Risk None identified. Assessment: 08:23 General: See triage for assessment. jl7 08:35 Reassessment: Ice pack to hemorrhoid. jl7 08:45 Reassessment: Pt will be discharged after ERD consults general surgeon. jl7 10:13 Reassessment: Patient states feeling better. Patient states symptoms have improved. jl7 Vital Signs: 08:15 BP 110 / 76; Pulse 108; Resp 19 S; Temp 98.2(O); Pulse Ox 100% on R/A; Weight 73.94 kg jl7 (R); Height 5 ft. 0 in. (152.40 cm) (R); Pain 10/10; 08:15 Body Mass Index 31.83 (73.94 kg, 152.40 cm) jl7 ED Course: 07:51 Patient arrived in ED. ag5 08:01 Alvaro Doyle MD is Attending Physician. rn 08:15 Trenton Barton RN is Primary Nurse. jl7 08:19 Enrico Cosme MD is Referral Physician. rn 08:21 Triage completed. jl7 08:21 Arm band placed on right wrist. jl7 08:23 Patient has correct armband on for positive identification. Bed in low position. Call jl7 light in reach. Side rails up X 1. Pulse ox on. NIBP on. Warm blanket given. 08:23 Served as a peat shredder tender during rectal exam. jl7 10:05 Referral Physician role handed off by Enrico Cosme MD rn 10:05 Ronnie Young MD is Referral Physician. rn 10:05 Assist provider with I \\T\\ D: of an abscess on left perirectal area Set up I\\T\\D tray. jl 7 Performed by Ronnie Young MD Patient tolerated well. 10:13 Procedure consent explained by staff, explained by physician, signed by patient. jl7 10:15 Patient did not have IV access during this emergency room visit. jl7 Administered Medications: 09:10 Drug: Demerol 50 mg Route: IM; Site: right deltoid; 09:40 Follow up: Response: No adverse reaction; Pain is decreased 09:16 Drug: Zofran (Ondansetron) 4 mg Route: PO; 10:13 Follow up: Response: No adverse reaction 09:30 Drug: Lidocaine-Epinephrine -1%: (1:100,000) 1 vials Volume: 20 ml; Route: Infiltration; 09:30 Follow up: administered by Dr. Young jl7 Intake: Outcome: 08:20 Discharge ordered by . rn 10:16 Discharged to home ambulatory. 10:16 Condition: stable 10:16 Discharge instructions given to patient, Instructed on discharge instructions, follow up and referral plans. medication usage, Demonstrated understanding of instructions, follow-up care, medications, Prescriptions given X 1. 10:16 Patient left the ED. jl7 Signatures: Alvaro Doyle MD MD rn Leal, Jahala, RN RN jl7 Darrius Trevino ag5
[2019-07-21] MEDS ORDERED: MEPERIDINE HCL 50 MG/ML ONE (09:14)
[2019-07-21] MEDS ORDERED: ONDANSETRON 4 MG (ODT) TAB ONE (09:14)
[2019-07-21] MEDS ORDERED: LIDOCAINE 1% W/EPI 1:100,000 MDV 20 ML VIAL ONE (09:22)
[2019-07-21 10:23] VITALS: BP 110/76; TEMP 98.2; O2SAT 100
--- NOTE | 2019-07-21 10:24 | P.OP ---
Preoperative diagnosis: Thrombosed hemorrhoid Postoperative diagnosis: The same Primary procedure: Thrombectomy Anesthesia: Local Estimated blood loss: Less than 10 cc Specimen: Thrombus removed, not sent Findings: Large 2.5 cm thrombus at the 1 to 3 o'clock position Operative Technique: In the emergency room the patient was rolled into left lateral position. There was quickly prepped with a Betadine solution. After injecting 1% lidocaine with epinephrine, a radial skin incision was made. This brought down through the subcutaneous tissue. A hemostat was used to remove a large thrombosed hemorrhoid. The wound was inspected to ensure adequate hemostasis applied. She was stable at the end of the procedure and had great relief of her pain. Complications: None (The patient was left in the ER, paperwork will be completed and she was discharged) Condition: Good
== END 2019-07-21 10:16 | disposition home or self-care (01) ==
LOC: ER 07:46
PROC: 06BY3ZC Excision of Hemorrhoidal Plexus, Percutaneous Approach (ICD-10-PCS; principal; 2019-07-21)
DX: K64.5 Perianal venous thrombosis (principal); K64.9 Unspecified hemorrhoids; Z88.0 Allergy status to penicillin; Z88.6 Allergy status to analgesic agent
CPT/HCPCS: 96372; 99284; J2175

== ENCOUNTER 2022-10-14 18:41 | Emergency (ER) | payer OTHER ==
--- OUTSIDE RECORDS SUMMARY | 2022-10-14 18:46 | XMS REPORT | Continuity of Care Document ---
:1990 Author Organization [facility] t Address [address] [facility] [address]. [address] [place] [address] Support Name Relationship Address Phone BRITTANY APPIAH [facility] [address] [phone] [place] [address] UNEMPLOYED EMR Unavailable Unavailable [address] [phone] [place] [address] Brittany Appiah Mother [address] [place] [address] [address] Appiah [address] [place] [address] MD [place] Emergency Provider [address] [facility] [id number] + [place] [address] JACKLYN SALAZAR-Tono Primary Care Physician [address] [place] [address] MD [facility] Emergency Provider [address] [facility] [place] [address] LAURIE APPIAH Unavailable [address] [place] [address] OTHER, ENTER NAME IN Primary Care Physician Unavailable Unav ailable NOTES MD DONALD RAMIREZ Emergency Provider Unavailable Unavailable MD LEIA BARCENAS Emergency Provider [address] [place] [address] JHONY APPIAH Unavailable [address] Un[address] [place] [id number] JACKLYN SALAZAR-Tono Primary Care Physician [address] [place] [address] MD MISA ASH JR Admitting Provider [address] [place] [address] MD LOYD HERNANDEZ Emergency Provider [address] [place] [address] MD FELICE GRANDE Emergency Provider [address] [place] [address] MD ANASTACIO ALCOCER Emergency Provider [address] [phone] [place] [address] JHONY APPIAH Emergency Contact [address] [place] [address] MD SHALINI MARIA Emergency Provider [address] [phone] [place] [address] MD MARINO REDD Emergency Provider [address] [phone] [place] [address] Care Team Providers Name Role Phone BRAULIO LOPES Primary Care Physician Unavailable DR BOBBY CUMMINGS Attending Clinician Unavailable [phone] Attending Clinician Unavailable [id number] Attending Clinician Unavailable DR LILIBETH DURON Attending Clinician Unavailable [phone] Attending Clinician Unavailable [id number] Attending Clinician Unavailable JACOB COOK Attending Clinician Unavailable DR BRAULIO LOPES Attending Clinician Unavailable [id number] Attending Clinician Unavailable MARINO REDD Attending Clinician Unavailable SHALINI MARIA Attending Clinician Unavailable ANASTACIO ALCOCER Attending Clinician Unavailable MISA ASH Attending Clinician Unavailable Jacob Cook MD Attending Clinician Dianne Timmons RN Attending Clinician Barbara Nair S Attending Clinician Cindy Wright MD Attending Clinician Doctor Unassigned, [place] Attending Clinician Unavailable Татьяна Gooden Attending Clinician DR BOBBY CUMMINGS Admitting Clinician Unavailable DR LILIBETH DURON Admitting Clinician Unavailable JACOB COOK Admitting Clinician Unavailable DR BRAULIO LOPES Admitting Clinician Unavailable MISA ASH Admitting Clinician Unavailable Payers Payer Name Policy Type Policy Number Effective Date Expiration Date S [place] [id number] [place] [id number] [place] [id number] Problems Condition Condition Condition Status Onset Resolution Last Treating Co mments Source Name Details Category Date Date Treatment Clinician Date Colitis Colitis [facility] Allergies, Adverse Reactions, Alerts Allergy Allergy Status Severity Reaction(s) Onset Inactive Treating Comm ents Source Name Type Date Date Clinician PENICILL Allergy Active [facility] 00 Center Nsaids Propensi Active [facility] roidal adverse 00:00: Medical Anti-Inf reaction 00 Center lammator s y Drug) Penicill Propensi Active [facility] adverse 00:00: Medical reaction 00 Center s NSAIDS Allergy Active [facility] ROIDAL 00:00: Medical ANTI-INF 00 Center LAMMATOR Y DRUG) Nsaids Propensi Active [facility] roidal adverse 00:00: Medical Anti-Inf reaction 00 Center lammator s y Drug) Penicill Propensi Active [facility] adverse 00:00: Medical reaction 00 Center s NONSTERO DA Active UNKNOWN El IDAL [place] ANTIINFL [facility] PCN DA Active UNKNOWN Hives El (penicil [place] sandeep) [facility] CIPROFLO DA Active UNKNOWN El XACIN [place] [facility] FLAGYL DA Active UNKNOWN [place] [facility] Social History Social Habit Start Date Stop Date Quantity Comments Source Sex Assigned At [address] [facility] [address] [facility] 00:[facility] Medications Ordered Filled Start Stop Current Ordering Indication Dosage Frequency Signature Comments Components Source Medication Medication Date Date Medication? Clinician (SIG) Name Name adalimumab Yes 20mg Inject [address] 20 mg/0.4 1-26 mg [facility] mL SyKt 11:59: subcutaneo Medi liliana 16 usly Every Center 2 weeks, last dose was 05/09/20. adalimumab 2021-0 Yes 20mg Inject [address] 20 mg/0.4 1-26 mg [facility] mL SyKt 11:59: subcutaneo [facility] 16 usly Every Center 2 weeks, last dose was 05/09/20. adalimumab 2020-0 Yes 20mg Inject [address] 20 mg/0.4 1-26 mg [facility] mL SyKt 11:59: subcutaneo [facility] 16 usly Every Center 2 weeks, last dose was 05/09/20. adalimumab 2020-0 Yes 20mg Inject [address] 20 mg/0.4 1-26 mg [facility] mL SyKt 11:59: subcutaneo [facility] 16 usly Every Center 2 weeks, last dose was 05/09/20. adalimumab 2020-0 Yes 20mg Inject [address] 20 mg/0.4 1-26 mg [facility] mL SyKt 11:59: subcutaneo [facility] 16 usly Every Center 2 weeks, last dose was 05/09/20. adalimumab 2020-0 Yes 20mg Inject [address] 20 mg/0.4 1-26 mg [facility] mL SyKt 11:59: subcutaneo [facility] 16 usly Every Center 2 weeks, last dose was 05/09/20. adalimumab 2020-0 Yes 20mg Inject [address] 20 mg/0.4 1-26 mg [facility] mL SyKt 11:59: subcutaneo [facility] 16 usly Every Center 2 weeks, last dose was 05/09/20. traMADoL Yes 50mg Take [address] [facility] (ULTRAM) 50 1-26 tablet (50 Kate [facility]es mg tablet 00:00: mg total) Med ical 00 by mouth Center every 8 (eight) hours as needed for Pain for up to 5 days. Max Daily Amount: 150 mg predniSONE Yes 40mg QD Take 2 [facility] (DELTASONE) 1-26 tablets [facility] 20 MG 00:00: (40 mg Medical tablet 00 total) by Center mouth daily for 14 days. traMADoL Yes 50mg Take [address] (ULTRAM) 50 1-26 tablet (50 Kate kes mg tablet 00:00: mg total) Med ical 00 by mouth Center every 8 (eight) hours as needed for Pain for up to 5 days. Max Daily Amount: 150 mg predniSONE 2021-0 Yes 40mg QD Take 2 [facility] (DELTASONE) 1-26 tablets [facility] 20 MG 00:00: (40 mg Medical tablet 00 total) by Center mouth daily for 14 days. traMADoL 2021-0 Yes 50mg Take [address] [facility] [address] (ULTRAM) 50 1-26 tablet (50 Kate k[facility] mg tablet 00:00: mg total) Med ical 00 by mouth Center every 8 (eight) hours as needed for Pain for up to 5 days. Max Daily Amount: 150 mg predniSONE 2021-0 Yes 40mg QD Take 2 [facility] (DELTASONE) 1-26 tablets [facility] 20 MG 00:00: (40 mg Medical tablet 00 total) by Center mouth daily for 14 days. traMADoL 2021-0 Yes 50mg Take [address] [facility] [address] (ULTRAM) 50 1-26 tablet (50 Kate kes mg tablet 00:00: mg total) Med ical 00 by mouth Center every 8 (eight) hours as needed for Pain for up to 5 days. Max Daily Amount: 150 mg predniSONE 2021-0 Yes 40mg QD Take 2 [facility] (DELTASONE) 1-26 tablets [facility] 20 MG 00:00: (40 mg Medical tablet 00 total) by Center mouth daily for 14 days. traMADoL 2021-0 Yes 50mg Take [address] [facility] [address] (ULTRAM) 50 1-26 tablet (50 Kate [facility] mg tablet 00:00: mg total) Med ical 00 by mouth Center every 8 (eight) hours as needed for Pain for up to 5 days. Max Daily Amount: 150 mg predniSONE 2021-0 Yes 40mg QD Take 2 [facility] (DELTASONE) 1-26 tablets [facility] 20 MG 00:00: (40 mg Medical tablet 00 total) by Center mouth daily for 14 days. traMADoL 2021-0 Yes 50mg Take [address] [facility] (ULTRAM) 50 1-26 tablet (50 Kate kes mg tablet 00:00: mg total) Med ical 00 by mouth Center every 8 (eight) hours as needed for Pain for up to 5 days. Max Daily Amount: 150 mg predniSONE 2021-0 Yes 40mg QD Take 2 [facility] (DELTASONE) 1-26 tablets [facility] 20 MG 00:00: (40 mg Medical tablet 00 total) by Center mouth daily for 14 days. traMADoL 2021-0 Yes 50mg Take [address] [facility] [address] (ULTRAM) 50 - tablet (50 Kate kes mg tablet 00:00: mg total) Med ical 00 by mouth Center every 8 (eight) hours as needed for Pain for up to 5 days. Max Daily Amount: 150 mg predniSONE Yes 40mg QD Take 2 [facility] (DELTASONE) -26 tablets [facility] 20 MG 00:00: (40 mg Medical tablet 00 total) by Center mouth daily for 14 days. pantoprazol 2020- No 40mg QD Take [address] [facility] [facility] 05-23-25 tablet (40 [facility] (PROTONIX) 00:00: 23:59 mg total) M edical 40 MG 00 :00 by mouth Center tablet daily for 30 days. pantoprazol 2020- No 40mg QD Take [address] [facility] [facility] 05-2325 tablet (40 [facility] (PROTONIX) 00:00: 23:59 mg total) M edical 40 MG 00 :00 by mouth Center tablet daily for 30 days. pantoprazol 2020- No 40mg QD Take [address] [facility] 05-23-25 tablet (40 [facility] (PROTONIX) 00:00: 23:59 mg total) M edical 40 MG 00 :00 by mouth Center tablet daily for 30 days. ondansetron 2020- No 8mg Take [address] [facility] (ZOFRAN-ODT 05-23 02-02 tablet (8 Kate kes ) 8 MG 00:00: 23:59 mg total) Medic al disintegrat 00 :00 by mouth 2 Ce nter ing tablet (two) times daily as needed for Nausea for up to 7 days. ondansetron 2020- No 8mg Take [address] [facility] (ZOFRAN-ODT - 02-02 tablet (8 Kate kes ) 8 MG 00:00: 23:59 mg total) Medic al disintegrat 00 :00 by mouth 2 Ce nter ing tablet (two) times daily as needed for Nausea for up to 7 days. ondansetron 2020- No 8mg Take [address] [facility] (ZOFRAN-ODT - 02-02 tablet (8 Kate kes ) 8 MG 00:00: 23:59 mg total) Medic al disintegrat 00 :00 by mouth 2 Ce nter ing tablet (two) times daily as needed for Nausea for up to 7 days. predniSONE 2020- No 40mg QD Take [address] (DELTASONE) 05-23 tablets Luke s 20 MG 00:00: 00:00 (40 mg Medical tablet 00 :00 total) by Center mouth daily for 14 days. pantoprazol 2020- No 40mg QD Take [address] [facility] [facility] 05-23 tablet (40 [facility] (PROTONIX) 00:00: 00:00 mg total) M edical 40 MG 00 :00 by mouth Center tablet daily for 30 days. ondansetron 2020-2020- No 8mg Take [address] [facility] [address] (ZOFRAN-ODT 05-23 tablet (8 Kate kes ) 8 MG 00:00: 00:00 mg total) Medic al disintegrat 00 :00 by mouth 2 Ce nter ing tablet (two) times daily as needed for Nausea for up to 7 days. predniSONE 2020- No 40mg QD Take [address] (DELTASONE) 05-23 tablets Luke s 20 MG 00:00: 00:00 (40 mg Medical tablet 00 :00 total) by Center mouth daily for 14 days. pantoprazol 2020- No 40mg QD Take [address] [facility] [facility] 05-23 tablet (40 [facility] (PROTONIX) 00:00: 00:00 mg total) M edical 40 MG 00 :00 by mouth Center tablet daily for 30 days. ondansetron 2020-2020- No 8mg Take [address] [facility] (ZOFRAN-ODT 05-23 tablet (8 Kate kes ) 8 MG 00:00: 00:00 mg total) Medic al disintegrat 00 :00 by mouth 2 Ce nter ing tablet (two) times daily as needed for Nausea for up to 7 days. predniSONE 2020- No 40mg QD Take [address] (DELTASONE) 05-23 tablets Luke s 20 MG 00:00: 00:00 (40 mg Medical tablet 00 :00 total) by Center mouth daily for 14 days. pantoprazol 2020- No 40mg QD Take [address] [facility] 05-23 tablet (40 [facility] (PROTONIX) 00:00: 00:00 mg total) M edical 40 MG 00 :00 by mouth Center tablet daily for 30 days. ondansetron No 8mg Take [address] [facility] (ZOFRAN-ODT 05-23 tablet (8 Kate kes ) 8 MG 00:00: 00:00 mg total) Medic al disintegrat 00 :00 by mouth 2 Ce nter ing tablet (two) times daily as needed for Nausea for up to 7 days. citalopram Yes 40mg QD Take [address] (CeleXA) 40 1-11 by mouth Luke s MG tablet 00:00: daily. [address] citalopram Yes 40mg QD Take [address] (CeleXA) 40 1-11 by mouth Luke s MG tablet 00:00: daily. [address] citalopram Yes 40mg QD Take [address] (CeleXA) 40 1-11 by mouth Luke s MG tablet 00:00: daily. [address] citalopram Yes 40mg QD Take [address] (CeleXA) 40 1-11 by mouth Luke s MG tablet 00:00: daily. [address] citalopram Yes 40mg QD Take [address] (CeleXA) 40 1-11 by mouth Luke s MG tablet 00:00: daily. [address] citalopram Yes 40mg QD Take [address] (CeleXA) 40 1-11 by mouth Luke s MG tablet 00:00: daily. [address] citalopram Yes 40mg QD Take [address] (CeleXA) 40 1-11 by mouth Luke s MG tablet 00:00: daily. [address] Vital Signs Vital Name Observation Time Observation Value Comments Source HEIGHT 2020-05-20 01:10:00 152.4 cm WEIGHT 2020-05-20 01:10:00 78.2 kg HEIGHT 2020-05-20 01:10:00 152.4 cm WEIGHT 2020-05-20 01:10:00 78.2 kg Systolic blood 2020-05-23 12:07:00 113 mm[Hg] [facility] Diastolic blood 2020-05-23 12:07:00 58 mm[Hg] [facility] Heart rate 2020-05-23 12:07:00 67 /min [facility] Body temperature 2020-05-23 12:07:[address] [facility] Respiratory rate 2020-05-23 12:07:00 18 /min [facility] Oxygen saturation in 2020-05-23 12:07:00 99 /min [facility] Arterial blood by Medical Ce nter Pulse oximetry Body height 2020-05-20 01:10:00 152.4 cm [facility] Body weight 2020-05-20 01:10:00 78.2 kg [facility] BMI 2020-05-20 01:10:00 33.67 kg/m2 [facility] Procedures Procedure Date / Time Performed Performing Clinician Sour e POCT-GLUCOSE METER 2020-05-23 11:27:00 Jacob Cook [facility] POCT-GLUCOSE METER 2020-05-23 07:52:[address] [facility] CBC W/PLT COUNT & AUTO 2020-05-23 04:56:00 Thaddeus Campbell [facility] COMPREHENSIVE METABOLIC 2020-05-23 04:56:00 Thaddeus Campbell [facility] PANEL [facility] MAGNESIUM 2020-05-23 04:56:[address] [facility] CBC W/PLT COUNT & AUTO 2020-05-23 04:56:00 Thaddeus Campbell [facility] POCT-GLUCOSE METER 2020-05-22 21:59:[address] [facility] POCT-GLUCOSE METER 2020-05-22 15:46:[address] [facility] C. DIFFICILE GDH TOXIN 2020-05-21 02:45:00 Edison Barboza [facility] BASIC METABOLIC PANEL (7) 2020-05-20 04:33:00 Thiago Casey [facility] LIPID PANEL 2020-05-20 04:33:00 London Casey [facility] CBC W/PLT COUNT & AUTO 2020-05-20 04:33:00 [place] Casey [facility] CBC W/PLT COUNT & AUTO 2020-05-20 04:33:00 EvanLondon miller [facility] Plan [facility] Care Planned Activity Planned Date Details Comments Source Future Scheduled 2023-05-[address] [facility] 00:00:00 (procedure) [code = [facility] 83572362] Future Scheduled 2023-05-[address] [facility] 00:00:00 (procedure) [code = [facility] [id number]] Future Scheduled 2023-05-[address] [facility] Test 00:00:00 (procedure) [code = [facility] [id number]] Future Scheduled 2023-05-[address] [facility] 00:00:00 (procedure) [code = [facility] [id number]] Future Scheduled 2023-05-[address] [facility] 00:00:00 (procedure) [code = [facility] [id number]] Future Scheduled 2023-05-[address] [facility] 00:00:00 (procedure) [code = [facility] 22288170] Future Scheduled 2023-05-[address] [facility] 00:00:00 (procedure) [code = [facility] 00030038] Future Scheduled 2022-12-[address] [facility] 00:00:00 (Season Ended) [code Medical Center = Influenza Vaccine (Season Ended)] Future Scheduled 2022-04-[address] [facility] 00:00:00 (12+) [code = Medical Center DEPRESSION SCREENING (12+)] Future Scheduled 2022-04-[address] [facility] Test 00:00:00 (12+) [code = Medical Center DEPRESSION SCREENING (12+)] Future Scheduled 2022-04-[address] [facility] 00:00:00 (12+) [code = Medical Center DEPRESSION SCREENING (12+)] Future Scheduled 2022-04-[address] [facility] 00:00:00 (12+) [code = Medical Center DEPRESSION SCREENING (12+)] Future Scheduled 2021-12-[address] [facility] 00:00:00 (#1) [code = Medical Center INFLUENZA VACCINE (#1)] Future Scheduled 2021-12-[address] [facility] 00:00:00 (#1) [code = Medical Center INFLUENZA VACCINE (#1)] Future Scheduled 2021-12-[address] [facility] 00:00:00 (#1) [code = Medical Center INFLUENZA VACCINE (#1)] Future Scheduled 2020-04-[address] [facility] 00:00:00 (12+) [code = Medical Center DEPRESSION SCREENING (12+)] Future Scheduled 2020-04-[address] [facility] 00:00:00 (12+) [code = Medical Center DEPRESSION SCREENING (12+)] Future Scheduled 2020-04-[address] [facility] 00:00:00 (12+) [code = Medical Center DEPRESSION SCREENING (12+)] Future Scheduled 2019-12-[address] [facility] 00:00:00 (#1) [code = Medical Center INFLUENZA VACCINE (#1)] Future Scheduled 2019-12-[address] [facility] 00:00:00 (#1) [code = Medical Center INFLUENZA VACCINE (#1)] Future Scheduled 2019-12-[address] [facility] 00:00:00 (#1) [code = Medical Center INFLUENZA VACCINE (#1)] Future Scheduled 2012-08-[address] [facility] 00:00:00 malignant neoplasm of Medica l Center cervix (procedure) [code = 734189601] Future Scheduled 2012-08-[address] 00:00:00 malignant neoplasm of Medica l Center cervix (procedure) [code = 619186667] Future Scheduled 2012-08-[address] [facility] Test 00:00:00 malignant neoplasm of Medica l Center cervix (procedure) [code = 206989588] Future Scheduled 2012-08-[address] [facility] Test 00:00:00 malignant neoplasm of Medica l Center cervix (procedure) [code = 976687209] Future Scheduled 2012-08-[address] [facility] Test 00:00:00 malignant neoplasm of Medica l Center cervix (procedure) [code = 667091425] Future Scheduled 2012-08-[address] [facility] Test 00:00:00 malignant neoplasm of Medica l Center cervix (procedure) [code = 169420137] Future Scheduled 2012-08-[address] [facility] Test 00:00:00 malignant neoplasm of Medica l Center cervix (procedure) [code = 221117428] Future Scheduled 2010-08-07 DTAP/TDAP/TD VACCINES [facility] 00:00:00 (1 - Tdap) [code = Medical C enter DTAP/TDAP/TD VACCINES (1 - Tdap)] Future Scheduled 2010-08-07 DTAP/TDAP/TD VACCINES [facility] 00:00:00 (1 - Tdap) [code = Medical C enter DTAP/TDAP/TD VACCINES (1 - Tdap)] Future Scheduled 2010-08-07 DTAP/TDAP/TD VACCINES [facility] 00:00:00 (1 - Tdap) [code = Medical C enter DTAP/TDAP/TD VACCINES (1 - Tdap)] Future Scheduled 2010-08-07 DTAP/TDAP/TD VACCINES [facility] 00:00:00 (1 - Tdap) [code = Medical C enter DTAP/TDAP/TD VACCINES (1 - Tdap)] Future Scheduled 2010-08-07 DTAP/TDAP/TD VACCINES [facility] 00:00:00 (1 - Tdap) [code = Medical C enter DTAP/TDAP/TD VACCINES (1 - Tdap)] Future Scheduled 2010-08-07 DTAP/TDAP/TD VACCINES [facility] 00:00:00 (1 - Tdap) [code = Medical C enter DTAP/TDAP/TD VACCINES (1 - Tdap)] Future Scheduled 2010-08-07 DTAP/TDAP/TD VACCINES [facility] 00:00:00 (1 - Tdap) [code = Medical C enter DTAP/TDAP/TD VACCINES (1 - Tdap)] Future Scheduled 2009-08-07 HEPATITIS C SCREENING [facility] 00:00:00 [code = HEPATITIS C Medical Center SCREENING] Future Scheduled 2009-08-07 HEPATITIS C [facility]CRE[facility]ING [facility] 00:00:00 [code = HEPATITIS C Medical Center SCREENING] Future Scheduled 2009-08-07 HEPATITIS C [facility]ING [facility] 00:00:00 [code = HEPATITIS C Medical Center SCREENING] Future Scheduled 2009-08-07 HEPATITIS C [facility]CRE[facility]ING [facility] 00:00:00 [code = HEPATITIS C Medical Center SCREENING] Future Scheduled 2009-08-07 HEPATITIS C [facility]ING [facility] 00:00:00 [code = HEPATITIS C Medical Center SCREENING] Future Scheduled 2009-08-07 HEPATITIS C [facility]ING [facility] 00:00:00 [code = HEPATITIS C Medical Center SCREENING] Future Scheduled 2009-08-07 HEPATITIS C [facility]CRE[facility]ING [facility] 00:00:00 [code = HEPATITIS C Medical Center SCREENING] Future Scheduled [address] [facility] 00:00:00 Counseling and Medical Cente r Screening (12+) [code = Tobacco Cessation Counseling and Screening (12+)] Future Scheduled [address] [facility] 00:00:00 Counseling and Medical Cente r Screening (12+) [code = Tobacco Cessation Counseling and Screening (12+)] Future Scheduled [address] [facility] 00:00:00 Counseling and Medical Cente r Screening (12+) [code = Tobacco Cessation Counseling and Screening (12+)] Future Scheduled [address] [facility] 00:00:00 Counseling and Medical Cente r Screening (12+) [code = Tobacco Cessation Counseling and Screening (12+)] Future Scheduled 1992-02-07 COVID-19 VACCINE (#1) [facility] 00:00:00 [code = COVID-[address] VACCINE (#1)] Future Scheduled 1992-02-07 COVID-19 VACCINE (#1) [facility] 00:00:00 [code = COVID-[address] VACCINE (#1)] Future Scheduled 1992-02-07 COVID-19 VACCINE (#1) [facility] 00:00:00 [code = COVID-[address] VACCINE (#1)] Future Scheduled 1992-02-07 COVID-19 VACCINE (#1) [facility] 00:00:00 [code = COVID-[address] VACCINE (#1)] Encounters Start End Encounter Admission Attending Care Care Encounter Source Date/Time Date/Time Type Type Clinicians Facility Department ID 2022-04-02 Outpatient BOBBY CUMMINGS ELCAMPO ELCAMPO 00 [id number] El 07:51:29 [id number] [facility]illa why[facility] [id number] [facility] 2021-11-02 Outpatient LILIBETH DURON ELCAMPO ELCAMPO 0 [id number] El 14:25:07 [id number] Padilla whyte [id number] [facility] 2020-05-[address] [facility] [id number] [facility] 00:50:00 Med 2022-07-25 2022-07-25 [id number] El 15:01:00 15:01:00 [id number] LAB [facility] 2022-05-17 2022-05-17 Outpatient M BOBBY CUMMINGS ELCAMPO BLESSIN G [id number] El 12:42:00 10:41:00 [id number] [facility] [id number] [facility] 2022-05-09 2022-05-09 Outpatient [facility] [id number] [place] 11:36:56 11:36:56 [id number] Shanelle Peterson 2022-04-02 2022-04-02 Outpatient M BOBBY CUMMINGS ELCAMPO BLESSIN G [id number] El 07:51:00 13:22:00 [id number] [facility] mpo [id number] [facility] 2022-02-16 2022-02-16 emergency [id number] 10:07:00 12:10:00 [id number] 2022-02-16 2022-02-16 Emergency ER TRAMAINE, [facility] [id number] [place] 10:07:00 12:10:00 MARINO -[id number] [facility] 2021-11-02 2021-11-02 Outpatient BOBBY ALEXANDER [id number] El 14:25:00 15:53:00 [id number] [facility] mpo [id number] [facility] 2021-11-01 2021-11-02 Emergency ER CANDACE, [facility] [id number] [place] 22:09:00 02:34:00 SHALINI -[id number] [facility] 2021-10-23 2021-10-24 Emergency ER CARLYN, [facility] [id number] [place] 18:39:00 00:13:00 ANASTACIO -[id number] [facility] 2021-03-30 2021-03-30 Inpatient ER MIHIR, [facility] [id number] [place] 00:50:00 11:03:00 MISA [id number] [facility] 2020-05-20 2020-05-23 [address] Jacob Cook [facility] [id number] 00:50[facility]00 11:50:00 Encounter [facility] 2020-05-20 2020-05-20 Travel [facility] [id number] [facility] 00:00:00 [facility] 2018-12-31 2018-12-31 Patient Dianne Timmons [id number] 00:00:00 00:00:00 Outreach Ame Barrow [id number] Cherie [id number] 2018-12-30 2018-12-30 Emergency SUZI Elizabeth [id number] 09:32:28 14:52:00 Barbara Espinosa [id number] [place] [id number] [place] [id number] 2018-12-15 2018-12-15 Emergency SUZI Wright [id number] 2014 08:28:32 12:45:00 Cindy Espinosa [id number] [place] [id number] [place] [id number] 2018-12-15 2018-12-15 Orders Doctor WATSON [id number] 00:00:00 00:00:00 Only Unassigned, MARILEE [id number] [place] [facility] 4.2.7.2.686 [id number] 2018-11-16 2018-11-16 Transition Floyd Goodenalida 1.2.840.114 [id number] 00:00:00 00:00:00 of Care Татьяна Salgadoy 350.1.13.10 Cherie 4.2.7.2.686 [id number] Results Test Description Test Time Test Comments Results Result Comments Source POC-Glucose meter 2020-05-23 11:39:00 Test Item Value Reference Range Interpretation Comme nts POC-Glucose Meter (test code = 101 mg/dL 70-110 : TESTED AT [facility] [address] [place] [address] 153) [facility] [address]: Metal Furniture Panel Coverer/Techni santa ID = [id number] for José Miguel, Sarah Lab Interpretation (test code = Normal 33707-3) [facility] [id number] 11:39:00 Test Item Value Reference Range Interpretation Comments POC-Glucose Meter (test 101 mg/dL 70-110 : TE STED AT [facility] code = 1538) [address] [facility] [address]: Metal Furniture Panel Coverer/Techni santa ID = [id number] for José Miguel, Sarah Lab Interpretation (test Normal code = 86949-0) [facility] [id number] 11:39:00 Test Item Value Reference Range Interpretation Comments POC-Glucose Meter (test 101 mg/dL 70-110 : TE STED AT [facility] code = 1538) [address], [facility] [address]: Metal Furniture Panel Coverer/Techni santa ID = [id number] for Sarah Valdez Lab Interpretation (test Normal code = 91183-2) [facility] [id number] 11:39:00 Test Item Value Reference Range Interpretation Comments POC-GLUCOSE METER 101 mg/dL 70-110 : TESTED A T [facility] [address] (BEAKER) (test code [address], = 1538) [facility] 77 478: Metal Furniture Panel Coverer/Techni santa ID = [id number] for Sarah Carrion POCT-GLUCOSE [id number] 08:03:00 Test Item Value Reference Range Interpretation Comments POC-GLUCOSE METER 99 mg/dL 70-110 : TESTED A T [facility] [address] (BEAKER) (test code = [address], 1538) [place] [address]: Metal Furniture Panel Coverer/Techni santa ID = [id number] for Sarah Carrion Comprehensive metabolic [id number] 05:49:00 Test Item Value Reference Range Interpretation Comments Protein, Total (test 7.2 See_Comment [Autom ated code = 2885-2) message] The system which generated this result transmit saige reference range : 6.0 - 8.5 gm/dL . The reference range was not u sed to interpret th is result as normal/abnormal . Albumin (test code = 3.8 g/dL 3.5-5.0 28541-3) Alkaline Phosphatase 68 U/L 30-115 (test code = 6768-6) Total Bilirubin (test 0.2 mg/dL 0.1-1.2 code = 1975-2) Sodium (test code = 138 meq/L 861-933 6344-2) Potassium (test code 3.8 meq/L 3.6-5.5 = 2823-3) Chloride (test code = 108 meq/L 98-106 H 2074-0) CO2 (test code = 22 meq/L 20-29 2027-9) BUN (test code = 8 mg/dL 10-26 L 3094-0) Creatinine (test code 0.60 mg/dL 0.50-1.20 = 2160-0) Glucose (test code = 120 mg/dL 70-110 H 2345-7) Calcium (test code = 8.7 mg/dL 8.5-10.5 25449-6) AST (test code = 9 U/L 5-40 1920-8) ALT (test code = 14 U/L -50 1742-6) EGFR (test code = 119 mL/min/1.[place] [address]-3) NOT ACCURATE CREATININE CLEARANCE IN PREDICTING GLOMERULAR FILTRATION RATE . ESTIMATED GFR I S NOT APPLICABLE FOR DIALYSIS PATIEN TS. 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 ID - [id number] r ID - [id number] r ID - [id number] r ID - [id number] r ID - [id number] r ID - [id number] r ID - [id number] r ID - [id number] r ID - [id number] r ID - [id number] r ID - [id number] r ID - [id number] r ID - [id number] r ID - [id number] r ID - [id number] r ID - [id number] Lab Interpretation Abnormal (test code = 76443-1) [facility]00 Test Item Value Reference Range Interpretation Comments Magnesium (test code = 2.1 mg/dL 1.5-3.0 20521-1) 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 ID - [id number] ID - [id number] ID - [id number] ID - [id number] Lab Interpretation (test Normal code = 80897-2) [facility] [id number] 05:49:00 Test Item Value Reference Range Interpretation Comments Protein, Total (test 7.2 See_Comment [Autom ated code = 2885-2) message] The system which generated this result transmit saige reference range : 6.0 - 8.5 gm/dL . The reference range was not u sed to interpret th is result as normal/abnormal . Albumin (test code = 3.8 g/dL 3.5-5.0 90556-5) Alkaline Phosphatase 68 U/L 30-115 (test code = 6768-6) Total Bilirubin (test 0.2 mg/dL 0.1-1.2 code = 1974-2) Sodium (test code = 138 meq/L 195-814 8237-2) Potassium (test code 3.8 meq/L 3.6-5.5 = 2823-3) Chloride (test code = 108 meq/L 98-106 H 2074-0) CO2 (test code = 22 meq/L 20-29 2027-9) BUN (test code = 8 mg/dL 10-26 L 3094-0) Creatinine (test code 0.60 mg/dL 0.50-1.20 = 2160-0) Glucose (test code = 120 mg/dL 70-110 H 234-7) Calcium (test code = 8.7 mg/dL 8.5-10.5 94479-1) AST (test code = 9 U/L 5-40 192-8) ALT (test code = 14 U/L -50 1741-6) EGFR (test code = 119 mL/min/1.[place] [address]-9) NOT ACCURATE CREATININE CLEARANCE IN PREDICTING GLOMERULAR FILTRATION RATE . ESTIMATED GFR I S NOT APPLICABLE FOR DIALYSIS PATIEN TS. 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 ID - [id number] r ID - [id number] r ID - [id number] r ID - [id number] r ID - [id number] r ID - [id number] r ID - [id number] r ID - [id number] r ID - [id number] r ID - [id number] r ID - [id number] r ID - [id number] r ID - [id number] r ID - [id number] r ID - [id number] r ID - [id number] Lab Interpretation Abnormal (test code = 76214-7) [facility] 05:49:00 Test Item Value Reference Range Interpretation Comments Magnesium (test code = 2.1 mg/dL 1.5-3.0 04599-0) 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 ID - [id number] ID - [id number] ID - [id number] ID - [id number] Lab Interpretation (test Normal code = 26960-6) [facility] [id number] 05:49:00 Test Item Value Reference Range Interpretation Comments Protein, Total (test 7.2 See_Comment [Autom ated code = 2885-2) message] The system which generated this result transmit saige reference range : 6.0 - 8.5 gm/dL . The reference range was not u sed to interpret th is result as normal/abnormal . Albumin (test code = 3.8 g/dL 3.5-5.0 34062-2) Alkaline Phosphatase 68 U/L 30-115 (test code = 6768-6) Total Bilirubin (test 0.2 mg/dL 0.1-1.2 code = 1975-2) Sodium (test code = 138 meq/L 946-402 4397-2) Potassium (test code 3.8 meq/L 3.6-5.5 = 2823-3) Chloride (test code = 108 meq/L 98-106 H 2075-0) CO2 (test code = 22 meq/L 20-29 2028-9) BUN (test code = 8 mg/dL 10-26 L 3094-0) Creatinine (test code 0.60 mg/dL 0.50-1.20 = 2160-0) Glucose (test code = 120 mg/dL 70-110 H 2345-7) Calcium (test code = 8.7 mg/dL 8.5-10.5 81396-7) AST (test code = 9 U/L 5-40 1920-8) ALT (test code = 14 U/L 5-50 1742-6) EGFR (test code = 119 mL/min/1.[place] [address]-7) NOT ACCURATE CREATININE CLEARANCE IN PREDICTING GLOMERULAR FILTRATION RATE . ESTIMATED GFR I S NOT APPLICABLE FOR DIALYSIS PATIEN TS. 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 ID - [id number] r ID - [id number] r ID - [id number] r ID - [id number] r ID - [id number] r ID - [id number] r ID - [id number] r ID - [id number] r ID - [id number] r ID - [id number] r ID - [id number] r ID - [id number] r ID - [id number] r ID - [id number] r ID - [id number] r ID - [id number] Lab Interpretation Abnormal (test code = 65158-7) [facility]2021-01-26 05:49:00 Test Item Value Reference Range Interpretation Comments Magnesium (test code = 2.1 mg/dL 1.5-3.0 05719-4) 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 ID - [id number] ID - [id number] ID - [id number] ID - [id number] Lab Interpretation (test Normal code = 96479-1) [facility]2021-01-26 05:49:00 Test Item Value Reference Range Interpretation Comments MAGNESIUM (BEAKER) (test code = 2.1 mg/dL 1.5-3.0 627) Metal Furniture Panel Coverer ID - [id number] ID - [id number] ID - [id number] ID - [id number] METABOLIC [id number] 05:49:00 Test Item Value Reference Range Interpretation Comments TOTAL PROTEIN 7.2 gm/dL 6.0-8.5 (BEAKER) (test code = 770) ALBUMIN (BEAKER) 3.8 g/dL 3.5-5.0 (test code = 1145) ALKALINE PHOSPHATASE 68 U/L 30-115 (BEAKER) (test code = 346) BILIRUBIN TOTAL 0.2 mg/dL 0.1-1.2 (BEAKER) (test code = 377) SODIUM (BEAKER) (test 138 meq/L 135-148 code = 381) POTASSIUM (BEAKER) 3.8 meq/L 3.6-5.5 (test code = 379) CHLORIDE (BEAKER) 108 meq/L 98-106 H (test code = 382) CO2 (BEAKER) (test 22 meq/L 20-29 code = 355) BLOOD UREA NITROGEN 8 mg/dL 10-26 L (BEAKER) (test code = 354) CREATININE (BEAKER) 0.60 mg/dL 0.50-1.20 (test code = 358) GLUCOSE RANDOM 120 mg/dL 70-110 H (BEAKER) (test code = 652) CALCIUM (BEAKER) 8.7 mg/dL 8.5-10.5 (test code = 697) AST (SGOT) (BEAKER) 9 U/L 5-40 (test code = 353) ALT (SGPT) (BEAKER) 14 U/L 5-50 (test code = 347) EGFR (BEAKER) (test 119 ESTIMATE D GFR IS code = 1092) mL/min/1.73 sq NOT ACCURA TE m CREATININE CLEARANCE IN PREDICTING GLOMERULAR FILTRATION RATE . ESTIMATED GFR I S NOT APPLICABLE FOR DIALYSIS PATIEN TS. Metal Furniture Panel Coverer ID - [id number] ID - [id number] ID - [id number] ID - [id number] ID - [id number] ID - [id number] ID - [id number] ID - [id number] ID - [id number] ID - [id number] ID - [id number] ID - [id number] ID - [id number] ID - [id number] ID - [id number] ID - [id number] with platelet count + automated [id number] 05:27:00 Test Item Value Reference Range Interpretation Comments WBC (test code = 6690-2) 12.7 See_Comment H [A utomated message] The system [employer] generated this result transmitted ref erence range: 4.0 - 10 .0 K/L. The refe rence range was not u sed to interpret this result as normal/abnor mal. RBC (test code = 789-8) 4.58 See_Comment [Au tomated message] The system [employer] generated this result transmitted ref erence range: 4.00 - 5 .00 M/L. The refe rence range was not u sed to interpret this result as normal/abnor mal. MCHC (test code = 786-4) 28.2 See_Comment L [A utomated message] The system [employer] generated this result transmitted ref erence range: 32.0 - 3 6.0 GM/DL. The refe rence range was not u sed to interpret this result as normal/abnor mal. Hematocrit (test code = 33.7 % 36.0-46.0 L 4544-3) MCV (test code = 787-2) 73.6 fL 82.0-99.0 L MCH (test code = 785-6) 20.7 pg 27.0-33.0 L RDW (test code = 788-0) 21.4 % 12.0-15.0 H Platelets (test code = 511 See_Comment H [Aut omated message] 777-3) The system [employer] generated this result transmitted ref erence range: 150 - 43 0 K/CU MM. The referen ce range was not u sed to interpret this result as normal/abnor mal. MPV (test code = 10.0 fL 6.0-11.5 78546-5) nRBC (test code = 413) 0 See_Comment [Aut omated message] The system [employer] generated this result transmitted ref erence range: 0 - 0 /1 00 WBC. The refere nce range was not u sed to interpret this result as normal/abnor mal. % Neutros (test code = 86 % 429) % Lymphs (test code = 10 % 430) % Monos (test code = 3 % 431) % Eos (test code = 432) 0 % % Baso (test code = 437) 0 % # Neutros (test code = 10.92 See_Comment H [Aut omated message] 670) The system [employer] generated this result transmitted ref erence range: 1.80 - 8 .00 K/L. The refe rence range was not u sed to interpret this result as normal/abnor mal. # Lymphs (test code = 1.30 See_Comment L [Auto mated message] 414) The system [employer] generated this result transmitted ref erence range: 1.48 - 4 .50 K/L. The refe rence range was not u sed to interpret this result as normal/abnor mal. # Monos (test code = 0.37 See_Comment [Autom ated message] 415) The system [employer] generated this result transmitted ref erence range: 0.00 - 1 .30 K/L. The refe rence range was not u sed to interpret this result as normal/abnor mal. # Eos (test code = 416) 0.00 See_Comment [Au tomated message] The system [employer] generated this result transmitted ref erence range: 0.00 - 0 .50 K/L. The refe rence range was not u sed to interpret this result as normal/abnor mal. # Baso (test code = 417) 0.03 See_Comment [A utomated message] The system [employer] generated this result transmitted ref erence range: 0.00 - 0 .20 K/L. The refe rence range was not u sed to interpret this result as normal/abnor mal. Immature 1 % 0-0 H Granulocytes-Relative (test code = 2801) Lab Interpretation (test Abnormal code = 07634-3) [facility] with platelet count + automated [id number] 05:27:00 Test Item Value Reference Range Interpretation Comments WBC (test code = 6690-2) 12.7 See_Comment H [A utomated message] The system [employer] generated this result transmitted ref erence range: 4.0 - 10 .0 K/L. The refe rence range was not u sed to interpret this result as normal/abnor mal. RBC (test code = 789-8) 4.58 See_Comment [Au tomated message] The system [employer] generated this result transmitted ref erence range: 4.00 - 5 .00 M/L. The refe rence range was not u sed to interpret this result as normal/abnor mal. MCHC (test code = 786-4) 28.2 See_Comment L [A utomated message] The system [employer] generated this result transmitted ref erence range: 32.0 - 3 6.0 GM/DL. The refe rence range was not u sed to interpret this result as normal/abnor mal. Hematocrit (test code = 33.7 % 36.0-46.0 L 4544-3) MCV (test code = 787-2) 73.6 fL 82.0-99.0 L MCH (test code = 785-6) 20.7 pg 27.0-33.0 L RDW (test code = 788-0) 21.4 % 12.0-15.0 H Platelets (test code = 511 See_Comment H [Aut omated message] 777-3) The system [employer] generated this result transmitted ref erence range: 150 - 43 0 K/CU MM. The referen ce range was not u sed to interpret this result as normal/abnor mal. MPV (test code = 10.0 fL 6.0-11.5 82792-1) nRBC (test code = 413) 0 See_Comment [Aut omated message] The system [employer] generated this result transmitted ref erence range: 0 - 0 /1 00 WBC. The refere nce range was not u sed to interpret this result as normal/abnor mal. % Neutros (test code = 86 % 429) % Lymphs (test code = 10 % 430) % Monos (test code = 3 % 431) % Eos (test code = 432) 0 % % Baso (test code = 437) 0 % # Neutros (test code = 10.92 See_Comment H [Aut omated message] 670) The system [employer] generated this result transmitted ref erence range: 1.80 - 8 .00 K/L. The refe rence range was not u sed to interpret this result as normal/abnor mal. # Lymphs (test code = 1.30 See_Comment L [Auto mated message] 414) The system [employer] generated this result transmitted ref erence range: 1.48 - 4 .50 K/L. The refe rence range was not u sed to interpret this result as normal/abnor mal. # Monos (test code = 0.37 See_Comment [Autom ated message] 415) The system [employer] generated this result transmitted ref erence range: 0.00 - 1 .30 K/L. The refe rence range was not u sed to interpret this result as normal/abnor mal. # Eos (test code = 416) 0.00 See_Comment [Au tomated message] The system [employer] generated this result transmitted ref erence range: 0.00 - 0 .50 K/L. The refe rence range was not u sed to interpret this result as normal/abnor mal. # Baso (test code = 417) 0.03 See_Comment [A utomated message] The system [employer] generated this result transmitted ref erence range: 0.00 - 0 .20 K/L. The refe rence range was not u sed to interpret this result as normal/abnor mal. Immature 1 % 0-0 H Granulocytes-Relative (test code = 2801) Lab Interpretation (test Abnormal code = 68453-1) [facility] with platelet count + automated [id number] 05:27:00 Test Item Value Reference Range Interpretation Comments WBC (test code = 6690-2) 12.7 See_Comment H [A utomated message] The system [employer] generated this result transmitted ref erence range: 4.0 - 10 .0 K/L. The refe rence range was not u sed to interpret this result as normal/abnor mal. RBC (test code = 789-8) 4.58 See_Comment [Au tomated message] The system [employer] generated this result transmitted ref erence range: 4.00 - 5 .00 M/L. The refe rence range was not u sed to interpret this result as normal/abnor mal. MCHC (test code = 786-4) 28.2 See_Comment L [A utomated message] The system [employer] generated this result transmitted ref erence range: 32.0 - 3 6.0 GM/DL. The refe rence range was not u sed to interpret this result as normal/abnor mal. Hematocrit (test code = 33.7 % 36.0-46.0 L 4544-3) MCV (test code = 787-2) 73.6 fL 82.0-99.0 L MCH (test code = 785-6) 20.7 pg 27.0-33.0 L RDW (test code = 788-0) 21.4 % 12.0-15.0 H Platelets (test code = 511 See_Comment H [Aut omated message] 777-3) The system [employer] generated this result transmitted ref erence range: 150 - 43 0 K/CU MM. The referen ce range was not u sed to interpret this result as normal/abnor mal. MPV (test code = 10.0 fL 6.0-11.5 02511-7) nRBC (test code = 413) 0 See_Comment [Aut omated message] The system [employer] generated this result transmitted ref erence range: 0 - 0 /1 00 WBC. The refere nce range was not u sed to interpret this result as normal/abnor mal. % Neutros (test code = 86 % 429) % Lymphs (test code = 10 % 430) % Monos (test code = 3 % 431) % Eos (test code = 432) 0 % % Baso (test code = 437) 0 % # Neutros (test code = 10.92 See_Comment H [Aut omated message] 670) The system [employer] generated this result transmitted ref erence range: 1.80 - 8 .00 K/L. The refe rence range was not u sed to interpret this result as normal/abnor mal. # Lymphs (test code = 1.30 See_Comment L [Auto mated message] 414) The system [employer] generated this result transmitted ref erence range: 1.48 - 4 .50 K/L. The refe rence range was not u sed to interpret this result as normal/abnor mal. # Monos (test code = 0.37 See_Comment [Autom ated message] 415) The system [employer] generated this result transmitted ref erence range: 0.00 - 1 .30 K/L. The refe rence range was not u sed to interpret this result as normal/abnor mal. # Eos (test code = 416) 0.00 See_Comment [Au tomated message] The system [employer] generated this result transmitted ref erence range: 0.00 - 0 .50 K/L. The refe rence range was not u sed to interpret this result as normal/abnor mal. # Baso (test code = 417) 0.03 See_Comment [A utomated message] The system [employer] generated this result transmitted ref erence range: 0.00 - 0 .20 K/L. The refe rence range was not u sed to interpret this result as normal/abnor mal. Immature 1 % 0-0 H Granulocytes-Relative (test code = 2801) Lab Interpretation (test Abnormal code = 50165-0) [facility] W/PLT COUNT & AUTO [id number] 05:27:00 Test Item Value Reference Range Interpretation Comments WHITE BLOOD CELL COUNT (BEAKER) 12.7 K/ L 4.0-10.0 H (test code = 775) RED BLOOD CELL COUNT (BEAKER) 4.58 M/ L 4.00-5.00 (test code = 761) HEMOGLOBIN (BEAKER) (test code = 9.5 GM/DL 12.0-15.5 L 410) HEMATOCRIT (BEAKER) (test code = 33.7 % 36.0-46.0 L 411) MEAN CORPUSCULAR VOLUME (BEAKER) 73.6 fL 82.0-99.0 L (test code = 753) MEAN CORPUSCULAR HEMOGLOBIN 20.7 pg 27.0-33.0 L (BEAKER) (test code = 751) MEAN CORPUSCULAR HEMOGLOBIN CONC 28.2 GM/DL 32.0-36.0 L (BEAKER) (test code = 752) RED CELL DISTRIBUTION WIDTH 21.4 % 12.0-15.0 H (BEAKER) (test code = 412) PLATELET COUNT (BEAKER) (test 511 K/CU MM 150-430 H code = 756) MEAN PLATELET VOLUME (BEAKER) 10.0 fL 6.0-11.5 (test code = 754) NUCLEATED RED BLOOD CELLS 0 /100 WBC 0-0 (BEAKER) (test code = 413) NEUTROPHILS RELATIVE PERCENT 86 % (BEAKER) (test code = 429) LYMPHOCYTES RELATIVE PERCENT 10 % (BEAKER) (test code = 430) MONOCYTES RELATIVE PERCENT 3 % (BEAKER) (test code = 431) EOSINOPHILS RELATIVE PERCENT 0 % (BEAKER) (test code = 432) BASOPHILS RELATIVE PERCENT 0 % (BEAKER) (test code = 437) NEUTROPHILS ABSOLUTE COUNT 10.92 K/ L 1.80-8.00 H (BEAKER) (test code = 670) LYMPHOCYTES ABSOLUTE COUNT 1.30 K/ L 1.48-4.50 L (BEAKER) (test code = 414) MONOCYTES ABSOLUTE COUNT (BEAKER) 0.37 K/ L 0.00-1.30 (test code = 415) EOSINOPHILS ABSOLUTE COUNT 0.00 K/ L 0.00-0.50 (BEAKER) (test code = 416) BASOPHILS ABSOLUTE COUNT (BEAKER) 0.03 K/ L 0.00-0.20 (test code = 417) IMMATURE GRANULOCYTES-RELATIVE 1 % 0-0 H PERCENT (BEAKER) (test code = 2801) POCT-GLUCOSE [id number] 22:11:00 Test Item Value Reference Range Interpretation Comments POC-GLUCOSE METER 124 mg/dL 70-110 H : TESTED A T [facility] [address] (BEAKER) (test code [address], = 1538) [facility] 77 478: Metal Furniture Panel Coverer/Techni santa ID = [id number] for Talia Renteria POCT-GLUCOSE [id number] 15:57:00 Test Item Value Reference Range Interpretation Comments POC-GLUCOSE METER 109 mg/dL 70-110 : TESTED A T [facility] [address] (BEAKER) (test code [address], = 1538) [place] [address] 478: Metal Furniture Panel Coverer/Techni asnta ID = [id number] for Rhona Tracey Clostridium difficile GDH [id number] 08:13:00 Test Item Value Reference Range Interpretation Comments C. Difficle Toxin Negative Negative (test code = 3627988834) C. Difficile GDH Negative Negative No indicati on of Antigen (test code = Clostri dium 3308882758) difficile infection and n o colonization. Discontinue enteric isolati on and therapy. TODD (test code = Testing performed TODD) by [employer] Rapid Cassette Assay. For GDH, published sensitivity of the assay is 98.7% compared to cytotoxicity testing. For Toxin AB, published sensitivity is 87.8% and specificity 99.4% compared to cytotoxicity testing.Verificati on of kit performance was done by the [facility] Microbiology Lab prior to clinical use. Lab Interpretation Normal (test code = 06604-2) [facility] [id number] 08:13:00 Test Item Value Reference Range Interpretation Comments C. Difficle Toxin Negative Negative (test code = 3599319673) C. Difficile GDH Negative Negative No indicati on of Antigen (test code = Clostri dium 0739266098) difficile infection and n o colonization. Discontinue enteric isolati on and therapy. TODD (test code = Testing performed TODD) by [employer] Rapid Cassette Assay. For GDH, published sensitivity of the assay is 98.7% compared to cytotoxicity testing. For Toxin AB, published sensitivity is 87.8% and specificity 99.4% compared to cytotoxicity testing.Verificati on of kit performance was done by the [facility] Microbiology Lab prior to clinical use. Lab Interpretation Normal (test code = 48043-0) [facility] [id number] 08:13:00 Test Item Value Reference Range Interpretation Comments C. Difficle Toxin Negative Negative (test code = 8837692537) C. Difficile GDH Negative Negative No indicati on of Antigen (test code = Clostri dium 9254407560) difficile infection and n o colonization. Discontinue enteric isolati on and therapy. TODD (test code = Testing performed TODD) by [employer] Rapid Cassette Assay. For GDH, published sensitivity of the assay is 98.7% compared to cytotoxicity testing. For Toxin AB, published sensitivity is 87.8% and specificity 99.4% compared to cytotoxicity testing.Verificati on of kit performance was done by the [facility] Microbiology Lab prior to clinical use. Lab Interpretation Normal (test code = 49176-3) [facility] [id number] 08:13:00 Test Item Value Reference Range Interpretation Comments CDT TOXIN (test code Negative Negative = [id number]) CDT GDH ANTIGEN (test Negative Negative No ind ication of code = [id number]) Clostridi um difficile infection and n o colonization. Discontinue ent roberto isolation and t herapy. Testing performed by [employer] Rapid Cassette Assay. For GDH, published sensitivity of the assay is 98.7% compared to cytotoxicity testing. For Toxin AB, published sensitivity is 87.8% and specificity 99.4% compared to cytotoxicity testing.Verification of kit performance was done by the [facility] MicrobiologyLab prior to clinical use.Basic metabolic [id number] 05:13:00 Test Item Value Reference Range Interpretation Comments Sodium (test code = 136 meq/L 264-007 3286-2) Potassium (test code = 4.1 meq/L 3.6-5.5 2823-3) Chloride (test code = 108 meq/L 98-106 H 5-0) CO2 (test code = 18 meq/L 20-29 L 8-9) BUN (test code = 6 mg/dL 10-26 L 3094-0) Creatinine (test code 0.63 mg/dL 0.50-1.20 = 2160-0) Glucose (test code = 143 mg/dL 70-110 H 2345-7) Calcium (test code = 8.7 mg/dL 8.5-10.5 18377-0) EGFR (test code = 113 mL/min/1.[place] [address]-6) NOT ACCURATE CREATININE CLEARANCE IN PREDICTING GLOMERULAR FILTRATION RATE . ESTIMATED GFR I S NOT APPLICABLE FOR DIALYSIS PATIENTS. 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 ID - [id number] r ID - [id number] r ID - [id number] r ID - [id number] r ID - [id number] r ID - [id number] r ID - [id number] r ID - [id number] r ID - [id number] r ID - [id number] Lab Interpretation Abnormal (test code = 88943-9) [facility] metabolic [id number] 05:13:00 Test Item Value Reference Range Interpretation Comments Sodium (test code = 136 meq/L 598-187 1065-2) Potassium (test code = 4.1 meq/L 3.6-5.5 2823-3) Chloride (test code = 108 meq/L 98-106 H 2075-0) CO2 (test code = 18 meq/L 20-29 L 8-9) BUN (test code = 6 mg/dL 10-26 L 3094-0) Creatinine (test code 0.63 mg/dL 0.50-1.20 = 2160-0) Glucose (test code = 143 mg/dL 70-110 H 2345-7) Calcium (test code = 8.7 mg/dL 8.5-10.5 77256-1) EGFR (test code = 113 mL/min/1.[place] [address]-9) NOT ACCURATE CREATININE CLEARANCE IN PREDICTING GLOMERULAR FILTRATION RATE . ESTIMATED GFR I S NOT APPLICABLE FOR DIALYSIS PATIENTS. 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 ID - [id number] r ID - [id number] r ID - [id number] r ID - [id number] r ID - [id number] r ID - [id number] r ID - [id number] r ID - [id number] r ID - [id number] r ID - [id number] Lab Interpretation Abnormal (test code = 58600-9) [facility] metabolic [id number] 05:13:00 Test Item Value Reference Range Interpretation Comments Sodium (test code = 136 meq/L 002-126 9531-2) Potassium (test code = 4.1 meq/L 3.6-5.5 2823-3) Chloride (test code = 108 meq/L 98-106 H 2075-0) CO2 (test code = 18 meq/L 20-29 L 2028-9) BUN (test code = 6 mg/dL 10-26 L 3094-0) Creatinine (test code 0.63 mg/dL 0.50-1.20 = 2160-0) Glucose (test code = 143 mg/dL 70-110 H 2345-7) Calcium (test code = 8.7 mg/dL 8.5-10.5 14676-1) EGFR (test code = 113 mL/min/1.[place] [address]-2) NOT ACCURATE CREATININE CLEARANCE IN PREDICTING GLOMERULAR FILTRATION RATE . ESTIMATED GFR I S NOT APPLICABLE FOR DIALYSIS PATIENTS. 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 ID - [id number] r ID - [id number] r ID - [id number] r ID - [id number] r ID - [id number] r ID - [id number] r ID - [id number] r ID - [id number] r ID - [id number] r ID - [id number] Lab Interpretation Abnormal (test code = 77726-7) [facility] METABOLIC [id number] 05:13:00 Test Item Value Reference Range Interpretation Comments SODIUM (BEAKER) 136 meq/L 135-148 (test code = 381) POTASSIUM (BEAKER) 4.1 meq/L 3.6-5.5 (test code = 379) CHLORIDE (BEAKER) 108 meq/L 98-106 H (test code = 382) CO2 (BEAKER) (test 18 meq/L 20-29 L code = 355) BLOOD UREA NITROGEN 6 mg/dL 10-26 L (BEAKER) (test code = 354) CREATININE (BEAKER) 0.63 mg/dL 0.50-1.20 (test code = 358) GLUCOSE RANDOM 143 mg/dL 70-110 H (BEAKER) (test code = 652) CALCIUM (BEAKER) 8.7 mg/dL 8.5-10.5 (test code = 697) EGFR (BEAKER) (test 113 mL/min/1.73 ESTIM ATED GFR IS code = 1092) sq m NOT ACCURATE CREATININE CLEARANCE IN PREDICTING GLOMERULAR FILTRATION RATE . ESTIMATED GFR I S NOT APPLICABLE FOR DIALYSIS PATIEN TS. Metal Furniture Panel Coverer ID - [id number] ID - [id number] ID - [id number] ID - [id number] ID - [id number] ID - [id number] ID - [id number] ID - [id number] ID - [id number] ID - [id number] [id number] 05:05:00 Test Item Value Reference Range Interpretation Comments Triglycerides (test 40 mg/dL code = 2571-8) Cholesterol (test code 155 mg/dL = 2093-3) HDL (test code = 52 mg/dL 2084-9) LDL Calculated (test 95 mg/dL code = 92905-2) TODD (test code = TODD) Triglyceride Reference Range: Low Risk <150 Borderline 150-199 High Risk 200-499 Very High Risk >=500 Cholesterol Reference Range: Low Risk <200 Borderline 200-239 High Risk >240 HDL Cholesterol Reference Range: Low Risk >=60 High Risk <40 LDL Cholesterol Reference Range: Optimal <100 Near Optimal 100-129 Borderline 130-159 High 160-189 Very High >=190 Metal Furniture Panel Coverer ID - [id number] ID - [id number] ID - [id number] ID - [id number] ID - [id number] ID - [id number] [facility] [id number] 05:05:00 Test Item Value Reference Range Interpretation Comments Triglycerides (test 40 mg/dL code = 2571-8) Cholesterol (test code 155 mg/dL = 3-3) HDL (test code = 52 mg/dL 2084-12) LDL Calculated (test 95 mg/dL code = 98023-0) TODD (test code = TODD) Triglyceride Reference Range: Low Risk <150 Borderline 150-199 High Risk 200-499 Very High Risk >=500 Cholesterol Reference Range: Low Risk <200 Borderline 200-239 High Risk >240 HDL Cholesterol Reference Range: Low Risk >=60 High Risk <40 LDL Cholesterol Reference Range: Optimal <100 Near Optimal 100-129 Borderline 130-159 High 160-189 Very High >=190 Metal Furniture Panel Coverer ID - [id number] ID - [id number] ID - [id number] ID - [id number] ID - [id number] ID - [id number] [facility] [id number] 05:05:00 Test Item Value Reference Range Interpretation Comments Triglycerides (test 40 mg/dL code = 2571-8) Cholesterol (test code 155 mg/dL = 3-3) HDL (test code = 52 mg/dL 2084-12) LDL Calculated (test 95 mg/dL code = 32787-3) TODD (test code = TODD) Triglyceride Reference Range: Low Risk <150 Borderline 150-199 High Risk 200-499 Very High Risk >=500 Cholesterol Reference Range: Low Risk <200 Borderline 200-239 High Risk >240 HDL Cholesterol Reference Range: Low Risk >=60 High Risk <40 LDL Cholesterol Reference Range: Optimal <100 Near Optimal 100-129 Borderline 130-159 High 160-189 Very High >=190 Metal Furniture Panel Coverer ID - [id number] ID - [id number] ID - [id number] ID - [id number] ID - [id number] ID - [id number] [facility] [id number] 05:05:00 Test Item Value Reference Range Interpretation Comments TRIGLYCERIDES (BEAKER) (test code = 40 mg/dL 540) CHOLESTEROL (BEAKER) (test code = 155 mg/dL 631) HDL CHOLESTEROL (BEAKER) (test code 52 mg/dL = 976) LDL CHOLESTEROL CALCULATED (BEAKER) 95 mg/dL (test code = 633) Triglyceride Reference Range: Low Risk <150 Borderline 150-199 High Risk 200- 499 Very High Risk >=500Cholesterol Reference Range: Low Risk <200 Borderline 200-239 High Risk >240HDL Cholesterol Reference Range: Low Risk >=60 High Risk <40LDL Cholesterol Reference Range: Optimal <100 Near Optimal 100-129 Borderline 130-159 High 160-189 Very High >=190 Metal Furniture Panel Coverer ID - [id number] ID - [id number] ID - [id number] ID - [id number] ID - [id number] ID - [id number] W/PLT COUNT & AUTO [id number] 04:46:00 Test Item Value Reference Range Interpretation Comments WHITE BLOOD CELL COUNT (BEAKER) 9.6 K/ L 4.0-10.0 (test code = 775) RED BLOOD CELL COUNT (BEAKER) 4.72 M/ L 4.00-5.00 (test code = 761) HEMOGLOBIN (BEAKER) (test code = 9.6 GM/DL 12.0-15.5 L 410) HEMATOCRIT (BEAKER) (test code = 33.8 % 36.0-46.0 L 411) MEAN CORPUSCULAR VOLUME (BEAKER) 71.6 fL 82.0-99.0 L (test code = 753) MEAN CORPUSCULAR HEMOGLOBIN 20.3 pg 27.0-33.0 L (BEAKER) (test code = 751) MEAN CORPUSCULAR HEMOGLOBIN CONC 28.4 GM/DL 32.0-36.0 L (BEAKER) (test code = 752) RED CELL DISTRIBUTION WIDTH 22.0 % 12.0-15.0 H (BEAKER) (test code = 412) PLATELET COUNT (BEAKER) (test 533 K/CU MM 150-430 H code = 756) MEAN PLATELET VOLUME (BEAKER) 9.6 fL 6.0-11.5 (test code = 754) NUCLEATED RED BLOOD CELLS 0 /100 WBC 0-0 (BEAKER) (test code = 413) NEUTROPHILS RELATIVE PERCENT 92 % (BEAKER) (test code = 429) LYMPHOCYTES RELATIVE PERCENT 7 % (BEAKER) (test code = 430) MONOCYTES RELATIVE PERCENT 1 % (BEAKER) (test code = 431) EOSINOPHILS RELATIVE PERCENT 0 % (BEAKER) (test code = 432) BASOPHILS RELATIVE PERCENT 0 % (BEAKER) (test code = 437) NEUTROPHILS ABSOLUTE COUNT 8.83 K/ L 1.80-8.00 H (BEAKER) (test code = 670) LYMPHOCYTES ABSOLUTE COUNT 0.62 K/ L 1.48-4.50 L (BEAKER) (test code = 414) MONOCYTES ABSOLUTE COUNT (BEAKER) 0.05 K/ L 0.00-1.30 (test code = 415) EOSINOPHILS ABSOLUTE COUNT 0.00 K/ L 0.00-0.50 (BEAKER) (test code = 416) BASOPHILS ABSOLUTE COUNT (BEAKER) 0.03 K/ L 0.00-0.20 (test code = 417) IMMATURE GRANULOCYTES-RELATIVE 0 % 0-0 PERCENT (BEAKER) (test code = 2801)
[2022-10-14] MEDS ORDERED: MORPHINE 4 MG/ML SYR ONE (19:26)
[2022-10-14] MEDS ORDERED: NA CHLORIDE 0.9% 1,000 ML ONE (19:26)
[2022-10-14] MEDS ORDERED: ONDANSETRON 4 MG/2 ML VIAL ONE ×2 (19:26→19:58)
[2022-10-14] MEDS ORDERED: FAMOTIDINE 20 MG/2 ML VIAL IV ONE (19:27)
[2022-10-14 19:35] LABS: Hematocrit 34.7 % (36.0-45.0); Lymphocytes % 24.2 % (15.3-44.8); MCV 70.5 fL (80-100); MPV 7.7 fL (7.6-11.3); RBC Red Blood Cell Count 4.92 M/uL (3.86-4.86)
[2022-10-14 19:37] LABS: Specific Gravity > 1.030 (1.005-1.030)
[2022-10-14 19:40] LABS: Specific Gravity > 1.030 (1.005-1.030); Urine Bacteria <20 /HPF (<20); Urine Bilirubin NEGATIVE (Negative); Urine Blood Negative (Negative); Urine Clarity Clear (Clear); Urine Color Yellow (Yellow); Urine Glucose NEGATIVE (Negative); Urine Mucus 4+ /HPF (None Seen); Urine Protein 1+ (Negative); Urine RBC <5 /HPF (None Seen); Urine Urobilinogen Normal (Normal); Urine pH 5.5 (5.0-7.0)
[2022-10-14 19:52] LABS: Albumin 3.9 g/dL (3.4-5.0); Bilirubin Total 0.2 mg/dL (0.2-1.0)
[2022-10-14] MEDS ORDERED: HYDROMORPHONE HCL 1 MG/ML INJ ONE ×2 (19:58→22:16)
[2022-10-14] MEDS ORDERED: METHYLPREDNISOLONE 125 MG INJ ONE (19:59)
[2022-10-14] MEDS ORDERED: CEFTRIAXONE 1000 MG/VIAL ONE (20:14)
[2022-10-14] MEDS ORDERED: KCL 20 MEQ/100 mL IVPB 100 ML IV ONE (20:14)
[2022-10-14] MEDS ORDERED: NS KCL 20MEQ 1,000 ML IV ONE (20:14)
[2022-10-14] MEDS ORDERED: NA CHLORIDE 0.9% 500 ML ONE (20:15)
[2022-10-14] MEDS ORDERED: METRONIDAZOLE 500mg IVPB 500 MG/100 ML BAG IV ONE (20:15)
--- NOTE | 2022-10-14 20:55 | EDPHYS ---
Physician Documentation [facility] Name: Kylie Appiah Age: 32 yrs Sex: Female : 1990 Arrival Date: 10/14/2022 Time: 18:41 Bed 6 Private MD: Maximo Roberts HPI: 10/14 19:41 This 32 yrs old Female presents to ER via Ambulatory with complaints of kitty Abdominal Pain. 19:41 The patient presents with abdominal pain in the upper abdomen, in the lower abdomen, kitty abdominal distention in the upper abdomen, in the lower abdomen. Onset: The symptoms/episode began/occurred 3 day(s) ago. The patient presents to the emergency department with nausea, that is moderate, vomiting, described as blood streaked, clear fluid, diarrhea, that is intermittent, abdominal pain, of the right upper quadrant, left upper quadrant, right lower quadrant and left lower quadrant. Onset: The symptoms/episode began/occurred. Possible causes: flare up of bowel problem, ulcerative colitis. The symptoms are aggravated by nothing. The symptoms are alleviated by nothing. The patient presents to the emergency department vomiting blood, blood streaked emesis, with rectal bleeding, bright red blood with bowel movement. Onset: The symptoms/episode began/occurred 3 day(s) ago. Abdominal pain: located in the right upper quadrant, left upper quadrant, right lower quadrant and left lower quadrant. Modifying factors: The symptoms are alleviated by nothing, the symptoms are aggravated by nothing. The symptoms do not radiate. Associated signs and symptoms: Pertinent positives: diarrhea, vomiting. Severity of pain: At its worst the pain was moderate in the emergency department the pain is unchanged. Severity of symptoms: At their worst the symptoms were moderate in the emergency department the symptoms are unchanged. The patient has experienced similar episodes in the past, multiple times. 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 - Social history:: Smoking status: Reported history of juuling and/or vaping. ROS: 19:44 Constitutional: Negative for fever, chills, and weight loss, Eyes: Negative for injury, kitty pain, redness, and discharge, ENT: Negative for injury, pain, and discharge, Neck: Negative for injury, pain, and swelling, Cardiovascular: Negative for chest pain, palpitations, and edema, Respiratory: Negative for shortness of breath, cough, wheezing, and pleuritic chest pain, Back: Negative for injury and pain, : Negative for injury, bleeding, discharge, and swelling, MS/Extremity: Negative for injury and deformity, Skin: Negative for injury, rash, and discoloration, Neuro: Negative for headache, weakness, numbness, tingling, and seizure. 19:44 Abdomen/GI: Positive for abdominal pain, nausea and vomiting, diarrhea, abdominal cramps, abdominal distension, rectal bleeding. Exam: 19:44 Constitutional: This is a well developed, well nourished patient who is awake, alert, kitty and in no acute distress. Head/Face: Normocephalic, atraumatic. Eyes: Pupils equal round and reactive to light, extra-ocular motions intact. Lids and lashes normal. Conjunctiva and sclera are non-icteric and not injected. Cornea within normal limits. Periorbital areas with no swelling, redness, or edema. ENT: Nares patent. No nasal discharge, no septal abnormalities noted. Tympanic membranes are normal and external auditory canals are clear. Oropharynx with no redness, swelling, or masses, exudates, or evidence of obstruction, uvula midline. Mucous membranes moist. Neck: Trachea midline, no thyromegaly or masses palpated, and no cervical lymphadenopathy. Supple, full range of motion without nuchal rigidity, or vertebral point tenderness. No Meningismus. Chest/axilla: Normal chest wall appearance and motion. Nontender with no deformity. No lesions are appreciated. Cardiovascular: Regular rate and rhythm with a normal S1 and S2. No gallops, murmurs, or rubs. Normal PMI, no JVD. No pulse deficits. Respiratory: Lungs have equal breath sounds bilaterally, clear to auscultation and percussion. No rales, rhonchi or wheezes noted. No increased work of breathing, no retractions or nasal flaring. Back: No spinal tenderness. No costovertebral tenderness. Full range of motion. Skin: Warm, dry with normal turgor. Normal color with no rashes, no lesions, and no evidence of cellulitis. MS/ Extremity: Pulses equal, no cyanosis. Neurovascular intact. Full, normal range of motion. Neuro: Awake and alert, GCS 15, oriented to person, place, time, and situation. Cranial nerves II-XII grossly intact. Motor strength 5/5 in all extremities. Sensory grossly intact. Cerebellar exam normal. Normal gait. Psych: Awake, alert, with orientation to person, place and time. Behavior, mood, and affect are within normal limits. 19:44 Abdomen/GI: Inspection: distension, that is mild, Bowel sounds: active, all quadrants, Palpation: mild abdominal tenderness, moderate abdominal tenderness, in the right upper quadrant, left upper quadrant, right lower quadrant and left lower quadrant, Rectal exam: is unremarkable, rectal tone normal, hemorrhoid(s), are not appreciated, mass, is not appreciated, swelling, is not appreciated, tenderness, is not appreciated, fecal impaction, is not appreciated, NO MELENA , NO BRBPR. Liver: no appreciated palpable abnormalities, Hernia: not appreciated. Vital Signs: 18:59 BP 120 / 84; Pulse 81; Resp 17; Temp 98.6; Pulse Ox 100% ; Weight 68.04 kg; Height 5 jl7 ft. 0 in. ; Pain 8/10; 19:15 BP 109 / 77; Pulse 79; Resp 17 S; Pulse Ox 100% on R/A; ha1 20:15 BP 130 / 90; Pulse 62; Resp 15 S; Pulse Ox 100% on R/A; ha1 21:15 BP 113 / 68; Pulse 71; Resp 18 S; Pulse Ox 99% on R/A; ha1 22:15 BP 114 / 71; Pulse 72; Resp 18 S; Pulse Ox 99% on R/A; ha1 22:55 BP 121 / 72; Pulse 70; Resp 16 S; Pulse Ox 99% on R/A; ha1 18:59 Body Mass Index 29.29 (68.04 kg, 152.4 cm) [facility] 18:59 Pain Scale: Adult [facility] MDM: 19:06 Patient medically screened. kitty 19:45 Differential diagnosis: Nonspecific abd pain, gastritis, cholecystitis, pancreatitis, kitty appendicitis, diverticulitis, viral gastroenteritis, gastroenteritis, gastritis, diverticulitis, appendicitis, bowel obstruction, Cholelithiasis, diverticulitis, gastritis, gastroesophageal reflux disease, GI Bleed, Hepatitis, Irritable bowel syndrome, myocardia ischemia or infarction, non-specific abd pain. Data reviewed: vital signs, nurses notes, lab test result(s), radiologic studies, CT scan. Consideration of Admission/Observation Escalation of care including admission/observation considered. I considered the following discharge prescriptions or medication management in the emergency department Medications were administered in the Emergency Department. See MAR. Test considered but Not performed: Ultrasound NO ABD USG. Care significantly affected by the following chronic conditions: Obesity, ANXIETY , COLITIS, GALLSTONES, KIDNEY STONES. 10/14 19:07 Order name: CBC with Diff; Complete Time: 19:40 [facility] 10/14 19:07 Order name: CMP; Complete Time: 19:53 [facility] 10/14 19:07 Order name: Lipase; Complete Time: 19:53 [facility] 10/14 19:07 Order name: Test, Urine; Complete Time: 19:48 [facility] 10/14 19:07 Order name: Urinalysis w/ reflexes; Complete Time: 19:48 [facility] 10/14 19:07 Order name: CT Abd/Pelvis - IV Contrast Only [facility] 10/14 19:07 Order name: IV Saline Lock; Complete Time: 19:30 [facility] 10/14 19:07 Order name: Labs collected and sent; Complete Time: 19:30 [facility] Administered Medications: 19:20 Drug: NS 0.9% IV 1000 ml Route: IV; Rate: 1 bolus; Site: right antecubital; ha1 19:20 Drug: Ondansetron IVP 4 mg Route: IVP; Site: right antecubital; ha1 19:23 Drug: Famotidine IVP 20 mg Route: IVP; Site: right antecubital; ha1 19:25 Drug: morphine IVP or IV 4 mg Route: IVP; Infused Over: 4 mins; Site: right antecubital;ha1 19:54 Drug: NS 0.9% IV 1000 ml Route: IV; Rate: 1 bolus; Site: right antecubital; as6 21:02 Follow up: Response: No adverse reaction; IV Status: Completed infusion; IV Intake: ha1 1000ml 19:54 Drug: MethylPrednisoLONE IVP 125 mg Route: IVP; Site: right antecubital; as6 20:25 Follow up: Response: No adverse reaction ha1 19:54 Drug: HYDROmorphone IVP 1 mg Route: IVP; Site: right antecubital; as6 20:25 Follow up: Response: No adverse reaction; Pain is unchanged, physician notified; RASS: ha1 Alert and Calm (0) 19:54 Drug: Ondansetron IVP 4 mg Route: IVP; Site: right antecubital; as6 20:25 Follow up: Response: No adverse reaction; Nausea is decreased ha1 20:10 Drug: Rocephin IV 1 grams Route: IV; Rate: per protocol; Site: right antecubital; ha1 20:25 Follow up: Response: No adverse reaction; IV Status: Completed infusion; IV Intake: 71kgoh1 20:16 Drug: metroNIDAZOLE IVPB 500 mg Volume: 100 ml; Route: IVPB; Rate: 200 ml/hr; Infused ha1 Over: 30 mins; Site: right antecubital; 20:59 Follow up: Response: No adverse reaction; IV Status: Completed infusion; IV Intake: ha1 100ml 20:24 Drug: Potassium Chloride IV 20 mEq Route: IV; Rate: per protocol; Site: right [facility] antecubital; 22:52 Follow up: Response: No adverse reaction; IV Status: Completed infusion; IV Intake: ha1 100ml 20:24 Drug: NS 0.9% with KCl IV 20 mEq/L 1000 ml Route: IV; Rate: 500 ml/hr; Site: right [facility] antecubital; 22:51 Follow up: Response: No adverse reaction; IV Status: Order to discontinue infusion; IV ha1 Intake: 300ml 22:30 Drug: HYDROmorphone IVP 1 mg Route: IVP; Site: right antecubital; ha1 22:52 Follow up: Response: No adverse reaction; Pain is decreased; RASS: Alert and Calm (0) ha1 22:30 Drug: Promethazine IM 25 mg Route: IM; Site: right ventrogluteal; ha1 22:52 Follow up: Response: No adverse reaction ha1 Disposition Summary: 10/14/22 20:54 Discharge Ordered Location: Home kitty Problem: new kitty Symptoms: have improved kitty Condition: Stable kitty Diagnosis - Abdominal pain, Generalized kitty - Vomiting kitty - Diarrhea, unspecified kitty - Indeterminate colitis kitty - Other ulcerative colitis with rectal bleeding kitty - Left sided colitis with rectal bleeding - SIGMOID kitty - Anemia, unspecified kitty Followup: kitty - With: Private Physician - When: 1 - 2 days - Reason: Recheck today's complaints, Continuance of care, Re-evaluation by your physician Followup: kitty - With: - When: 2 - 3 days - Reason: Recheck today's complaints, Continuance of care, Re-evaluation by your physician Discharge Instructions: - Discharge Summary Sheet kitty - Abdominal Pain, Adult kitty - Anemia kitty - Food Choices to Help Relieve Diarrhea, Adult kitty - Diarrhea, Adult kitty - Ulcerative Colitis, Adult kitty - Abdominal Pain, Adult, Ogup-ds-Jfsz kitty - Diarrhea, Adult, Mjcf-tc-Fmvc kitty - Vomiting, Adult kitty Forms: - Medication Reconciliation Form kitty - Thank You Letter kitty - Antibiotic Education kitty - Prescription Opioid Use [facility] Prescriptions: - ondansetron 4 mg Oral Tablet,disintegrating - take 1 tablet by ORAL route every 4 to 6 hours for 7 days; 24 tablet; Refills: kitty 0, Product Selection Permitted - promethazine 25 mg Rectal suppository - insert 1 suppository by RECTAL route every 6 hours as needed for nausea and kitty vomiting; 15 suppository; Refills: 0, Product Selection Permitted - Flagyl 500 mg Oral Tablet - take 1 tablet by ORAL route every 8 hours for 7 days; 21 tablet; Refills: 0, [facility] Product Selection Permitted - Pepcid 20 mg Oral Tablet - take 1 tablet by ORAL route every 12 hours for 21 days; 42 tablet; Refills: 0, [facility] Product Selection Permitted - Cipro 500 mg Oral Tablet - take 1 tablet by ORAL route every 12 hours for 7 days; 14 tablet; Refills: 0, [facility] Product Selection Permitted - Medrol (Tyrel) 4 mg Oral Tablets, Dose Pack - take 1 tablet by ORAL route as directed - follow package instructions; 1 kitty packet; Refills: 0, Product Selection Permitted - dicyclomine 20 mg Oral Tablet - take 1 tablet by ORAL route 4 times per day; 28 tablet; Refills: 0, Product kitty Selection Permitted Signatures: Dispatcher [employer] Maximo Schuster MD MD cha Leal, Jahala, RN RN jl7 Yonatan De La Torre RN RN as6 Lexus James, RN RN ha1
--- NOTE | 2022-10-14 20:55 | ER ---
Nurse's Notes [facility] Name: Kylie Appiah Age: 32 yrs Sex: Female : 1990 Arrival Date: 10/14/2022 Time: 18:41 Bed 6 Private MD: Diagnosis: Abdominal pain, Generalized;Vomiting;Diarrhea, unspecified;Indeterminate colitis;Other ulcerative colitis with rectal bleeding;Left sided colitis with rectal bleeding-SIGMOID;Anemia, unspecified Presentation: 10/14 18:59 Chief complaint: Patient states: N/V/D since last night, hx of colitis. Coronavirus jl7 screen: At this time, the client does not indicate any symptoms associated with coronavirus-19. Ebola Screen: No symptoms or risks identified at this time. Initial Sepsis Screen: Does the patient meet any 2 criteria? No. Patient's initial sepsis screen is negative. Does the patient have a suspected source of infection? No. Patient's initial sepsis screen is negative. Risk Assessment: Do you want to hurt yourself or someone else? Patient reports no desire to harm self or others. Onset of symptoms was October 13, 2022. Care prior to arrival: None. 18:59 Method Of Arrival: Ambulatory jl7 18:59 Acuity: YESSICA 3 jl7 Triage Assessment: 19:02 General: Appears in no apparent distress. uncomfortable, Behavior is calm, cooperative, jl7 appropriate for age. Pain: Complains of pain in abdomen Pain currently is 8 out of 10 on a pain scale. GI: Reports diarrhea, nausea, vomiting. 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 - Social history:: Smoking status: Reported history of juuling and/or vaping. Screenin:09 [facility] ED Fall Risk Assessment (Adult) Score/Fall Risk Level 0 - 2 = Low Risk. Abuse as6 screen: Denies threats or abuse. Denies injuries from another. Nutritional screening: No deficits noted. Tuberculosis screening: No symptoms or risk factors identified. Assessment: 19:15 General: Appears uncomfortable, Behavior is calm, cooperative. Pain: Complains of pain ha1 in abdomen Pain does not radiate. Pain currently is 9 out of 10 on a pain scale. Neuro: Level of Consciousness is awake, alert, obeys commands, Oriented to person, place, time, situation. Respiratory: Airway is patent Respiratory effort is even, unlabored, Respiratory pattern is regular, symmetrical. GI: Abdomen is flat, non-distended, Bowel sounds present X 4 quads. Abd is soft and non tender X 4 quads. Reports lower abdominal pain, nausea, vomiting. Musculoskeletal: Circulation, motion, and sensation intact. Range of motion: intact in all extremities. 20:25 Reassessment: Patient and/or family updated on plan of care and expected duration. Pain ha1 level reassessed. Patient is alert, oriented x 3, equal unlabored respirations, skin warm/dry/pink. going to CT. 21:04 General: discharge pending medication completion . as6 21:51 Reassessment: Patient and/or family updated on plan of care and expected duration. Pain ha1 level reassessed. Patient is alert, oriented x 3, equal unlabored respirations, skin warm/dry/pink. pain 9/10. 22:53 Reassessment: Patient and/or family updated on plan of care and expected duration. Pain ha1 level reassessed. Patient is alert, oriented x 3, equal unlabored respirations, skin warm/dry/pink. pain 3/10. Patient refuse to complete potassium infussion. Patient states feeling better. Patient states symptoms have improved. Vital Signs: 18:59 BP 120 / 84; Pulse 81; Resp 17; Temp 98.6; Pulse Ox 100% ; Weight 68.04 kg; Height 5 jl7 ft. 0 in. ; Pain 8/10; 19:15 BP 109 / 77; Pulse 79; Resp 17 S; Pulse Ox 100% on R/A; ha1 20:15 BP 130 / 90; Pulse 62; Resp 15 S; Pulse Ox 100% on R/A; ha1 21:15 BP 113 / 68; Pulse 71; Resp 18 S; Pulse Ox 99% on R/A; ha1 22:15 BP 114 / 71; Pulse 72; Resp 18 S; Pulse Ox 99% on R/A; ha1 22:55 BP 121 / 72; Pulse 70; Resp 16 S; Pulse Ox 99% on R/A; ha1 18:59 Body Mass Index 29.29 (68.04 kg, 152.4 cm) jl7 18:59 Pain Scale: Adult [facility] ED Course: 18:50 Patient arrived in ED. am2 18:55 Perlita Tobin FNP-C is PHCP. kb 18:55 Maximo Roe MD is Attending Physician. kb 19:02 Triage completed. jl7 19:02 Arm band placed on right wrist. jl7 19:04 Yonatan De La Torre, SAUL is Primary Nurse. as6 19:06 Maximo Roe MD is Attending Physician. kitty 19:09 Bed in low position. Call light in reach. as6 19:20 Inserted saline lock: 22 gauge in right antecubital area, using aseptic technique. ha1 Blood collected. 19:30 CMP Sent. ha1 19:30 Lipase Sent. ha1 19:30 Test, Urine Sent. ha1 19:30 Urinalysis w/ reflexes Sent. ha1 20:32 CT Abd/Pelvis - IV Contrast Only In Process Unspecified. EDMS 20:54 Lulu Ramsey MD is Referral Physician. [facility] 22:55 No provider procedures requiring assistance completed. IV discontinued, intact, ha1 bleeding controlled, No redness/swelling at site. Pressure dressing applied. Administered Medications: 19:20 Drug: NS 0.9% IV 1000 ml Route: IV; Rate: 1 bolus; Site: right antecubital; ha1 19:20 Drug: Ondansetron IVP 4 mg Route: IVP; Site: right antecubital; ha1 19:23 Drug: Famotidine IVP 20 mg Route: IVP; Site: right antecubital; ha1 19:25 Drug: morphine IVP or IV 4 mg Route: IVP; Infused Over: 4 mins; Site: right antecubital;ha1 19:54 Drug: NS 0.9% IV 1000 ml Route: IV; Rate: 1 bolus; Site: right antecubital; as6 21:02 Follow up: Response: No adverse reaction; IV Status: Completed infusion; IV Intake: ha1 1000ml 19:54 Drug: MethylPrednisoLONE IVP 125 mg Route: IVP; Site: right antecubital; as6 20:25 Follow up: Response: No adverse reaction ha1 19:54 Drug: HYDROmorphone IVP 1 mg Route: IVP; Site: right antecubital; as6 20:25 Follow up: Response: No adverse reaction; Pain is unchanged, physician notified; RASS: ha1 Alert and Calm (0) 19:54 Drug: Ondansetron IVP 4 mg Route: IVP; Site: right antecubital; as6 20:25 Follow up: Response: No adverse reaction; Nausea is decreased ha1 20:10 Drug: Rocephin IV 1 grams Route: IV; Rate: per protocol; Site: right antecubital; ha1 20:25 Follow up: Response: No adverse reaction; IV Status: Completed infusion; IV Intake: [id number] 20:16 Drug: metroNIDAZOLE IVPB 500 mg Volume: 100 ml; Route: IVPB; Rate: 200 ml/hr; Infused ha1 Over: 30 mins; Site: right antecubital; 20:59 Follow up: Response: No adverse reaction; IV Status: Completed infusion; IV Intake: ha1 100ml 20:24 Drug: Potassium Chloride IV 20 mEq Route: IV; Rate: per protocol; Site: right [facility] antecubital; 22:52 Follow up: Response: No adverse reaction; IV Status: Completed infusion; IV Intake: ha1 100ml 20:24 Drug: NS 0.9% with KCl IV 20 mEq/L 1000 ml Route: IV; Rate: 500 ml/hr; Site: right [facility] antecubital; 22:51 Follow up: Response: No adverse reaction; IV Status: Order to discontinue infusion; IV ha1 Intake: 300ml 22:30 Drug: HYDROmorphone IVP 1 mg Route: IVP; Site: right antecubital; ha1 22:52 Follow up: Response: No adverse reaction; Pain is decreased; RASS: Alert and Calm (0) ha1 22:30 Drug: Promethazine IM 25 mg Route: IM; Site: right ventrogluteal; ha1 22:52 Follow up: Response: No adverse reaction ha1 Medication: 19:09 VIS not applicable for this client. as6 Intake: 20:25 IV: 50ml; Total: 50ml. ha1 20:59 IV: 100ml; Total: 150ml. ha1 21:02 IV: 1000ml; Total: 1150ml. ha1 22:51 IV: 300ml; Total: 1450ml. ha1 22:52 IV: 100ml; Total: 1550ml. ha1 Outcome: 20:54 Discharge ordered by . kitty 22:55 Discharged to home ambulatory. ha1 22:55 Condition: stable 22:55 Discharge instructions given to patient, Instructed on discharge instructions, follow up and referral plans. medication usage, Demonstrated understanding of instructions, follow-up care, medications, Prescriptions given X 7 22:56 Patient left the ED. ha1 Signatures: Dispatcher [employer] EDPerlita Tang, BUNCH BREAKER-C BUNCH BREAKER-Maximo Morel MD MD cha Leal, Jahala, RN RN jl7 Felisa Gorman Ashby RN RN as6 Lexus James RN RN ha1
--- NOTE | 2022-10-14 20:57 | RAD REPORT ---
EXAM DESCRIPTION: CT - Abdomen Pelvis W Contrast - 10/14/2022 8:30 pm CLINICAL HISTORY: ABD PAIN COMPARISON: Abdomen Pelvis W Contrast dated 07/14/2019; Abdomen Pelvis W Contrast dated 09/23/2018 ; Abdomen Pelvis W Contrast dated 08/17/2018; Abdomen Pelvis W Contrast dated 09/24/2017 TECHNIQUE: Thin cut axial CT imaging of the abdomen and pelvis was performed following intravenous a dministration of 100 mL Isovue 300. Multiplanar reformats were generated and reviewed. All CT scans are performed using dose optimization technique as appropriate and may include automated exposure control or mA/KV adjustment according to patient size. FINDINGS: No suspicious findings in the lung bases. The liver, spleen, and pancreas show no suspicious findings. Gallbladder was surgically removed. No i ntra or extrahepatic biliary ductal dilation. Symmetric renal function is seen with no hydronephrosis or suspicious renal mass. No dilated bowel loops. Fluid filling along the proximal colon, may relate to diarrheal state. Mild w all thickening along the sigmoid, could relate to nondistention or mild colitis. Appendix is unremark able. No free air, free fluid or inflammatory stranding. No hernia, mass or bulky lymphadenopathy. Th e urinary bladder is without significant finding. No suspicious bony findings. IMPRESSION: Mild wall thickening along the sigmoid, which could relate to nondistention or mild coli tis. No other acute intra-abdominal process.
[2022-10-14] MEDS ORDERED: PROMETHAZINE INJ 25 MG/ML AMP ONE (22:15)
[2022-10-14 23:27] VITALS: TEMP 98.6
[2022-10-14 23:32] VITALS: O2SAT 99
[2022-10-14 23:36] VITALS: BP 121/72
== END 2022-10-14 22:56 | disposition home or self-care (01) ==
LOC: ER 18:41
DX: K51.511 Left sided colitis with rectal bleeding (principal); K52.3 Indeterminate colitis; K51.811 Other ulcerative colitis with rectal bleeding; D64.9 Anemia, unspecified; R11.10 Vomiting, unspecified; Z88.0 Allergy status to penicillin; Z88.6 Allergy status to analgesic agent
CPT/HCPCS: 96365; 85025; 81001; 36415; 81025; 83690; 80053; 74177; 96375; 96372; 99284; 96366; Q9967; J2550; J3480 ×2; J1170 ×2; J2930; J2405 ×2; J7040; J7030; J0696

== ENCOUNTER 2022-10-15 09:06 | Emergency (ER) | payer OTHER ==
--- OUTSIDE RECORDS SUMMARY | 2022-10-15 09:14 | XMS REPORT | Continuity of Care Document ---
:1990 Author Organization [facility] t Address [address] [facility] [address]. [address] [place] [address] Support Name Relationship Address Phone BRITTANY APPIAH [facility] [address] [phone] [place] [address] UNEMPLOYED EMR Unavailable Unavailable Brittany Appiah Mother [address] [place] [address] [address]any Appiah Mother [address] [place] [address] MD HERB [place] Emergency Provider [address] [facility] [id number] + [place] [address] JACKLYN SALAZAR-Tono Primary Care Physician [address] [phone] [place] [address] [place] [address] MD TAMMY MARC Emergency Provider [address] [place] [address] LAURIE APPIAH Unavailable [address] [place] [address] OTHER, ENTER NAME IN Primary Care Physician Unavailable Unav ailable NOTES MD DONALD RAMIREZ Emergency Provider Unavailable Unavailable MD LEIA BARCENAS Emergency Provider [address] [place] [address] [address]HONY APPIAH Un[address] Unavailable [place] [phone] JACKLYN SALAZAR-Tono Primary Care Physician [address] [facility] [place] [address] MD MISA ASH JR Admitting Provider [address] [place] [address] MD LOYD HERNANDEZ Emergency Provider [address] [place] [address] MD FELICE GRANDE Emergency Provider [address] [place] [address] MD ANASTACIO ALCOCER Emergency Provider [address] [phone] [place] [address] JHONY APPIAH Emergency Contact [address] [place] [address] MD SHALINI MARIA Emergency Provider [address] [phone] [place] [address] MD MARINO REDD Emergency Provider [address] +[phone] [place] [address] Care Team Providers Name Role Phone Adrián Cook MD Primary Care Physician DR BOBBY CUMMINGS Attending Clinician Unavailable [phone] Attending Clinician Unavailable [id number] Attending Clinician Unavailable DR LILIBETH DURON Attending Clinician Unavailable [phone] Attending Clinician Unavailable [id number] Attending Clinician Unavailable ADRIÁN COOK Attending Clinician Unavailable DR BRAULIO LOPES Attending Clinician Unavailable [phone] Attending Clinician Unavailable MARINO REDD Attending Clinician Unavailable SHALINI MARIA Attending Clinician Unavailable ANASTACIO ALCOCER Attending Clinician Unavailable MISA ASH Attending Clinician Unavailable Adrián Cook MD Attending Clinician Dianne Timmons RN Attending Clinician Barbara Nair S Attending Clinician Cindy Wright MD S Attending Clinician Doctor Unassigned, [place] Attending Clinician Unavailable Татьяна Gooden Attending Clinician DR OBBBY CUMMINGS Admitting Clinician Unavailable DR LILIBETH DURON Admitting Clinician Unavailable ADRIÁN COOK Admitting Clinician Unavailable DR BRAULIO LOPES Admitting Clinician Unavailable MISA ASH Admitting Clinician Unavailable Payers Payer Name Policy Type Policy Number Effective Date Expiration Date S regi [place] [id number] [place] [id number] [place] [id number] Problems Condition Condition Condition Status Onset Resolution Last Treating Co mments Source Name Details Category Date Date Treatment Clinician Date Colitis Colitis [facility] Allergies, Adverse Reactions, Alerts Allergy Allergy Status Severity Reaction(s) Onset Inactive Treating Comm ents Source Name Type Date Date Clinician Nsaids Propensi Active [facility] roidal adverse 00:00: Medical Anti-Inf reaction 00 Center lammator s y Drug) Penicill Propensi Active [facility] adverse 00:00: Medical reaction 00 Center s PENICILL Allergy Active [facility] INS 05-20 [...] Medical ANTI-INF 00 Center LAMMATOR Y DRUG) NONSTERO DA Active UNKNOWN El IDAL [place] ANTIINFL [facility] Hosp[facility] PCN DA Active UNKNOWN Hives El (penicil [place] sandeep) [facility] CIPROFLO DA Active UNKNOWN El XACIN [place] [facility] FLAGYL DA Active UNKNOWN [place] [facility] Social History Social [...] 1-26 mg [facility] mL SyKt 11:59: subcutaneo [facility] 16 usly Every Center 2 weeks, last dose was 05/09/20. adalimumab 2020-0 Yes 20mg Inject [address] 20 mg/0.4 1-26 mg [facility] mL SyKt 11:59: subcutaneo [facility] 16 usly Every Center 2 weeks, last dose was 05/09/20. adalimumab 2020-0 Yes 20mg Inject [address] 20 mg/0.4 1-26 mg [facility] mL SyKt 11:59: subcutaneo [facility] 16 usly Every Center 2 weeks, last dose was 05/09/20. adalimumab 2020-0 Yes 20mg Inject [address] 20 mg/0.4 1-26 [facility], last dose was 05/09/20. adalimumab 2020-0 Yes 20mg Inject [address] 20 mg/0.4 1-26 mg [facility] mL SyKt 11:59: subcutaneo [facility] 16 usly Every Center 2 weeks, last dose was 05/09/20. adalimumab 2020-0 Yes 20mg Inject [address] 20 mg/0.4 1-26 mg [facility] mL SyKt 11:59: subcutaneo [facility] 16 usly Every Center 2 weeks, last dose was 05/09/20. adalimumab 2020-0 Yes 20mg Inject [address] 20 mg/0.4 1-26 mg [facility] mL SyKt 11:59: subcutaneo [facility] 16 usly Every Center 2 weeks, last dose was 05/09/20. adalimumab 2020-0 Yes 20mg Inject [address] 20 mg/0.4 1-26 mg [facility] mL SyKt 11:59: subcutaneo [facility] 16 usly Every Center 2 weeks, last dose was 05/09/20. traMADoL 2020-0 Yes 50mg Take [address] [facility] [address] (ULTRAM) [...] Center mouth daily for 14 days. traMADoL 2020-0 Yes 50mg Take [address] [facility] (ULTRAM) [...] Center mouth daily for 14 days. pantoprazol 2021-0 2021- No 40mg QD Take [address] [facility] e 1-26 02-25 tablet (40 [facility] (PROTONIX) 00:00: 23:59 mg total) M edical 40 MG 00 :00 by mouth Center tablet daily for 30 days. pantoprazol 2020-2020- No 40mg QD Take [address] [facility] [facility] e 05-23 tablet (40 [facility] (PROTONIX) 00:00: 23:59 mg total) M edical 40 MG 00 :00 by mouth Center tablet daily for 30 days. pantoprazol 2020- No 40mg QD Take [address] [facility] [facility] e 05-23 tablet (40 [facility] (PROTONIX) 00:00: 23:59 mg total) M edical 40 MG 00 :00 by mouth Center tablet daily for 30 days. ondansetron 2020-2020- No 8mg Take [address] [facility] (ZOFRAN-ODT 05-23-02 tablet (8 Kate kes ) 8 MG 00:00: 23:59 mg total) Medic al disintegrat 00 :00 by mouth 2 Ce nter ing tablet (two) times daily as needed for Nausea for up to 7 days. ondansetron 2020- No 8mg Take [address] [facility] [address] (ZOFRAN-ODT 05-23-02 tablet (8 Kate kes ) 8 MG 00:00: 23:59 mg total) Medic al disintegrat 00 :00 by mouth 2 Ce nter ing tablet (two) times daily as needed for Nausea for up to 7 days. ondansetron 2020-2020- No 8mg Take [address] [facility] (ZOFRAN-ODT 05-23-02 tablet (8 Kate kes ) 8 MG 00:00: 23:59 mg total) Medic al disintegrat 00 :00 by mouth 2 Ce nter ing tablet (two) times daily as needed for Nausea for up to 7 days. predniSONE 2020- No 40mg QD Take [address] (DELTASONE) 05-23- tablets Luke s 20 MG 00:00: 00:00 (40 mg Medical tablet 00 :00 total) by Center mouth daily for 14 days. pantoprazol 2020-2020- No 40mg QD Take [address] [facility] [...] Nausea for up to 7 days. predniSONE 2020-2020- No 40mg QD Take [address] [facility] [facility] [...] mouth Luke s MG tablet 00:00: daily. [address] citalopram 0 Yes 40mg QD Take [address] (CeleXA) 40 1-11 by mouth Luke s MG tablet 00:00: daily. [address] citalopram 0 Yes 40mg QD Take [address] (CeleXA) 40 1-11 by mouth Luke s MG tablet 00:00: daily. [address] citalopram 0 Yes 40mg QD Take [address] (CeleXA) 40 1-11 by mouth Luke s MG tablet 00:00: daily. [address] citalopram Yes 40mg QD Take [address] (CeleXA) 40 1-11 by mouth Luke s MG tablet 00:00: daily. [address] citalopram Yes 40mg QD Take [address] (CeleXA) 40 1-11 by mouth Luke s MG tablet 00:00: daily. [address] citalopram Yes 40mg QD Take [address] (CeleXA) 40 1-11 by mouth Luke s MG tablet 00:00: daily. [address] citalopram Yes 40mg QD Take [address] (CeleXA) 40 1-11 by mouth Luke s MG tablet 00:00: daily. [address] citalopram Yes 40mg QD Take [address] (CeleXA) 40 1-11 by mouth Luke s MG tablet 00:00: daily. [address] Vital Signs Vital Name Observation Time Observation Value Comments Source HEIGHT 2020-05-20 01:10:00 152.4 cm WEIGHT 2020-05-20 01:10:00 78.2 kg HEIGHT 2020-05-20 01:10:00 152.4 cm WEIGHT 2020-05-20 01:10:00 78.2 kg Systolic blood 2020-05-23 12:07:00 113 mm[Hg] [facility] Diastolic blood 2020-05-23 12:07:00 58 mm[Hg] [facility] Heart rate 2020-05-23 12:07:00 67 /min [facility] Body temperature 2020-05-23 12:07:00 36.22 Parris [facility] Respiratory rate 2020-05-23 12:07:00 18 /min [facility] Oxygen saturation in 2020-05-23 12:07:00 99 /min [facility] Arterial blood by Medical Ce nter Pulse oximetry Body height 2020-05-20 01:10:00 152.4 cm [facility] Body weight 2020-05-20 01:10:00 78.2 kg [facility] BMI 2020-05-20 01:10:00 33.67 kg/m2 [facility] Procedures Procedure Date / Time Performed Performing Clinician Sourtono e POCT-GLUCOSE METER 2020-05-23 11:27:00 Joey [facility] POCT-GLUCOSE METER 2020-05-23 07:52:00 [facility] CBC W/PLT COUNT & AUTO 2020-05-23 04:56:00 Thaddeus Campbell [facility] COMPREHENSIVE METABOLIC 2020-05-23 04:56:00 Thaddeus Campbell [facility] PANEL [facility] MAGNESIUM 2020-05-23 04:56:00 Thaddeus Campbell [facility] CBC W/PLT COUNT & AUTO 2020-05-23 04:56:00 Thaddeus Campbell [facility] POCT-GLUCOSE METER 2020-05-22 21:59:00 [facility] POCT-GLUCOSE METER 2020-05-22 15:46:00 Joey [facility] C. DIFFICILE GDH TOXIN 2020-05-21 02:45:00 Edison Barboza [facility] BASIC METABOLIC PANEL (7) 2020-05-20 04:33:00 Carmela Thiago messer [facility] LIPID PANEL 2020-05-20 04:33:00 Deshawn Caseyon [facility] CBC W/PLT COUNT & AUTO 2020-05-20 04:33:00 Carmela [facility] CBC W/PLT COUNT & AUTO 2020-05-20 04:33:00 Carmela [facility] Plan of Care Planned Activity Planned Date Details Comments Source Future Scheduled 2023-05-[address] [facility] 00:00:00 (procedure) [code = [facility] 70604365] Future Scheduled 2023-05-[address] [facility] Test 00:00:00 (procedure) [code = [facility] 11657268] Future Scheduled 2023-05-[address] [facility] Test 00:00:00 (procedure) [code = [facility] 36502735] Future Scheduled 2023-05-[address] [facility] Test 00:00:00 (procedure) [code = [facility] 87929948] Future Scheduled 2023-05-[address] [facility] Test 00:00:00 (procedure) [code = [facility] 19326763] Future Scheduled 2023-05-[address] [facility] Test 00:00:00 (procedure) [code = [facility] 34876295] Future Scheduled 2023-05-[address] [facility] Test 00:00:00 (procedure) [code = [facility] 55357349] Future Scheduled 2023-05-[address] [facility] Test 00:00:00 (procedure) [code = [facility] 68312554] Future Scheduled 2023-05-[address] [facility] Test 00:00:00 (procedure) [code = [facility] 95464335] Future Scheduled 2022-12-[address] [facility] 00:00:00 (Season Ended) [code Medical Center = Influenza Vaccine (Season Ended)] Future Scheduled 2022-12-[address] [facility] Test 00:00:00 (Season Ended) [code Medical Center = Influenza Vaccine (Season Ended)] Future Scheduled 2022-12-[address] [...] Medica l Center cervix (procedure) [code = 049643849] Future Scheduled 2012-08-[address] [facility] 00:00:00 malignant neoplasm of Medica l Center cervix (procedure) [code = 753684686] Future Scheduled 2012-08-[address] [facility] Test 00:00:00 malignant neoplasm of Medica [facility] Center cervix (procedure) [code = 479510291] Future Scheduled 2012-08-[address] [facility] Test 00:00:00 malignant neoplasm of Medica l Center cervix (procedure) [code = 182044376] Future Scheduled 2012-08-[address] [facility] Test 00:00:00 malignant neoplasm of Medica [facility] Center cervix (procedure) [code = 664850730] Future Scheduled 2012-08-[address] [facility] Test 00:00:00 malignant neoplasm of Medica l Center cervix (procedure) [code = 433185319] Future Scheduled 2012-08-[address] [facility] Test 00:00:00 malignant neoplasm of Medica l Center cervix (procedure) [code = 746109595] Future Scheduled 2012-08-[address] [facility] Test 00:00:00 malignant neoplasm of Medica l Center cervix (procedure) [code = 168728975] Future Scheduled 2012-08-[address] [facility] Test 00:00:00 malignant neoplasm of Medica l Center cervix (procedure) [code = 405828744] Future Scheduled 2010-08-07 DTAP/TDAP/TD VACCINES CH I [...] 2022-04-02 Outpatient BOBBY CUMMINGS ELCAMPO ELCAMPO 00 [id number] El 07:51:29 [id number] Padilla why[facility] [id number] [facility] 2021-11-02 [facility] [id number] El 14:25:07 [id number] Padilla whyte [id number] [facility] 2020-05-20 [facility] [id number] [facility] 00:50:00 Med 2022-07-25 2022-07-25 Outpatient Alida CHUBRAULIO Garcia [facility] [id number] El 15:01:00 15:01:00 [id number] LAB Cam po [facility] 2022-05-17 2022-05-17 Outpatient BOBBY ALEXANDER ELZAHRA INGRAM G [id number] El 12:42:00 10:41:00 [id number] [facility] [id number] [facility] 2022-05-09 2022-05-09 Outpatient OSKAR SCHMITT [id number] [facility] 11:36:56 11:36:56 [id number] Shanelle Peterson 2022-04-02 2022-04-02 Outpatient BOBBY ALEXANDER ELCAMPO BLESSIN G [id number] El 07:51:00 13:22:00 [id number] [facility] mpo [id number] [facility] 2022-02-16 2022-02-16 Emergency ER TRAMAINE, [facility] [id number] [place] 10:07:00 12:10:00 MARINO -[id number] [facility] 2022-02-16 2022-02-16 emergency [id number] 10:07:00 12:10:00 [id number] [id number] 2021-11-02 2021-11-02 Outpatient BOBBY ALEXANDER ELCAMPO BLESSIN G [id number] El 14:25:00 15:53:00 [id number] [facility] Ca mpo [id number] [facility] 2021-11-01 2021-11-02 Emergency ER JAMISHIMARAY, [facility] [id number] [place] 22:09:00 02:34:00 SHALINI -[id number] [facility] 2021-10-23 2021-10-24 Emergency ER NURYHAY, [facility] [id number] [place] 18:39:00 00:13:00 ANASTACIO -[id number] [facility] 2021-03-30 2021-03-30 Inpatient ER MIHIR [facility] [id number] [place] 00:50:00 11:03:00 MISA -[id number] [facility] 2020-05-20 2020-05-23 Hospital ER Adrián Cook [facility] [id number] 00:50:00 11:50:00 Encounter [facility] 2020-05-20 2020-05-20 Travel [facility] [id number] [facility] 00:[facility]00 00:00:00 [facility] 2018-12-31 2018-12-31 Patient Dianne Timmons [id number] 00:00:00 00:00:00 Outreach Ame Barrow [id number] [place] 4.2.7.2.686 [id number] 2018-12-30 2018-12-30 [facility] [id number] 09:32:28 14:52:00 Barbara Arguelloton 350.1.13.10 [place] 4.2.7.2.686 [place] [id number] 2018-12-15 2018-12-15 Emergency [facility] [id number] 08:28:32 12:45:00 Cindy Arguelloton 350.1.13.10 [place] 4.2.7.2.686 [place] [id number] 2018-12-15 2018-12-15 Orders Doctor WATSON [id number] 00:00:00 00:00:00 Only Unassigned, MARILEE 350.1.13.[address] [place] [facility] 4.2.7.2.686 [id number] 2018-11-16 2018-11-16 Transition Gooden Floydalida [id number] 00:00:00 00:00:00 of Care Татьяна Barrow 350.1.13.10 [place] 4.2.7.2.686 [id number] Results Test Description Test Time Test Comments Results Result Comments Source POC-Glucose meter 2020-05-23 11:39:00 Test Item Value Reference Range Interpretation Comme nts POC-Glucose Meter (test code = 101 mg/dL 70-110 : TESTED AT [facility] [address] [facility] 1538) [facility] [address]: Sql Report Writer/Techni santa ID = [id number] for Sarah Valdez Lab Interpretation (test code = Normal 97519-3) [facility]-Glucose [id number] 11:39:00 Test Item Value Reference Range Interpretation Comments POC-Glucose Meter (test 101 mg/dL 70-110 : TE STED AT [facility] code = 1538) [address] [facility] [address]: Sql Report Writer/Techni santa ID = [id number] for Olga Valdeze Lab Interpretation (test Normal code = 27741-2) [facility] [id number] 11:39:00 Test Item Value Reference Range Interpretation Comments POC-Glucose Meter (test 101 mg/dL 70-110 : TE STED AT [facility] code = 1538) [address], [facility] [address]: Sql Report Writer/Techni santa ID = [id number] for Olga Valdeze Lab Interpretation (test Normal code = 64166-3) [facility]-GLUCOSE [id number] 11:39:00 Test Item Value Reference Range Interpretation Comments POC-GLUCOSE METER 101 mg/dL 70-110 : TESTED A T [facility] [address] (BEAKER) (test code [address], = 1538) [facility] 77 [address]: Sql Report Writer/Techni santa ID = [id number] for Olga Carrione POCT-GLUCOSE [id number] 08:03:00 Test Item Value Reference Range Interpretation Comments POC-GLUCOSE METER 99 mg/dL 70-110 : TESTED A T [facility] [address] (BEAKER) (test code = [address], 1538) [facility] 77 478: Sql Report Writer/Techni santa ID = [id number] for Sarah Carrion Comprehensive metabolic [id number] 05:49:00 Test Item Value Reference Range Interpretation Comments Protein, Total (test 7.2 See_Comment [Autom ated code = 2885-2) message] The system which generated this result transmit meghann reference range : 6.0 - 8.5 gm/dL . The reference range was not u sed to interpret th is result as normal/abnormal . Albumin (test code = 3.8 g/dL 3.5-5.0 06269-0) Alkaline Phosphatase 68 U/L 30-115 (test code = 6768-6) Total Bilirubin (test 0.2 mg/dL 0.1-1.2 code = 1975-2) Sodium (test code = 138 meq/L 578-248 1859-2) Potassium (test code 3.8 meq/L 3.6-5.5 = 2823-3) Chloride (test code = 108 meq/L 98-106 H 2075-0) CO2 (test code = 22 meq/L 20-29 8-9) BUN (test code = 8 mg/dL 10-26 L 3094-0) Creatinine (test code 0.60 mg/dL 0.50-1.20 = 2160-0) Glucose (test code = 120 mg/dL 70-110 H 2345-7) Calcium (test code = 8.7 mg/dL 8.5-10.5 97759-1) AST (test code = 9 U/L 5-40 1920-8) ALT (test code = 14 U/L 5-50 1742-6) EGFR (test code = 119 mL/min/1.73 [place] [address]-9) NOT ACCURATE CREATININE CLEARANCE IN PREDICTING GLOMERULAR FILTRATION RATE . ESTIMATED GFR I S NOT APPLICABLE FOR DIALYSIS PATIEN TS. TODD (test code = TODD) Sql Report Writer ID - [id number] r ID - [id number] r ID - [id number] r ID - [id number] r ID - [id number] r ID - [id number] r ID - [id number] r ID - [id number] r ID - [id number] r ID - [id number] r ID - [id number] r ID - [id number] r ID - [id number] r ID - [id number] r ID - [id number] r ID - [id number] Lab Interpretation Abnormal (test code = 58920-8) [facility] 05:49:00 Test Item Value Reference Range Interpretation Comments Magnesium (test code = 2.1 mg/dL 1.5-3.0 28430-4) TODD (test code = TODD) Sql Report Writer ID - [id number] ID - [id number] ID - [id number] ID - [id number] Lab Interpretation (test Normal code = 89291-2) [facility] [id number] 05:49:00 Test Item Value Reference Range Interpretation Comments Protein, Total (test 7.2 See_Comment [Autom ated code = 2885-2) message] The system which generated this result transmit meghann reference range : 6.0 - 8.5 gm/dL . The reference range was not u sed to interpret th is result as normal/abnormal . Albumin (test code = 3.8 g/dL 3.5-5.0 65328-2) Alkaline Phosphatase 68 U/L 30-115 (test code = 6768-6) Total Bilirubin (test 0.2 mg/dL 0.1-1.2 code = 1974-2) Sodium (test code = 138 meq/L 813-330 0579-2) Potassium (test code 3.8 meq/L 3.6-5.5 = 2823-3) Chloride (test code = 108 meq/L 98-106 H 2074-0) CO2 (test code = 22 meq/L 20-29 2027-9) BUN (test code = 8 mg/dL 10-26 L 3094-0) Creatinine (test code 0.60 mg/dL 0.50-1.20 = 2160-0) Glucose (test code = 120 mg/dL 70-110 H 2345-7) Calcium (test code = 8.7 mg/dL 8.5-10.5 98752-2) AST (test code = 9 U/L 5-40 1920-8) ALT (test code = 14 U/L 5-50 1742-6) EGFR (test code = 119 mL/min/1.[place] [address]-3) NOT ACCURATE CREATININE CLEARANCE IN PREDICTING GLOMERULAR FILTRATION RATE . ESTIMATED GFR I S NOT APPLICABLE FOR DIALYSIS PATIEN TS. TODD (test code = TODD) Sql Report Writer ID - [id number] r ID - [id number] r ID - [id number] r ID - [id number] r ID - [id number] r ID - [id number] r ID - [id number] r ID - [id number] r ID - [id number] r ID - [id number] r ID - [id number] r ID - [id number] r ID - [id number] r ID - [id number] r ID - [id number] r ID - [id number] Lab Interpretation Abnormal (test code = 38017-2) [facility] 05:49:00 Test Item Value Reference Range Interpretation Comments Magnesium (test code = 2.1 mg/dL 1.5-3.0 98255-1) TODD (test code = TODD) Sql Report Writer ID - [id number] ID - [id number] ID - [id number] ID - [id number] Lab Interpretation (test Normal code = 13576-2) [facility] [id number] 05:49:00 Test Item Value Reference Range Interpretation Comments Protein, Total (test 7.2 See_Comment [Autom ated code = 2885-2) message] The system which generated this result transmit meghann reference range : 6.0 - 8.5 gm/dL . The reference range was not u sed to interpret th is result as normal/abnormal . Albumin (test code = 3.8 g/dL 3.5-5.0 74795-0) Alkaline Phosphatase 68 U/L 30-115 (test code = 6768-6) Total Bilirubin (test 0.2 mg/dL 0.1-1.2 code = 1975-2) Sodium (test code = 138 meq/L 522-632 7911-2) Potassium (test code 3.8 meq/L 3.6-5.5 = 2823-3) Chloride (test code = 108 meq/L 98-106 H 2075-0) CO2 (test code = 22 meq/L 20-29 8-9) BUN (test code = 8 mg/dL 10-26 L 3094-0) Creatinine (test code 0.60 mg/dL 0.50-1.20 = 2160-0) Glucose (test code = 120 mg/dL 70-110 H 2345-7) Calcium (test code = 8.7 mg/dL 8.5-10.5 29012-2) AST (test code = 9 U/L 5-40 1920-8) ALT (test code = 14 U/L 5-50 1742-6) EGFR (test code = 119 mL/min/1.73 [place] [address]-6) NOT ACCURATE CREATININE CLEARANCE IN PREDICTING GLOMERULAR FILTRATION RATE . ESTIMATED GFR I S NOT APPLICABLE FOR DIALYSIS PATIEN TS. TODD (test code = TODD) Sql Report Writer ID - [id number] r ID - [id number] r ID - [id number] r ID - [id number] r ID - [id number] r ID - [id number] r ID - [id number] r ID - [id number] r ID - [id number] r ID - [id number] r ID - [id number] r ID - [id number] r ID - [id number] r ID - [id number] r ID - [id number] r ID - [id number] Lab Interpretation Abnormal (test code = 76047-9) [facility]2021-01-26 05:49:00 Test Item Value Reference Range Interpretation Comments Magnesium (test code = 2.1 mg/dL 1.5-3.0 81455-9) TODD (test code = TODD) Sql Report Writer ID - [id number] ID - [id number] ID - [id number] ID - [id number] Lab Interpretation (test Normal code = 58860-4) [facility]2021-01-26 05:49:00 Test Item Value Reference Range Interpretation Comments MAGNESIUM (BEAKER) (test code = 2.1 mg/dL 1.5-3.0 627) Sql Report Writer ID - [id number] ID - [id number] ID - [id number] ID - [id number] METABOLIC [id number] 05:49:00 Test Item Value Reference Range Interpretation [...] S NOT APPLICABLE FOR DIALYSIS PATIEN TS. Sql Report Writer ID - [id number] ID - [id number] ID - [id number] ID - [id number] ID - [id number] ID - [id number] ID - [id number] ID - [id number] ID - [id number] ID - [id number] ID - [id number] ID - [id number] ID - [id number] ID - [id number] ID - [id number] ID - [id number] with platelet count + automated [id number] 05:27:00 Test Item Value Reference Range Interpretation Comments WBC (test code = 6690-2) 12.7 See_Comment H [A utomated message] The system scroll kit generated this result transmitted ref erence range: 4.0 - 10 .0 K/L. The refe rence range was not u sed to interpret this result as normal/abnor mal. RBC (test code = 789-8) 4.58 See_Comment [Au tomated message] The system scroll kit generated this result transmitted ref erence range: 4.00 - 5 .00 M/L. The refe rence range was not u sed to interpret this result as normal/abnor mal. MCHC (test code = 786-4) 28.2 See_Comment L [A utomated message] The system scroll kit generated this result transmitted ref erence range: [...] H [Aut omated message] 777-3) The system scroll kit generated this result transmitted ref erence range: 150 - 43 0 K/CU MM. The referen ce range was not u sed to interpret this result as normal/abnor mal. MPV (test code = 10.0 fL 6.0-11.5 30048-3) nRBC (test code = 413) 0 See_Comment [Aut omated message] The system scroll kit generated this result transmitted ref erence range: [...] H [Aut omated message] 670) The system scroll kit generated this result transmitted ref erence range: 1.80 - 8 .00 K/L. The refe rence range was not u sed to interpret this result as normal/abnor mal. # Lymphs (test code = 1.30 See_Comment L [Auto mated message] 414) The system scroll kit generated this result transmitted ref erence range: 1.48 - 4 .50 K/L. The refe rence range was not u sed to interpret this result as normal/abnor mal. # Monos (test code = 0.37 See_Comment [Autom ated message] 415) The system scroll kit generated this result transmitted ref erence range: 0.00 - 1 .30 K/L. The refe rence range was not u sed to interpret this result as normal/abnor mal. # Eos (test code = 416) 0.00 See_Comment [Au tomated message] The system scroll kit generated this result transmitted ref erence range: 0.00 - 0 .50 K/L. The refe rence range was not u sed to interpret this result as normal/abnor mal. # Baso (test code = 417) 0.03 See_Comment [A utomated message] The system scroll kit generated this result transmitted ref erence range: 0.00 - 0 .20 K/L. The refe rence range was not u sed to interpret this result as normal/abnor mal. Immature 1 % 0-0 H Granulocytes-Relative (test code = 2801) Lab Interpretation (test Abnormal code = 60983-1) [facility] [id number] 05:27:00 Test Item Value Reference Range Interpretation Comments WBC (test code = 6690-2) 12.7 See_Comment H [A utomated message] The system scroll kit generated this result transmitted ref erence range: 4.0 - 10 .0 K/L. The refe rence range was not u sed to interpret this result as normal/abnor mal. RBC (test code = 789-8) 4.58 See_Comment [Au tomated message] The system scroll kit generated this result transmitted ref erence range: 4.00 - 5 .00 M/L. The refe rence range was not u sed to interpret this result as normal/abnor mal. MCHC (test code = 786-4) 28.2 See_Comment L [A utomated message] The system scroll kit generated this result transmitted ref erence range: [...] H [Aut omated message] 777-3) The system scroll kit generated this result transmitted ref erence range: 150 - 43 0 K/CU MM. The referen ce range was not u sed to interpret this result as normal/abnor mal. MPV (test code = 10.0 fL 6.0-11.5 80850-6) nRBC (test code = 413) 0 See_Comment [Aut omated message] The system scroll kit generated this result transmitted ref erence range: [...] H [Aut omated message] 670) The system scroll kit generated this result transmitted ref erence range: 1.80 - 8 .00 K/L. The refe rence range was not u sed to interpret this result as normal/abnor mal. # Lymphs (test code = 1.30 See_Comment L [Auto mated message] 414) The system scroll kit generated this result transmitted ref erence range: 1.48 - 4 .50 K/L. The refe rence range was not u sed to interpret this result as normal/abnor mal. # Monos (test code = 0.37 See_Comment [Autom ated message] 415) The system scroll kit generated this result transmitted ref erence range: 0.00 - 1 .30 K/L. The refe rence range was not u sed to interpret this result as normal/abnor mal. # Eos (test code = 416) 0.00 See_Comment [Au tomated message] The system scroll kit generated this result transmitted ref erence range: 0.00 - 0 .50 K/L. The refe rence range was not u sed to interpret this result as normal/abnor mal. # Baso (test code = 417) 0.03 See_Comment [A utomated message] The system scroll kit generated this result transmitted ref erence range: 0.00 - 0 .20 K/L. The refe rence range was not u sed to interpret this result as normal/abnor mal. Immature 1 % 0-0 H Granulocytes-Relative (test code = 2801) Lab Interpretation (test Abnormal code = 39294-1) [place] with platelet count + automated [id number] 05:27:00 Test Item Value Reference Range Interpretation Comments WBC (test code = 6690-2) 12.7 See_Comment H [A utomated message] The system scroll kit generated this result transmitted ref erence range: 4.0 - 10 .0 K/L. The refe rence range was not u sed to interpret this result as normal/abnor mal. RBC (test code = 789-8) 4.58 See_Comment [Au tomated message] The system scroll kit generated this result transmitted ref erence range: 4.00 - 5 .00 M/L. The refe rence range was not u sed to interpret this result as normal/abnor mal. MCHC (test code = 786-4) 28.2 See_Comment L [A utomated message] The system scroll kit generated this result transmitted ref erence range: [...] H [Aut omated message] 777-3) The system scroll kit generated this result transmitted ref erence range: 150 - 43 0 K/CU MM. The referen ce range was not u sed to interpret this result as normal/abnor mal. MPV (test code = 10.0 fL 6.0-11.5 71408-5) nRBC (test code = 413) 0 See_Comment [Aut omated message] The system scroll kit generated this result transmitted ref erence range: [...] H [Aut omated message] 670) The system scroll kit generated this result transmitted ref erence range: 1.80 - 8 .00 K/L. The refe rence range was not u sed to interpret this result as normal/abnor mal. # Lymphs (test code = 1.30 See_Comment L [Auto mated message] 414) The system scroll kit generated this result transmitted ref erence range: 1.48 - 4 .50 K/L. The refe rence range was not u sed to interpret this result as normal/abnor mal. # Monos (test code = 0.37 See_Comment [Autom ated message] 415) The system scroll kit generated this result transmitted ref erence range: 0.00 - 1 .30 K/L. The refe rence range was not u sed to interpret this result as normal/abnor mal. # Eos (test code = 416) 0.00 See_Comment [Au tomated message] The system scroll kit generated this result transmitted ref erence range: 0.00 - 0 .50 K/L. The refe rence range was not u sed to interpret this result as normal/abnor mal. # Baso (test code = 417) 0.03 See_Comment [A utomated message] The system whic h generated this result transmitted ref erence range: 0.00 - 0 .20 K/L. The refe rence range was not u sed to interpret this result as normal/abnor mal. Immature 1 % 0-0 H Granulocytes-Relative (test code = 2801) Lab Interpretation (test Abnormal code = 83869-7) [place] W/PLT COUNT & AUTO [id number] 05:27:00 Test Item Value Reference Range Interpretation [...] PERCENT (BEAKER) (test code = 2801) POCT-GLUCOSE [id number] 22:11:00 Test Item Value Reference Range Interpretation Comments POC-GLUCOSE METER 124 mg/dL 70-110 H : TESTED A T [address] (BEAKER) (test code [address], = 1538) [place] [address] 478: Sql Report Writer/Techni santa ID = [id number] for Talia Renteria POCT-GLUCOSE [id number] 15:57:00 Test Item Value Reference Range Interpretation Comments POC-GLUCOSE METER 109 mg/dL 70-110 : TESTED A T [address] (BEAKER) (test code [address], = 1538) [place] [address]: Sql Report Writer/Techni santa ID = [id number] for Selene shaikh Rhona Clostridium difficile GDH [id number] 08:13:00 Test Item Value Reference Range Interpretation Comments C. Difficle Toxin Negative Negative (test code = 0160806171) C. Difficile GDH Negative Negative No indicati on of Antigen (test code = Clostri dium 4368667111) difficile infection and n o colonization. Discontinue enteric isolati on and therapy. TODD (test code = Testing performed TODD) by [employer] Rapid Cassette Assay. For GDH, published sensitivity of the assay is 98.7% compared to cytotoxicity testing. For Toxin AB, published sensitivity is 87.8% and specificity 99.4% compared to cytotoxicity testing.Verificati on of kit performance was done by the [facility] Microbiology Lab prior to clinical use. Lab Interpretation Normal (test code = 20109-1) [facility] [id number] 08:13:00 Test Item Value Reference Range Interpretation Comments C. Difficle Toxin Negative Negative (test code = 2931074756) C. Difficile GDH Negative Negative No indicati on of Antigen (test code = Clostri dium 2098942306) difficile infection and n o colonization. Discontinue enteric isolati on and therapy. TODD (test code = Testing performed TODD) by [employer] Rapid Cassette Assay. For GDH, published sensitivity of the assay is 98.7% compared to cytotoxicity testing. For Toxin AB, published sensitivity is 87.8% and specificity 99.4% compared to cytotoxicity testing.Verificati on of kit performance was done by the [facility] Microbiology Lab prior to clinical use. Lab Interpretation Normal (test code = 52693-4) [facility] [id number] 08:13:00 Test Item Value Reference Range Interpretation Comments C. Difficle Toxin Negative Negative (test code = 2887296281) C. Difficile GDH Negative Negative No indicati on of Antigen (test code = Clostri dium 4661688900) difficile infection and n o colonization. Discontinue enteric isolati on and therapy. TODD (test code = Testing performed TODD) by [employer] Rapid Cassette Assay. For GDH, published sensitivity of the assay is 98.7% compared to cytotoxicity testing. For Toxin AB, published sensitivity is 87.8% and specificity 99.4% compared to cytotoxicity testing.Verificati on of kit performance was done by the [facility] Microbiology Lab prior to clinical use. Lab Interpretation Normal (test code = 24610-7) [facility]IC[facility] [id number] 08:13:00 Test Item Value Reference Range Interpretation Comments CDT TOXIN (test code Negative Negative = 6016644935) CDT GDH ANTIGEN (test Negative Negative No ind ication of code = 4123593910) Clostridi um difficile infection and n o colonization. Discontinue ent roberto isolation and t herapy. Testing performed by [employer] Rapid Cassette Assay. For GDH, published sensitivity of the assay is 98.7% compared to cytotoxicity testing. For Toxin AB, published sensitivity is 87.8% and specificity 99.4% compared to cytotoxicity testing.Verification of kit performance was done by the [facility] MicrobiologyLab prior to clinical use.Basic metabolic [id number] 05:13:00 Test Item Value Reference Range Interpretation Comments Sodium (test code = 136 meq/L 112-027 3189-2) Potassium (test code = 4.1 meq/L 3.6-5.5 2823-3) Chloride (test code = 108 meq/L 98-106 H 5-0) CO2 (test code = 18 meq/L 20-29 L 2027-9) BUN (test code = 6 mg/dL 10-26 L 3094-0) Creatinine (test code 0.63 mg/dL 0.50-1.20 = 2160-0) Glucose (test code = 143 mg/dL 70-110 H 2345-7) Calcium (test code = 8.7 mg/dL 8.5-10.5 01731-7) EGFR (test code = 113 mL/min/1.73 sq m [place] [place] [address]-0) NOT ACCURATE CREATININE CLEARANCE IN PREDICTING GLOMERULAR FILTRATION RATE . ESTIMATED GFR I S NOT APPLICABLE FOR DIALYSIS PATIENTS. TODD (test code = TODD) Sql Report Writer ID - [id number] r ID - [id number] r ID - [id number] r ID - [id number] r ID - [id number] r ID - [id number] r ID - [id number] r ID - [id number] r ID - [id number] r ID - [id number] Lab Interpretation Abnormal (test code = 38746-8) [facility] [id number] 05:13:00 Test Item Value Reference Range Interpretation Comments Sodium (test code = 136 meq/L 018-285 9254-2) Potassium (test code = 4.1 meq/L 3.6-5.5 2823-3) Chloride (test code = 108 meq/L 98-106 H 2075-0) CO2 (test code = 18 meq/L 20-29 L 2027-9) BUN (test code = 6 mg/dL 10-26 L 3094-0) Creatinine (test code 0.63 mg/dL 0.50-1.20 = 2160-0) Glucose (test code = 143 mg/dL 70-110 H 2345-7) Calcium (test code = 8.7 mg/dL 8.5-10.5 71991-7) EGFR (test code = 113 mL/min/1.73 [place] [address]-3) NOT ACCURATE CREATININE CLEARANCE IN PREDICTING GLOMERULAR FILTRATION RATE . ESTIMATED GFR I S NOT APPLICABLE FOR DIALYSIS PATIENTS. TODD (test code = TODD) Sql Report Writer ID - [id number] r ID - [id number] r ID - [id number] r ID - [id number] r ID - [id number] r ID - [id number] r ID - [id number] r ID - [id number] r ID - [id number] r ID - [id number] Lab Interpretation Abnormal (test code = 53959-6) [facility] metabolic [id number] 05:13:00 Test Item Value Reference Range Interpretation Comments Sodium (test code = 136 meq/L 031-133 2694-2) Potassium (test code = 4.1 meq/L 3.6-5.5 2823-3) Chloride (test code = 108 meq/L 98-106 H 2075-0) CO2 (test code = 18 meq/L 20-29 L 2028-9) BUN (test code = 6 mg/dL 10-26 L 3094-0) Creatinine (test code 0.63 mg/dL 0.50-1.20 = 2160-0) Glucose (test code = 143 mg/dL 70-110 H 2345-7) Calcium (test code = 8.7 mg/dL 8.5-10.5 31539-7) EGFR (test code = 113 mL/min/1.73 [place] [address]-8) NOT ACCURATE CREATININE CLEARANCE IN PREDICTING GLOMERULAR FILTRATION RATE . ESTIMATED GFR I S NOT APPLICABLE FOR DIALYSIS PATIENTS. TODD (test code = TODD) Sql Report Writer ID - [id number] r ID - [id number] r ID - [id number] r ID - [id number] r ID - [id number] r ID - [id number] r ID - [id number] r ID - [id number] r ID - [id number] r ID - [id number] Lab Interpretation Abnormal (test code = 06389-7) [facility] METABOLIC [id number] 05:13:00 Test Item Value Reference Range Interpretation [...] S NOT APPLICABLE FOR DIALYSIS PATIEN TS. Sql Report Writer ID - [id number] ID - [id number] ID - [id number] ID - [id number] ID - [id number] ID - [id number] ID - [id number] ID - [id number] ID - [id number] ID - [id number] [id number] 05:05:00 Test Item Value Reference Range Interpretation Comments Triglycerides (test 40 mg/dL code = 2571-8) Cholesterol (test code 155 mg/dL = 2093-3) HDL (test code = 52 mg/dL 5-9) LDL Calculated (test 95 mg/dL code = 11404-4) TODD (test code = TODD) Triglyceride Reference Range: Low Risk <150 Borderline 150-199 High Risk 200-499 Very High Risk >=500 Cholesterol Reference Range: Low Risk <200 Borderline 200-239 High Risk >240 HDL Cholesterol Reference Range: Low Risk >=60 High Risk <40 LDL Cholesterol Reference Range: Optimal <100 Near Optimal 100-129 Borderline 130-159 High 160-189 Very High >=190 Sql Report Writer ID - [id number] ID - [id number] ID - [id number] ID - [id number] ID - [id number] ID - [id number] [facility] [id number] 05:05:00 Test Item Value Reference Range Interpretation Comments Triglycerides (test 40 mg/dL code = 2571-8) Cholesterol (test code 155 mg/dL = 3-3) HDL (test code = 52 mg/dL 2084-12) LDL Calculated (test 95 mg/dL code = 76878-3) TODD (test code = TODD) Triglyceride Reference Range: Low Risk <150 Borderline 150-199 High Risk 200-499 Very High Risk >=500 Cholesterol Reference Range: Low Risk <200 Borderline 200-239 High Risk >240 HDL Cholesterol Reference Range: Low Risk >=60 High Risk <40 LDL Cholesterol Reference Range: Optimal <100 Near Optimal 100-129 Borderline 130-159 High 160-189 Very High >=190 Sql Report Writer ID - [id number] ID - [id number] ID - [id number] ID - [id number] ID - [id number] ID - [id number] [facility] [id number] 05:05:00 Test Item Value Reference Range Interpretation Comments Triglycerides (test 40 mg/dL code = 2571-8) Cholesterol (test code 155 mg/dL = 3-3) HDL (test code = 52 mg/dL 2084-12) LDL Calculated (test 95 mg/dL code = 31542-2) TODD (test code = TODD) Triglyceride Reference Range: Low Risk <150 Borderline 150-199 High Risk 200-499 Very High Risk >=500 Cholesterol Reference Range: Low Risk <200 Borderline 200-239 High Risk >240 HDL Cholesterol Reference Range: Low Risk >=60 High Risk <40 LDL Cholesterol Reference Range: Optimal <100 Near Optimal 100-129 Borderline 130-159 High 160-189 Very High >=190 Sql Report Writer ID - [id number] ID - [id number] ID - [id number] ID - [id number] ID - [id number] ID - [id number] [facility] [id number] 05:05:00 Test Item Value Reference Range Interpretation [...] Borderline 130-159 High 160-189 Very High >=190 Sql Report Writer ID - [id number] ID - [id number] ID - [id number] ID - [id number] ID - [id number] ID - [id number] W/PLT COUNT & AUTO [id number] 04:46:00 Test Item Value Reference Range Interpretation [...] % 0-0 PERCENT (BEAKER) (test code = 7991)
[2022-10-15] MEDS ORDERED: MORPHINE 4 MG/ML SYR ONE ×2 (09:40→11:50)
[2022-10-15] MEDS ORDERED: NA CHLORIDE 0.9% 1,000 ML ONE (09:40)
[2022-10-15] MEDS ORDERED: METOCLOPRAMIDE 10 MG/2mL INJ ONE (09:40)
[2022-10-15 09:58] LABS: Specific Gravity 1.028 (1.005-1.030); Urine Bacteria None Seen /HPF (<20); Urine Bilirubin NEGATIVE (Negative); Urine Blood 2+ (Negative); Urine Clarity Clear (Clear); Urine Color Light-Yellow (Yellow); Urine Glucose NEGATIVE (Negative); Urine Mucus Slight /HPF (None Seen); Urine Protein TRACE (Negative); Urine RBC <5 /HPF (None Seen); Urine Urobilinogen Normal (Normal); Urine pH 6.5 (5.0-7.0)
[2022-10-15 10:02] LABS: Absolute Lymphocytes (CBC) 1.1 K/uL (0.7-4.9); Hematocrit 34.2 % (36.0-45.0); Lymphocytes % 12.9 % (15.3-44.8); MCV 70.8 fL (80-100); MPV 8.1 fL (7.6-11.3); RBC Red Blood Cell Count 4.84 M/uL (3.86-4.86)
[2022-10-15 10:04] LABS: Barbiturates NEGATIVE (NEGATIVE); Benzodiazepines NEGATIVE (NEGATIVE); Cocaine NEGATIVE (NEGATIVE); METHAMPHETAM NEGATIVE (NEGATIVE); Methadone NEGATIVE (NEGATIVE); Opiates NEGATIVE (NEGATIVE); Phencyclidine NEGATIVE (NEGATIVE); THC Cannibis POSITIVE (NEGATIVE)
[2022-10-15 10:33] LABS: Albumin 3.2 g/dL (3.4-5.0); Bilirubin Total 0.2 mg/dL (0.2-1.0); Potassium 3.1 mEq/L (3.5-5.1); Protein, Total 6.6 g/dL (6.4-8.2)
[2022-10-15] MEDS ORDERED: METHYLPREDNISOLONE 125 MG INJ ONE (10:45)
[2022-10-15] MEDS ORDERED: POTASSIUM 25 MEQ EFFERV TAB ONE ×2 (11:19→12:53)
[2022-10-15 12:10] LABS: Blood Morphology Comment NOTED (NOT SEEN); Platelet Estimate ADEQ; White Blood Cell Scan OK (OK)
[2022-10-15 12:11] LABS: Platelets, Giant FEW
--- NOTE | 2022-10-15 12:53 | ER ---
Nurse's Notes [facility] Name: Kylie Appiah Age: 32 yrs Sex: Female : 1990 Arrival Date: 10/15/2022 Time: : Bed 13 Private MD: Diagnosis: Indeterminate colitis Presentation: 10/15 09:19 Chief complaint: Patient states: severe abd pain x 3 days. hx of colitis. pt states she kc6 was here last night and sent home. Coronavirus screen: At this time, the client does not indicate any symptoms associated with coronavirus-19. Ebola Screen: No symptoms or risks identified at this time. Initial Sepsis Screen: Does the patient meet any 2 criteria? No. Patient's initial sepsis screen is negative. Does the patient have a suspected source of infection? No. Patient's initial sepsis screen is negative. Risk Assessment: Do you want to hurt yourself or someone else? Patient reports no desire to harm self or others. Onset of symptoms was October 15, 2022. 09:19 Method Of Arrival: Ambulatory kc6 09:19 Acuity: YESSICA 3 kc6 Triage Assessment: : General: Appears in no apparent distress. uncomfortable, Behavior is cooperative, kc6 appropriate for age, crying. Pain: Complains of pain in right upper quadrant, left upper quadrant, right lower quadrant and left lower quadrant Pain does not radiate. Pain currently is 9 out of 10 on a pain scale. Pain began 2-3 days ago. Is continuous, Alleviated by medications, Aggravated by eating, drinking, Noted to be crying, grimacing, guarding, moaning, resistant to movement. EENT: No signs and/or symptoms were reported regarding the EENT system. Neuro: Level of Consciousness is awake, alert, obeys commands, Oriented to person, place, time, situation, Appropriate for age. Cardiovascular: Capillary refill < 3 seconds. Respiratory: Airway is patent Trachea midline Respiratory effort is even, unlabored, Respiratory pattern is regular, symmetrical. GI: Abdomen is flat, non-distended, Bowel sounds present X 4 quads. Abd is soft X 4 quads Abdomen is tender to palpation X 4 quads. Reports lower abdominal pain, upper abdominal pain, diarrhea, bloody stool, nausea, vomiting. : No signs and/or symptoms were reported regarding the genitourinary system. Derm: No signs and/or symptoms reported regarding the dermatologic system. Skin is intact, Skin is dry, Skin is pale, Skin temperature is warm. Musculoskeletal: No signs and/or symptoms reported regarding the musculoskeletal system. Circulation, motion, and sensation intact. Capillary refill < 3 seconds, Range of motion: intact in all extremities. 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 - Social history:: Smoking status: Reported history of juuling and/or vaping. Screenin:22 [facility] ED Fall Risk Assessment (Adult) History of falling in the last 3 months, kc6 including since admission No falls in past 3 months (0 pts) Confusion or Disorientation No (0 pts) Intoxicated or Sedated No (0 pts) Impaired Gait No (0 pts) Mobility Assist Device Used No (0 pt) Altered Elimination No (0 pt) Score/Fall Risk Level 0 - 2 = Low Risk Oriented to surroundings, Maintained a safe environment, Educated pt \\T\\ family on fall prevention, incl call for assistance when getting out of bed, Assessed \\T\\ reinforced patient's understanding of fall precautions, Hourly rounding (assess needs \\T\\ fall precautionary measures) done. Abuse screen: Denies threats or abuse. Denies injuries from another. Nutritional screening: No deficits noted. Tuberculosis screening: No symptoms or risk factors identified. Assessment: 09:22 Reassessment: please see triage assessment. kc6 09:47 Reassessment: Lab contacted to collect blood, pt is a hard stick. . aa5 10:22 Reassessment: Patient appears in no apparent distress at this time. No changes from kc6 previously documented assessment. Patient and/or family updated on plan of care and expected duration. Pain level reassessed. Patient is alert, oriented x 3, equal unlabored respirations, skin warm/dry/pink. 11:18 Reassessment: Patient appears in no apparent distress at this time. No changes from kc6 previously documented assessment. Patient and/or family updated on plan of care and expected duration. Pain level reassessed. Patient is alert, oriented x 3, equal unlabored respirations, skin warm/dry/pink. 12:18 Reassessment: Patient appears in no apparent distress at this time. No changes from kc6 previously documented assessment. Patient and/or family updated on plan of care and expected duration. Pain level reassessed. Patient is alert, oriented x 3, equal unlabored respirations, skin warm/dry/pink. Vital Signs: 09:19 BP 119 / 100; Pulse 79; Resp 19 S; Temp 98(O); Pulse Ox 100% on R/A; Weight 68.04 kg kc6 (R); Height 5 ft. 5 in. (R); Pain 9/10; 10:25 BP 101 / 65; Pulse 47; Resp 16 S; Pulse Ox 100% on R/A; kc6 11:19 BP 98 / 75; Pulse 62; Resp 17 S; Pulse Ox 100% on R/A; kc6 12:28 BP 106 / 74; Pulse 60; Resp 17 S; Pulse Ox 100% on R/A; kc6 09:19 Body Mass Index 24.96 (68.04 kg, 165.1 cm) kc6 09:19 Pain Scale: Adult kc6 ED Course: 09:07 Patient arrived in ED. am2 09:09 Maximo Orellana PA is PHCP. cp 09:09 Wilfredo Goldstein MD is Attending Physician. cp 09:12 Daina Alaniz, SAUL is Primary Nurse. kc6 09:20 Triage completed. kc6 09:20 Arm band placed on. kc6 09:23 Patient has correct armband on for positive identification. Bed in low position. Call kc6 light in reach. Side rails up X 1. 09:24 Inserted saline lock: 20 gauge in right antecubital area, using aseptic technique. kc6 Blood collected. 09:35 IV discontinued, intact, bleeding controlled, No redness/swelling at site. Pressure kc6 dressing applied. 09:45 Inserted saline lock: 20 gauge in left antecubital area, using aseptic technique. kc6 12:52 Enrico Cosme MD is Referral Physician. cp 13:23 No provider procedures requiring assistance completed. IV discontinued, intact, kc6 bleeding controlled, No redness/swelling at site. Pressure dressing applied. Administered Medications: 09:47 Drug: metoCLOPramide IVP 10 mg Route: IVP; Site: left antecubital; kc6 10:26 Follow up: Response: No adverse reaction; Nausea is decreased; Vomiting decreased kc6 09:47 Drug: NS 0.9% IV 1000 ml Route: IV; Rate: 1000 ml/hr; Site: left antecubital; kc6 10:45 Follow up: Response: No adverse reaction; IV Status: Completed infusion; IV Intake: kc6 1000ml 09:48 Drug: morphine IVP or IV 4 mg Route: IVP; Infused Over: 4 mins; Site: left antecubital; kc6 10:26 Follow up: Response: No adverse reaction; Pain is decreased; RASS: Alert and Calm (0) kc6 10:37 CANCELLED (Physician Discretion): MethylPrednisoLONE IVP 80 mg IVP once kc6 10:42 Drug: MethylPrednisoLONE IVP 125 mg Route: IVP; Site: left antecubital; kc6 11:38 Follow up: Response: No adverse reaction kc6 11:15 Drug: Potassium PO Effervescent Tablet 50 mEq Route: PO; kc6 11:38 Follow up: Response: No adverse reaction kc6 11:44 Drug: morphine IVP or IV 4 mg Route: IVP; Infused Over: 4 mins; Site: left antecubital; kc6 13:22 Follow up: Response: No adverse reaction; Pain is decreased; RASS: Alert and Calm (0) kc6 12:53 Drug: Ciprofloxacin PO 500 mg Route: PO; kc6 13:23 Follow up: Response: No adverse reaction kc6 12:53 Drug: metroNIDAZOLE PO 500 mg Route: PO; kc6 13:23 Follow up: Response: No adverse reaction kc6 12:54 Drug: Potassium PO Effervescent Tablet 25 mEq Route: PO; kc6 13:23 Follow up: Response: No adverse reaction kc6 13:22 Drug: Ondansetron IVP 4 mg Route: IVP; Site: left antecubital; kc6 Medication: 13:23 VIS not applicable for this client. kc6 Intake: 10:45 IV: 1000ml; Total: 1000ml. kc6 Outcome: 12:52 Discharge ordered by . cp 13:23 Discharged to home ambulatory. kc6 13:23 Condition: improved 13:23 Discharge instructions given to patient, Instructed on discharge instructions, follow up and referral plans. Demonstrated understanding of instructions, follow-up care. 13:24 Patient left the ED. kc6 Signatures: Evangelina Knott, RN RN aa5 Maximo Orellana PA PA cp Moreno, Amanda am2 Daina Alaniz, RN RN kc6
--- NOTE | 2022-10-15 12:53 | EDPHYS ---
[facility] Name: Kylie Appiah Age: 32 yrs Sex: Female : 1990 Arrival Date: 10/15/2022 Time: 09: Bed 13 Private MD: ED Physician Wilfredo Goldstein HPI: 10/15 09:20 This 32 yrs old Female presents to ER via Ambulatory with complaints of cp Abdominal Pain. 09:20 The patient presents with abdominal pain. Onset: The symptoms/episode began/occurred 3 cp day(s) ago. 09:20 Associated signs and symptoms: Pertinent positives: nausea, loose stools, Pertinent cp negatives: blood in stools, chest pain, constipation, diarrhea, fever, active vomiting. The symptoms are described as constant. 09:20 Severity of pain: in the emergency department the pain is unchanged despite home cp interventions. The patient has experienced similar episodes in the past, multiple times. The patient has been recently seen at the [facility] Emergency Department, yesterday, for similar complaints CT scan was performed, was given IV fluids, was given a prescription for antibiotics, was given a prescription for pain medications, was given a prescription for an antiemetic. 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 - Social history:: Smoking status: Reported history of juuling and/or vaping. ROS: 09:30 Constitutional: Negative for body aches, chills, fever. cp 09:30 Eyes: Negative for injury, pain, redness, and discharge. cp 09:30 ENT: Negative for drainage from ear(s), ear pain, sore throat, difficulty swallowing, difficulty handling secretions. 09:30 Cardiovascular: Negative for chest pain, palpitations. 09:30 Respiratory: Negative for cough, shortness of breath, wheezing. 09:30 Abdomen/GI: Positive for abdominal pain, nausea, Negative for diarrhea, constipation, black/tarry stool, rectal bleeding, active vomiting. 09:30 : Negative for urinary symptoms. 09:30 Neuro: Negative for altered mental status, dizziness, headache, weakness. 09:30 All other systems are negative. Exam: 09:33 Constitutional: The patient appears in no acute distress, alert, awake, non-toxic, well cp developed, well nourished, uncomfortable. 09:33 Head/Face: Normocephalic, atraumatic. cp 09:33 Eyes: Periorbital structures: appear normal, Conjunctiva: normal, no exudate, no injection, Sclera: no appreciated abnormality, Lids and lashes: appear normal, bilaterally. 09:33 ENT: External ear(s): are unremarkable, Nose: is normal, Mouth: Lips: moist, Oral mucosa: pink and intact, moist, Posterior pharynx: is normal, airway is patent, no erythema, no exudate. 09:33 Chest/axilla: Inspection: normal. 09:33 Cardiovascular: Rate: normal, Rhythm: regular. 09:33 Respiratory: the patient does not display signs of respiratory distress, Respirations: normal, no use of accessory muscles, no retractions, labored breathing, is not present, Breath sounds: are clear throughout, no decreased breath sounds, no stridor, no wheezing. 09:33 Abdomen/GI: Inspection: abdomen appears normal, Bowel sounds: active, all quadrants, Palpation: soft, in all quadrants, severe abdominal tenderness, in all quadrants, rebound tenderness, is not appreciated, voluntary guarding, is elicited in all quadrants. 09:33 Back: pain, is absent, ROM is normal. 09:33 Neuro: Orientation: to person, place \\T\\ time. Mentation: is normal, Motor: moves all fours, strength is normal. Vital Signs: 09:19 BP 119 / 100; Pulse 79; Resp 19 S; Temp 98(O); Pulse Ox 100% on R/A; Weight 68.04 kg kc6 (R); Height 5 ft. 5 in. (R); Pain 9/10; 10:25 BP 101 / 65; Pulse 47; Resp 16 S; Pulse Ox 100% on R/A; kc6 11:19 BP 98 / 75; Pulse 62; Resp 17 S; Pulse Ox 100% on R/A; kc6 12:28 BP 106 / 74; Pulse 60; Resp 17 S; Pulse Ox 100% on R/A; kc6 09:19 Body Mass Index 24.96 (68.04 kg, 165.1 cm) [facility] 09:19 Pain Scale: Adult kc6 MDM: 09:13 Patient medically screened. 10:00 Differential diagnosis: pancreatitis, Peritonitis, chronic pain, sepsis. 12:45 Data reviewed: vital signs, nurses notes, old medical records, notes, report of CT cp abdomen/pelvis from ysterday lab test result(s). Consideration of Admission/Observation Escalation of care including admission/observation considered. Response to treatment: the patient's symptoms have markedly improved after treatment, and as a result, I will discharge patient. ED course: VSS. Rectal exam negative for blood. Pain and nausea improved. Patient admits that she has not filled RXs from yesterday at this time. Will discharge to home for continued monitoring and to f/u outpatient with GI. 12:51 I considered the following discharge prescriptions or medication management in the emergency department Medications were administered in the Emergency Department. See MAR. 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 10/15 09:18 Order name: CBC with Diff; Complete Time: 12:35 10/15 10:13 Interpretation: Normal except: HGB 10.6; HCT 34.2; MCV 70.8; MCH 22.0; MCHC 31.1; RDW cp 19.2; SWAPNA% 82.1; LYM% 12.9. 10/15 09:18 Order name: CMP; Complete Time: 11:03 10/15 11:03 Interpretation: Normal except: K 3.1; CL 114; CO2 20; GLUC 110; BUN 6; CRE 0.45; AST cp 74; ALT 88; ALK 122; CA 8.2; ALB 3.2; A/G 0.9. 10/15 09:18 Order name: Lipase; Complete Time: 11:03 10/15 09:19 Order name: Urinalysis W/Microscopic; Complete Time: 10:13 10/15 09:27 Order name: UDS; Complete Time: 10:13 10/15 10:13 Interpretation: Normal except: THC POSITIVE. 10/15 10:08 Order name: CBC Smear Scan; Complete Time: 12:35 EDMS 10/15 12:36 Interpretation: Reviewed. 10/15 09:18 Order name: IV Saline Lock; Complete Time: 09:23 10/15 09:18 Order name: Labs collected and sent; Complete Time: 09:23 10/15 10:02 Order name: Labs - recollect needed: recollect green top; Complete Time: 10:11 bd Administered Medications: 09:47 Drug: metoCLOPramide IVP 10 mg Route: IVP; Site: left antecubital; kc6 10:26 Follow up: Response: No adverse reaction; Nausea is decreased; Vomiting decreased kc6 09:47 Drug: NS 0.9% IV 1000 ml Route: IV; Rate: 1000 ml/hr; Site: left antecubital; kc6 10:45 Follow up: Response: No adverse reaction; IV Status: Completed infusion; IV Intake: kc6 1000ml 09:48 Drug: morphine IVP or IV 4 mg Route: IVP; Infused Over: 4 mins; Site: left antecubital; kc6 10:26 Follow up: Response: No adverse reaction; Pain is decreased; RASS: Alert and Calm (0) kc6 10:37 CANCELLED (Physician Discretion): MethylPrednisoLONE IVP 80 mg IVP once kc6 10:42 Drug: MethylPrednisoLONE IVP 125 mg Route: IVP; Site: left antecubital; kc6 11:38 Follow up: Response: No adverse reaction kc6 11:15 Drug: Potassium PO Effervescent Tablet 50 mEq Route: PO; kc6 11:38 Follow up: Response: No adverse reaction kc6 11:44 Drug: morphine IVP or IV 4 mg Route: IVP; Infused Over: 4 mins; Site: left antecubital; kc6 13:22 Follow up: Response: No adverse reaction; Pain is decreased; RASS: Alert and Calm (0) kc6 12:53 Drug: Ciprofloxacin PO 500 mg Route: PO; kc6 13:23 Follow up: Response: No adverse reaction kc6 12:53 Drug: metroNIDAZOLE PO 500 mg Route: PO; kc6 13:23 Follow up: Response: No adverse reaction kc6 12:54 Drug: Potassium PO Effervescent Tablet 25 mEq Route: PO; kc6 13:23 Follow up: Response: No adverse reaction kc6 13:22 Drug: Ondansetron IVP 4 mg Route: IVP; Site: left antecubital; kc6 Disposition: 15:02 Co-signature as Attending Physician, Wilfredo Goldstein MD I agree with the assessment and kdr plan of care. Disposition Summary: 10/15/22 12:52 Discharge Ordered Location: Home cp Problem: an ongoing problem cp Symptoms: have improved cp Condition: Stable cp Diagnosis - Indeterminate colitis cp Followup: cp - With: Enrico Cosme MD - When: 2 - 3 days - Reason: Recheck today's complaints Discharge Instructions: - Discharge Summary Sheet cp - Colitis cp Forms: - Medication Reconciliation Form cp - Thank You Letter cp - Antibiotic Education cp - Prescription Opioid Use cp Signatures: Dispatcher [employer] EDMS Cassandra Chang Kevin, MD MD kdr Maximo Orellana PA PA cp Daina Alaniz RN RN kc6 Corrections: (The following items were deleted from the chart) 10:37 10:23 MethylPrednisoLONE IVP 80 mg IVP once ordered. cp kc6 10:37 10:37 MethylPrednisoLONE IVP 80 mg IVP once ordered. kc6 kc6 10/16 00:53 00:52 I considered the following discharge prescriptions or medication management in cp the emergency department Medications were administered in the Emergency Department. 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
[2022-10-15] MEDS ORDERED: CIPROFLOXACIN HCL 500 MG TAB ONE (12:59)
[2022-10-15] MEDS ORDERED: metroNIDAZOLE 500 MG TABLET ONE (12:59)
[2022-10-15] MEDS ORDERED: ONDANSETRON 4 MG/2 ML VIAL ONE (13:25)
[2022-10-15 13:47] VITALS: TEMP 98; O2SAT 100
[2022-10-15 14:01] VITALS: BP 106/74
== END 2022-10-15 13:24 | disposition home or self-care (01) ==
LOC: ER 09:06
DX: K52.3 Indeterminate colitis (principal); Z88.0 Allergy status to penicillin; Z88.6 Allergy status to analgesic agent
CPT/HCPCS: 85025; 81001; 36415; 83690; 80053; 80307; J2765; J2930; J2405; J7030

== ENCOUNTER → 2023-07-16 | Emergency (ER) | payer OTHER ==
[~2023-07-16] MED LIST: CYCLOBENZAPRINE 10 MG TAB ONE; MORPHINE 2 MG/ML SYR ONE; ONDANSETRON 4 MG/2 ML VIAL ONE; dexAMETHasone 10 MG/ML VIAL ONE
[2023-07-16 18:37] LABS: Absolute Basophils 0.1 K/uL (0-0.5); Absolute Eosinophils 0.3 K/uL (0-0.5); Absolute Lymphocytes (CBC) 2.1 K/uL (0.7-4.9); Absolute Monocytes 0.5 K/uL (0.1-1.3); Absolute Neutrophil 5.2 K/uL (1.8-8.0); Eosinophils % 3.1 % (0-4.4); Hematocrit 35.3 % (36.0-45.0); Hemoglobin 11.2 g/dL (12.0-15.0); Lymphocytes % 26.1 % (15.3-44.8); MCH 22.3 pg (27.0-35.0); MCHC 31.9 g/dL (32.0-36.0); MPV 7.8 fL (7.6-11.3); Monocytes % 6.1 % (3.3-12.3); Neutrophils % 63.7 % (41.7-73.7); Nucleated Red Blood Cells % 0.1 % (0-0); Platelets 433 thou/uL (152-406); RBC Red Blood Cell Count 5.03 M/uL (3.86-4.86); Red Cell Distribution Width 18.6 % (12.1-15.2)
[2023-07-16 18:55] LABS: Anion Gap 9.8 mEq/L (5.0-15.0); BUN Blood Urea Nitrogen 11 mg/dL (7-18); Bicarbonate 24 mEq/L (21-32); Glomerular Filtration Rate 111 ml/min (=/>90); Glucose Level 103 mg/dL (74-106); Potassium 3.8 mEq/L (3.5-5.1); Sodium Level 138 mEq/L (136-145)
[2023-07-16 18:58] LABS: Troponin High Sensitivity < 3.0 pg/mL (<58.9)
--- NOTE | 2023-07-16 19:25 | RAD REPORT ---
EXAM DESCRIPTION: Abimael Single View07/16/2023 7:10 pm CLINICAL HISTORY: Chest pain COMPARISON: 2019 FINDINGS: Right lung base mildly hazy. The remainder of the lungs appear clear of acute infiltrate. The heart is normal size IMPRESSION: Right lung base mildly hazy most likely confluence of overlying soft tissue normal pulmo nary vessels. An infiltrate is considered less likely. PA and lateral chest series would be helpful f or further evaluation
--- NOTE | 2023-07-16 20:31 | RAD REPORT ---
EXAM DESCRIPTION: Abimael Pa And Lat (2 Views)07/16/2023 8:09 pm CLINICAL HISTORY: Cough COMPARISON: July 16, 2023 FINDINGS: Area of subsegmental atelectasis left lung base Otherwise lungs appear clear. The heart is normal size
--- NOTE | 2023-07-16 21:49 | ER ---
Nurse's Notes [facility] Name: Kylie Appiah Age: 32 yrs Sex: Female : 1990 Arrival Date: 07/16/2023 Time: 17:40 Bed 14 Private MD: Diagnosis: Chest pain on breathing Presentation: 07/15 17:53 Chief complaint: Patient states: Right chest pain with cough since yesterday. Denies ld1 injury. Coronavirus screen: At this time, the client does not indicate any symptoms associated with coronavirus-19. Ebola Screen: No symptoms or risks identified at this time. Initial Sepsis Screen: Does the patient meet any 2 criteria? No. Patient's initial sepsis screen is negative. Does the patient have a suspected source of infection? No. Patient's initial sepsis screen is negative. Risk Assessment: Do you want to hurt yourself or someone else? Patient reports no desire to harm self or others. Onset of symptoms was July 16, 2023. 17:53 Method Of Arrival: Ambulatory ld1 17:53 Acuity: YESSICA 3 ld1 Triage Assessment: 17:54 General: Appears in no apparent distress. comfortable, Behavior is cooperative, ld1 anxious. Pain: Complains of pain in anterior aspect of right upper chest and right breast Pain does not radiate. Pain currently is 8 out of 10 on a pain scale. Quality of pain is described as throbbing, Pain began suddenly, Is continuous. EENT: No signs and/or symptoms were reported regarding the EENT system. Neuro: Level of Consciousness is awake, alert, obeys commands, Oriented to person, place, time, situation. Cardiovascular: Capillary refill < 3 seconds Patient's skin is warm and dry. Rhythm is sinus rhythm. Cardiovascular: Reports chest pain. Respiratory: Airway is patent Respiratory effort is even, unlabored. GI: Abdomen is round non-distended. : No signs and/or symptoms were reported regarding the genitourinary system. Derm: No signs and/or symptoms reported regarding the dermatologic system. Historical: - Allergies: 17:54 NSAIDS (Non-Steroidal Anti-Inflammatory Drug); ld1 17:54 PENICILLINS (Hives); ld1 - PMHx: 17:54 Anemia; Anxiety; Colitis; GALLSTONES; Kidney stone; Ovarian cyst; left; ulcerative ld1 colitis; Ulcers; Ulcerative colitis; - PSHx: 17:54 Cholecystectomy; Ligation of fallopian tube; section; ld1 - Immunization history:: Adult Immunizations up to date. - Social history:: Smoking status: Patient denies any tobacco usage or history of. Patient/guardian denies using alcohol. Screenin:24 [facility] ED Fall Risk Assessment (Adult) History of falling in the last 3 months, mb9 including since admission No falls in past 3 months (0 pts) Confusion or Disorientation No (0 pts) Intoxicated or Sedated No (0 pts) Impaired Gait No (0 pts) Mobility Assist Device Used No (0 pt) Altered Elimination No (0 pt) Score/Fall Risk Level 0 - 2 = Low Risk Oriented to surroundings, Maintained a safe environment, Educated pt \\T\\ family on fall prevention, incl call for assistance when getting out of bed. Abuse screen: Denies threats or abuse. Nutritional screening: No deficits noted. Tuberculosis screening: No symptoms or risk factors identified. Assessment: 18:29 General: Appears uncomfortable, Behavior is calm, cooperative. Pain: Complains of pain mb9 in chest Pain currently is 9 out of 10 on a pain scale. Quality of pain is described as pressure, throbbing, Pain began 1 day ago. Is continuous. Pain: Pain does not radiate. Neuro: Biggs Agitation-Sedation Scale (RASS): 0 - Alert and Calm Level of Consciousness is awake, alert, obeys commands, Oriented to person, place, time, situation, Appropriate for age. Cardiovascular: Reports chest pain, Heart tones S1 S2 present Patient's skin is warm and dry. Rhythm is regular. Respiratory: Reports cough that is Airway is patent Respiratory effort is even, unlabored, Respiratory pattern is regular, symmetrical, Breath sounds are clear bilaterally. GI: Abdomen is round non-distended, Bowel sounds present X 4 quads. Abd is soft and non tender X 4 quads. : No signs and/or symptoms were reported regarding the genitourinary system. EENT: No signs and/or symptoms were reported regarding the EENT system. Derm: Skin is pink, warm \\T\\ dry. Musculoskeletal: Range of motion: intact in all extremities. 19:28 Reassessment: No changes from previously documented assessment. Patient and/or family vc1 updated on plan of care and expected duration. Pain level reassessed. Patient is alert, oriented x 3, equal unlabored respirations, skin warm/dry/pink. 20:30 Reassessment: Patient appears in no apparent distress at this time. No changes from vc1 previously documented assessment. Patient and/or family updated on plan of care and expected duration. Pain level reassessed. 22:00 Reassessment: Patient and/or family updated on plan of care and expected duration. Pain vc1 level reassessed. Patient is alert, oriented x 3, equal unlabored respirations, skin warm/dry/pink. Patient states feeling better. Patient states symptoms have improved. Vital Signs: 17:53 Pulse 79; Resp 18; Temp 97.6(TE); Pulse Ox 100% on R/A; Weight 76.2 kg; Height 5 ft. 0 ld1 in. ; Pain 8/10; 17:55 BP 125 / 91; ld1 18:30 BP 132 / 97; Pulse 80; Resp 18; Pulse Ox 100% on R/A; mb9 19:00 BP 121 / 83; Pulse 93; Resp 15; Pulse Ox 100% ; vc1 20:00 BP 136 / 94; Pulse 81; Resp 19; Pulse Ox 99% ; vc1 21:00 BP 125 / 87; Pulse 87; Resp 17; Pulse Ox 99% ; vc1 22:00 BP 122 / 80; Pulse 82; Resp 20; Temp 98; Pulse Ox 98% ; vc1 17:53 Body Mass Index 32.81 (76.20 kg, 152.4 cm) ld1 17:53 Pain Scale: Adult ld1 ED Course: 17:41 Patient arrived in ED. mg5 17:48 Perlita [facility]in [facility]C [facility] kb 17:48 Nathanael Calix MD is Attending Physician. kb 17:54 Triage completed. ld1 17:55 Arm band placed on right wrist. ld1 18:21 Dianne Painter RN is Primary Nurse. mb9 18:23 Placed in gown. Bed in low position. Call light in reach. Side rails up X 1. Provided mb9 Education on: press call light if needing anything. Client placed on continuous cardiac and pulse oximetry monitoring. NIBP monitoring applied. air sampling and monitoring on. 18:23 Inserted saline lock: 20 gauge in right antecubital area, using aseptic technique. mb9 Blood collected. 18:29 No provider procedures requiring assistance completed. EKG done, by ED staff, reviewed mb9 by Perlita VILLATORO. Patient maintains SpO2 saturation greater than 95% on room air. 19:02 Report given to SAUL Liu. mb9 19:12 XRAY Chest (1 view) In Process Unspecified. EDMS 19:51 Primary Nurse role handed off by Dianne Painter RN mb9 20:11 Chest Pa And Lat (2 Views) XRAY In Process Unspecified. EDMS 20:21 Alexa Arceo RN is Primary Nurse. vc1 20:21 heat applied to chest. vc1 22:32 IV discontinued, intact, bleeding controlled, No redness/swelling at site. Pressure vc1 dressing applied. Administered Medications: 20:21 Drug: morphine IVP or IV 2 mg IVP once over 4 mins Route: IVP; Infused Over: 4 mins; vc1 Site: right antecubital; 22:32 Follow up: Response: No adverse reaction; Marked relief of symptoms vc1 20:21 Drug: Ondansetron IVP 4 mg IVP once; over 2 minutes Route: IVP; Site: right antecubital;vc1 22:32 Follow up: Response: No adverse reaction; Marked relief of symptoms vc1 22:09 Drug: Cyclobenzaprine PO 10 mg PO once Route: PO; vc1 22:33 Follow up: Response: Medication administered at discharge. vc1 22:09 Drug: Decadron - Dexamethasone IVP 10 mg IVP once Route: IVP; Site: right antecubital; vc1 Medication: 18:24 VIS not applicable for this client. mb9 Outcome: 21:32 Discharge ordered by . beverly 22:31 Discharged to home ambulatory, vc1 22:31 Condition: good 22:31 Discharge instructions given to patient, Instructed on discharge instructions, follow up and referral plans. medication usage, Demonstrated understanding of instructions, follow-up care, medications, Prescriptions given X 2, 22:32 Patient left the ED. 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 Denies injury ld1 ld1
--- NOTE | 2023-07-16 21:49 | EDPHYS ---
Physician Documentation [facility] Name: Kylie Appiah Age: 32 yrs Sex: Female : 1990 Arrival Date: 07/16/2023 Time: 17:40 Bed 14 Private MD: ED Physician Nathanael Calix HPI: 07/15 21:30 This 32 yrs old Female presents to ER via Ambulatory with complaints of Chest kb Pain. 21:30 Patient is a 32-year-old female who presents for right sided chest pain that is breath kb with cough, deep breath and palpation. Denies palpitations, shortness of breath, nausea, vomiting, diarrhea, fever.. Historical: - Allergies: 17:54 NSAIDS (Non-Steroidal Anti-Inflammatory Drug); ld1 17:54 PENICILLINS (Hives); ld1 - PMHx: 17:54 Anemia; Anxiety; Colitis; GALLSTONES; Kidney stone; Ovarian cyst; left; ulcerative ld1 colitis; Ulcers; Ulcerative colitis; - PSHx: 17:54 Cholecystectomy; Ligation of fallopian tube; section; ld1 - Immunization history:: Adult Immunizations up to date. - Social history:: Smoking status: Patient denies any tobacco usage or history of. Patient/guardian denies using alcohol. ROS: 21:26 Constitutional: As per HPI kb Exam: 21:26 Constitutional: This is a well developed, well nourished patient who is awake, alert, kb and in no acute distress. Head/Face: Normocephalic, atraumatic. ENT: Moist Mucous membranes Cardiovascular: Regular rate Respiratory: Respirations even and unlabored. No increased work of breathing. Talking in full sentences Abdomen/GI: Soft, non-tender. No distention Skin: Warm, dry with normal turgor. Normal color. MS/ Extremity: Pulses equal, no cyanosis. Neurovascular intact. Full, normal range of motion. Neuro: Awake and alert, GCS 15, oriented to person, place, time, and situation. Moves all extremities. Normal gait. 21:26 Chest/axilla: Inspection: normal, Palpation: tenderness, that is moderate, of the anterior aspect of right upper chest, Vital Signs: 17:53 Pulse 79; Resp 18; Temp 97.6(TE); Pulse Ox 100% on R/A; Weight 76.2 kg; Height 5 ft. 0 ld1 in. ; Pain 8/10; 17:55 BP 125 / 91; ld1 18:30 BP 132 / 97; Pulse 80; Resp 18; Pulse Ox 100% on R/A; mb9 19:00 BP 121 / 83; Pulse 93; Resp 15; Pulse Ox 100% ; vc1 20:00 BP 136 / 94; Pulse 81; Resp 19; Pulse Ox 99% ; vc1 21:00 BP 125 / 87; Pulse 87; Resp 17; Pulse Ox 99% ; vc1 22:00 BP 122 / 80; Pulse 82; Resp 20; Temp 98; Pulse Ox 98% ; vc1 17:53 Body Mass Index 32.81 (76.20 kg, 152.4 cm) ld1 17:53 Pain Scale: Adult ld1 MDM: 17:48 Patient medically screened. kb 21:27 Data reviewed: vital signs, nurses notes. kb 21:30 Differential diagnosis: abnormal EKG, acute myocardial infarction, coronary artery kb disease chest wall pain, pleurisy. Counseling: I had a detailed discussion with the patient and/or guardian regarding the historical points, exam findings, and any diagnostic results supporting the discharge/admit diagnosis, lab results, radiology results, the need for outpatient follow up, a family practitioner, to return to the emergency department if symptoms worsen or persist or if there are any questions or concerns that arise at home. 21:31 Test considered but Not performed: CT: ct chest considered, but d-dimer normal. kb 07/15 18:00 Order name: Basic Metabolic Panel; Complete Time: 18:59 kb 07/15 18:00 Order name: CBC with Diff; Complete Time: 18:42 kb 07/15 18:00 Order name: D-Dimer; Complete Time: 18:42 kb 07/15 18:00 Order name: Troponin HS; Complete Time: 18:59 kb 07/15 18:00 Order name: XRAY Chest (1 view); Complete Time: 19:41 kb 07/15 19:42 Order name: Chest Pa And Lat (2 Views) XRAY; Complete Time: 20:32 kb 07/15 18:00 Order name: EKG; Complete Time: 18:00 kb 07/15 18:00 Order name: Cardiac monitoring; Complete Time: 18:24 kb 07/15 18:00 Order name: EKG - Nurse/Tech; Complete Time: 18:29 kb 07/15 18:00 Order name: IV Saline Lock; Complete Time: 18:24 kb 07/15 18:00 Order name: Labs collected and sent; Complete Time: 18:24 kb 07/15 18:00 Order name: O2 Per Protocol; Complete Time: 18:24 kb 07/15 18:00 Order name: O2 Sat Monitoring; Complete Time: 18:24 kb Administered Medications: 20:21 Drug: morphine IVP or IV 2 mg IVP once over 4 mins Route: IVP; Infused Over: 4 mins; vc1 Site: right antecubital; 22:32 Follow up: Response: No adverse reaction; Marked relief of symptoms vc1 20:21 Drug: Ondansetron IVP 4 mg IVP once; over 2 minutes Route: IVP; Site: right antecubital;vc1 22:32 Follow up: Response: No adverse reaction; Marked relief of symptoms vc1 22:09 Drug: Cyclobenzaprine PO 10 mg PO once Route: PO; vc1 22:33 Follow up: Response: Medication administered at discharge. vc1 22:09 Drug: Decadron - Dexamethasone IVP 10 mg IVP once Route: IVP; Site: right antecubital; vc1 Disposition Summary: 07/16/23 21:32 Discharge Ordered Notes: Location: Home kb Condition: Stable kb Diagnosis - Chest pain on breathing kb Followup: kb - With: Emergency Department - When: As needed - Reason: Worsening of condition Followup: kb - With: Private Physician - When: 2 - 3 days - Reason: Recheck today's complaints, Continuance of care, Re-evaluation by your physician Discharge Instructions: - Discharge Summary Sheet kb - Chest Wall Pain, [id number] kb Forms: - Medication Reconciliation Form kb - Thank You Letter kb - Antibiotic Education kb - Prescription Opioid Use kb - Patient Portal Instructions kb - Leadership Thank You Letter kb Prescriptions: - Prednisone 20 mg Oral Tablet - take 1 tablet ORAL route once daily for 5 days; 5 tablet; Refills: 0, Product kb Selection Permitted - orphenadrine citrate 100 mg Oral Tablet Sustained Release - take 1 tablet ORAL route 2 times per day As needed; 20 tablet; Refills: 0, kb Product Selection Permitted Signatures: Dispatcher [employer] Perlita Johnson FNP-C FNP-Loan Ramirez, RN RN ld1 Alexa Arceo RN RN vc1 Corrections: (The following items were deleted from the chart) 17:54 17:54 PMHx: Seizures; 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 EDMS EDMS 22:00 18:00 Urinalysis+U.LAB.BRZ ordered. EDMS EDMS
[2023-07-16 23:12] VITALS: TEMP 98; O2SAT 98
[2023-07-16 23:13] VITALS: BP 122/80
--- NOTE | 2023-07-17 14:24 | EKG ---
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
== END ==
LOC: ER 17:40
DX: R07.1 Chest pain on breathing (principal); Z88.0 Allergy status to penicillin; Z88.6 Allergy status to analgesic agent
CPT/HCPCS: 85025; 80048; 36415; 85379; 84484; 71045; 71046; J1100; J2270; J2405; 93005

== ENCOUNTER 2024-03-23 12:25 | Emergency (ER) | payer SELFPAY, OTHER ==
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
[2024-03-23 13:21] LABS: Absolute Basophils 0.1 K/uL (0-0.5); Absolute Eosinophils 0.2 K/uL (0-0.5); Absolute Lymphocytes (CBC) 2.1 K/uL (0.7-4.9); Absolute Monocytes 0.7 K/uL (0.1-1.3); Absolute Neutrophil 8.3 K/uL (1.8-8.0); Basophils % 0.5 % (0-1.3); Eosinophils % 1.6 % (0-4.4); Hematocrit 34.5 % (36.0-45.0); Hemoglobin 10.6 g/dL (12.0-15.0); Lymphocytes % 18.4 % (15.3-44.8); MCH 22.8 pg (27.0-35.0); MCHC 30.8 g/dL (32.0-36.0); MCV 74.1 fL (80-100); MPV 7.8 fL (7.6-11.3); Neutrophils % 73.5 % (41.7-73.7); Platelets 389 thou/uL (152-406); RBC Red Blood Cell Count 4.65 M/uL (3.86-4.86); Red Cell Distribution Width 17.1 % (12.1-15.2)
--- NOTE | 2024-03-23 13:25 | RAD REPORT ---
Exam:Wrist Right 3 View HISTORY: Right wrist pain FINDINGS: Subtle lucency base fifth metacarpal is equivocal for nondisplaced fracture. This should be correlate d clinically. No dislocation
[2024-03-23 13:39] LABS: PT Prothrombin Time 12.3 SECONDS (9.4-12.5); PTT, Activated Partial Thromb 30.7 SECONDS (24.3-36.9); Protime INR 1.1
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
[2024-03-23] MEDS ORDERED: HYDROCODONE/APAP 5/325 MG TAB ONE (14:18)
[2024-03-23 18:03] VITALS: O2SAT 100
[2024-03-23 18:04] VITALS: BP 112/63
== END 2024-03-23 14:41 | disposition home or self-care (01) ==
LOC: ER 12:25
DX: S62.346A Nondisplaced fracture of base of fifth metacarpal bone, right hand, initial encounter for closed fracture (principal); V49.40XA Driver injured in collision with unspecified motor vehicles in traffic accident, initial encounter
CPT/HCPCS: 36415; 70450; 71260; 72125; 74177; 85025; 85610; 85730; 99284; Q9967

== ENCOUNTER 2024-12-22 09:17 | Emergency (ER) | payer OTHER, SELFPAY ==
--- OUTSIDE RECORDS SUMMARY | 2024-12-22 09:23 | XMS REPORT | Continuity of Care Document ---
Author Name Unknown Address [address] [facility] [place] [address] [facility] Address [address] [facility] [place] [address] Support Name Relationship Address Phone BRITTANY APPIAH [facility] [address] [place] [address] [phone] UNEMPLOYED EMR Unknown Unavailable Brittayn Appiah Mother [address] [place] [address] Brittany Appiah Mother [address] [place] [address] MD HERB OH Emergency Provider [address] [facility] [address] [place] [address] JACKLYN SALAZAR-C Primary Care Physician [address] [place] [address] [place] [address] MD MARC MUNOZ Emergency Provider [address] [place] [address] LAURIE APPIAH Emergency Contact [address] [place] [address] Unavailable OTHER, ENTER NAME IN NOTES Primary Care Physician Unknown Unavailable MD DONALD RAMIREZ Emergency Provider Unknown Unava MD LEIA Mirza Emergency Provider [address] [place] [address] KRISTAJHONY Tolentino Emergency Contact [address] [place] [address] Unavailable JACKLYN SALAZAR-Tono Primary Care Physician [address] [place] [address] MD MISA ASH JR Admitting Provider [address] [place] [address] MD LOYD HERNANDEZ Emergency Provider [address] [place] [address] MD FELICE GRANDE Emergency Provider [address] [place] [address] MD ANASTACIO ALCOCER Emergency Provider [address] [place] [address] KRISTAJHONY Tolentino Emergency Contact [address] [place] [address] MD SHALINI MARIA Emergency Provider [address] [place] [address] MD MARINO REDD Emergency Provider [address] [place] [address] MD BETTINA SHETH Emergency Provider [facility] [employer], [place] [address] BRITTANY APPIAH M [address] [place] [address] KristaBrittany tolentino Mother [address] [place] [address] Care Team Providers Care Wedger Machine Name Role Phone HOPE PLASCENCIA Primary Care Physician Unavailab DR BOBBY Gaviria Attending Clinician Unavailab bre [id number] Attending Clinician Unavailable [id number] Attending Clinician Unavailable DR LILIBETH DURON Attending Clinician Unavaila ble [phone] Attending Clinician Unavailable [id number] Attending Clinician Unavailable ADRIÁN COOK Attending Clinician Unavailabl Prabha Rodriges DO Attending Clinician [phone] DR HOPE PLASCENCIA Attending Clinician Unavailóscar littlejohn [id number] Attending Clinician Unavailable [id number] Attending Clinician Unavailable EMIR PEREZ Attending Clinician Unavailable Dimitri Sung Attending Clinician [phone] Dimitri SU Attending Clinician Unavailable BETTINA SHETH Attending Clinician Unavailable DR BRAULIO LOPES Attending Clinician Unavailable [id number] Attending Clinician Unavailable MARINO REDD Attending Clinician UnavailSHALINI Howard Attending Clinician Unavailable ANASTACIO ALCOCER Attending Clinician Unavailable MISA ASH Attending Clinician Unavailable Adrián Cook MD Attending Clinician Dianne Timmons RN Attending Clinician [phone] Barbara Nair S Attending Clinician [phone] Cindy Wright MD Attending Clinician [phone] Doctor Unassigned, [place] Attending Clinician U Татьяна Chavez Attending Clinician [phone] LEIA BARCENAS Attending Clinician Unavail roberth CUMMINGS, DR ROSALES Admitting Clinician Unavailab Menjivar, DR MCELROY Admitting Clinician Unavaila ADRIÁN Maradiaga Admitting Clinician Unavailóscar PLASCENCIA, DR ARNETT Admitting Clinician UnavailEMIR Lambert Admitting Clinician Unavailable Dimitri SU Admitting Clinician Unavailable MOSES, DR BRUALIO Lora Admitting Clinician Unavailable MISA ASH Admitting Clinician Unavailable Payers Payer Name Policy Type Policy Number Effective Date Expirati on Date Source [place] [id number] [place] [id number] [place] [id number] [place] [id number] [place] [facility] [place] [id number] 2023 00:00:00 Problems Condition Name Condition Details Condition Category Status Onset Date Resolution Date Last Treatment Date Treating Clinician Comments Source Acute cough Acute cough Disease Active 07-11 00:00: 00 [facility] Upper respirator y tract infection, unspecifie d type Upper respirator y tract infection, unspecifie d type Disease Active 07-11 00:00: 00 [facility] Viral bronchitis Viral bronchitis Disease Active 07-11 00:00: 00 [facility] Acute cough Acute cough Disease Active 07-11 00:00: 00 [facility] Chest wall pain Chest wall pain Disease Active 07-11 00:00: 00 [facility] Colitis Colitis Disease Active 05-20 00:00: 00 [facility] Abdominal pain Abdominal pain Disease Active 11-14 00:00: 00 [facility] Ulcerative colitis Ulcerative colitis Disease Active 11-13 00:00: 00 [facility] Obesity (BMI 30-39.9) Obesity (BMI 30-39.9) Disease Active 11-13 00:00: 00 [facility] Polysubsta nce overdose, undetermin ed intent, initial encounter Polysubsta nce overdose, undetermin ed intent, initial encounter Disease Active 2014-04 00:00: 00 [facility] Allergies, Adverse Reactions, Alerts Allergy Name Allergy Type Status Severity Reaction(s) Onset Date Inactive Date Treating Clinician Comments Source PENICILL INS Allergy Active 05-20 00:00: 00 [facility] Nsaids (Non-Juvenal roidal Anti-Inf lammator y Drug) Propensi ty to adverse reaction s Active 05-20 00:00: 00 [facility] Penicill ins Propensi ty to adverse reaction s Active 05-20 00:00: 00 [facility] Nsaids (Non-Juvenal roidal Anti-Inf lammator y Drug) Propensi ty to adverse reaction s Active 05-20 00:00: 00 [facility] Penicill ins Propensi ty to adverse reaction s Active 05-20 00:00: 00 [facility] NSAIDS (NON-JUVENAL ROIDAL ANTI-INF LAMMATOR Y DRUG) Allergy Active 05-20 00:00: 00 [facility] Penicill ins Propensi ty to adverse reaction s Active Hives 10-12 00:00: 00 [facility] CIPROFLO XACIN DRUG INGREDI Active Unknown-Cmnt 10-12 00:00: 00 [facility] METRONID AZOLE DRUG INGREDI Active Unknown-Cmnt 10-12 00:00: 00 [facility] PENICILL INS Drug Class Active Hives 10-12 00:00: 00 [facility] Ciproflo xacin Propensi ty to adverse reaction s Active Unknown - See comments 10-12 00:00: 00 [facility] Metronid azole Propensi ty to adverse reaction s Active Unknown - See comments 10-12 00:00: 00 [facility] NONSTERO IDAL ANTIINFL AMMATORY DRUG DA Active UNKNOWN [facility] PCN (penicil sandeep) DA Active UNKNOWN Hives [facility] CIPROFLO XACIN DA Active UNKNOWN [facility] FLAGYL DA Active UNKNOWN [facility] Social History Social Habit Start Date Stop Date Quantity Comments Source Sexual orientation C HI [facility] Alcoholic beverage intake 2024-01-28 00:00:00 2024-01-28 00:00:00 0 /d [facility] History of Social function 2023-05-08 00:00:00 2023-05-08 00:00:00 [facility] Alcohol intake 2023-02-04 00:00:00 2023-02-04 00:00:00 0 /d [facility] Tobacco use and exposure 2018-11-13 00:00:00 2018-11-13 00:00:00 Smokeless tobacco non-user [facility] Sex assigned at 1990 00:00:00 1990 00:00:00 [facility] Smoking Status Start Date Stop Date Source Never smoked tobacco [facility] Medications Ordered Medication Name Filled Medication Name Start Date Stop Date Current Medication? Ordering Clinician Indication Dosage Frequency Signature (SIG) Comments Components Source dicyclomine (BENTYL) tablet 20 mg 2023-04 003 02:00: 00 01-28 01:54 :00 No 20mg 20 mg, Oral, ONCE, 1 dose, On Fri01/28/24 at 2100, JONE [facility] fentanyl PF (SUBLIMAZE (PF)) injection 50 mcg 2023-04 0 01:30: 00 01-28 01:35 :00 No 50ug 50 mcg, Intravenou s, ONCE, 1 dose, On Fri01/28/24 at 2030, Routine [facility] hyoscyamine sulfate (LEVSIN/SL) sublingual tablet 0.125 mg 2023-04 0 01:00: 00 01-28 00:18 :00 No .125mg 0.125 mg, Sublingual , ONCE, 1 dose, On Fri01/28/24 at 1999, Routine [facility] NaCl 0.9% (NS) bolus infusion 1,000 mL 2023-04 01:00: 00 01-28 01:27 :00 No 1000mL at 999 mL/hr, 1,000 mL, IV Infusion, ONCE, 1 dose, On Fri01/28/24 at 1999, JONE [facility] iopamidol (ISOVUE 370-500 mL) injection 79 mL 2023-04 00:41: 00 01-28 01:00 :00 No [id number] 79mL 79 mL, Intravenou s, ONCE, 1 dose, On Fri01/28/24 at 1999, Routine [facility] ondansetron (ZOFRAN (PF)) injection 4 mg 2023-04 00:15: 00 01-28 00:22 :00 No 4mg 4 mg, Slow IV Push, ONCE, 1 dose, On Fri01/28/24 at 1914, JONE [facility] morpHINE (4 mg/mL) injection 4 mg 2023-04 00:15: 00 01-28 00:22 :00 No 4mg 4 mg, Slow IV Push, ONCE, 1 dose, On Fri01/28/24 at 1914, STAT [facility] hyoscyamine (LEVSIN) 0.125 mg tablet 2023-04 0 00:00: 00 Yes [id number] .125mg Take 1 tablet by mouth 3 (three) times daily as needed for Pain (scale 1-3). [facility] dicyclomine 20 mg tablet 2023-04 002 00:00: 00 Yes [id number] 20mg Take 1 tablet by mouth every 6 (six) hours as needed for Abdominal pain. [facility] ketorolac (TORADOL) injection 60 mg 2024-0 3-17 01:15: 00 07-12 01:15 :00 No 60mg 60 mg, Intramuscu lar, ONCE, 1 dose, On 07/12/23 at 2015, Routine [facility] diazePAM (VALIUM) tablet 5 mg 07-12 00:30: 00 07-12 00:58 :00 No 5mg 5 mg, Oral, ONCE, 1 dose, On 07/12/23 at 1930, JONE [facility] azithromyci n 250 mg tablet 07-11 00:00: 00 Yes [id number] 250mg Take 1 tablet by mouth in the morning. [facility] predniSONE 20 mg tablet 2022-04 00:00: 00 Yes [id number] 1 PO BID x 4 days [facility] methylpredn isolone sod succ (SOLU-MEDRO L) injection 125 mg 2022-04 17:00: 00 Yes 125mg 125 mg, Slow IV Push, Q6H, First dose on Fri02/04/23 at 1200, Until Discontinu ed, Routine [facility] diazePAM (VALIUM) injection 2 mg 2022-04 14:30: 00 02-04 14:40 :00 No 2mg 2 mg, Slow IV Push, ONCE, 1 dose, On Fri02/04/23 at 0930, STAT [facility] methocarbam oL 500 mg tablet 2022-04 00:00: 00 Yes [id number] 500mg Take 1 tablet by mouth 4 (four) times daily. [facility] acetaminoph en-codeine 300-30 mg tablet 2022-04 00:00: 00 Yes [id number] 1{tbl} Take 1 tablet by mouth every 4 (four) hours as needed for Pain (scale 4-6). Indication s: acute pain [facility] adalimumab 20 mg/0.4 mL SyKt 05-23 11:59: 16 Yes 20mg Inject 20 mg subcutaneo usly Every 2 weeks, last dose was 05/09/20. [facility] traMADoL (ULTRAM) 50 mg tablet 05-23 00:00: 00 Yes 50mg Take 1 tablet (50 mg total) by mouth every 8 (eight) hours as needed for Pain for up to 5 days. Max Daily Amount: 150 mg [facility] predniSONE (DELTASONE) 20 MG tablet 05-23 00:00: 00 Yes 40mg QD Take 2 tablets (40 mg total) by mouth daily for 14 days. [facility] pantoprazol e (PROTONIX) 40 MG tablet 05-23 00:00: 00 06-22 23:59 :00 No 40mg QD Take 1 tablet (40 mg total) by mouth daily for 30 days. [facility] ondansetron (ZOFRAN-ODT ) 8 MG disintegrat ing tablet 05-23 00:00: 00 05-30 23:59 :00 No 8mg Take 1 tablet (8 mg total) by mouth 2 (two) times daily as needed for Nausea for up to 7 days. [facility] citalopram (CeleXA) 40 MG tablet 05-08 00:00: 00 Yes 40mg QD Take 40 mg by mouth daily. [facility] traMADol 50 mg tablet 12-30 00:00: 00 Yes [id number] 50mg Take 1 tablet by mouth every 6 (six) hours as needed for Pain (scale 4-6). [facility] ondansetron (ZOFRAN) 4 mg tablet 12-15 00:00: 00 Yes [id number] 4mg Take 1 tablet by mouth every 8 (eight) hours as needed for Nausea and Vomiting (N/V). [facility] PRAZOSIN HCL (PRAZOSIN ORAL) 11-15 14:07: 08 Yes Take by mouth. [facility] QUEtiapine (SEROQUEL) 100 mg tablet 11-15 14:07: 08 Yes 100mg Take 100 mg by mouth 2 (two) times daily. [facility] proMETHazin e 25 mg tablet 11-15 00:00: 00 Yes [id number] 25mg Take 1 tablet by mouth every 4 (four) hours as needed for Nausea and Vomiting (N/V). [facility] HYDROcodone -acetaminop hen 10-325 mg tablet 11-15 00:00: 00 Yes [id number] 1{tbl} Take 1 tablet by mouth every 6 (six) hours as needed for Pain (scale 7-10). [facility] predniSONE 10 mg tablet 11-15 00:00: 00 Yes [id number] Take 80 mg po qd x 7 days then 70 mg x 7d, 60 mg x 7d, 50 mg x 7d until follow-up with GI [facility] chlorzoxazo ne (PARAFON FORTE) 500 mg tablet 10-08 00:00: 00 Yes 1 tablet every 8 hours x 3 days, then decrease to 1/2 tablet every 8 hours prn muscle spasm. [facility] ondansetron (ZOFRAN ODT) 4 mg disintegrat ing tablet 05-19 00:00: 00 Yes 4mg Take 1 Tab by mouth every 8 (eight) hours as needed for Nausea and Vomiting (N/V). [facility] Vital Signs Vital Name Observation Time Observation Value Comments S ource HEIGHT 2020-05-20 01:10:00 152.4 cm WEIGHT 2020-05-20 01:10:00 78.2 kg Systolic blood pressure 2024-01-29 02:00:00 108 mm[Hg] [facility] Diastolic blood pressure 2024-01-29 02:00:00 76 mm[Hg] [facility] Heart rate 2024-01-29 02:00:00 72 /min [facility] Body temperature 2024-01-29 02:00:00 36 Parris [facility] Respiratory rate 2024-01-29 02:00:00 18 /min [facility] Oxygen saturation in Arterial blood by Pulse oximetry 2024-01-29 02:00:00 98 /min [facility] Body height 2024-01-29 00:07:00 152.4 cm [facility] Body weight 2024-01-29 00:07:00 77.111 kg [facility] BMI 2024-01-29 00:07:00 33.20 kg/m2 [facility] Systolic blood pressure 2023-07-13 00:09:00 119 mm[Hg] [facility] Diastolic blood pressure 2023-07-13 00:09:00 81 mm[Hg] [facility] Heart rate 2023-07-13 00:09:00 85 /min Unive [facility] Body temperature 2023-07-13 00:09:00 37.06 Parris [facility] Respiratory rate 2023-07-13 00:09:00 20 /min [facility] Body height 2023-07-13 00:09:00 152.4 cm [facility] Body weight 2023-07-13 00:09:00 75.297 kg [facility] BMI 2023-07-13 00:09:00 32.42 kg/m2 [facility] Oxygen saturation in Arterial blood by Pulse oximetry 2023-07-13 00:09:00 98 /min [facility] Systolic blood pressure 2023-02-04 13:53:00 112 mm[Hg] [facility] Diastolic blood pressure 2023-02-04 13:53:00 73 mm[Hg] [facility] Heart rate 2023-02-04 13:53:00 62 /min [facility] Body temperature 2023-02-04 13:53:00 36.89 Parris [facility] Respiratory rate 2023-02-04 13:53:00 18 /min [facility] Body height 2023-02-04 13:53:00 152.4 cm [facility] Body weight 2023-02-04 13:53:00 77.111 kg [facility] BMI 2023-02-04 13:53:00 33.20 kg/m2 [facility] Oxygen saturation in Arterial blood by Pulse oximetry 2023-02-04 13:53:00 100 /min [facility] HEIGHT 2020-05-20 01:10:00 152.4 cm WEIGHT 2020-05-20 01:10:00 78.2 kg Systolic blood pressure 2020-05-23 12:07:00 113 mm[Hg] [facility] Diastolic blood pressure 2020-05-23 12:07:00 58 mm[Hg] [facility] Heart rate 2020-05-23 12:07:00 67 /min [facility] Body temperature 2020-05-23 12:07:00 36.22 Parris [facility] Respiratory rate 2020-05-23 12:07:00 18 /min [facility] Oxygen saturation in Arterial blood by Pulse oximetry 2020-05-23 12:07:00 99 /min [facility] Body height 2020-05-20 01:10:00 152.4 cm [facility] Body weight 2020-05-20 01:10:00 78.2 kg [facility] BMI 2020-05-20 01:10:00 33.67 kg/m2 [facility] Procedures Procedure Date / Time Performed Performing Clinician Source CT ABDOMEN PELVIS W CONTRAST 2024-01-29 00:48:36 Prabha Aquino [facility] POCT TEST 2024-01-29 00:25:00 Clarice Aquino ra [facility] LIPASE 2024-01-29 00:24:00 [facility] 2024-01-29 00:24:00 Prabha Aquino [facility] COMP. METABOLIC PANEL (05375) 2024-01-29 00:24:00 Prabha Aquino [facility] CBC WITH DIFF 2024-01-29 00:24:00 [facility] CHEST 1 VW 2023-07-13 00:44:17 Emir Perez [facility] RAPID STREP SCREEN FOR GROUP A 2023-07-13 00:18:00 Emir Perez [facility] RAPID INFLUENZA A/B 2023-07-13 00:18:00 Michael Perez [facility] COVID-19 (ID NOW RAPID TESTING) 2023-07-13 00:18:00 Emir Perez [facility] NOTICE OF PRIVACY PRACTICES 2023-07-13 00:01:04 Doctor Unassigned, [place] [facility] CONSENT/REFUSAL FOR DIAGNOSIS AND TREATMENT 2023-07-13 00:00:35 Doctor Unassigned, [place] [facility] XR LUMBAR SPINE 2 VW 2023-02-04 14:58:00 iDmitri Su [facility] XR SPINE THORACIC 2 VW 2023-02-04 14:58:00 Dimitri uS [facility] POCT-GLUCOSE METER 2020-05-23 11:27:00 Adrián Cook [facility] POCT-GLUCOSE METER 2020-05-23 07:52:00 Adrián Cook [facility] CBC W/PLT COUNT & AUTO DIFFERENTIAL 2020-05-23 04:56:00 [facility] COMPREHENSIVE METABOLIC PANEL 2020-05-23 04:56:00 [facility] hospital MAGNESIUM 2020-05-23 04:56:00 [facility] CBC W/PLT COUNT & AUTO DIFFERENTIAL 2020-05-23 04:56:00 Critical access hospital POCT-GLUCOSE METER 2020-05-22 21:59:00 Adrián Cook [facility] POCT-GLUCOSE METER 2020-05-22 15:46:00 Adrián Cook [facility] C. DIFFICILE GDH TOXIN 2020-05-21 02:45:00 Edison Barboza [facility] BASIC METABOLIC PANEL (7) 2020-05-20 04:33:00 London Casey [facility] LIPID PANEL 2020-05-20 04:33:00 London Hsu [facility] CBC W/PLT COUNT & AUTO DIFFERENTIAL 2020-05-20 04:33:00 London Casey [facility] CBC W/PLT COUNT & AUTO DIFFERENTIAL 2020-05-20 04:33:00 London Casey [facility] Plan of Care Planned Activity Planned Date Details Comments Source Future Scheduled Test 2023-05-20 00:00:00 Lipid panel (procedure) [code = 62718504] [facility] Future Scheduled Test 2023-05-20 00:00:00 Lipid panel (procedure) [code = 46910764] [facility] Future Scheduled Test 2023-05-20 00:00:00 Lipid panel (procedure) [code = 36135094] [facility] Future Scheduled Test 2023-05-20 00:00:00 Lipid panel (procedure) [code = 10494530] [facility] Future Scheduled Test 2023-05-20 00:00:00 Lipid panel (procedure) [code = 06980700] [facility] Future Scheduled Test 2023-05-20 00:00:00 Lipid panel (procedure) [code = 91846747] [facility] Future Scheduled Test 2023-05-20 00:00:00 Lipid panel (procedure) [code = 64122770] [facility] Future Scheduled Test 2023-05-20 00:00:00 Lipid panel (procedure) [code = 21011547] [facility] Future Scheduled Test 2023-05-20 00:00:00 Lipid panel (procedure) [code = 51174079] [facility] Future Scheduled Test 2023-05-20 00:00:00 Lipid panel (procedure) [code = 58834668] [facility] Future Scheduled Test 2023-05-20 00:00:00 Lipid panel (procedure) [code = 72839759] [facility] Future Scheduled Test 2022-12-27 00:00:00 Influenza Vaccine (Season Ended) [code = Influenza Vaccine (Season Ended)] [facility] Future Scheduled Test 2022-12-27 00:00:00 Influenza Vaccine (Season Ended) [code = Influenza Vaccine (Season Ended)] [facility] Future Scheduled Test 2022-12-27 00:00:00 Influenza Vaccine (Season Ended) [code = Influenza Vaccine (Season Ended)] [facility] Future Scheduled Test 2022-12-27 00:00:00 Influenza Vaccine (#1) [code = Influenza Vaccine (#1)] [facility] Future Scheduled Test 2022-12-27 00:00:00 Influenza Vaccine (#1) [code = Influenza Vaccine (#1)] [facility] Future Scheduled Test 2022-04-28 00:00:00 DEPRESSION SCREENING (12+) [code = DEPRESSION SCREENING (12+)] [facility] Future Scheduled Test 2022-04-28 00:00:00 DEPRESSION SCREENING (12+) [code = DEPRESSION SCREENING (12+)] [facility] Future Scheduled Test 2022-04-28 00:00:00 DEPRESSION SCREENING (12+) [code = DEPRESSION SCREENING (12+)] [facility] Future Scheduled Test 2022-04-28 00:00:00 DEPRESSION SCREENING (12+) [code = DEPRESSION SCREENING (12+)] [facility] Future Scheduled Test 2022-04-28 00:00:00 DEPRESSION SCREENING (12+) [code = DEPRESSION SCREENING (12+)] [facility] Future Scheduled Test 2022-04-28 00:00:00 DEPRESSION SCREENING (12+) [code = DEPRESSION SCREENING (12+)] [facility] Future Scheduled Test 2022-04-28 00:00:00 DEPRESSION SCREENING (12+) [code = DEPRESSION SCREENING (12+)] [facility] Future Scheduled Test 2022-04-28 00:00:00 DEPRESSION SCREENING (12+) [code = DEPRESSION SCREENING (12+)] [facility] Future Scheduled Test 2021-12-27 00:00:00 INFLUENZA VACCINE (#1) [code = INFLUENZA VACCINE (#1)] [facility] Future Scheduled Test 2021-12-27 00:00:00 INFLUENZA VACCINE (#1) [code = INFLUENZA VACCINE (#1)] [facility] Future Scheduled Test 2021-12-27 00:00:00 INFLUENZA VACCINE (#1) [code = INFLUENZA VACCINE (#1)] [facility] Future Scheduled Test 2020-04-28 00:00:00 DEPRESSION SCREENING (12+) [code = DEPRESSION SCREENING (12+)] [facility] Future Scheduled Test 2020-04-28 00:00:00 DEPRESSION SCREENING (12+) [code = DEPRESSION SCREENING (12+)] [facility] Future Scheduled Test 2020-04-28 00:00:00 DEPRESSION SCREENING (12+) [code = DEPRESSION SCREENING (12+)] [facility] Future Scheduled Test 2019-12-28 00:00:00 INFLUENZA VACCINE (#1) [code = INFLUENZA VACCINE (#1)] [facility] Future Scheduled Test 2019-12-28 00:00:00 INFLUENZA VACCINE (#1) [code = INFLUENZA VACCINE (#1)] [facility] Future Scheduled Test 2019-12-28 00:00:00 INFLUENZA VACCINE (#1) [code = INFLUENZA VACCINE (#1)] [facility] Future Scheduled Test 2012-08-07 00:00:00 Screening for malignant neoplasm of cervix (procedure) [code = 732949898] [facility] Future Scheduled Test 2012-08-07 00:00:00 Screening for malignant neoplasm of cervix (procedure) [code = 830186094] [facility] Future Scheduled Test 2012-08-07 00:00:00 Screening for malignant neoplasm of cervix (procedure) [code = 657015887] [facility] Future Scheduled Test 2012-08-07 00:00:00 Screening for malignant neoplasm of cervix (procedure) [code = 382669389] [facility] Future Scheduled Test 2012-08-07 00:00:00 Screening for malignant neoplasm of cervix (procedure) [code = 571419593] [facility] Future Scheduled Test 2012-08-07 00:00:00 Screening for malignant neoplasm of cervix (procedure) [code = 107600855] [facility] Future Scheduled Test 2012-08-07 00:00:00 Screening for malignant neoplasm of cervix (procedure) [code = 420343918] [facility] Future Scheduled Test 2012-08-07 00:00:00 Screening for malignant neoplasm of cervix (procedure) [code = 656498461] [facility] Future Scheduled Test 2012-08-07 00:00:00 Screening for malignant neoplasm of cervix (procedure) [code = 063781518] [facility] Future Scheduled Test 2012-08-07 00:00:00 Screening for malignant neoplasm of cervix (procedure) [code = 116287122] [facility] Future Scheduled Test 2012-08-07 00:00:00 Screening for malignant neoplasm of cervix (procedure) [code = 371205240] [facility] Future Scheduled Test 2010-08-07 00:00:00 DTAP/TDAP/TD VACCINES (1 - Tdap) [code = DTAP/TDAP/TD VACCINES (1 - Tdap)] [facility] Future Scheduled Test 2010-08-07 00:00:00 DTAP/TDAP/TD VACCINES (1 - Tdap) [code = DTAP/TDAP/TD VACCINES (1 - Tdap)] [facility] Future Scheduled Test 2010-08-07 00:00:00 DTAP/TDAP/TD VACCINES (1 - Tdap) [code = DTAP/TDAP/TD VACCINES (1 - Tdap)] [facility] Future Scheduled Test 2010-08-07 00:00:00 DTAP/TDAP/TD VACCINES (1 - Tdap) [code = DTAP/TDAP/TD VACCINES (1 - Tdap)] [facility] Future Scheduled Test 2010-08-07 00:00:00 DTAP/TDAP/TD VACCINES (1 - Tdap) [code = DTAP/TDAP/TD VACCINES (1 - Tdap)] [facility] Future Scheduled Test 2010-08-07 00:00:00 DTAP/TDAP/TD VACCINES (1 - Tdap) [code = DTAP/TDAP/TD VACCINES (1 - Tdap)] [facility] Future Scheduled Test 2010-08-07 00:00:00 DTAP/TDAP/TD VACCINES (1 - Tdap) [code = DTAP/TDAP/TD VACCINES (1 - Tdap)] [facility] Future Scheduled Test 2010-08-07 00:00:00 DTAP/TDAP/TD VACCINES (1 - Tdap) [code = DTAP/TDAP/TD VACCINES (1 - Tdap)] [facility] Future Scheduled Test 2010-08-07 00:00:00 DTAP/TDAP/TD VACCINES (1 - Tdap) [code = DTAP/TDAP/TD VACCINES (1 - Tdap)] [facility] Future Scheduled Test 2010-08-07 00:00:00 DTAP/TDAP/TD VACCINES (1 - Tdap) [code = DTAP/TDAP/TD VACCINES (1 - Tdap)] [facility] Future Scheduled Test 2010-08-07 00:00:00 DTAP/TDAP/TD VACCINES (1 - Tdap) [code = DTAP/TDAP/TD VACCINES (1 - Tdap)] [facility] Future Scheduled Test 2009-08-07 00:00:00 HEPATITIS C SCREENING [code = HEPATITIS C SCREENING] [facility] Future Scheduled Test 2009-08-07 00:00:00 HEPATITIS C SCREENING [code = HEPATITIS C SCREENING] [facility] Future Scheduled Test 2009-08-07 00:00:00 HEPATITIS C SCREENING [code = HEPATITIS C SCREENING] [facility] Future Scheduled Test 2009-08-07 00:00:00 HEPATITIS C SCREENING [code = HEPATITIS C SCREENING] [facility] Future Scheduled Test 2009-08-07 00:00:00 HEPATITIS C SCREENING [code = HEPATITIS C SCREENING] [facility] Future Scheduled Test 2009-08-07 00:00:00 HEPATITIS C SCREENING [code = HEPATITIS C SCREENING] [facility] Future Scheduled Test 2009-08-07 00:00:00 HEPATITIS C SCREENING [code = HEPATITIS C SCREENING] [facility] Future Scheduled Test 2009-08-07 00:00:00 HEPATITIS C SCREENING [code = HEPATITIS C SCREENING] [facility] Future Scheduled Test 2009-08-07 00:00:00 HEPATITIS C SCREENING [code = HEPATITIS C SCREENING] [facility] Future Scheduled Test 2009-08-07 00:00:00 HEPATITIS C SCREENING [code = HEPATITIS C SCREENING] [facility] Future Scheduled Test 2009-08-07 00:00:00 HEPATITIS C SCREENING [code = HEPATITIS C SCREENING] [facility] Future Scheduled Test 2006-08-07 00:00:00 Human immunodeficiency virus screening (procedure) [code = 431862023] [facility] Future Scheduled Test 2006-08-07 00:00:00 Human immunodeficiency virus screening (procedure) [code = 987267937] [facility] Future Scheduled Test 2003 00:00:00 Tobacco Cessation Counseling and Screening (12+) [code = Tobacco Cessation Counseling and Screening (12+)] [facility] Future Scheduled Test 2003 00:00:00 Tobacco Cessation Counseling and Screening (12+) [code = Tobacco Cessation Counseling and Screening (12+)] [facility] Future Scheduled Test 2003 00:00:00 Tobacco Cessation Counseling and Screening (12+) [code = Tobacco Cessation Counseling and Screening (12+)] [facility] Future Scheduled Test 2003 00:00:00 Tobacco Cessation Counseling and Screening (12+) [code = Tobacco Cessation Counseling and Screening (12+)] [facility] Future Scheduled Test 2003 00:00:00 Tobacco Cessation Counseling and Screening (12+) [code = Tobacco Cessation Counseling and Screening (12+)] [facility] Future Scheduled Test 2003 00:00:00 Tobacco Cessation Counseling and Screening (12+) [code = Tobacco Cessation Counseling and Screening (12+)] [facility] Future Scheduled Test 2003 00:00:00 Tobacco Cessation Counseling and Screening (12+) [code = Tobacco Cessation Counseling and Screening (12+)] [facility] Future Scheduled Test 2003 00:00:00 Tobacco Cessation Counseling and Screening (12+) [code = Tobacco Cessation Counseling and Screening (12+)] [facility] Future Scheduled Test 1992-02-07 00:00:00 COVID-19 VACCINE (#1) [code = COVID-19 VACCINE (#1)] [facility] Future Scheduled Test 1992-02-07 00:00:00 COVID-19 VACCINE (#1) [code = COVID-19 VACCINE (#1)] [facility] Future Scheduled Test 1992-02-07 00:00:00 COVID-19 VACCINE (#1) [code = COVID-19 VACCINE (#1)] [facility] Future Scheduled Test 1992-02-07 00:00:00 COVID-19 VACCINE (#1) [code = COVID-19 VACCINE (#1)] [facility] Future Scheduled Test 1992-02-07 00:00:00 COVID-19 VACCINE (#1) [code = COVID-19 VACCINE (#1)] [facility] Future Scheduled Test 1992-02-07 00:00:00 COVID-19 VACCINE (#1) [code = COVID-19 VACCINE (#1)] [facility] Future Scheduled Test 1992-02-07 00:00:00 COVID-19 VACCINE (#1) [code = COVID-19 VACCINE (#1)] [facility] Future Scheduled Test 1992-02-07 00:00:00 COVID-19 VACCINE (#1) [code = COVID-19 VACCINE (#1)] [facility] Encounters Start Date/Time End Date/Time Encounter Type Admission Type Attending [facility] Care Facility Care Department Encounter ID Source 2022-04-02 07:51:29 Outpatient BOBBY CUMIMNGS [id number] [facility] [id number] [facility] 2021-11-02 14:25:07 Outpatient LILIBETH DURON [id number] [facility] [id number] [facility] 2020-05-20 00:50:00 Inpatient ADRIÁN VALLECILLO [facility] [id number] [facility] 2024-01-28 19:08:00 2024-01-28 21:16:00 Emergency Prabha Aquino [facility] 1.2.840.114 350.1.13.10 4.2.7.2.686 [id number] [facility] 2023-07-25 12:51:00 2023-07-25 12:51:00 Outpatient HOPE URIAS [id number] [facility] [id number] [facility] 2023-07-12 19:06:00 2023-07-12 20:23:00 Emergency EMIR LI [facility] E[facility] [id number] [facility] 2023-07-12 19:06:00 2023-07-12 20:23:00 Emergency Emir Perez [facility] 1.2.840.114 350.1.13.10 4.2.7.2.686 [id number] [facility] 2023-02-04 08:56:00 2023-02-04 11:55:00 Emergency Dimitri Su [facility] 1.2.840.114 350.1.13.10 4.2.7.2.686 [id number] [facility] 2023-02-04 08:56:00 2023-02-04 11:55:00 Emergency X Dimitri SU [facility] [id number] [facility] 2022-12-19 08:23:00 2022-12-19 11:08:00 Emergency BETTINA CHAPARRO [facility] [id number] [facility] 2022-12-19 08:23:00 2022-12-19 11:08:00 emergency [id number] 2022-07-25 15:01:00 2022-07-25 15:01:00 Outpatient BRAULIO AVILA [id number] [facility] [id number] [facility] 2022-05-17 12:42:00 2022-05-17 10:41:00 Outpatient BOBBY ALEXANDER [id number] [facility] [id number] [facility] 2022-05-09 11:36:56 2022-05-09 11:36:56 Outpatient OSKAR [facility] [id number] Radames Peterson 2022-04-02 07:51:00 2022-04-02 13:22:00 Outpatient BOBBY ALEXANDER [id number] [facility] [id number] [facility] 2022-02-16 10:07:00 2022-02-16 12:10:00 Emergency ER MARINO REDD [facility] [id number] [facility] 2022-02-16 10:07:00 2022-02-16 12:10:00 emergency [id number] 2021-11-02 14:25:00 2021-11-02 15:53:00 Outpatient Guido BOBBY CUMMINGS [id number] [facility] [id number] [facility] 2021-11-01 22:09:00 2021-11-02 02:34:00 Emergency ER CALLIChristianSHALINI [facility] [id number] [facility] 2021-10-23 18:39:00 2021-10-24 00:13:00 Emergency ER CARLYN ANASTACIO [facility] [id number] [facility] 2021-03-30 00:50:00 2021-03-30 11:03:00 Inpatient ER MIHIRMISA [facility] [id number] [facility] 2020-05-20 00:50:00 2020-05-23 11:50:00 Hospital Encounter ER Joey Lionelervin Vasquezreny [facility] [id number] [facility] 2020-05-20 00:00:00 2020-05-20 00:00:00 Travel [facility] [id number] [facility] 2018-12-31 00:00:00 2018-12-31 00:00:00 Patient Outreach Dianne Timmons 1.2.840.114 350.1.13.10 4.2.7.2.686 [id number] 2018-12-30 09:32:28 2018-12-30 14:52:00 Emergency Barbara Elizabeth [facility] 1.2.840.114 350.1.13.10 4.2.7.2.686 [id number] 2018-12-15 08:28:32 2018-12-15 12:45:00 Emergency Cindy Wright [facility] 1.2.840.114 350.1.13.10 4.2.7.2.686 [id number] 2018-12-15 00:00:00 2018-12-15 00:00:00 Orders Only Doctor Unassigned, [place] [facility] 1.2.840.114 350.1.13.10 4.2.7.2.686 [id number] 2018-11-16 00:00:00 2018-11-16 00:00:00 Transition of Care Татьяна Gooden Danial Crespo 1.2.840.114 350.1.13.10 4.2.7.2.686 [id number] 1999-11-21 22:04:00 1999-11-21 23:10:00 Emergency ER MADELEINE BARCENASKARONMARILY [facility] [id number] [facility] Results Test Description Test Time Test Comments Results Result Comments Source CT ABDOMEN PELVIS W CONTRAST 01:39:36 ORDERING PROVIDER: PRABHA AQUINO HISTORY: Abdominal pain, acute, nonlocalized TECHNIQUE: CT images of the abdomen and pelvis performed afteradministration of IV contrast. Coronal and sagittal reformats generated. CTperformed according to ALARA (as low as reasonably achievable) principles. TECHNICAL LIMITATIONS: None. COMPARISON: None. FINDINGS: Included lung bases: Mild bibasilar linear atelectasis/scar. Normal heartsize. Liver: Subcentimeter hypodensity in the inferior aspect of segment IVb, toosmall to accurately characterize but likely represents a tiny cyst orhemangioma. Gallbladder and Bile Ducts: Cholecystectomy. CBD measures approximately 1.2cm in diameter proximally, which can be seen with postcholecystectomystat e. Pancreas: Volume loss/fatty replacement of the proximal pancreas. Remainderof the pancreas is unremarkable. Spleen: Unremarkable. Adrenals: Unremarkable. Kidneys: Unremarkable. GI Tract: Unremarkable appearance of the stomach and small bowel. Themajority of the distal colon is decompressed and shows some submucosalfatty proliferation. No significant pericolonic stranding suggestive acutecolitis/diverticul itis. Unremarkable appendix. Pelvis: Nonenlarged uterus. Couple small right ovarian follicles.Unremarkable urinary bladder. Mesentery/Peritoneum: Within normal limits. Fluid: No ascites and no abnormal focal fluid collections. Lymph nodes: No pathologic adenopathy. Vasculature: Unremarkable, without aneurysm or significant atheroscleroticdisease. Bones: No acute osseous abnormality. [facility] 01:02:59* Test Item Value Reference Range Interpretation Comme nts MAGNESIUM (test code = 1161575161) 1.7 mg/dL 1.7-2.4 Lab Interpretation (test cod e = 76751-1) [facility] 01:02:38* Test Item Value Reference Range Interpretation Comme nts LIPASE (test code = 4741906089) 48 U/L 0-220 Lab Interpretation (test cod e = 39073-1) [facility] WITH [id number] 00:53:56* Test Item Value Reference Range Interpretation Comme nts WBC (test code = 6690-2) 9.02 4.30-11.10 RBC (test code = 789-8) 5.03 3.93-5.25 HGB (test code = 718-7) 11.6 g/dL 11.6-15.0 HCT (test code = 4544-3) 38.5 % 35.7-45.2 MCV (test code = 787-2) 76.5 fL 80.6-95.5 L MCH (test code = 785-6) 23.1 pg 25.9-32.8 L MCHC (test code = 786-4) 30.1 g/dL 31.6-35.1 L RDW-SD (test code = 00493-5) 47.3 fL 39.0-49.9 RDW-CV (test code = 788-0) 17.1 % 12.0-15.5 H PLT (test code = 777-3) 413 166-358 H MPV (test code = 12565-7) 10.8 fL 9.5-12.9 NRBC/100 WBC (test code = 6204757058) 0.0 0.0-10.0 NRBC x10^3 (test code = 8267992499) See_Comment [Automated messa ge] The system which generated this result transmitted reference range: 10*3/?L. The reference range was not used to interpret this result as normal/abnormal. GRAN MAT (NEUT) % (test code = 770-8) 64.6 % IMM GRAN % (test code = 2652762924) 0.30 % LYMPH % (test code = 736-9) 25.6 % MONO % (test code = 5905-5) 5.4 % EOS % (test code = 713-8) 3.1 % BASO % (test code = 706-2) 1.0 % GRAN MAT x10^3(ANC) (test code = 1995377648) 5.82 10*3/uL 1.88-7.09 IMM GRAN x10^3 (test code = 5320636187) 0.03 10*3/uL 0.00-0.06 LYMPH x10^3 (test code = 731-0) 2.31 10*3/uL 1.32-3.29 MONO x10^3 (test code = 742-7) 0.49 10*3/uL 0.33-0.92 EOS x10^3 (test code = 711-2) 0.28 10*3/uL 0.03-0.39 BASO x10^3 (test code = 704-7) 0.09 10*3/uL 0.01-0.07 H Lab Interpretation (test code = 54540-1) Abnormal [facility] [id number] 00:25:00* Test Item Value Reference Range Interpretation Comme nts POCT PREG (test code = 1605) Negative On board controls acceptable with C Line (test code = 3574) Yes POCT PREG LOT # (test code = 3575) [id number] POCT PREG TEST DATE ( test code = 3576) 04-05-2025 Lab Interpretation (test cod e = 70842-6) [facility] CHEST 1 [id number] 01:04:23Chest, one view History: ?cough ? Ordering Physician: EMIR PEREZ; EMIR PEREZ; Findings: Thelungs are clear without focal pneumonic consolidation,pleural effusion, or pneumothorax. ?The heartsize is normal. ?Themediastinal contours are normal. ?No pulmonary edema. Subsegmentalatelectasis of the lung bases. [facility]stPO-Glucose zauok7712-00-55 11:39:00* Test Item Value Reference Range Interpretation Comme [facility] POC-Glucose Meter (test code = 1538) 101 mg/dL 70-110 : TESTED AT [place] [address]: [employer]/Craft Center Director ID = [id number] for Sarah Valdez Lab Interpretation (test code = 36299-7) [facility] [id number] 11:39:00* Test Item Value Reference Range Interpretation Comme nts POC-GLUCOSE METER (BEAKER) (test code = 1538) 101 mg/dL 70-110 : TESTED AT [place] [address]: [employer] Maker/Craft Center Director ID = [id number] for José Miguel Sarah POCT-GLUCOSE [id number] 08:03:00* Test Item Value Reference Range Interpretation Comme nts POC-GLUCOSE METER (BEAKER) (test code = 1538) 99 mg/dL 70-110 : TESTED AT [place] [address]: [employer] Maker/Craft Center Director ID = [id number] for José Miguel, Sarah Comprehensive metabolic hkqka5059-97-58 05:49:00* Test Item Value Reference Range Interpretation Comme nts Protein, Total (test code = 2885-2) 7.2 See_Comment [Automated message] The system which generated this result transmitted reference range: 6.0 - 8.5 gm/dL. The reference range was not used to interpret this result as normal/abnormal. Albumin (test code = 36855-2) 3.8 g/dL 3.5-5.0 Alkaline Phosphatase (test code = 6768-6) 68 U/L 30-115 Total Bilirubin (test code = 1974-2) 0.2 mg/dL 0.1-1.2 Sodium (test code = 2951-2) 138 meq/L 135-148 Potassium (test code = 2823-3) 3.8 meq/L 3.6-5.5 Chloride (test code = 5-0) 108 meq/L 98-106 H CO2 (test code = 2027-9) 22 meq/L 20-29 BUN (test code = 3094-0) 8 mg/dL 10-26 L Creatinine (test code = 2160-0) 0.60 mg/dL 0.50-1.20 Glucose (test code = 2345-7) 120 mg/dL 70-110 H Calcium (test code = 65141-6) 8.7 mg/dL 8.5-10.5 AST (test code = 1920-8) 9 U/L 5-40 ALT (test code = 1742-6) 14 U/L 5-50 EGFR (test code = 22575-2) 119 mL/min/1.73 sq m ESTIMATED GFR I S NOT ACCURATE CREATININE CLEARANCE IN PREDICTING GLOMERULAR FILTRATION RATE. ESTIMATED GFR IS NOT APPLICABLE FOR DIALYSIS PATIENTS. TODD (test code = TODD) [employer] Maker ID - [id number] r ID - [id number] r ID - [id number] r ID - [id number] r ID - [id number] r ID - [id number] r ID - [id number] r ID - [id number] r ID - [id number] r ID - [id number] r ID - [id number] r ID - [id number] r ID - [id number] r ID - [id number] r ID - [id number] r ID - [id number] Lab Interpretation (test code = 04704-1) [facility] 05:49:00* Test Item Value Reference Range Interpretation Comme nts Magnesium (test code = 96394-2) 2.1 mg/dL 1.5-3.0 TODD (test code = TODD) [employer] ID - [id number] ID - [id number] ID - [id number] ID - [id number] Lab Interpretation (test code = 21818-0) [facility] HospitalWaqyrkOMZJUATBC4656-71-66 05:49:00* Test Item Value Reference Range Interpretation Comme nts MAGNESIUM (BEAKER) (test cod e = 627) 2.1 mg/dL 1.5-3.0 [employer] ID - [id number] ID - [id number] ID - [id number] ID - [id number] METABOLIC [id number] 05:49:00* Test Item Value Reference Range Interpretation Comme nts TOTAL PROTEIN (BEAKER) (test code = 770) 7.2 gm/dL 6.0-8.5 ALBUMIN (BEAKER) (test code = 1145) 3.8 g/dL 3.5-5.0 ALKALINE PHOSPHATASE (BEAKER) (test code = 346) 68 U/L 30-115 BILIRUBIN TOTAL (BEAKER) (test code = 377) 0.2 mg/dL 0.1-1.2 SODIUM (BEAKER) (test code = 381) 138 meq/L 135-148 POTASSIUM (BEAKER) (test code = 379) 3.8 meq/L 3.6-5.5 CHLORIDE (BEAKER) (test code = 382) 108 meq/L 98-106 H CO2 (BEAKER) (test code = 355) 22 meq/L 20-29 BLOOD UREA NITROGEN (BEAKER) (test code = 354) 8 mg/dL 10-26 L CREATININE (BEAKER) (test code = 358) 0.60 mg/dL 0.50-1.20 GLUCOSE RANDOM (BEAKER) (test code = 652) 120 mg/dL 70-110 H CALCIUM (BEAKER) (test code = 697) 8.7 mg/dL 8.5-10.5 AST (SGOT) (BEAKER) (test code = 353) 9 U/L 5-40 ALT (SGPT) (BEAKER) (test code = 347) 14 U/L 5-50 EGFR (BEAKER) (test code = 1092) 119 mL/min/1.73 sq m ESTIMATED GFR IS NOT ACCURATE CREATININE CLEARANCE IN PREDICTING GLOMERULAR FILTRATION RATE. ESTIMATED GFR IS NOT APPLICABLE FOR DIALYSIS PATIENTS. Wood Pattern Maker ID - [id number] ID - [id number] ID - [id number] ID - [id number] ID- [id number] ID - [id number] ID - [id number] ID - [id number] ID - [id number] ID - [id number] ID - [id number] ID - [id number] ID - [id number] ID -[id number] ID - [id number] ID - [id number] with platelet count + automated oijf0731-40-39 05:27:00* Test Item Value Reference Range Interpretation Comme nts WBC (test code = 6690-2) 12.7 See_Comment H [Automated message] The system which generated this result transmitted reference range: 4.0 - 10.0 K/µL. The reference range was not used to interpret this result as normal/abnormal. RBC (test code = 789-8) 4.58 See_Comment [Automated message] The system which generated this result transmitted reference range: 4.00 - 5.00 M/µL. The reference range was not used to interpret this result as normal/abnormal. MCHC (test code = 786-4) 28.2 See_Comment L [Automated message] The system which generated this result transmitted reference range: 32.0 - 36.0 GM/DL. The reference range was not used to interpret this result as normal/abnormal. Hematocrit (test code = 4544-3) 33.7 % 36.0-46.0 L MCV (test code = 787-2) 73.6 fL 82.0-99.0 L MCH (test code = 785-6) 20.7 pg 27.0-33.0 L RDW (test code = 788-0) 21.4 % 12.0-15.0 H Platelets (test code = 777-3) 511 See_Comment H [Automated messa ge] The system which generated this result transmitted reference range: 150 - 430 K/CU MM. The reference range was not used to interpret this result as normal/abnormal. MPV (test code = 55117-9) 10.0 fL 6.0-11.5 nRBC (test code = 413) 0 See_Comment [ Automated message] The system which generated this result transmitted reference range: 0 - 0 /100 WBC. The reference range was not used to interpret this result as normal/abnormal. % Neutros (test code = 429) 86 % % Lymphs (test code = 430) 10 % % Monos (test code = 431) 3 % % Eos (test code = 432) 0 % % Baso (test code = 437) 0 % # Neutros (test code = 670) 10.92 See_Comment H [Automated messa ge] The system which generated this result transmitted reference range: 1.80 - 8.00 K/µL. The reference range was not used to interpret this result as normal/abnormal. # Lymphs (test code = 414) 1.30 See_Comment L [Automated messa ge] The system which generated this result transmitted reference range: 1.48 - 4.50 K/µL. The reference range was not used to interpret this result as normal/abnormal. # Monos (test code = 415) 0.37 See_Comment [Automated messa ge] The system which generated this result transmitted reference range: 0.00 - 1.30 K/µL. The reference range was not used to interpret this result as normal/abnormal. # Eos (test code = 416) 0.00 See_Comment [Automated message] The system which generated this result transmitted reference range: 0.00 - 0.50 K/µL. The reference range was not used to interpret this result as normal/abnormal. # Baso (test code = 417) 0.03 See_Comment [Automated message] The system which generated this result transmitted reference range: 0.00 - 0.20 K/µL. The reference range was not used to interpret this result as normal/abnormal. Immature Granulocytes-Relative (test code = 2801) 1 % 0-0 H Lab Interpretation (test code = 32241-4) Abnormal [facility] W/PLT COUNT & AUTO [id number] 05:27:00* Test Item Value Reference Range Interpretation Comme nts WHITE BLOOD CELL COUNT (BEAK ER) (test code = 775) 12.7 K/ L 4.0-10.0 H RED BLOOD CELL COUNT (BEAKER ) (test code = 761) 4.58 M/ L 4.00-5.00 HEMOGLOBIN (BEAKER) (test co de = 410) 9.5 GM/DL 12.0-15.5 L HEMATOCRIT (BEAKER) (test co de = 411) 33.7 % 36.0-46.0 L MEAN CORPUSCULAR VOLUME (ROXANA KER) (test code = 753) 73.6 fL 82.0-99.0 L MEAN CORPUSCULAR HEMOGLOBIN (BEAKER) (test code = 751) 20.7 pg 27.0-33.0 L MEAN CORPUSCULAR HEMOGLOBIN CONC (BEAKER) (test code = 752) 28.2 GM/DL 32.0-36.0 L RED CELL DISTRIBUTION WIDTH (BEAKER) (test code = 412) 21.4 % 12.0-15.0 H PLATELET COUNT (BEAKER) (hernan t code = 756) 511 K/CU MM 150-430 H MEAN PLATELET VOLUME (BEAKER ) (test code = 754) 10.0 fL 6.0-11.5 NUCLEATED RED BLOOD CELLS (BEAKER) (test code = 413) 0 /100 WBC 0-0 NEUTROPHILS RELATIVE PERCENT (BEAKER) (test code = 429) 86 % LYMPHOCYTES RELATIVE PERCENT (BEAKER) (test code = 430) 10 % MONOCYTES RELATIVE PERCENT (BEAKER) (test code = 431) 3 % EOSINOPHILS RELATIVE PERCENT (BEAKER) (test code = 432) 0 % BASOPHILS RELATIVE PERCENT (BEAKER) (test code = 437) 0 % NEUTROPHILS ABSOLUTE COUNT (BEAKER) (test code = 670) 10.92 K/ L 1.80-8.00 H LYMPHOCYTES ABSOLUTE COUNT (BEAKER) (test code = 414) 1.30 K/ L 1.48-4.50 L MONOCYTES ABSOLUTE COUNT (BE CHRIS) (test code = 415) 0.37 K/ L 0.00-1.30 EOSINOPHILS ABSOLUTE COUNT (BEAKER) (test code = 416) 0.00 K/ L 0.00-0.50 BASOPHILS ABSOLUTE COUNT (BE CHRIS) (test code = 417) 0.03 K/ L 0.00-0.20 IMMATURE GRANULOCYTES-RELATI VE PERCENT (BEAKER) (test code = 2801) 1 % 0-0 H POCT-GLUCOSE [id number] 22:11:00* Test Item Value Reference Range Interpretation Comme nts POC-GLUCOSE METER (BEAKER) (test code = 1538) 124 mg/dL 70-110 H : TESTED AT [address] [address]: Wood Pattern Maker/Craft Center Director ID = [id number] for Talia Sutton POCT-GLUCOSE [id number] 15:57:00* Test Item Value Reference Range Interpretation Comme nts POC-GLUCOSE METER (BEAKER) (test code = 1538) 109 mg/dL 70-110 : TESTED AT [facility] [address] [place] [id number]: Wood Pattern Maker/Craft Center Director ID = [id number] for Rhona Alcantar Clostridium difficile GDH [id number] 08:13:00* Test Item Value Reference Range Interpretation Comme nts C. Difficle Toxin (test code = 6768088014) Negative Negative C. Difficile GDH Antigen (test code = 2770003415) Negative Negative No indication of Clostridium difficile infection and no colonization. Discontinue enteric isolation and therapy. TODD (test code = TODD) Testing performed by [employer] Rapid Cassette Assay. For GDH, published sensitivity of the assay is 98.7% compared to cytotoxicity testing. For Toxin AB, published sensitivity is 87.8% and specificity 99.4% compared to cytotoxicity testing.Verificati on of kit performance was done by the [facility] prior to clinical use. Lab Interpretation (test code = 59921-7) [facility] DIFFICILE [facility] [id number] 08:13:00* Test Item Value Reference Range Interpretation Comme nts CDT TOXIN (test code = 3050283499) Negative Negative CDT GDH ANTIGEN (test code = 7755530843) Negative Negative No indication of Clostridium difficile infection and no colonization. Discontinue enteric isolation and therapy. Testing performed by [employer] Rapid Cassette Assay. For GDH, published sensitivity of the assay is 98.7% compared to cytotoxicity testing. For Toxin AB, published sensitivity is 87.8% and specificity 99.4% compared to cytotoxicity testing.Verification of kit performance was done by the [facility] prior to clinical use.Basic metabolic [id number] 05:13:00* Test Item Value Reference Range Interpretation Comme nts Sodium (test code = 2951-2) 136 meq/L 135-148 Potassium (test code = 2823-3) 4.1 meq/L 3.6-5.5 Chloride (test code = 5-0) 108 meq/L 98-106 H CO2 (test code = 8-9) 18 meq/L 20-29 L BUN (test code = 3094-0) 6 mg/dL 10-26 L Creatinine (test code = 2160-0) 0.63 mg/dL 0.50-1.20 Glucose (test code = 2345-7) 143 mg/dL 70-110 H Calcium (test code = 03414-7) 8.7 mg/dL 8.5-10.5 EGFR (test code = 26921-9) 113 mL/min/1.73 sq m ESTIMATED GFR I S NOT ACCURATE CREATININE CLEARANCE IN PREDICTING GLOMERULAR FILTRATION RATE. ESTIMATED GFR IS NOT APPLICABLE FOR DIALYSIS PATIENTS. TODD (test code = TODD) Wood Pattern Maker ID - [id number] r ID - [id number] r ID - [id number] r ID - [id number] r ID - [id number] r ID - [id number] r ID - [id number] r ID - [id number] r ID - [id number] r ID - [id number] Lab Interpretation (test code = 23166-3) Abnormal [facility] METABOLIC [id number] 05:13:00* Test Item Value Reference Range Interpretation Comme nts SODIUM (BEAKER) (test code = 381) 136 meq/L 135-148 POTASSIUM (BEAKER) (test code = 379) 4.1 meq/L 3.6-5.5 CHLORIDE (BEAKER) (test code = 382) 108 meq/L 98-106 H CO2 (BEAKER) (test code = 355) 18 meq/L 20-29 L BLOOD UREA NITROGEN (BEAKER) (test code = 354) 6 mg/dL 10-26 L CREATININE (BEAKER) (test code = 358) 0.63 mg/dL 0.50-1.20 GLUCOSE RANDOM (BEAKER) (test code = 652) 143 mg/dL 70-110 H CALCIUM (BEAKER) (test code = 697) 8.7 mg/dL 8.5-10.5 EGFR (BEAKER) (test code = 1092) 113 mL/min/1.73 sq m ESTIMATED GFR IS NOT ACCURATE CREATININE CLEARANCE IN PREDICTING GLOMERULAR FILTRATION RATE. ESTIMATED GFR IS NOT APPLICABLE FOR DIALYSIS PATIENTS. Wood Pattern Maker ID - [id number] ID - [id number] ID - [id number] ID - [id number] ID- [id number] ID - [id number] ID - [id number] ID - [id number] ID - [id number] ID - [id number] [id number] 05:05:00* Test Item Value Reference Range Interpretation Comme nts Triglycerides (test code = 2571-8) 40 mg/dL Cholesterol (test code = 2093-3) 155 mg/dL HDL (test code = 2085-9) 52 mg/dL LDL Calculated (test code = 45901-7) 95 mg/dL TODD (test code = TODD) Triglyceride Refer ence Range: Low Risk <150 Borderline 150-199 High Risk 200-499 Very High Risk >=500 Cholesterol Reference Range: Low Risk <200 Borderline 200-239 High Risk >240 HDL Cholesterol Reference Range: Low Risk >=60 High Risk <40 LDL Cholesterol Reference Range: Optimal <100 Near Optimal 100-129 Borderline 130-159 High 160-189 Very High >=190 Wood Pattern Maker ID - [id number] ID - [id number] ID - [id number] ID - [id number] ID - [id number] ID - [id number] [facility] [id number] 05:05:00* Test Item Value Reference Range Interpretation Comme nts TRIGLYCERIDES (BEAKER) (test code = 540) 40 mg/dL CHOLESTEROL (BEAKER) (test c ode = 631) 155 mg/dL HDL CHOLESTEROL (BEAKER) (te st code = 976) 52 mg/dL LDL CHOLESTEROL CALCULATED ( BEAKER) (test code = 633) 95 mg/dL Triglyceride Reference Range: Low Risk <150 Borderline 150-199 High Risk 200-499 Very High Risk >=500Cholesterol Reference Range: Low Risk <200 Borderline 200-239 High Risk >240HDL Cholesterol Reference Range: Low Risk >=60 High Risk <40LDL Cholesterol Reference Range: Optimal <100 Near Optimal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
[2024-12-22] MEDS ORDERED: NA CHLORIDE 0.9% 1,000 ML ONE (09:54)
[2024-12-22] MEDS ORDERED: ONDANSETRON 4 MG/2 ML VIAL ONE ×2 (09:56→11:18)
[2024-12-22] MEDS ORDERED: MORPHINE 4 MG/ML SYR ONE ×2 (09:57→11:18)
[2024-12-22 10:09] LABS: Absolute Lymphocytes (CBC) 1.6 K/uL (0.7-4.9); Hematocrit 35.3 % (36.0-45.0); Hemoglobin 11.3 g/dL (12.0-15.0); MCH 23.8 pg (27.0-35.0); MCHC 31.9 g/dL (32.0-36.0); MCV 74.5 fL (80-100); MPV 8.4 fL (7.6-11.3); Nucleated RBC Absolute Count 0.0 (0-0); Nucleated Red Blood Cells % 0.0 % (0-0); RBC Red Blood Cell Count 4.74 M/uL (3.86-4.86); White Blood Count 9.20 thou/uL (4.3-10.9)
[2024-12-22 10:10] LABS: Urine Culture Reflex Order NOT NEEDED; Urine Micro Reflex YN NO BILL MICROSCOPIC; Urine Microscopic Reflex YN ORDER UMIC
[2024-12-22 10:27] LABS: ALT/SGPT 27.0 U/L (13-56); AST/SGOT 17.0 U/L (15-37); Albumin 3.7 g/dL (3.4-5.0); Albumin/Globulin Ratio 0.9 (1.1-1.8); Alkaline Phosphatase 79.0 U/L (45-117); Anion Gap 10.7 mEq/L (5.0-15.0); BUN Blood Urea Nitrogen 9.0 mg/dL (7-18); Globulin 4.1 g/dL (2.3-3.5); Glucose Level 109.0 mg/dL (74-106); Lipase 15.0 U/L (13-75); Potassium 3.7 mEq/L (3.5-5.1)
--- NOTE | 2024-12-22 11:27 | RAD REPORT ---
EXAMINATION: CT Abdomen Pelvis W Contrast CLINICAL INDICATION: Female, 34 years old. ABD PAIN TECHNIQUE: CT abdomen and pelvis was performed, after the administration of IV contrast, as per [facility] protocol. Axial, sagittal and coronal reconstructions were obtained. One or more of the following dose reduction techniques were used: Automated exposure control, adjustment of the mA and k V according to patient size, and iterative reconstruction. Unless otherwise specified, incidental findings do not require dedicated imaging follow-up. COMPARISON: 10/14/2022 FINDINGS: LOWER CHEST: The visualized lung bases are clear. LIVER: Normal in size and contour. No focal lesion. BILIARY SYSTEM: Status post cholecystectomy. SPLEEN: Normal size. No focal lesion. PANCREAS: No mass, ductal dilation, or gomez-pancreatic fluid. ADRENALS: Normal; no mass. KIDNEYS: Normal size and contour. No hydronephrosis. URINARY BLADDER: Unremarkable. GASTROINTESTINAL TRACT: No evidence of free air, significant intra-abdominal free fluid, bowel obstru ction or abscess. APPENDIX: Normal appendix. LYMPH NODES: No lymphadenopathy. MUSCULOSKELETAL: No acute or suspicious osseous abnormality. ADDITIONAL FINDINGS: Dominant right ovarian cyst measuring 2.8 cm, stable. IMPRESSION: No acute or concerning abnormalities seen in the abdomen or pelvis. Incidental findings as above.
[2024-12-22] MEDS ORDERED: FAMOTIDINE 20 MG/2 ML VIAL IV ONE (11:43)
[2024-12-22] MEDS ORDERED: MAGNES/ALUMIN/SIMET 30ML UCUP ONE (11:43)
[2024-12-22] MEDS ORDERED: PANTOPRAZOLE 40 MG INJ ONE (11:43)
[2024-12-22] MEDS ORDERED: LIDOCAINE VISCOUS 2% 10ML ORAL SOLN ONE (11:44)
--- NOTE | 2024-12-22 12:28 | ER ---
Nurse's Notes [facility] Name: Kylie Appiah Age: 34 yrs Sex: Female : 1990 Arrival Date: 12/22/2024 Time: 09:17 Bed 2 Private MD: Diagnosis: Upper abdominal pain, unspecified;Gastro-esophageal reflux disease without esophagitis Presentation: 12/22 09:29 Chief complaint: Patient states: Nausea for a couple months. Coronavirus screen: At [facility] this time, the client does not indicate any symptoms associated with coronavirus-19. Ebola Screen: No symptoms or risks identified at this time. Initial Sepsis Screen: Does the patient meet any 2 criteria? No. Patient's initial sepsis screen is negative. Does the patient have a suspected source of infection? No. Patient's initial sepsis screen is negative. Risk Assessment: Do you want to hurt yourself or someone else? Patient reports no desire to harm self or others. Onset of symptoms is unknown. Care prior to arrival: None. 09:29 Method Of Arrival: Ambulatory jl7 09:29 Acuity: YESSICA 3 jl7 Triage Assessment: 09:30 General: Appears in no apparent distress. uncomfortable, Behavior is cooperative, jl7 crying. Pain: Complains of pain in abdomen. GI: Reports nausea. 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 - Infectious Disease History:: Denies. - Social history:: Smoking status: unknown. Screenin:03 [facility] ED Fall Risk Assessment (Adult) History of falling in the last 3 months, ph including since admission No falls in past 3 months (0 pts) Confusion or Disorientation No (0 pts) Intoxicated or Sedated No (0 pts) Impaired Gait No (0 pts) Mobility Assist Device Used No (0 pt) Altered Elimination No (0 pt) Score/Fall Risk Level 0 - 2 = Low Risk Oriented to surroundings, Maintained a safe environment, Hourly rounding (assess needs \T\ fall precautionary measures) done. Abuse screen: Denies threats or abuse. Denies injuries from another. Nutritional screening: No deficits noted. Tuberculosis screening: No symptoms or risk factors identified. Assessment: 09:58 General: Appears in no apparent distress. uncomfortable, well groomed, Behavior is ph calm, cooperative, appropriate for age. Pain: Complains of pain in left upper quadrant and left lower quadrant Pain began suddenly. Neuro: Level of Consciousness is awake, alert, obeys commands, Oriented to person, place, time, situation. Cardiovascular: Capillary refill < 3 seconds in bilateral fingers Patient's skin is warm and dry. Respiratory: Airway is patent Respiratory effort is even, unlabored, Respiratory pattern is regular, symmetrical. GI: Abdomen is non-distended, Abd is soft X 4 quads Reports lower abdominal pain, upper abdominal pain, nausea. : No signs and/or symptoms were reported regarding the genitourinary system. Derm: Skin is pink, warm \T\ dry. Musculoskeletal: Circulation, motion, and sensation intact. Range of motion: intact in all extremities. 12:48 Reassessment: Patient appears in no apparent distress at this time. Patient and/or ph family updated on plan of care and expected duration. Pain level reassessed. Patient is alert, oriented x 3, equal unlabored respirations, skin warm/dry/pink. Patient states feeling better. Patient states symptoms have improved. Vital Signs: 09:30 BP 116 / 86; Pulse 86; Resp 15; Temp 98.6; Pulse Ox 100% ; Weight 77.11 kg; Height 5 jl7 ft. 0 in. ; 10:04 BP 117 / 74; Pulse 70; Resp 18; Pulse Ox 100% on R/A; ph 11:30 BP 116 / 78; Pulse 72; Resp 18; Pulse Ox 99% on R/A; ph 12:30 BP 117 / 82; Pulse 71; Resp 18; Temp 97.9; Pulse Ox 98% on R/A; ph 09:30 Body Mass Index 33.20 (77.11 kg, 152.4 cm) jl7 ED Course: 09:19 Patient arrived in ED. mr 09:21 [facility]-C [facility]. dr5 09:21 Maximo Roe MD is Attending Physician. dr5 09:29 Triage completed. jl7 09:30 Arm band placed on right wrist. jl7 09:57 Amarilis Del Castillo, RN is Primary Nurse. ph 09:58 Initial lab(s) drawn, by me, sent to lab. Urine collected: clean catch specimen. ph Inserted saline lock: 20 gauge in right antecubital area, using aseptic technique. Blood collected. Flushed with 10 mL NS. 10:04 Patient has correct armband on for positive identification. Bed in low position. Call ph light in reach. Side rails up X 1. Pulse ox on. NIBP on. Door closed. Noise minimized. Warm blanket given. Pillow given. 10:37 CT Abd/Pelvis - IV Contrast Only In Process Unspecified. EDMS 12:27 Enrico Cosme MD is Referral Physician. dr5 12:49 No provider procedures requiring assistance completed. IV discontinued, intact, ph bleeding controlled, No redness/swelling at site. Pressure dressing applied. Administered Medications: 10:02 Drug: Ondansetron IVP 4 mg IVP once; over 2 minutes Route: IVP; Site: right antecubital;jp5 12:50 Follow up: Response: No adverse reaction ph 10:02 Drug: morphine IVP or IV 4 mg IVP once over 4 mins Route: IVP; Infused Over: 4 mins; jp5 Site: right antecubital; 12:50 Follow up: Response: No adverse reaction ph 10:02 Drug: NS 0.9% IV 1000 ml IV at 1 bolus Per protocol; to be given as a bolus over 60 jp5 minutes Route: IV; Rate: 1 bolus; Site: right antecubital; 12:50 Follow up: Response: No adverse reaction; IV Status: Completed infusion; IV Intake: ph 1000ml 11:23 Drug: morphine IVP or IV 4 mg IVP once over 4 mins Route: IVP; Infused Over: 4 mins; ph Site: right antecubital; 12:50 Follow up: Response: No adverse reaction ph 11:23 Drug: Ondansetron IVP 4 mg IVP once; over 2 minutes Route: IVP; Site: right antecubital;ph 12:50 Follow up: Response: No adverse reaction ph 11:55 Drug: GI Cocktail without - (Maalox PO 30 ml, Lidocaine Mucous Membrane 2 % 15 ph ml) PO once Route: PO; 12:49 Follow up: Response: No adverse reaction ph 11:55 Drug: Pantoprazole IVP 40 mg IVP once Route: IVP; Site: right antecubital; ph 12:49 Follow up: Response: No adverse reaction ph 11:55 Drug: Famotidine IVP 20 mg IVP once; dilute with 10 mL 0.9% NaCl; give over 2 minutes ph Route: IVP; Site: right antecubital; 12:49 Follow up: Response: No adverse reaction ph Medication: 10:04 VIS not applicable for this client. ph Intake: 12:50 IV: 1000ml; Total: 1000ml. ph Outcome: 12:27 Discharge ordered by MD. dr5 12:49 Discharged to home ambulatory, ph 12:49 Condition: good 12:49 Discharge instructions given to patient, Instructed on discharge instructions, follow up and referral plans. medication usage, Demonstrated understanding of instructions, follow-up care, medications, Prescriptions given X 3, 12:51 Patient left the ED. ph Signatures: Dispatcher [employer] EDMA Dianne East, Reg Reg mr AbundioAmarilis, RN Trenton Davies ph, RN RN jl7 Maya Sanderson, RN RN jp5 Stephen Wyman, TRUCK RENTAL MANAGER-C TRUCK RENTAL MANAGER-Cdr5
--- NOTE | 2024-12-22 12:28 | EDPHYS ---
Physician Documentation [facility] Name: Kylie Appiah Age: 34 yrs Sex: Female : 1990 Arrival Date: 12/22/2024 Time: 09:17 Bed 2 Private MD: ED Physician Maximo Roe HPI: 12/22 09:45 This 34 yrs old Female presents to ER via Ambulatory with complaints of dr5 Abdominal Pain. 09:45 The patient presents with abdominal pain that is diffuse. Onset: The symptoms/episode dr5 began/occurred 2 month(s) ago. Patient is a 31-year-old female with history of anemia, anxiety, colitis, kidney stones, ulcerative colitis coming in for 2 months of abdominal pain and nausea. Patient reports that she was seeing Dr. Cosme (GI in [place]) and has not stopped going due to insurance reasons. Patient reports that he is no longer in network for her insurance and is worried that she has a colitis flare up.. 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 - Infectious Disease History:: Denies. - Social history:: Smoking status: unknown. ROS: 09:45 Constitutional: as per hpi dr5 Exam: 09:45 Constitutional: This is a well developed, well nourished patient who is awake, alert, dr5 and in no acute distress. Head/Face: Normocephalic, atraumatic. ENT: Nares patent. No nasal discharge, no septal abnormalities noted. Tympanic membranes are normal and external auditory canals are clear. Oropharynx with no redness, swelling, or masses, exudates, or evidence of obstruction, uvula midline. Mucous membranes moist. Neck: Trachea midline, no thyromegaly or masses palpated, and no cervical lymphadenopathy. Supple, full range of motion without nuchal rigidity, or vertebral point tenderness. No Meningismus. Chest/axilla: Normal chest wall appearance and motion. Nontender with no deformity. No lesions are appreciated. Cardiovascular: Regular rate and rhythm with a normal S1 and S2. Normal PMI, no JVD. No pulse deficits. Respiratory: Lungs have equal breath sounds bilaterally, clear to auscultation. No rales, rhonchi or wheezes noted. No increased work of breathing, no retractions or nasal flaring. Back: No spinal tenderness. No costovertebral tenderness. Full range of motion. Skin: Warm, dry with normal turgor. Normal color with no rashes, no lesions, and no evidence of cellulitis. MS/ Extremity: Pulses equal, no cyanosis. Neurovascular intact. Full, normal range of motion. Neuro: Awake and alert, GCS 15, oriented to person, place, time, and situation. Cranial nerves II-XII grossly intact. Motor strength 5/5 in all extremities. Sensory grossly intact. Cerebellar exam normal. Normal gait. 09:45 Abdomen/GI: Inspection: abdomen appears normal, Bowel sounds: normal, Palpation: moderate abdominal tenderness, in all quadrants, Vital Signs: 09:30 BP 116 / 86; Pulse 86; Resp 15; Temp 98.6; Pulse Ox 100% ; Weight 77.11 kg; Height 5 jl7 ft. 0 in. ; 10:04 BP 117 / 74; Pulse 70; Resp 18; Pulse Ox 100% on R/A; ph 11:30 BP 116 / 78; Pulse 72; Resp 18; Pulse Ox 99% on R/A; ph 12:30 BP 117 / 82; Pulse 71; Resp 18; Temp 97.9; Pulse Ox 98% on R/A; ph 09:30 Body Mass Index 33.20 (77.11 kg, 152.4 cm) [facility] MDM: 09:21 Medical Screening Exam initiated dr5 13:24 Differential diagnosis: coronary artery disease, gastritis, gastroesophageal reflux dr5 disease, non-specific abd pain, pancreatitis, urinary tract infection. Data reviewed: vital signs, nurses notes, lab test result(s), amylase and lipase, CBC, white blood cell count, hemoglobin, hematocrit, platelets, electrolytes, sodium, potassium, chloride, serum bicarbonate, BUN, creatinine, serum glucose, urinalysis, UPT: negative EKG, radiologic studies, CT scan. Consideration of Admission/Observation Escalation of care including admission/observation considered. Admission considered patient found to have abnormality on CT scan such as small bowel obstruction. I considered the following discharge prescriptions or medication management in the emergency department I discussed and recommended Over The Counter medications, Medications were administered in the Emergency Department. See MAR. Care significantly affected by the following chronic conditions: Ulcerative Colitis, Ovarian Cyst, Colitis. Care significantly affected by the following Social Determinants of Health: Poor access to healthcare and/or lack of insurance, Poor access to transportation, Problems related to employment. Counseling: I had a detailed discussion with the patient and/or guardian regarding the historical points, exam findings, and any diagnostic results supporting the discharge/admit diagnosis, the presence of at least one elevated blood pressure reading (>120/80) during this emergency department visit, lab results, radiology results, the need for outpatient follow up, for definitive care, a elevator operator, to return to the emergency department if symptoms worsen or persist or if there are any questions or concerns that arise at home. Medication response: GI Cocktail relieved the patient's pain. The symptoms have resolved, morphine did not change patient's pain, Zofran partially relieved the patient's nausea. Response to treatment: the patient's symptoms have resolved after treatment. Special discussion: I discussed with the patient/guardian in detail that at this point there is no indication for admission to the hospital. It is understood, however, that if the symptoms persist or worsen the patient needs to return immediately for re-evaluation. Further emergent ED testing is not indicated at this point in time. I discussed with the patient/guardian in detail the need to arrange with the PCP or specialist further outpatient testing, Based on the presenting symptoms and work-up in the emergency department, I discussed in detail the need to arrange with the PCP or specialist an outpatient procedure, esophagogastroduodenoscopy by the GI specialist, Based on the history and exam findings, there is no indication for further emergent testing or inpatient evaluation. I discussed with the patient/guardian the need to see the elevator operator for further evaluation of the symptoms. ED course: Patient was given 2 rounds of morphine with mild relief. After given GI cocktail and Pepcid, patient reports that her pain is much better and feels like she is almost without pain. Will have patient follow with GI doctor. Recommended diet and exercise and food choices. All questions answered. Strict ER precautions given. Labs and CT printed and given to patient take with her. 12/22 09:32 Order name: CBC with Diff; Complete Time: 10: [facility] 12/22 09:32 Order name: CMP; Complete Time: : [facility] 12/22 09:32 Order name: Lipase; Complete Time: : [facility] 12/22 09:32 Order name: Test, Urine; Complete Time: 10: [facility] 12/22 09:32 Order name: UA W/ Microscopic; Complete Time: 10: [facility] 12/22 09:32 Order name: UA Rfx Rafat Cult if indicated; Complete Time: 10: [facility] 12/22 09:32 Order name: CT Abd/Pelvis - IV Contrast Only; Complete Time: 11: [facility] 12/22 09:32 Order name: IV Saline Lock; Complete Time: 10: [facility] 12/22 09:32 Order name: Labs collected and sent; Complete Time: 10: [facility] Administered Medications: 10:02 Drug: Ondansetron IVP 4 mg IVP once; over 2 minutes Route: IVP; Site: right antecubital;jp5 12:50 Follow up: Response: No adverse reaction ph 10:02 Drug: morphine IVP or IV 4 mg IVP once over 4 mins Route: IVP; Infused Over: 4 mins; jp5 Site: right antecubital; 12:50 Follow up: Response: No adverse reaction ph 10:02 Drug: NS 0.9% IV 1000 ml IV at 1 bolus Per protocol; to be given as a bolus over 60 jp5 minutes Route: IV; Rate: 1 bolus; Site: right antecubital; 12:50 Follow up: Response: No adverse reaction; IV Status: Completed infusion; IV Intake: ph 1000ml 11:23 Drug: morphine IVP or IV 4 mg IVP once over 4 mins Route: IVP; Infused Over: 4 mins; ph Site: right antecubital; 12:50 Follow up: Response: No adverse reaction ph 11:23 Drug: Ondansetron IVP 4 mg IVP once; over 2 minutes Route: IVP; Site: right antecubital;ph 12:50 Follow up: Response: No adverse reaction ph 11:55 Drug: GI Cocktail without - (Maalox PO 30 ml, Lidocaine Mucous Membrane 2 % 15 ph ml) PO once Route: PO; 12:49 Follow up: Response: No adverse reaction ph 11:55 Drug: Pantoprazole IVP 40 mg IVP once Route: IVP; Site: right antecubital; ph 12:49 Follow up: Response: No adverse reaction ph 11:55 Drug: Famotidine IVP 20 mg IVP once; dilute with 10 mL 0.9% NaCl; give over 2 minutes ph Route: IVP; Site: right antecubital; 12:49 Follow up: Response: No adverse reaction ph Disposition Summary: 12/22/24 12:27 Discharge Ordered Notes: Location: Home dr5 Condition: Stable dr5 Diagnosis - Upper abdominal pain, unspecified dr5 - Gastro-esophageal reflux disease without esophagitis dr5 Followup: dr5 - With: Emergency Department - When: As needed - Reason: Worsening of condition Followup: dr5 - With: Enrico Cosme MD - When: 1 - 2 days - Reason: Recheck today's complaints, Continuance of care, Re-evaluation by your physician Discharge Instructions: - Discharge Summary Sheet dr5 - Abdominal Pain, Adult dr5 - Food Choices for Gastroesophageal Reflux Disease, Adult dr5 - Gastroesophageal Reflux Disease, Adult dr5 Forms: - Work release form dr5 - Medication Reconciliation Form dr5 - Patient Portal Instructions dr5 - Leadership Thank You Letter dr5 Prescriptions: - Protonix 40 mg Oral Tablet - take 1 tablet ORAL route once daily; 30 tablet; Refills: 0, Product Selection dr5 Permitted - Tramadol 50 mg Oral Tablet - take 1 tablet ORAL route every 8 hours as needed; 12 tablet; Refills: 0, dr5 Product Selection Permitted - Pepcid 20 mg Oral Tablet - take 1 tablet ORAL route once daily for 10 days; 10 tablet; Refills: 0, Product dr5 Selection Permitted Signatures: Dispatcher [employer] Amarilis Costa RN RN Trenton Moya RN RN jl7 Maya Sanderson, RN RN jp5 Stephen Wyman, ANUJ-C LASER BEAM TRIM OPERATOR-Cdr5 Corrections: (The following items were deleted from the chart) 09:33 09:33 UA Rfx Rafat Cult if indicated+U.LAB.BRZ ordered. [facility] EDMT
[2024-12-22 15:40] VITALS: BP 117/82; TEMP 97.9; O2SAT 98
== END 2024-12-22 12:51 | disposition home or self-care (01) ==
LOC: ER 09:17
DX: K21.9 Gastro-esophageal reflux disease without esophagitis (principal)
CPT/HCPCS: 36415; 74177; 80053; 81001; 81025; 83690; 85025; J2405; J2470; J7030; Q9967